=== PATIENT | female | born 1960 | race Caucasian/White ===

== ENCOUNTER 2017-11-10 14:30 | Outpatient (RCR) | payer MEDICAID, SELFPAY ==
--- NOTE | 2017-10-21 15:30 | HP.PTEVAL ---
Patient's Visit Information PREETI HERNÁNDEZ is a 57 year old F referred to Physical Therapy by June Mackenzie MD DR.[email or web address] with a diagnosis of NECK PAIN AND LOW BACK PAIN. Date of Evaluation: 10/21/17 Physical Therapist: Ric Bettencourt PT, - Visit Plan Frequency: 2x /Week Duration: 4 Weeks Plan: Aquatic PT lumbar/cervical ROM ,strengthening UE/LE,DLS,postural ex's - Subjective Subjective: This 57 y/o female presents neck pain and low back pain. Patient reports pain worse in cervical pain than lumbar. 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 Patient had steriod injections in cervical spine next morning pain and swelling and went to ER on 10/17/17. Then shot of tramadol and valium . D/C to home. Symptoms worse in cervical turning,lifting,bending sleeping . Symptoms better with heat. Denies parathesia/tingling. C/O JONES denies tinnutus/nausea. Location pain is worse on right with ocassional radicular symptoms.Symptoms worse with walking ,standing,lifting,bending. Symtoms better with heat. Patient had prior PT in water .Plan for epidural injectons. VOCATION: unemployed. SOCIAL: - Pain Bilateral Neck Pain Intensity (Out of 10): 5 Pain Intensity Range: 10 Bilateral Back Pain Intensity (Out of 10): 2 Pain Intensity Range: 10 - Objective POSTURE: mild foward ,head foward,decrease lordosis flat. NEURO: denies parathesia/tingling ,reflexes C5-6-7 2/3,L3-4,L4-L5,L5-S1. GAIT: normal neri ,reciprocal pattern. PALAPTION: tender throughout UT,posterior muscles ,throught lumbar eretor /paraspinals. CERVICAL: min flexion,extension mod loss,lateral flexion /rotation min/mod loss. LUMBAR ROM: flexion mod loss,extension mod /severe loss,side glides mod loss. MMT: Grossly 4-/5 ,shoulder 3+/5. quads/hams 4-/5,hip flexion 3+/5,ankle 4-/5. FLEXABLITY: hams mos loss,extension severe - Special Tests C/S Radiculapathy - Left Upper limb tension test: Negative C/S Radiculapathy - Right Upper limb tension test: Negative C/S Radiculapathy - Left Spurlings: Positive C/S Radiculapathy - Right Spurlings: Positive C/S Radiculapathy - Left Cervical distraction: Positive C/S Radiculapathy - Right Cervical distraction: Positive Cervical Sitting: Protrusion - Mechanical Response: No effect Cervical Sitting: Protrusion - Symptoms During Testing: Increases Cervical Sitting: Protrusion - Symptoms After Testing: Worse Cervical Sitting: Retraction - Mechanical Response: No effect Cervical Sitting: Retraction - Symptoms During Testing: Increases Cervical Sitting: Retraction - Symptoms After Testing: Worse L/S Slump test left side: Negative L/S Slump test right side: Negative L/S Left Straight Leg Raise: Negative L/S Right Straight Leg Raise: Negative Lumbar Standing: Flexion - Mechanical Response: No effect Lumbar Standing: Flexion - Symptoms During Testing: Increases Lumbar Standing: Flexion - Symptoms After Testing: Worse Lumbar Standing: Extension - Mechanical Response: No effect Lumbar Standing: Extension - Symptoms During Testing: Increases Lumbar Standing: Extension - Symptoms After Testing: Worse - Goals Goal 1:: Independant with Aquatic PT Goal Time Frame: 4-6 Weeks Goal 2:: Independant with posture for ADL'S Goal Time Frame: 4-6 Weeks Goal 3:: Decrease cerviacl and lumbar pain by 40% or greater to improve function with ADL'S Goal Time Frame: 4-6 Weeks Goal 4:: Patient increase strength BLE and BUE by 1/2 grade to improve function with ADL'S Goal Time Frame: 4-6 Weeks Goal 5:: Patient be able to stand walk with less pain in back cervical spine with min/mod limiations for ADL'S Goal Time Frame: 4-6 Weeks - Rehabilitation Potential Physical Therapy Diagnosis: This 57 y/o female has cervical and lumbar pain with MRI showing multple level protruding disc ,stenosis,foraminal stenosis in lumbar with pain ,poor ROM in lumbar /cervical affects. walking ,standing and ADL'S Rehabilitation Potential: Good - Anticipated Interventions Patient/Client Instruction: Educate patient on: Condition, Plan of Care For the Purpose of:: To decrease pain, To increase ROM, To improve muscle performance and motor function, To improve ability to perform ADL's, To increase tolerance to activity/condition/position, To improve performance and independence with ADL's, To improve ability of physical actions for home/community/work/leisure, To improve health of tissue, To decrease soft tissue restriction, To increase flexibility/ROM, To improve endurance, To improve ability to perform tasks related to life management Therapeutic Exercise to Include: Strength training, Body mechanics, Postural training, Flexibilty training, In an aquatic setting, Dynamic Lumbar Stabilization Comment: UE/LE For the Purpose of:: To decrease pain, To increase ROM, To improve muscle performance and motor function, To improve ability to perform ADL's, To increase tolerance to activity/condition/position, To improve performance and independence with ADL's, To improve ability of physical actions for home/community/work/leisure, To improve gait and locomotor functions, To improve health of tissue, To decrease soft tissue restriction, To increase flexibility/ROM, To improve endurance, To assume or resume ADL's, To improve ability to perform tasks related to life management Thank you for the opportunity to evaluate your patient. For Medicare and Medicare HMO plans, please review the plan of care and approve it. It will need to be FAXED BACK to us at [phone] for Medicare purposes. Please let me know if there are questions or concerns regarding this plan of care. Physician Signature: Date:
--- NOTE | 2017-12-28 10:41 | HP.PTDCSUM ---
HP - PT D/C Summary It has been my pleasure to treat PREETI HERNÁNDEZ under orders from June Mackenzie MD, TKWOK for the diagnosis of NECK PAIN AND LOW BACK PAIN for a total of 7 visit(s). Discharge Date: Please see the following information for a summary of their discharge status. - Subjective Subjective: States yesterday's pain was, Off the chart. Spasming. - Pain Bilateral Neck Pain Intensity (Out of 10): 1 Bilateral Back Pain Intensity (Out of 10): 0 - Overall Improvement % Improvement: 60 - Objective Objective/Function: Added lumbar/trunk AAROM with assist from buoyancy and water current for stretching - continued cues needed to decrease muscle recruitment d/t occasional c/o's pain. Completed UE core exc multiplaner - with difficulty maintaining trunk stabilization - cues throughout. Pt reported a decrease in pain on land at end of Rx through cerv. spine from 1/10 to 0/10, however an increase in LBP from 0/10 to 2/10. - Goals Goal 1:: Independant with Aquatic PT Goal 2:: Independant with posture for ADL'S Goal Progress: Progressing Goal 3:: Decrease cerviacl and lumbar pain by 40% or greater to improve function with ADL'S Goal 4:: Patient increase strength BLE and BUE by 1/2 grade to improve function with ADL'S Goal 5:: Patient be able to stand walk with less pain in back cervical spine with min/mod limiations for ADL'S - Plan Plan: f/u with cerv. AROM tasks given on paper as HEP prn. - D/C Information If there are questions or concerns regarding this patient's physical therapy, please feel free to call me at [phone]. Thank you for the referral of this patient. Sincerely, Ric Bettencourt, PT,
--- NOTE | 2017-12-28 10:42 | HP.PTDCNRP_ITS ---
HP - Discharge Summary (1) - Patient Information PREETI HERNÁNDEZ was seen in my office for initial evaluation on 10/21/17. The following Plan of Care was established for this patient: Initial Frequency: 2x /Week Initial Duration: 4 Weeks - Anticipated Interventions Patient/Client Instruction: Educate patient on: Condition, Plan of Care For the Purpose of:: To decrease pain, To increase ROM, To improve muscle performance and motor function, To improve ability to perform ADL's, To increase tolerance to activity/condition/position, To improve performance and independence with ADL's, To improve ability of physical actions for home/ community/work/leisure, To improve health of tissue, To decrease soft tissue restriction, To increase flexibility/ROM, To improve endurance, To improve ability to perform tasks related to life management Therapeutic Exercise to Include: Strength training, Body mechanics, Postural training, Flexibilty training, In an aquatic setting, Dynamic Lumbar Stabilization For the Purpose of:: To decrease pain, To increase ROM, To improve muscle performance and motor function, To improve ability to perform ADL's, To increase tolerance to activity/condition/position, To improve performance and independence with ADL's, To improve ability of physical actions for home/ community/work/leisure, To improve gait and locomotor functions, To improve health of tissue, To decrease soft tissue restriction, To increase flexibility/ ROM, To improve endurance, To assume or resume ADL's, To improve ability to perform tasks related to life management This patient was last seen in our office 11/10/17. Pertinent comments regarding their Physical therapy will appear below: Patient was seen for PT for neck and back pain for Aquatic PT for ROM cervical / lumbar ,postural ex's,DLS ,UE/LE strengthening.Patient progressing with decreasing pain to improve function ,but completed 7 visits ,thus is d/c. At this point I will be discontinuing this patient from physical therapy. I would be happy to see this patient again in the future if found appropriate by the physician. Thank you! Ric Bettencourt, PT,
== END 2017-11-10 19:00 | disposition home or self-care (01) ==
LOC: PT 14:30
PROVIDERS: Family Provider Family Medicine Geriatric Medicine; PCP Family Medicine Geriatric Medicine; Visit Provider Anesthesiology
DX: M54.2 Cervicalgia (principal); M54.5 Low back pain
CPT/HCPCS: 97113; 97162

== ENCOUNTER → 2017-11-30 14:20 | Outpatient (CLI) | payer MEDICAID, SELFPAY ==
--- NOTE | 2017-11-30 14:25 | HPBI_ITS ---
MAMMOGRAPHY - BILATERAL DIAGNOSTIC REASON FOR EXAM: Female, 57 years old. Six-month follow-up for right excisional breast biopsy. Left lateral breast tenderness. PERTINENT HISTORY: Non-contributory. TECHNIQUE: Digital bilateral breast andrey (3D mammographic acquisition) in the CC and MLO projections. 2-D mediolateral oblique (MLO) and craniocaudad (CC) views of both breasts were obtained. CAD: Full Field Digital Mammography with Computer Added Detection was performed. COMPARISON: Comparison is made with prior outside examination dated January 06, 2017 and October 16, 2016. FINDINGS: Breast Composition: The breasts are heterogeneously dense, which may obscure small masses. There are no dominant masses or suspicious calcifications. Stable focal area of architectural distortion in the upper lateral portion of the right breast. This corresponds to the biopsy site. Correlation with ultrasound is recommended. No other significant abnormalities are identified. There has been no significant change since the prior study. HPBI/DIAG MAMM W/CAD, BILAT IMPRESSION: Stable bilateral diagnostic mammogram. One year follow-up recommended. (A) ASSESSMENT CATEGORY: BIRADS Category 2: Benign. A letter regarding these results will be sent to the patient by the facility within 30 days. Approximately 10% of breast cancers are not detected by mammography. A normal mammogram should not delay biopsy of a clinically suspicious abnormality. Electronically Signed: Terrence Chun MD at 8:01 EST Tel [phone], Service support ,
--- NOTE | 2017-11-30 14:25 | US_ITS ---
STUDY: ULTRASOUND BREAST - RIGHT REASON FOR EXAM: Female, 57 years old. Six-month follow-up following right lumpectomy. TECHNIQUE: Axial and longitudinal images of the RIGHT breast were performed with a high resolution ultrasound transducer. COMPARISON: Comparison is made with prior mammogram done earlier in the day and prior sonogram dated May 28, 2017. FINDINGS: RIGHT Breast: At the surgical site, there is evidence of a 1.5 cm x 1.7 cm x 2.2 cm area of irregular shadowing most likely representing the site of the lumpectomy. US/Breast Limited Unilateral IMPRESSION: Postoperative changes seen at the lumpectomy site. ASSESSMENT CATEGORY: BIRADS Category 2: Benign. A letter regarding these results will be sent to the patient by the facility within 30 days. Electronically Signed: Terrence Chun MD at 8:15 EST Tel [phone], Service support ,
== END ==
PROVIDERS: Family Provider Family Medicine Geriatric Medicine; PCP Family Medicine Geriatric Medicine; Visit Provider Surgery
DX: R92.8 Other abnormal and inconclusive findings on diagnostic imaging of breast (principal)
CPT/HCPCS: 76642; 77062; 77066; G0279

== ENCOUNTER → 2017-12-09 17:00 | Outpatient (CLI) | payer MEDICAID, SELFPAY ==
[2017-12-09 17:53] LABS: Absolute Lymphocyte Count 2.89 X10^3/ul (0.83-4.51); Absolute Neutrophil Count 4.4 X10^3/uL (2.0-7.7); Basophil# 0.02 X10^3/uL; Basophil% 0.3 % (0-1); Eosinophils% 1.3 % (0-5); Hematocrit 42.5 % (37-47); Hemoglobin 13.9 g/dl (12.0-15.0); Lymphocyte # 2.89 X10^3/ul (4.0); Lymphocyte % 36.3 % (19-41); Mean Corp Hgb Conc 32.7 g/gl (32-36); Mean Corpuscular Hgb 30.6 pg (27.0-32.0); Mean Corpuscular Volume 93.6 fL (81-99); Mean Platelet Vol. 9.7 fl (6.2-12.0); Monocyte# 0.52 X10^3/uL; Monocyte% 6.5 % (0-10); Neutrophil # 4.43 X10^3/uL (2.7-7.7); Neutrophil % 55.5 % (47-70); Platelet Count 375 K/mm3 (150-450); RBC Distribution Width CV 14.2 % (11.6-14.6); RBC Distribution Width SD 48.5 fl (35.1-43.9); Red Blood Count 4.54 M/mm3 (4.2-5.4)
[2017-12-09 17:57] LABS: POSITIVE COUNT NO; POSITIVE DIFFERENTIAL NO; POSITIVE MORPHOLOGY NO
[2017-12-09 18:13] LABS: Vitamin D,25 Hydroxy 25.8 ng/mL (29.95-100.01)
[2017-12-09 19:05] LABS: ALB/GLOB Ratio 0.9 RATIO (0.9-2.4); AST(SGOT) 43 U/L (15-37); Alanine Aminotransfer ALT/SGPT 44 U/L (13-56); Albumin, Serum 3.6 g/dL (3.2-5.0); Alkaline Phosphatase 67 U/L (45-117); Anion Gap 10 (5-15); BUN 18 mg/dL (7-18); Chloride 104 mmol/L (98-107); EST Glomerular Filtration Rate 68 mL/min (>60); Est Glom Filt Rate - Afr Amer 83 mL/min (>60); Glucose 88 mg/dL (74-106); Potassium 3.9 mmol/L (3.5-5.1); Protein, Total 7.6 g/dL (6.4-8.2); Sodium Level 140 mmol/L (136-145); Thyroid Stim Hormone (TSH) 1.23 uIU/mL (0.358-3.74)
== END ==
PROVIDERS: Family Provider Family Medicine Geriatric Medicine; PCP Family Medicine Geriatric Medicine; Visit Provider Family Medicine Geriatric Medicine
DX: R53.83 Other fatigue (principal); E55.9 Vitamin D deficiency, unspecified
CPT/HCPCS: 36415; 80053; 82306; 84443; 85025

== ENCOUNTER → 2017-12-25 09:41 | Outpatient (CLI) | payer MEDICAID, SELFPAY ==
--- NOTE | 2017-12-25 09:43 | NM_ITS ---
CLINICAL: Female, 57 years old. Bilateral shoulder pain. Diffuse spine pain. WHOLE BODY NUCLEAR BONE SCAN TECHNIQUE: Following the IV administration of 25.3 mCi of Tc MDP, whole body bone imaging was performed with a gamma camera following a three hour delay. COMPARISON STUDIES : NM - None. CR - lumbar spine, September 19, 2016. CT - Not available for review at this time. MR - MRI of the lumbar spine, October 15, 2017. US - Not available for review at this time. FINDINGS: There are focal areas of increased activity at both acromioclavicular joints, right greater than left thought to be due to degenerative. There is scoliosis of the lumbar spine without focal areas of increased activity is minimally increased activity at the right costovertebral junction of T10. There is mildly increased activity in both sacroiliac joints. There is an otherwise normal concentration of radiopharmaceutical throughout the axial and appendicular skeletal system without either a focal decrease or increase in uptake. There is a focal area of increased activity to the right of the bladder. Question bladder diverticulum versus dilated distal right ureter. Minimal activity is also seen in the renal razia suggesting the possibility of hydronephrosis. NM/Bone Scan Whole Body IMPRESSION: 1. Focal areas of mildly increased activity consistent with degenerative change. 2. Prominent renal pelvis with focus of increased activity in the right of the bladder. Question mild ureteral dilatation versus bladder diverticulum. Electronically Signed: Layton Badillo DO at 12:39 EDT Tel [phone], Service support ,
== END ==
PROVIDERS: Family Provider Family Medicine Geriatric Medicine; PCP Family Medicine Geriatric Medicine; Visit Provider Anesthesiology
DX: M25.50 Pain in unspecified joint (principal)
CPT/HCPCS: 78306

== ENCOUNTER → 2018-01-19 13:04 | Outpatient (CLI) | payer MEDICAID, SELFPAY | PROVIDERS: Family Provider Family Medicine Geriatric Medicine; PCP Family Medicine Geriatric Medicine; Visit Provider Internal Medicine Critical Care Medicine | DX: G47.33 Obstructive sleep apnea (adult) (pediatric) (principal) | CPT/HCPCS: 98960; G0463 ==

== ENCOUNTER → 2018-01-20 16:25 | Outpatient (CLI) | payer MEDICAID, SELFPAY | PROVIDERS: Family Provider Family Medicine Geriatric Medicine; PCP Family Medicine Geriatric Medicine; Visit Provider Family Medicine Geriatric Medicine | DX: N39.0 Urinary tract infection, site not specified (principal) | CPT/HCPCS: 87086 ==

== ENCOUNTER → 2018-01-25 09:56 | Outpatient (CLI) | payer MEDICAID, SELFPAY ==
--- NOTE | 2018-01-25 10:25 | RAD_ITS ---
STUDY: IVP REASON FOR EXAM: Female, 57 years old. Hematuria RADIATION DOSAGE (If Supplied By Facility): CTDIvol = ( ) mGy, DLP = ( ) mGycm. Individualized dose optimization techniques were used for this CT.? 10 overhead images obtained TECHNIQUE: 60 mL Isovue 300 contrast administered COMPARISON: None. FINDINGS: Jewel Sorter film demonstrates retained stool in the colon. No free air identified. There are calcifications within the pelvis which are lucent centered and likely phleboliths. No demonstrated calcifications along the expected course of either ureter or over either renal shadow. After contrast ministration, there are prompt symmetric nephrograms with prompt excretion of contrast into the collecting systems. Both ureters are of normal course and caliber without evidence of obstruction. The bladder distends normally without evidence of filling defect, and no significant post void residual is noted. RAD/Pyelogram No Ceferino IMPRESSION: Unremarkable IVP no evidence of obstructive uropathy Electronically Signed: Lc Yee MD at 11:24 EDT , Service support ,
== END ==
PROVIDERS: Family Provider Family Medicine Geriatric Medicine; PCP Family Medicine Geriatric Medicine; Visit Provider Family Medicine Geriatric Medicine
DX: N32.3 Diverticulum of bladder (principal)
CPT/HCPCS: 74410; Q9967

== ENCOUNTER 2018-02-08 15:59 | Emergency (ER) | payer MEDICAID, SELFPAY ==
[2018-02-08 16:00] VITALS: BP 159/95; PULSE 94; RESP 16; TEMP 36.1; O2SAT 99; BMI 32.5
--- NOTE | 2018-02-08 16:44 | RAD_ITS ---
STUDY: X-RAY - RIGHT FOOT CLINICAL: Female, 57 years old. Foreign body second digit TECHNIQUE: 3 view(s) of the foot. COMPARISON: None. FINDINGS: Normal talus, calcaneus, and tarsal bones. Normal visualized subtalar, talonavicular, calcaneocuboid, tarsal and tarsometatarsal articulations. Normal metatarsi. There is now degenerative arthrosis of the metatarsophalangeal joint of the hallux . Normal tibial and fibular sesamoid bones. Normal interphalangeal joint of the great toe. Normal phalanges of the great toe. Normal second through fifth metatarsophalangeal joints. Normal interphalangeal joints and phalanges of the lesser toes. The soft tissue structures are unremarkable. RAD/Foot min 3 Views IMPRESSION: No visualized radiopaque foreign body. Electronically Signed: Lindsey Ge MD at 17:00 EDT Tel , Service support ,
--- NOTE | 2018-02-08 16:45 | ED.DCSUM_ITS ---
- ER Visit Summary Date of Service: 02/08/18 Chief Complaint: Foreign body sensation right second toe History of Present Illness: The patient is a 57 F who is otherwise healthy presents with foreign body sensation in her right second toe. Patient states that she was just folding clothes last night. She noticed a sharp pain on the inside of her right second toe. Since then, the pain is worsened throughout the day. She denies any puncture. She does not think she stepped on anything. Her tetanus is up-to-date. The area has not gotten red. There has been no drainage. She states that she has never really had symptoms like this before. She has no history of immunosuppression. Physical Examination: Exam is relatively unremarkable. There was no erythema of the toe. There is no skin breakdown. There is no visible puncture wound. There is no palpable defect. Cap refill is normal. Sensation is preserved. No pain with smaller range of motion. Test Results: [] Emergency Department Course and Treatment: There is no visible evidence of puncture. There is no evidence of paronychia, ingrown toenail, or infection of the pad of the toe. There is no streaking. The cap refill is normal. I did obtain plain films. I do not see any evidence of soft tissue swelling or retained foreign body. At this time, I am very hesitant to even attempt an incision and drainage at the point of maximal tenderness because I do not see evidence of puncture. The patient was placed in a postoperative shoe and started on anti-inflammatories. She will be given outpatient podiatry follow- up to be seen within the next 48 hours return to the emergency department. She is comfortable with this plan of care. Treatment Plan: [] Disposition: Discharge Impression: 1. Foreign body sensation right second toe This note was generated with [employer] dictation software. It may contain incorrect words, spelling, and punctuation that were not noted in review of the chart prior to signing ED Disposition - Plan for ED Patient: Chief Complaint: Foreign Body Instructions: ED Foreign Body Soft Tissue Prescriptions: Naproxen [Naprosyn] 500 mg PO BID PRN #20 tab Referrals: Vick De Los Santos DPM [STAFF PHYSICIAN] -
[2018-02-08 17:29] VITALS: RESP 16
--- NOTE | 2018-02-08 17:29 | ED.RN ---
REVIEWED D/C INSTRUCTIONS, FOLLOW UP CARE, PRESCRIPTION, AND S/S THAT WOULD WARRANT A RETURN TO THE ED WITH PT. PT VERBALIZED AN UNDERSTANDING AND DENIES FURTHER QUESTIONS FOR THIS RN. PT SKIN P/W/D, RESP EVEN AND UNLABORED, PT A&O X 3, NO DISTRESS NOTED. PT AMBULATED OUT OF ED, GAIT STEADY.
== END 2018-02-08 17:31 | disposition home or self-care (01) ==
PROVIDERS: Emergency Provider Emergency Medicine; Family Provider Family Medicine Geriatric Medicine; PCP Family Medicine Geriatric Medicine
DX: R20.2 Paresthesia of skin (principal); Z79.899 Other long term (current) drug therapy
CPT/HCPCS: 73630; 99283

== ENCOUNTER 2018-02-17 15:37 | Emergency (ER) | payer MEDICAID, SELFPAY ==
[2018-02-17 15:38] VITALS: BP 136/99; PULSE 89; RESP 14; TEMP 36.2; O2SAT 97; BMI 32.7
--- NOTE | 2018-02-17 15:50 | CT_ITS ---
STUDY: CT ABDOMEN AND PELVIS WITH CONTRAST REASON FOR EXAM: Female, 57 years old. Right sided abdominal pain for 2 days. Nausea. RADIATION DOSAGE (If Supplied By Facility): CTDIvol = ( 16.5 ) mGy, DLP = ( 1149.72 ) mGycm TECHNIQUE: Transaxial images were obtained from the dome of the diaphragm to the symphysis pubis with oral contrast. 100CC ml of Isovue 300 contrast was administered. Sagittal and coronal images were reconstructed. Individualized dose optimization techniques were used for this CT. COMPARISON: CT of the abdomen and pelvis, June 16, 2017. FINDINGS: The visualized lung bases are unremarkable. The visualized portions of the heart are within normal limits. There is geographic fatty infiltration of liver with sparing in the posterior right lobe and in the bladder fossa. Again seen is the hemangioma in segment 6 of the liver as noted on the prior study. There is non-visualization of the gallbladder, which may be secondary to either contraction or a prior cholecystectomy. There is mild dilatation of the bile ducts suggesting postcholecystectomy state. Normal spleen. Normal pancreas. Normal bilateral adrenal glands. Normal right kidney. Normal left kidney. Normal visualized stomach. Normal small intestine. Normal colon. There is non-visualization of the appendix. There are minimal atherosclerotic changes of the thoracic aorta without aneurysm. Normal inferior vena cava. Normal retroperitoneum. Normal urinary bladder. Normal uterus and adnexa. There are multiple phleboliths in the pelvis without lymphadenopathy. No free air or free fluid is seen in the peritoneal cavity. Normal abdominal wall. Normal osseous structures. CT/Abdomen/Pelvis WITH Contrast IMPRESSION: 1. Geographic fatty infiltration of the liver. Decrease in fatty infiltration when compared to prior study. 2. Stable hemangioma in the right liver. 3. No evidence of acute intra-abdominal or pelvic abnormality. Electronically Signed: Layton Badillo DO at 17:45 EDT Tel [phone], Service support ,
[2018-02-17] MEDS: Morphine 4 MG/ML Syringe IV (16:08)
[2018-02-17] MEDS: 0.9% Normal Saline 1,000 ML 1000 ML IV (16:08)
[2018-02-17] MEDS: Ondansetron 4 MG/2 ML Vial IV (16:08)
[2018-02-17 16:24] LABS: Red Blood Cells-Urine 0 SEEN /hpf (0-5)
[2018-02-17 16:29] LABS: Absolute Lymphocyte Count 2.17 X10^3/ul (0.83-4.51); Absolute Neutrophil Count 6.1 X10^3/uL (2.0-7.7); Basophil# 0.01 X10^3/uL; Basophil% 0.1 % (0-1); Eosinophil# 0.04 X10^3/uL; Eosinophils% 0.5 % (0-5); Hematocrit 44.4 % (37-47); Lymphocyte # 2.17 X10^3/ul (4.0); Lymphocyte % 24.7 % (19-41); Mean Corp Hgb Conc 33.8 g/gl (32-36); Mean Corpuscular Hgb 31.1 pg (27.0-32.0); Mean Corpuscular Volume 92.1 fL (81-99); Mean Platelet Vol. 9.1 fl (6.2-12.0); Monocyte# 0.44 X10^3/uL; Neutrophil % 69.6 % (47-70); POSITIVE COUNT NO; POSITIVE DIFFERENTIAL NO; POSITIVE MORPHOLOGY NO; Platelet Count 306 K/mm3 (150-450); RBC Distribution Width CV 13.2 % (11.6-14.6); RBC Distribution Width SD 44.1 fl (35.1-43.9); Red Blood Count 4.82 M/mm3 (4.2-5.4); White Blood Count 8.8 K/mm3 (4.4-11.0)
[2018-02-17 16:37] LABS: Color, Urine Yellow (Yellow); Glucose, Dipstick Normal (Normal); Ketone-Dipstick 15 mg/dl (Negative); Leukocyte Esterase-Dipstick 25 /ul (Negative); Nitrite-Dipstick Negative (Negative); Occult Blood-Urine 25 /ul (Negative); Protein-Dipstick Negative (Negative); Specific Gravity, Urine 1.025 (1.002-1.030); Urine Bilirubin Dipstick Negative (Negative); Urine Clarity Sl. Cloudy (Clear); Urine Urobilinogen Normal (Normal)
[2018-02-17 16:44] LABS: White Blood Cells 0-5 SEEN /hpf (0-5)
[2018-02-17 16:45] LABS: Bacteria 1+ /hpf (None Seen); Mucous, Urine 2+ /hpf (<or=2+); Squamous Epithelial Cells - UA 10-25 SEEN /hpf (5-10)
[2018-02-17 16:55] LABS: AST(SGOT) 21 U/L (15-37); Alanine Aminotransfer ALT/SGPT 25 U/L (13-56); Albumin, Serum 3.9 g/dL (3.2-5.0); Alkaline Phosphatase 78 U/L (45-117); Anion Gap 8 (5-15); BUN 20 mg/dL (7-18); BUN/Creat Ratio 21.4 RATIO (10-20); Bilirubin, Direct 0.16 mg/dL (0.00-0.30); Calcium,Total 9.3 mg/dL (8.5-10.1); Chloride 104 mmol/L (98-107); Creatinine, Serum 0.94 mg/dL (0.55-1.02); EST Glomerular Filtration Rate 65 mL/min (>60); Est Glom Filt Rate - Afr Amer 79 mL/min (>60); Globulin 4.2 g/dL (2.2-4.2); Glucose 97 mg/dL (74-106); Lipase 127 U/L (73-393); Potassium 3.2 mmol/L (3.5-5.1); Protein, Total 8.1 g/dL (6.4-8.2); Sodium Level 140 mmol/L (136-145)
--- NOTE | 2018-02-17 18:04 | ED.VISSUMM ---
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 She reports that she has had right-sided abdominal pain on and off for the past 2 years. It worsened 2 days ago. Sick continuous aching pain. Is 10 out of 10 with movement 6 out of 10 on rest. It is not worsened by food. She has had nausea without vomiting. Her last bowel was today. She has had no diarrhea, melena, or hematochezia. She denies any dysuria. Physical Examination: Vitals: Stable. Afebrile. General: Well-nourished and well-developed. Head: Normocephalic atraumatic. Neck: Supple, no lymphadenopathy. No JVD. Nontender. Cardiovascular: Regular rate and rhythm. No murmurs. Respiratory: No respiratory distress. Clear to auscultation bilaterally. Abdominal: Soft, mild right upper quadrant and right lower quadrant tenderness to palpation, the majority of her pain is over the very lateral portion of her abdomen on the right, nondistended, normal bowel sounds. No guarding, rebound, or peritoneal signs. Back: Nontender. Extremities: Nontender, no edema. Skin: Normal color, no rash. Neurologic: Alert and oriented ?3. Cranial nerves II through XII are intact. Normal strength and sensation. Psych: Normal affect. Test Results: CBC is normal. Chem-7 is remarkable for a potassium 3.2 and BUN of 20. LFTs are normal. Lipase is normal. UA is negative. CT of the abdomen pelvis. IV contrast shows no acute disease. Emergency Department Course and Treatment: Patient was treated the dose of morphine and Zofran IV. She is resting comfortably. Treatment Plan: Discussed the patient at this time I do not have an explanation for her pain. She will be discharged instructions to follow-up her primary care physician in 3-5 days not improving. Return to the emergency department for any worsening symptoms. Disposition: To home in improved and stable condition. Impression: 1. Abdominal pain, uncertain cause. This note was generated with [email or web address] dictation software. It may contain incorrect words, spelling, and punctuation that were not noted in review of the chart prior to signing ED Disposition - Plan for ED Patient: Disposition: Home or Assisted Living Chief Complaint: Abd Pain Instructions: ED Abdominal Pain Unkn Cause Referrals: Rey Palmer Chi, MD [Primary Care Provider] - 1-2 Days if not improving
== END 2018-02-17 18:34 | disposition home or self-care (01) ==
PROVIDERS: Emergency Provider Emergency Medicine; Family Provider Family Medicine Geriatric Medicine; PCP Family Medicine Geriatric Medicine
DX: R10.9 Unspecified abdominal pain (principal); R11.0 Nausea; R31.9 Hematuria, unspecified; M19.90 Unspecified osteoarthritis, unspecified site; Z79.899 Other long term (current) drug therapy
CPT/HCPCS: 74177; 80048; 80076; 81001; 83690; 85025; 96361; 96374; 96375; 99283; J7030; Q9967

== ENCOUNTER 2018-03-30 22:27 | Observation (INO) | payer MEDICAID, SELFPAY ==
[2018-03-30 22:27] VITALS: BP 116/67; PULSE 120; RESP 22; TEMP 36.7; O2SAT 98; BMI 29.7
[2018-03-30 22:45] VITALS: BP 135/74; PULSE 100; RESP 20; O2SAT 96
--- NOTE | 2018-03-30 22:57 | EKG12_ITS ---
Test Reason : DIZZY Blood Pressure : / mmHG Vent. Rate : 101 BPM Atrial Rate : 101 BPM P-R Int : 168 ms QRS Dur : 082 ms QT Int : 370 ms P-R-T Axes : 046 -02 037 degrees QTc Int : 479 ms Sinus tachycardia Otherwise normal ECG Confirmed by YASMIN FELDMAN, RICARDO ([id number]), senior editor RAOUL RITTER ([id number]) on 04/01/2018 2:34:00 PM Referred By: JOSUE Confirmed By:RICARDO HOFFMAN MD
--- NOTE | 2018-03-30 23:02 | ED.DCSUM_ITS ---
- ER Visit Summary Date of Service: 03/30/18 Chief Complaint: Dizzy, nausea, vomiting History of Present Illness: The patient is a 58 F reports nausea, vomiting, and diarrhea since this afternoon. She denies fever but does complain of some mild chills. She is complaining some upper abdominal pain. She states she has not eaten anything since yesterday. She has not been around any ill contacts that she knows of. Past abdominal surgical history includes cholecystectomy. Physical Examination: Vital signs significant for heart rate of 120 in triage. Heart rate is 100 at the time of my examination. Patient's lying in bed in no acute distress. Head and neck examination unremarkable. Heart is tachycardic and regular. Lung sounds are grossly clear. Abdomen is soft with tenderness in epigastric region. No guarding or rebound. Hypoactive bowel sounds are noted. Test Results: CBC reveals hemoglobin concentrated at 15.4. Chemistry studies are significant for potassium of 3.4 and a glucose of 120. LFTs and lipase are normal. EKG is sinus at 101 with no sign of acute ischemia. Emergency Department Course and Treatment: Patient given IV fluids and Zofran. She declined anything for pain. Repeat evaluation she started vomiting. She is given a small dose of IV Phenergan. Half hour later she states her nausea is improving but not to the point where she is able to tolerate anything by mouth. At this point I will speak with the hospitalist for observation overnight with continued IV hydration and medication. Treatment Plan: [] Disposition: Admit Impression: Gastroenteritis This note was generated with [employer] dictation software. It may contain incorrect words, spelling, and punctuation that were not noted in review of the chart prior to signing ED Disposition - Plan for ED Patient: Chief Complaint: Dizziness Referrals: Rey Palmer Chi, MD [Primary Care Provider] -
[2018-03-30] MEDS: 0.9% Normal Saline 1,000 ML 150 ML IV (23:20)
[2018-03-30] MEDS: Ondansetron 4 MG/2 ML Vial IV (23:20)
[2018-03-30 23:29] LABS: Absolute Lymphocyte Count 1.27 X10^3/ul (0.83-4.51); Basophil# 0.01 X10^3/uL; Basophil% 0.1 % (0-1); Eosinophil# 0.12 X10^3/uL; Eosinophils% 1.3 % (0-5); Hematocrit 43.9 % (37-47); Hemoglobin 15.4 g/dl (12.0-15.0); Lymphocyte # 1.27 X10^3/ul (4.0); Lymphocyte % 14.3 % (19-41); Mean Corp Hgb Conc 35.1 g/gl (32-36); Mean Corpuscular Hgb 31.4 pg (27.0-32.0); Mean Corpuscular Volume 89.6 fL (81-99); Mean Platelet Vol. 9.4 fl (6.2-12.0); Monocyte# 0.45 X10^3/uL; Monocyte% 5.1 % (0-10); Neutrophil # 7.03 X10^3/uL (2.7-7.7); Neutrophil % 79.1 % (47-70); Platelet Count 337 K/mm3 (150-450); RBC Distribution Width CV 13.1 % (11.6-14.6); RBC Distribution Width SD 42.6 fl (35.1-43.9); White Blood Count 8.9 K/mm3 (4.4-11.0)
[2018-03-30 23:31] LABS: POSITIVE COUNT NO; POSITIVE DIFFERENTIAL NO; POSITIVE MORPHOLOGY NO
[2018-03-30 23:48] LABS: AST(SGOT) 29 U/L (15-37); Alanine Aminotransfer ALT/SGPT 29 U/L (13-56); Albumin, Serum 3.8 g/dL (3.2-5.0); Alkaline Phosphatase 93 U/L (45-117); Anion Gap 12 (5-15); BUN 13 mg/dL (7-18); BUN/Creat Ratio 14.7 RATIO (10-20); Bilirubin, Direct 0.19 mg/dL (0.00-0.30); Calcium,Total 9.4 mg/dL (8.5-10.1); Chloride 103 mmol/L (98-107); Creatinine, Serum 0.89 mg/dL (0.55-1.02); EST Glomerular Filtration Rate 69 mL/min (>60); Est Glom Filt Rate - Afr Amer 84 mL/min (>60); Estimated Creatinine Clearance 61.24 ml/min; Glucose 120 mg/dL (74-106); Lipase 109 U/L (73-393); Potassium 3.4 mmol/L (3.5-5.1); Protein, Total 7.8 g/dL (6.4-8.2); Sodium Level 140 mmol/L (136-145)
[2018-03-31] VITALS (7 sets, daily range): BP systolic 97–160; BP diastolic 60–87; PULSE 71–110; RESP 14–18; TEMP 36.7–37.6; O2SAT 94–100; BMI 31.6
--- NOTE | 2018-03-31 00:59 | PCM.HP.STD ---
Problem List (1) Gastroenteritis Status: Acute (2) ARIELA (obstructive sleep apnea) Status: Chronic Comment: 10/6 cm of water (3) History of colectomy Status: Resolved (4) S/P lumpectomy of breast Status: Resolved (5) [place] teeth extracted Status: Resolved (6) Allergic rhinitis Status: Chronic (7) Depression Status: Chronic (8) Anxiety Status: Chronic (9) Acute urticaria Status: Resolved (10) Scoliosis Status: Chronic (11) Neck pain Status: Chronic (12) Thoracic back pain Status: Chronic (13) Chronic lower back pain Status: Chronic (14) BPPV (benign paroxysmal positional vertigo) Status: Chronic (15) Warts Status: Chronic (16) Muscle spasm Status: Chronic (17) Lumbar disc lesion Status: Chronic (18) Dehydration Status: Acute (19) Hematuria Status: Resolved (20) Right flank pain Status: Resolved (21) Streptococcus agalactiae infection Status: Resolved (22) Abnormal mammogram of right breast Status: Chronic (23) Obesity Status: Chronic Qualifiers: (24) Fatty liver Status: Chronic (25) GERD (gastroesophageal reflux disease) Status: Chronic (26) HLD (hyperlipidemia) Status: Chronic History of Present Illness Date of Admission: 03/31/18 Chief Complaint: N/V/D The patient is a 58 year old F with PMH of chronic pain S., Steatosis, GERD, hyperlipidemia, obesity, chronic narcotic dependence, anxiety/depression and allergic rhinitis who presented to the ED at [facility] on 03/30/2018 c/o N/V/D that started earlier in the day. She denied sick contacts. No fevers or shaking chills but, admits to feeling hot and then cold. She denies hematemesis or melena. Vital signs at presentation to the emergency room were temperature 98.1, pulse rate 120, blood pressure 116/67, respiratory rate 22 and she was 98% saturated on room air. Significant lab included an elevated hemoglobin at 15.4 and a low potassium at 3.4. She was initially given Zofran in the emergency room but this was not effective. This was followed by 6.25 mg of Phenergan IV and the nausea improved but the patient did not feel well enough to go home. She is being admitted to the hospital for observation, hydration and anti-emetics. Past Medical History Past Medical History (Chronic Problems): Chronic Problems (Last Reviewed 03/22/18 @ 11:08 by ISABEL Padgett) ARIELA (obstructive sleep apnea) (Chronic) 10/6 cm of water Allergic rhinitis (Chronic) Depression (Chronic) Anxiety (Chronic) Scoliosis (Chronic) Neck pain (Chronic) Thoracic back pain (Chronic) Chronic lower back pain (Chronic) BPPV (benign paroxysmal positional vertigo) (Chronic) Warts (Chronic) Muscle spasm (Chronic) Lumbar disc lesion (Chronic) Abnormal mammogram of right breast (Chronic) Obesity (Chronic) Fatty liver (Chronic) GERD (gastroesophageal reflux disease) (Chronic) HLD (hyperlipidemia) (Chronic) Medical History: Medical History (Last Reviewed 03/22/18 @ 11:08 by ISABEL Padgett) ARIELA (obstructive sleep apnea) (Chronic) G47.33 10/6 cm of water Allergic rhinitis (Chronic) J30.9 Depression (Chronic) F32.9 Anxiety (Chronic) F41.9 Acute urticaria (Acute) L50.8 Scoliosis (Chronic) M41.9 Neck pain (Chronic) M54.2 Thoracic back pain (Chronic) M54.6 Chronic lower back pain (Chronic) M54.5, G89.29 BPPV (benign paroxysmal positional vertigo) (Chronic) H81.10 Warts (Chronic) B07.9 Muscle spasm (Chronic) M62.838 Lumbar disc lesion (Chronic) M51.9 Dehydration (Chronic) E86.0 Nausea (Acute) R11.0 Hematuria (Acute) R31.9 Right flank pain (Acute) R10.9 Streptococcus agalactiae infection (Acute) A49.1 Abnormal mammogram of right breast (Chronic) R92.8 Sleep disorder breathing (Chronic) G47.30 Obesity (Chronic) E66.9 Fatty liver (Acute) K76.0 GERD (gastroesophageal reflux disease) (Acute) K21.9 HLD (hyperlipidemia) (Acute) E78.5 Allergies codeine Allergy (Verified 03/30/18 22:30) Itching ATB Allergy (Uncoded 03/30/18 22:30) Unknown Home Medications: Ambulatory Orders Medication Instructions Recorded Omeprazole [Prilosec] 40 mg PO QHS 12/19/15 Ranitidine [Zantac] 300 mg PO QHS 03/23/16 Sertraline HCl [Zoloft] 50 mg PO QHS 12/19/15 [place]-3 Fatty Acids [Fish Oil] 1,000 mg PO BID 09/19/16 Pravastatin Sodium [Pravachol] 40 mg PO QHS 06/23/17 busPIRone [Buspar] 15 mg PO BID 06/23/17 Baclofen [Lioresal] 10 mg PO TID 06/24/17 Fluticasone 0.05% [Flonase Nasal 1 spray NASAL QHS 06/24/17 [place]] phentermine 15 mg capsule 15 mg PO QDAY 12/31/17 Buprenorphine [Buprenorphine] 1 patch TP QWEEK 02/08/18 Meloxicam 7.5 mg PO BID 03/30/18 Surgical History: Surgical History (Last Reviewed 03/31/18 @ 01:05 by Reba Schwab DO) History of colectomy (Resolved) Z98.890, Z90.49 S/P lumpectomy of breast (Resolved) Z98.890 [place] teeth extracted (Resolved) K08.499 Surgical History: cholecystectomy Psychiatric History: Anxiety, Depression 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 Denies: Chills, Fever Eyes: Denies: Vision Change HEENT: Denies: Head Aches, Sinus Congestion, Sinus Drainage Cardiovascular: Denies: Chest Pain, Palpitations Respiratory: Denies: Cough, Shortness of breath at rest, Sputum production Gastrointestinal: Reports: Abdominal Pain - prior to vomiting and the vomiting relieves it, Diarrhea, Nausea, Vomiting. Denies: Dyspepsia, Hematemesis, Hematochezia, Melena Genitourinary: Denies: Dysuria Gynecological: Denies: Vaginal discharge Musculoskeletal: Reports: Back Pain - chronic Skin: Denies: Rash, Wounds Neurological: Denies: Numbness, Tingling, Focal weakness Psychiatric: Reports: Anxiety, Depression Endocrine: Denies: Change in Body Habitus Hematologic/ Lymphatic: Denies: Hx of blood clot VTE Information - Inpt Only VTE Present on Admission: No VTE Mechan Device Prophylaxis: None VTE Pharm Prophylaxis ordered?: No Reason prophylaxis not ordered:: Treatment Not Indicated - low risk and she is ambulatory. short admission is expected Patient Problems: Active and Suspected Problems (Last Reviewed 03/22/18 @ 11:08 by ISABEL Padgett) Gastroenteritis (Acute) - Physical Exam General: Alert, Oriented x3, Cooperative, - - looks ill HEENT: Atraumatic, PERRLA, EOMI, Normocephalic Oral: Dry Mucosa Neck: Supple, No Nodes, Trachea Midline Lungs: Clear to auscultation Cardiovascular: Regular Rhythm, Normal S1, Normal S2, No murmurs, No rub noted, No Gallop, Tachycardic Abdomen: Soft, Non Tender, Non-Distended, No Hepato-splenomegaly, Hypoactive Bowel Sounds Extremities: No clubbing, No cyanosis, No edema Skin: No rashes, No breakdown Musculoskeletal: No Muscle Wasting Neurological: Cranial nerves II-XII grossly intact, Neuro grossly intact Psych/Mental Status: Appropriate Vital Signs Temp Pulse Resp BP Pulse Ox 99.6 F H 110 H 14 116/74 94 03/31/18 00:54 03/31/18 00:54 03/31/18 00:54 03/31/18 00:54 03/31/18 00:54 Oxygen Delivery Method Room Air Weight: 179 lb Body Mass Index (BMI) 29.7 Laboratory Tests Past 24 Hrs 03/30/18 03/30/18 23:15 23:15 WBC 8.9 RBC 4.90 Hgb 15.4 H Hct 43.9 MCV 89.6 MCH 31.4 MCHC 35.1 RDW 13.1 RDW Differential 42.6 Plt Count 337 MPV 9.4 Immature Gran % (Auto) 0.100 Neut % (Auto) 79.1 H Lymph % (Auto) 14.3 L [place] % (Auto) 5.1 Eos % (Auto) 1.3 Baso % (Auto) 0.1 Absolute Neuts (auto) 7.0 Absolute Lymphs (auto) 1.27 Total Counted Not Reportable Sodium 140 Potassium 3.4 L Chloride 103 Carbon Dioxide 25.0 Anion Gap 12 BUN 13 Creatinine 0.89 Estim Creat Clear Calc 61.24 Est GFR (MDRD) Af Amer 84 Est GFR (MDRD) Non-Af 69 BUN/Creatinine Ratio 14.7 Glucose 120 H Calcium 9.4 Total Bilirubin 0.80 Direct Bilirubin 0.19 AST 29 ALT 29 Alkaline Phosphatase 93 Total Protein 7.8 Albumin 3.8 Globulin 4.0 Lipase 109 Assessment/Plan All Active Problems (Last Reviewed 03/22/18 @ 11:08 by Tami Loza, MOSAIC TILE MAKER-C) Gastroenteritis (Acute) History of colectomy (Resolved) S/P lumpectomy of breast (Resolved) [place] teeth extracted (Resolved) Dehydration (Acute) Acute urticaria (Resolved) Hematuria (Resolved) Right flank pain (Resolved) Streptococcus agalactiae infection (Resolved) Impressions 1. gastroenteritis 2. dehydration 3. narcotic dependence 4. chronic pain S. 5. GERD 6. HTN/HLD/steatosis/allergic rhinitis/anxiety/depression IV fluids antiemetics sips and chips enteric pathogen panel Pepcid 20 mg IV q 12 H recheck the lab in the AM Advance diet as tolerated Code Visit OBSV E&M: [id number] Initial observation care L3
--- NOTE | 2018-03-31 01:11 | HP.PCM_ITS ---
Problem List (1) Gastroenteritis Status: Acute (2) ARIELA (obstructive sleep apnea) Status: Chronic Comment: 10/6 cm of water (3) History of colectomy Status: Resolved (4) S/P lumpectomy of breast Status: Resolved (5) [place] teeth extracted Status: Resolved (6) Allergic rhinitis Status: Chronic (7) Depression Status: Chronic (8) Anxiety Status: Chronic (9) Acute urticaria Status: Resolved (10) Scoliosis Status: Chronic (11) Neck pain Status: Chronic (12) Thoracic back pain Status: Chronic (13) Chronic lower back pain Status: Chronic (14) BPPV (benign paroxysmal positional vertigo) Status: Chronic (15) Warts Status: Chronic (16) Muscle spasm Status: Chronic (17) Lumbar disc lesion Status: Chronic (18) Dehydration Status: Acute (19) Hematuria Status: Resolved (20) Right flank pain Status: Resolved (21) Streptococcus agalactiae infection Status: Resolved (22) Abnormal mammogram of right breast Status: Chronic (23) Obesity Status: Chronic Qualifiers: (24) Fatty liver Status: Chronic (25) GERD (gastroesophageal reflux disease) Status: Chronic (26) HLD (hyperlipidemia) Status: Chronic History of Present Illness Date of Admission: 03/31/18 Chief Complaint: N/V/D The patient is a 58 year old F with PMH of chronic pain S., Steatosis, GERD, hyperlipidemia, obesity, chronic narcotic dependence, anxiety/depression and allergic rhinitis who presented to the ED at [facility] on 03/30/2018 c/o N/V/D that started earlier in the day. She denied sick contacts. No fevers or shaking chills but, admits to feeling hot and then cold. She denies hematemesis or melena. Vital signs at presentation to the emergency room were temperature 98.1 , pulse rate 120, blood pressure 116/67, respiratory rate 22 and she was 98% saturated on room air. Significant lab included an elevated hemoglobin at 15.4 and a low potassium at 3.4. She was initially given Zofran in the emergency room but this was not effective. This was followed by 6.25 mg of Phenergan IV and the nausea improved but the patient did not feel well enough to go home. She is being admitted to the hospital for observation, hydration and anti- emetics. Past Medical History Past Medical History (Chronic Problems): Chronic Problems (Last Reviewed 03/22/18 @ 11:08 by ISABEL Padgett) ARIELA (obstructive sleep apnea) (Chronic) 10/6 cm of water Allergic rhinitis (Chronic) Depression (Chronic) Anxiety (Chronic) Scoliosis (Chronic) Neck pain (Chronic) Thoracic back pain (Chronic) Chronic lower back pain (Chronic) BPPV (benign paroxysmal positional vertigo) (Chronic) Warts (Chronic) Muscle spasm (Chronic) Lumbar disc lesion (Chronic) Abnormal mammogram of right breast (Chronic) Obesity (Chronic) Fatty liver (Chronic) GERD (gastroesophageal reflux disease) (Chronic) HLD (hyperlipidemia) (Chronic) Medical History: Medical History (Last Reviewed 03/22/18 @ 11:08 by ISABEL Padgett) ARIELA (obstructive sleep apnea) (Chronic) G47.33 10/6 cm of water Allergic rhinitis (Chronic) J30.9 Depression (Chronic) F32.9 Anxiety (Chronic) F41.9 Acute urticaria (Acute) L50.8 Scoliosis (Chronic) M41.9 Neck pain (Chronic) M54.2 Thoracic back pain (Chronic) M54.6 Chronic lower back pain (Chronic) M54.5, G89.29 BPPV (benign paroxysmal positional vertigo) (Chronic) H81.10 Warts (Chronic) B07.9 Muscle spasm (Chronic) M62.838 Lumbar disc lesion (Chronic) M51.9 Dehydration (Chronic) E86.0 Nausea (Acute) R11.0 Hematuria (Acute) R31.9 Right flank pain (Acute) R10.9 Streptococcus agalactiae infection (Acute) A49.1 Abnormal mammogram of right breast (Chronic) R92.8 Sleep disorder breathing (Chronic) G47.30 Obesity (Chronic) E66.9 Fatty liver (Acute) K76.0 GERD (gastroesophageal reflux disease) (Acute) K21.9 HLD (hyperlipidemia) (Acute) E78.5 Allergies codeine Allergy (Verified 03/30/18 22:30) Itching ATB Allergy (Uncoded 03/30/18 22:30) Unknown Home Medications: Ambulatory Orders Medication Instructions Recorded Omeprazole [Prilosec] 40 mg PO QHS 12/19/15 Ranitidine [Zantac] 300 mg PO QHS 03/23/16 Sertraline HCl [Zoloft] 50 mg PO QHS 12/19/15 [place]-3 Fatty Acids [Fish Oil] 1,000 mg PO BID 09/19/16 Pravastatin Sodium [Pravachol] 40 mg PO QHS 06/23/17 busPIRone [Buspar] 15 mg PO BID 06/23/17 Baclofen [Lioresal] 10 mg PO TID 06/24/17 Fluticasone 0.05% [Flonase Nasal 1 spray NASAL QHS 06/24/17 [place]] phentermine 15 mg capsule 15 mg PO QDAY 12/31/17 Buprenorphine [Buprenorphine] 1 patch TP QWEEK 02/08/18 Meloxicam 7.5 mg PO BID 03/30/18 Surgical History: Surgical History (Last Reviewed 03/31/18 @ 01:05 by Reba Schwab DO) History of colectomy (Resolved) Z98.890, Z90.49 S/P lumpectomy of breast (Resolved) Z98.890 [place] teeth extracted (Resolved) K08.499 Surgical History: cholecystectomy Psychiatric History: Anxiety, Depression 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 Denies: Chills, Fever Eyes: Denies: Vision Change HEENT: Denies: Head Aches, Sinus Congestion, Sinus Drainage Cardiovascular: Denies: Chest Pain, Palpitations Respiratory: Denies: Cough, Shortness of breath at rest, Sputum production Gastrointestinal: Reports: Abdominal Pain - prior to vomiting and the vomiting relieves it, Diarrhea, Nausea, Vomiting. Denies: Dyspepsia, Hematemesis, Hematochezia, Melena Genitourinary: Denies: Dysuria Gynecological: Denies: Vaginal discharge Musculoskeletal: Reports: Back Pain - chronic Skin: Denies: Rash, Wounds Neurological: Denies: Numbness, Tingling, Focal weakness Psychiatric: Reports: Anxiety, Depression Endocrine: Denies: Change in Body Habitus Hematologic/ Lymphatic: Denies: Hx of blood clot VTE Information - Inpt Only VTE Present on Admission: No VTE Mechan Device Prophylaxis: None VTE Pharm Prophylaxis ordered?: No Reason prophylaxis not ordered:: Treatment Not Indicated - low risk and she is ambulatory. short admission is expected Patient Problems: Active and Suspected Problems (Last Reviewed 03/22/18 @ 11:08 by ISABEL Padgett) Gastroenteritis (Acute) - Physical Exam General: Alert, Oriented x3, Cooperative, - - looks ill HEENT: Atraumatic, PERRLA, EOMI, Normocephalic Oral: Dry Mucosa Neck: Supple, No Nodes, Trachea Midline Lungs: Clear to auscultation Cardiovascular: Regular Rhythm, Normal S1, Normal S2, No murmurs, No rub noted, No Gallop, Tachycardic Abdomen: Soft, Non Tender, Non-Distended, No Hepato-splenomegaly, Hypoactive Bowel Sounds Extremities: No clubbing, No cyanosis, No edema Skin: No rashes, No breakdown Musculoskeletal: No Muscle Wasting Neurological: Cranial nerves II-XII grossly intact, Neuro grossly intact Psych/Mental Status: Appropriate Vital Signs Temp Pulse Resp BP Pulse Ox 99.6 F H 110 H 14 116/74 94 03/31/18 00:54 03/31/18 00:54 03/31/18 00:54 03/31/18 00:54 03/31/18 00:54 Oxygen Delivery Method Room Air Weight: 179 lb Body Mass Index (BMI) 29.7 Laboratory Tests Past 24 Hrs 03/30/18 03/30/18 23:15 23:15 WBC 8.9 RBC 4.90 Hgb 15.4 H Hct 43.9 MCV 89.6 MCH 31.4 MCHC 35.1 RDW 13.1 RDW Differential 42.6 Plt Count 337 MPV 9.4 Immature Gran % (Auto) 0.100 Neut % (Auto) 79.1 H Lymph % (Auto) 14.3 L [place] % (Auto) 5.1 Eos % (Auto) 1.3 Baso % (Auto) 0.1 Absolute Neuts (auto) 7.0 Absolute Lymphs (auto) 1.27 Total Counted Not Reportable Sodium 140 Potassium 3.4 L Chloride 103 Carbon Dioxide 25.0 Anion Gap 12 BUN 13 Creatinine 0.89 Estim Creat Clear Calc 61.24 Est GFR (MDRD) Af Amer 84 Est GFR (MDRD) Non-Af 69 BUN/Creatinine Ratio 14.7 Glucose 120 H Calcium 9.4 Total Bilirubin 0.80 Direct Bilirubin 0.19 AST 29 ALT 29 Alkaline Phosphatase 93 Total Protein 7.8 Albumin 3.8 Globulin 4.0 Lipase 109 Assessment/Plan All Active Problems (Last Reviewed 03/22/18 @ 11:08 by Tami Loza, COMMUNICATIONS TOWER CLIMBER-C) Gastroenteritis (Acute) History of colectomy (Resolved) S/P lumpectomy of breast (Resolved) [place] teeth extracted (Resolved) Dehydration (Acute) Acute urticaria (Resolved) Hematuria (Resolved) Right flank pain (Resolved) Streptococcus agalactiae infection (Resolved) Impressions 1. gastroenteritis 2. dehydration 3. narcotic dependence 4. chronic pain S. 5. GERD 6. HTN/HLD/steatosis/allergic rhinitis/anxiety/depression IV fluids antiemetics sips and chips enteric pathogen panel Pepcid 20 mg IV q 12 H recheck the lab in the AM Advance diet as tolerated Code Visit OBSV E&M: [id number] Initial observation care L3
[2018-03-31] MEDS: proMETHazine 25 MG/ML Syringe 6.25 MG IV ×2 (01:29)
[2018-03-31] MEDS: Famotidine 20mg IV Push Syringe Q12 300 MG IVP ×3 (03:04→21:46)
[2018-03-31] MEDS: Mag Hydrox/Al Hydrox/Simeth 30 ML UDC 15 ML PO (06:41)
[2018-03-31 06:56] LABS: Absolute Lymphocyte Count 0.79 X10^3/ul (0.83-4.51); Absolute Neutrophil Count 4.8 X10^3/uL (2.0-7.7); Eosinophil# 0.06 X10^3/uL; Hematocrit 39.9 % (37-47); Hemoglobin 13.3 g/dl (12.0-15.0); Lymphocyte # 0.79 X10^3/ul (4.0); Lymphocyte % 13.4 % (19-41); Mean Corp Hgb Conc 33.3 g/gl (32-36); Mean Corpuscular Hgb 30.9 pg (27.0-32.0); Mean Corpuscular Volume 92.6 fL (81-99); Mean Platelet Vol. 9.3 fl (6.2-12.0); Monocyte# 0.28 X10^3/uL; Monocyte% 4.7 % (0-10); Neutrophil # 4.76 X10^3/uL (2.7-7.7); Neutrophil % 80.7 % (47-70); Platelet Count 270 K/mm3 (150-450); RBC Distribution Width CV 13.6 % (11.6-14.6); RBC Distribution Width SD 45.8 fl (35.1-43.9); Red Blood Count 4.31 M/mm3 (4.2-5.4); White Blood Count 5.9 K/mm3 (4.4-11.0)
[2018-03-31 07:03] LABS: POSITIVE COUNT NO; POSITIVE DIFFERENTIAL NO; POSITIVE MORPHOLOGY NO
[2018-03-31 07:15] LABS: Anion Gap 7 (5-15); BUN 11 mg/dL (7-18); BUN/Creat Ratio 14.3 RATIO (10-20); Calcium,Total 7.9 mg/dL (8.5-10.1); Chloride 106 mmol/L (98-107); Creatinine, Serum 0.77 mg/dL (0.55-1.02); EST Glomerular Filtration Rate 82 mL/min (>60); Est Glom Filt Rate - Afr Amer 99 mL/min (>60); Estimated Creatinine Clearance 62.22 ml/min; Glucose 107 mg/dL (74-106); Potassium 3.6 mmol/L (3.5-5.1); Sodium Level 138 mmol/L (136-145)
[2018-03-31] MEDS: Acetaminophen 325 MG Tablet 650 MG PO ×3 (07:50→21:57)
[2018-03-31] MEDS: Baclofen 10 MG Tablet PO ×3 (09:58→16:25)
--- NOTE | 2018-03-31 14:47 | PCM.HOSP.N ---
Hospitalist Note The patient was seen and examined in the morning. 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 H&P, vitals, labs and plan of management reviewed. In summary, this is a 58-year-old female with history of chronic pain syndrome, dyslipidemia, GERD and obesity was admitted for nausea vomiting and diarrhea that is started a day before yesterday. She said from tomorrow morning until admission C had about 10 times, loose watery diarrhea without mucus or blood. She felt that she might have gotten sick from the toddler. She has infrequently mild abdominal discomfort/cramps secondary to vomiting and diarrhea. On exam: Abdomen: Soft, nontender nondistended bowel sounds present. Bowel sounds hyperactive. Lungs: Air entry bilaterally equal. No crepitation/rhonchi. Heart: S1-S2 regular no murmur gallop rub Neuro: No focal neurological deficit. 1. Most probably acute viral gastroenteritis: She is being admitted on regular floor. She said she was on antibiotic for UTI about 6 months ago. She has not taken laxative for last 4 days. Currently on supportive management with IV fluid, antiemetics. Started on clear liquid diet 2. Mild hypokalemia with dehydration: Continue IV fluid normal saline with KCl. 3. Other comorbidities Include GERD, chronic pain syndrome with nicotine dependence, hypertension, dyslipidemia, steatosis, anxiety and depression and allergic rhinitis: Home medication reconciliation done.
--- NOTE | 2018-03-31 14:52 | CCHN_ITS ---
Hospitalist Note The patient was seen and examined in the morning. 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 H&P, vitals, labs and plan of management reviewed. In summary, this is a 58-year-old female with history of chronic pain syndrome, dyslipidemia, GERD and obesity was admitted for nausea vomiting and diarrhea that is started a day before yesterday. She said from tomorrow morning until admission C had about 10 times, loose watery diarrhea without mucus or blood. She felt that she might have gotten sick from the toddler. She has infrequently mild abdominal discomfort/cramps secondary to vomiting and diarrhea. On exam: Abdomen: Soft, nontender nondistended bowel sounds present. Bowel sounds hyperactive. Lungs: Air entry bilaterally equal. No crepitation/rhonchi. Heart: S1-S2 regular no murmur gallop rub Neuro: No focal neurological deficit. 1. Most probably acute viral gastroenteritis: She is being admitted on regular floor. She said she was on antibiotic for UTI about 6 months ago. She has not taken laxative for last 4 days. Currently on supportive management with IV fluid, antiemetics. Started on clear liquid diet 2. Mild hypokalemia with dehydration: Continue IV fluid normal saline with KCl. 3. Other comorbidities Include GERD, chronic pain syndrome with nicotine dependence, hypertension, dyslipidemia, steatosis, anxiety and depression and allergic rhinitis: Home medication reconciliation done.
[2018-03-31] MEDS: Fluticasone 0.05% 1 SPRAY NASAL.SRY NASAL (21:45)
[2018-04-01 03:50] VITALS: BP 143/72; PULSE 80; RESP 18; TEMP 37; O2SAT 95
[2018-04-01] MEDS: Acetaminophen 325 MG Tablet 650 MG PO (04:22)
[2018-04-01 08:25] VITALS: BP 131/81; PULSE 77; RESP 18; TEMP 36.9; O2SAT 96
[2018-04-01] MEDS: Famotidine 20mg IV Push Syringe Q12 300 MG IVP (08:43)
[2018-04-01] MEDS: Baclofen 10 MG Tablet PO ×2 (09:25→11:30)
[2018-04-01] MEDS: Ketorolac 15 MG/ML Vial IV (10:19)
--- NOTE | 2018-04-01 11:08 | PCM.DC ---
- Discharge Diagnoses Current Active Problems: Current Active and Chronic Problems (Last Reviewed 03/22/18 @ 11:08 by ISABEL Padgett) Gastroenteritis (Acute) You will use the following diet at home:: Regular Discharge Activity: May Not Drive, May not drive while taking narcotic pain medications. Call your doctor if you observe: Fever of 101 or Higher, Shortness of breath Allergies/Adverse Reactions: Allergies codeine Allergy (Verified 03/30/18 22:30) Itching ATB Allergy (Uncoded 03/30/18 22:30) Unknown Medications to take at Discharge Ranitidine [Zantac] 300 mg PO QHS 12/19/15 Sertraline HCl [Zoloft] 50 mg PO QHS 12/19/15 [place]-3 Fatty Acids [Fish Oil] 1,000 mg PO BID 09/19/16 Pravastatin Sodium [Pravachol] 40 mg PO QHS 06/23/17 busPIRone [Buspar] 15 mg PO BID 06/23/17 Baclofen [Lioresal] 10 mg PO TID 06/24/17 Fluticasone 0.05% [Flonase Nasal [place]] 1 spray NASAL QHS 06/24/17 phentermine 15 mg capsule 15 mg PO QDAY 12/31/17 Buprenorphine 1 patch TP QWEEK 02/08/18 Meloxicam 7.5 mg PO BID 03/30/18 Primary Care Physician: Rey Palmer Chi, MD [Primary Care Provider] - Please follow up with your Primary Care Physician in: in 2 weeks Test Results: Please Follow Up With: Michael Acosta MD When: for chronic back pain
--- NOTE | 2018-04-01 11:10 | PCM.DC.SUM ---
Discharge Date and Diagnosis - Problem List Patient Problems: Active and Suspected Problems (Last Reviewed 03/22/18 @ 11:08 by ISABEL Padgett) Gastroenteritis (Acute) Date of Admission: 03/31/18 Date of Discharge: 04/01/18 - Primary Discharge Diagnosis Active and Suspected Problems (Last Reviewed 03/22/18 @ 11:08 by ISABEL Padgett) Gastroenteritis (Acute) 1 Most probably acute viral gastroenteritis: 2. Mild hypokalemia with dehydration: - Secondary Discharge Diagnosis Chronic Problems (Last Reviewed 03/22/18 @ 11:08 by ISABEL Padgett) ARIELA (obstructive sleep apnea) (Chronic) 10/6 cm of water Allergic rhinitis (Chronic) Depression (Chronic) Anxiety (Chronic) Scoliosis (Chronic) Neck pain (Chronic) Thoracic back pain (Chronic) Chronic lower back pain (Chronic) BPPV (benign paroxysmal positional vertigo) (Chronic) Warts (Chronic) Muscle spasm (Chronic) Lumbar disc lesion (Chronic) Abnormal mammogram of right breast (Chronic) Obesity (Chronic) Fatty liver (Chronic) GERD (gastroesophageal reflux disease) (Chronic) HLD (hyperlipidemia) (Chronic) Hospital Course and Treatment Summary of Care Provided: The patient is a 58 year old female with history of chronic pain syndrome, dyslipidemia, GERD and obesity was admitted for nausea vomiting and diarrhea that is started a day before yesterday. She said from tomorrow morning until admission C had about 10 times, loose watery diarrhea without mucus or blood. She felt that she might have gotten sick from the toddler. She had infrequently mild abdominal discomfort/cramps secondary to vomiting and diarrhea. She was further admitted on regular [facility] floor. On exam: Abdomen: Soft, nontender nondistended bowel sounds present. Bowel sounds hyperactive. Lungs: Air entry bilaterally equal. No crepitation/rhonchi. Heart: S1-S2 regular no murmur gallop rub Neuro: No focal neurological deficit. Extremities: No pedal edema 1. Most probably acute viral gastroenteritis: She is being admitted on regular floor. She said she was on antibiotic for UTI about 6 months ago. She has not taken laxative for last 4 days. Currently on supportive management with IV fluid, antiemetics. Started on clear liquid diet which was progressed to solid diet. Patient had colonoscopy about 2 years ago and hemorrhoid was found. She has intermittent rectal bleeding because of hemorrhoids in the past. Stool for occult blood positive but no obvious hematochezia or GI bleed. H&H is stable. Initial hemoglobin 15.4 may be from hemoconcentration as patient was dry. Stool for leukocytes is negative. Stool for C. difficile was canceled because she had solid stool. 2. Mild hypokalemia with dehydration: Continue IV fluid normal saline with KCl. Repeat K3.6. Potassium replaced 3. Other comorbidities include GERD, chronic pain syndrome with nicotine dependence, hypertension, dyslipidemia, steatosis, anxiety and depression and allergic rhinitis: Discharge medication reconciliation done. Follow-up instructions given. Follow pain management Dr. Acosta with chronic back pain Follow with PCP in 1-2 weeks. Discharge Activity: May Not Drive, May not drive while taking narcotic pain medications. Call your doctor if you observe: Fever of 101 or Higher, Shortness of breath Home Medications: Medications to take at Discharge Ranitidine [Zantac] 300 mg PO QHS 12/19/15 Sertraline HCl [Zoloft] 50 mg PO QHS 12/19/15 [place]-3 Fatty Acids [Fish Oil] 1,000 mg PO BID 09/19/16 Pravastatin Sodium [Pravachol] 40 mg PO QHS 06/23/17 busPIRone [Buspar] 15 mg PO BID 06/23/17 Baclofen [Lioresal] 10 mg PO TID 06/24/17 Fluticasone 0.05% [Flonase Nasal [place]] 1 spray NASAL QHS 06/24/17 phentermine 15 mg capsule 15 mg PO QDAY 12/31/17 Buprenorphine 1 patch TP QWEEK 02/08/18 Meloxicam 7.5 mg PO BID 03/30/18 Primary Care Physician: Rey Palmer Chi, MD [Primary Care Provider] - Please follow up with your Primary Care Physician in: in 2 weeks Please Follow Up With: Michael Acosta MD When: for chronic back pain Medical Necessity - Tobacco Use Smoking Status: Never smoker Tobacco Use: Non-smoker Meaningful Use Info Meaningful Use Diagnoses (Choose all that apply): None applicable Code Visit OBSV E&M: 30204 Observation care discharge
[2018-04-01 14:25] VITALS: BP 132/80; PULSE 79; RESP 18; TEMP 37.1; O2SAT 96
== END 2018-04-01 15:24 | disposition home or self-care (01) ==
LOC: ED 23:04 → PCU 03-31 01:01
PROVIDERS: Admitting Provider Internal Medicine; Emergency Provider Emergency Medicine; Family Provider Family Medicine Geriatric Medicine; PCP Family Medicine Geriatric Medicine; Visit Provider Internal Medicine
DX: K52.9 Noninfective gastroenteritis and colitis, unspecified (principal); E87.6 Hypokalemia; E86.0 Dehydration; G47.33 Obstructive sleep apnea (adult) (pediatric); F41.9 Anxiety disorder, unspecified; F32.9 Major depressive disorder, single episode, unspecified; M41.9 Scoliosis, unspecified; Z79.899 Other long term (current) drug therapy; K21.9 Gastro-esophageal reflux disease without esophagitis; E78.5 Hyperlipidemia, unspecified; E66.9 Obesity, unspecified; Z68.31 Body mass index [BMI] 31.0-31.9, adult; Z71.3 Dietary counseling and surveillance; H81.10 Benign paroxysmal vertigo, unspecified ear; G89.4 Chronic pain syndrome; I10 Essential (primary) hypertension; F11.20 Opioid dependence, uncomplicated; Z87.891 Personal history of nicotine dependence
CPT/HCPCS: 36415; 80048; 80076; 82274; 83630; 83690; 85025; 87493; 87506; 93005; 96361; 96365; 96366; 96375; 96376; 97802; 99218; 99283; J7030; G0378; J2405; J3490

== ENCOUNTER → 2018-04-05 15:44 | Outpatient (CLI) | payer MEDICAID, SELFPAY ==
[2018-04-05 17:54] LABS: Anion Gap 11 (5-15); BUN 17 mg/dL (7-18); Calcium,Total 9.7 mg/dL (8.5-10.1); Chloride 100 mmol/L (98-107); Creatinine, Serum 0.81 mg/dL (0.55-1.02); EST Glomerular Filtration Rate 77 mL/min (>60); Est Glom Filt Rate - Afr Amer 93 mL/min (>60); Glucose 88 mg/dL (74-106); Potassium 3.8 mmol/L (3.5-5.1); Sodium Level 139 mmol/L (136-145)
== END ==
PROVIDERS: Family Provider Family Medicine Geriatric Medicine; PCP Family Medicine Geriatric Medicine; Visit Provider Family Medicine Geriatric Medicine
DX: E87.6 Hypokalemia (principal)
CPT/HCPCS: 36415; 80048

== ENCOUNTER 2018-04-09 12:42 | Day surgery (SDC) | payer MEDICAID, SELFPAY ==
[2018-04-09] VITALS (7 sets, daily range): BP systolic 133–157; BP diastolic 69–84; PULSE 60–70; RESP 16; TEMP 36.2–36.7; O2SAT 95–97; BMI 31.1
--- NOTE | 2018-04-09 14:01 | PCM.DC ---
- Discharge Diagnoses Current Active Problems: Right sacroiliitis and right gluteal pain Reason(s) for Visit for Discharge Instructions: Right sacroiliac joint injection and right pyriformis muscle injection under fluoroscopy guidance Discharge Activity: Return to Normal Activity Return to work on:: 03/30/18 May shower in (days): 1 January resume sexual activity in: No Restrictions Weight Bearing Status: Weight bearing as tolerated Call your doctor if your incision/area has: Continuous Slow Oozing, Increased Pain/ Swelling, Foul Smelling Discharge Call your doctor if you observe: Fever of 101 or Higher, Coldness, Increased Pain, Numbness or Tingling, Calf discomfort, Uncontrolled pain Suture Line Care: Avoid Pulling/Pushing, Avoid Pinching/Bending Change Dressing in (Days):: 1 Remove Dressing in (days):: 1 Cleanse incision/area with: Soap & Water Allergies/Adverse Reactions: Allergies codeine Allergy (Verified 03/30/18 22:30) Itching UNK ANTIBIOTIC Allergy (Uncoded 04/08/18 10:34) Other DOESN'T REMEMBER REACTION MIGHT HAVE GOTTEN HIVES Medications to take at Discharge Ranitidine [Zantac] 300 mg PO QHS 12/19/15 Sertraline HCl [Zoloft] 50 mg PO QHS 12/19/15 [place]-3 Fatty Acids [Fish Oil] 1,000 mg PO BID 09/19/16 Pravastatin Sodium [Pravachol] 40 mg PO QHS 06/23/17 busPIRone [Buspar] 15 mg PO BID 06/23/17 Baclofen [Lioresal] 10 mg PO TID 06/24/17 Fluticasone 0.05% [Flonase Nasal [place]] 1 spray NASAL QHS 06/24/17 Buprenorphine 1 patch TP QWEEK 02/08/18 Meloxicam 7.5 mg PO BID 03/30/18 Primary Care Physician: Rey Palmer Chi, MD [Primary Care Provider] - Test Results: Test results from this visit will be discussed in further detail at your follow-up appointment, if applicable. Please Follow Up With: June Mackenzie MD
--- NOTE | 2018-04-09 14:04 | DCINST_ITS ---
- Discharge Diagnoses Current Active Problems: Right sacroiliitis and right gluteal pain Reason(s) for Visit for Discharge Instructions: Right sacroiliac joint injection and right pyriformis muscle injection under fluoroscopy guidance Discharge Activity: Return to Normal Activity Return to work on:: 03/30/18 May shower in (days): 1 January resume sexual activity in: No Restrictions Weight Bearing Status: Weight bearing as tolerated Call your doctor if your incision/area has: Continuous Slow Oozing, Increased Pain/ Swelling, Foul Smelling Discharge Call your doctor if you observe: Fever of 101 or Higher, Coldness, Increased Pain, Numbness or Tingling, Calf discomfort, Uncontrolled pain Suture Line Care: Avoid Pulling/Pushing, Avoid Pinching/Bending Change Dressing in (Days):: 1 Remove Dressing in (days):: 1 Cleanse incision/area with: Soap & Water Allergies/Adverse Reactions: Allergies codeine Allergy (Verified 03/30/18 22:30) Itching UNK ANTIBIOTIC Allergy (Uncoded 04/08/18 10:34) Other DOESN'T REMEMBER REACTION MIGHT HAVE GOTTEN HIVES Medications to take at Discharge Ranitidine [Zantac] 300 mg PO QHS 12/19/15 Sertraline HCl [Zoloft] 50 mg PO QHS 12/19/15 [place]-3 Fatty Acids [Fish Oil] 1,000 mg PO BID 09/19/16 Pravastatin Sodium [Pravachol] 40 mg PO QHS 06/23/17 busPIRone [Buspar] 15 mg PO BID 06/23/17 Baclofen [Lioresal] 10 mg PO TID 06/24/17 Fluticasone 0.05% [Flonase Nasal [place]] 1 spray NASAL QHS 06/24/17 Buprenorphine 1 patch TP QWEEK 02/08/18 Meloxicam 7.5 mg PO BID 03/30/18 Primary Care Physician: Rey Palmer Chi, MD [Primary Care Provider] - Test Results: Test results from this visit will be discussed in further detail at your follow- up appointment, if applicable. Please Follow Up With: June Mackenzie MD
--- NOTE | 2018-04-09 14:04 | PCM.OPRPT ---
Problem List (1) Muscle spasm Status: Chronic (2) Amplified musculoskeletal pain, localized Status: Acute (3) Bilateral buttock pain Status: Acute (4) Sacroiliitis, not elsewhere classified Status: Acute Report of Operation Date of Procedure: 04/09/18 Pre-Operative Diagnosis: Sacroiliitis and piriformis muscle syndrome Post-Operative Diagnosis: Same Surgery/Procedure Performed:: Right sacroiliac joint injection and right pyriformis muscle injection under fluoroscopy guidance Description of Surgical Findings:: Under sterile conditions. Patient placed in the prone position, pressure points were padded, patient was ready from the nursing and the anesthesia team. After identification of the side and the target area for the block under guided fluoroscopy, the entry site was marked with marking pen. I used Betadine for sterilization of the skin, sterile draping were applied. Using 25-gauge needle to infiltrate the skin with local anesthesia using preservative-free lidocaine 0.5% injected 5 mL at each site of entry critic joint was oblique guidance fluoroscopy as well as 5 mL infiltration at the target of the piriformis muscle mid level between insertion and origin. Using oblique fluoroscopy, accessed the right sacroiliac joint and right pyriformis muscle using 22-gauge spinal needle. After confirmation of appropriate needle placement to the targeted area with AP and lateral fluoroscopy, injected 8 mL mL mixture of preservative-free Marcaine 0.5% and Kenalog [60] mg at right sacroiliac joint site, injected 20 mg Kenalog with Marcaine 0.5% 5 mL at the piriformis muscle confirmed with fluoroscopy showing appropriate muscle spread at the target region. [place] was removed, pressure dressing were applied. Patient tolerated the procedure well and was taken to the recovery. Type of Anesthesia:: MAC - Complications None
--- NOTE | 2018-04-09 14:10 | RAD_ITS ---
STUDY: FLUOROSCOPIC IMAGING PROVIDED FOR LEFT SI JOINT AND LEFT PIRIFORMIS INJECTION. REASON FOR EXAM: Female, 58 years old. Right-sided pain. FLUOROSCOPY TIME (if supplied): (14.4 seconds) minutes/seconds TECHNIQUE: Imaging provided for right sacroiliac joint and right piriformis injection. COMPARISON: None. FINDINGS: The spinal needle is seen overlying the right sacroiliac joint and right piriformis muscle. RAD/Fluoro Guided Needle Placement IMPRESSION: Imaging provided for right SI joint injection and right piriformis injection. Electronically Signed: Terrence Chun MD at 15:05 EDT Tel [phone], Service support ,
[2018-04-09] MEDS: Bupivacaine 0.25% 30 ML Vial (14:19)
[2018-04-09] MEDS: Triamcinolone Acetonide 40 MG/ML Vial (14:19)
== END 2018-04-09 15:23 | disposition home or self-care (01) ==
LOC: SDC 12:43 → AC 12:44
PROVIDERS: Family Provider Family Medicine Geriatric Medicine; PCP Family Medicine Geriatric Medicine; Visit Provider Anesthesiology
PROC: 3E0U3GC Introduction of Other Therapeutic Substance into Joints, Percutaneous Approach (ICD-10-PCS; CPT 27096; principal; 2018-04-09 13:55)
DX: M46.1 Sacroiliitis, not elsewhere classified (principal); G57.00 Lesion of sciatic nerve, unspecified lower limb; M54.5 Low back pain; M62.838 Other muscle spasm; E78.00 Pure hypercholesterolemia, unspecified; K58.9 Irritable bowel syndrome, unspecified; G25.81 Restless legs syndrome; K21.9 Gastro-esophageal reflux disease without esophagitis; F32.9 Major depressive disorder, single episode, unspecified; F41.9 Anxiety disorder, unspecified; E66.9 Obesity, unspecified; Z68.31 Body mass index [BMI] 31.0-31.9, adult; Z79.899 Other long term (current) drug therapy; Z78.0 Asymptomatic menopausal state; Z98.51 Tubal ligation status
CPT/HCPCS: 01992; 27096; 76000; 77002; J7120

== ENCOUNTER → 2018-05-07 22:49 | Outpatient (CLI) | payer MEDICAID, SELFPAY | PROVIDERS: Family Provider Family Medicine Geriatric Medicine; PCP Family Medicine Geriatric Medicine; Visit Provider Nurse Practitioner Acute Care | DX: G47.33 Obstructive sleep apnea (adult) (pediatric) (principal) | CPT/HCPCS: 95811 ==

== ENCOUNTER 2018-06-25 11:42 | Day surgery (SDC) | payer MEDICAID, SELFPAY ==
[2018-06-25] VITALS (8 sets, daily range): BP systolic 128–161; BP diastolic 78–110; PULSE 52–56; RESP 14–16; TEMP 36.2–36.8; O2SAT 96–100; BMI 33.1
--- NOTE | 2018-06-25 13:30 | RAD_ITS ---
Fluoroscopic guidance for epidural by referring clinical service INDICATION: L4-L5 epidural TECHNIQUE: 5 fluoroscopic images. 19 seconds of fluoroscopy time FINDINGS: Multiple fluoroscopic images demonstrate placement of a needle at L4-L5 with injection of epidural contrast. RAD/Spine 1 View Any Level IMPRESSION: Fluoroscopic guidance for L4-L5 procedure. Please see procedural report. Electronically Signed: Elan Arevalo MD at 14:47 EDT , Service support ,
[2018-06-25] MEDS: Triamcinolone Acetonide 40 MG/ML Vial (13:43)
--- NOTE | 2018-06-25 13:59 | PCM.DC ---
- Discharge Diagnoses Current Active Problems: Lower back pain due to lumbar degenerative disc disease and lumbar radiculopathy You will use the following diet at home:: No restrictions Your food should be the consistency of: Regular Your liquids should be the consistency of: Regular/Thin Discharge Activity: Return to Normal Activity Return to work on:: 06/28/18January shower in (days): 1 May resume sexual activity in: No Restrictions Weight Bearing Status: Weight bearing as tolerated Call your doctor if your incision/area has: Continuous Slow Oozing, Sudden Increased Bleeding, Increased Pain/ Swelling, Increased Redness, Swelling at the incision site Call your doctor if you observe: Numbness or Tingling, Inability to urinate, Inability to have a bowel movement, Using more than one pad per hour, Shortness of breath, Dizziness, Fainting spells, Swelling in the ankles, Chest pain, Prolonged hiccoughing, Increased palpitations (irregular heartbeat), Calf discomfort, Uncontrolled pain Suture Line Care: Avoid Pulling/Pushing, Avoid Pinching/Bending Cleanse incision/area with: Soap & Water Allergies/Adverse Reactions: Allergies codeine Allergy (Verified 06/25/18 12:01) Itching UNK ANTIBIOTIC Allergy (Uncoded 06/25/18 12:01) Other DOESN'T REMEMBER REACTION MIGHT HAVE GOTTEN HIVES Medications to take at Discharge Ranitidine [Zantac] 300 mg PO QHS 12/19/15 Sertraline HCl [Zoloft] 50 mg PO QHS 12/19/15 [place]-3 Fatty Acids [Fish Oil] 1,000 mg PO BID 09/19/16 Pravastatin Sodium [Pravachol] 40 mg PO QHS 06/23/17 busPIRone [Buspar] 15 mg PO BID 06/23/17 Baclofen [Lioresal] 10 mg PO TID 06/24/17 Fluticasone 0.05% [Flonase Nasal [place]] 1 spray NASAL QHS 06/24/17 Buprenorphine 1 patch TP QWEEK 02/08/18 Meloxicam 7.5 mg PO BID 03/30/18 Primary Care Physician: Rey Palmer Chi, MD [Primary Care Provider] - Test Results: Test results from this visit will be discussed in further detail at your follow-up appointment, if applicable. Please Follow Up With: June Mackenzie MD
--- NOTE | 2018-06-25 14:03 | OP.PCM_ITS ---
Problem List (1) Intervertebral disc disorder with radiculopathy of lumbar region Status: Acute (2) Other intervertebral disc degeneration, lumbar region Status: Acute Report of Operation Date of Procedure: 06/25/18 Pre-Operative Diagnosis: Lumbar degenerative disease and lumbar disc degeneration with lumbar radiculopathy Post-Operative Diagnosis: Same Surgery/Procedure Performed:: Lumbar epidural steroid injection at the level of the L4-5 under fluoroscopy and conscious sedation Description of Surgical Findings:: Under sterile conditions. Patient placed in the prone position, pressure points were padded, patient was ready from the nursing and the anesthesia team. After identification of the side and the target area for the block under guided fluoroscopy, the entry site was marked with marking pen. I used Betadine for sterilization of the skin, sterile draping were applied. Using 25-gauge needle to infiltrate the skin with local anesthesia using preservative-free lidocaine 0.5% injected 2.5 mL at site of entry. Using guided fluoroscopy, accessed the the posterior epidural space using 18- gauge Touhy needles under midline approach, accessed the site was assisted with lateral fluoroscopy, followed by using [id number] technique using preservative-free normal saline, negative aspiration of CSF and blood. Injected contrast solution [2.5] mL under live fluoroscopy which showed good spread of the contrast to the posterior epidural space and to the targeted area of the injection at[ L4-5]. Injected [5] mL of mixture of preservative-free lidocaine and Kenalog [80] mg for the procedure which showed appropriate spread in the epidural space. [place] was removed, pressure dressing were applied. Patient tolerated the pro cedure well and was taken to the recovery. Type of Anesthesia:: Local MAC, MAC - Complications None
== END 2018-06-25 14:44 | disposition home or self-care (01) ==
LOC: SDC 11:43 → AC 11:45
PROVIDERS: Family Provider Family Medicine Geriatric Medicine; PCP Family Medicine Geriatric Medicine; Referring Provider Anesthesiology; Visit Provider Anesthesiology
PROC: 3E0S3BZ Introduction of Anesthetic Agent into Epidural Space, Percutaneous Approach (ICD-10-PCS; CPT 62322; principal; 2018-06-25 07:25)
DX: M51.16 Intervertebral disc disorders with radiculopathy, lumbar region (principal); I10 Essential (primary) hypertension; E78.00 Pure hypercholesterolemia, unspecified; G25.81 Restless legs syndrome; K58.9 Irritable bowel syndrome, unspecified; G47.30 Sleep apnea, unspecified; K21.9 Gastro-esophageal reflux disease without esophagitis; F32.9 Major depressive disorder, single episode, unspecified; F41.9 Anxiety disorder, unspecified; E66.9 Obesity, unspecified; Z68.33 Body mass index [BMI] 33.0-33.9, adult; Z79.899 Other long term (current) drug therapy; Z78.0 Asymptomatic menopausal state
CPT/HCPCS: 62323; 64483; 72020; J7120; J3490

== ENCOUNTER → 2018-07-26 15:12 | Outpatient (CLI) | payer MEDICAID, SELFPAY ==
--- NOTE | 2018-07-26 15:24 | RAD_ITS ---
STUDY: X-RAY - PELVIS AND BILATERAL HIPS REASON FOR EXAM: Female, 58 years old. Bilateral hip pain, no injury TECHNIQUE: Radiological exam, hip, bilateral, with pelvis when performed; minimum of 5 views COMPARISON: None. FINDINGS: There is a non-specific bowel gas pattern. Normal visualized soft tissue structures. Normal bilateral iliac wings, sacroiliac joints and visualized sacrum. Normal bilateral superior and inferior pubic rami. Normal pubic symphysis. Normal bilateral ischial tuberosities. Normal visualized right femoral head. Normal right acetabulum. Normal right hip joint. Normal visualized left femoral head. Normal left acetabulum. Normal left hip joint. RAD/Hips B/L min 2 views w/ Pelvis IMPRESSION: Normal x-ray examination of the pelvis and bilateral hips. Electronically Signed: Tello Dowd DO at 14:10 EDT Tel , Service support ,
== END ==
PROVIDERS: Family Provider Family Medicine Geriatric Medicine; PCP Family Medicine Geriatric Medicine; Referring Provider Anesthesiology; Visit Provider Anesthesiology
DX: M25.552 Pain in left hip (principal); M25.551 Pain in right hip
CPT/HCPCS: 73521

== ENCOUNTER → 2018-08-18 13:51 | Outpatient (CLI) | payer MEDICAID, SELFPAY ==
[2018-08-18 16:09] LABS: Absolute Lymphocyte Count 2.86 X10^3/ul (0.83-4.51); Absolute Neutrophil Count 4.1 X10^3/uL (2.0-7.7); Basophil# 0.02 X10^3/uL; Basophil% 0.3 % (0-1); Eosinophil# 0.09 X10^3/uL; Eosinophils% 1.2 % (0-5); Hematocrit 41.7 % (37-47); Hemoglobin 13.4 g/dl (12.0-15.0); Lymphocyte # 2.86 X10^3/ul (4.0); Lymphocyte % 36.9 % (19-41); Mean Corp Hgb Conc 32.1 g/gl (32-36); Mean Corpuscular Hgb 30.4 pg (27.0-32.0); Mean Corpuscular Volume 94.6 fL (81-99); Mean Platelet Vol. 9.7 fl (6.2-12.0); Monocyte# 0.66 X10^3/uL; Monocyte% 8.5 % (0-10); Neutrophil % 52.7 % (47-70); Platelet Count 331 K/mm3 (150-450); RBC Distribution Width CV 13.4 % (11.6-14.6); RBC Distribution Width SD 46.2 fl (35.1-43.9); Red Blood Count 4.41 M/mm3 (4.2-5.4); White Blood Count 7.8 K/mm3 (4.4-11.0)
[2018-08-18 16:20] LABS: POSITIVE COUNT NO; POSITIVE DIFFERENTIAL NO; POSITIVE MORPHOLOGY NO
[2018-08-18 16:37] LABS: ALB/GLOB Ratio 0.8 RATIO (0.9-2.4); AST(SGOT) 24 U/L (15-37); Alanine Aminotransfer ALT/SGPT 29 U/L (13-56); Albumin, Serum 3.2 g/dL (3.2-5.0); Alkaline Phosphatase 87 U/L (45-117); Anion Gap 10 (5-15); BUN 17 mg/dL (7-18); Calcium,Total 9.2 mg/dL (8.5-10.1); Chloride 102 mmol/L (98-107); EST Glomerular Filtration Rate 68 mL/min (>60); Est Glom Filt Rate - Afr Amer 83 mL/min (>60); Glucose 80 mg/dL (74-106); Potassium 3.8 mmol/L (3.5-5.1); Protein, Total 7.2 g/dL (6.4-8.2); Sodium Level 140 mmol/L (136-145); Thyroid Stim Hormone (TSH) 1.27 uIU/mL (0.358-3.74)
[2018-08-23 16:13] LABS: Hep C Antibodies <0.1 s/co ratio (0.0-0.9)
== END ==
PROVIDERS: Family Provider Family Medicine Geriatric Medicine; PCP Family Medicine Geriatric Medicine; Visit Provider Family Medicine Geriatric Medicine
DX: R53.83 Other fatigue (principal); Z13.89 Encounter for screening for other disorder
CPT/HCPCS: 36415; 80053; 84443; 85025; 86803

== ENCOUNTER 2018-09-29 12:31 | Emergency (ER) | payer MEDICAID, SELFPAY ==
[2018-09-29 12:32] VITALS: BP 139/100; PULSE 91; RESP 16; TEMP 36.7; O2SAT 97; BMI 34.4
[2018-09-29] MEDS: HYDROcodone Bitartrate/Apap 5/325 Tablet PO (13:21)
--- NOTE | 2018-09-29 13:25 | RAD_ITS ---
STUDY: X-RAY - LEFT SHOULDER REASON FOR EXAM: Female, 58 years old. Left arm pain. No known injury. TECHNIQUE: 2 view(s) of the shoulder. COMPARISON: None. FINDINGS: Normal glenohumeral articulation. Normal acromioclavicular joint. Normal acromion. Normal humeral head and visualized proximal humerus. There is periarticular soft tissue calcification consistent with a calcific tendinitis. Normal visualized pulmonary apex. RAD/Shoulder min 2 Views IMPRESSION: Calcific tendinitis. Electronically Signed: Terrence Chun MD at 13:43 EST Tel [phone], Service support ,
--- NOTE | 2018-09-29 14:17 | ED.VISSUMM ---
- ER Visit Summary Date of Service: 09/29/18 Chief Complaint: Left arm pain History of Present Illness: The patient is a 58 F with pain that starts in her left shoulder and radiates down her left arm. The pain is severe. Nothing seemed to bring on or make it worse. She has trouble moving her arm. No chest pain or shortness of breath. No history of this in the past. Physical Examination: Afebrile and vital signs unremarkable. Left shoulder diffusely tender to palpation. Pain with range of motion. No warmth or redness. Neurovascular intact distally. Elbow, forearm, wrist, hand unremarkable. Heart regular rate and rhythm. Lungs clear. Test Results: X-rays show calcific tendinitis. Emergency Department Course and Treatment: Patient's x-rays, his symptoms, and exam are consistent with calcific tendinitis. Patient will be treated with pain medicine. Range of motion exercises. Follow-up with orthopedics. Treatment Plan: as above Disposition: Discharged Impression: 1. Left shoulder calcific tendinitis This note was generated with [employer] dictation software. It may contain incorrect words, spelling, and punctuation that were not noted in review of the chart prior to signing ED Disposition - Plan for ED Patient: Chief Complaint: Upper Extremity Injury Referrals: Rey Palmer Chi, MD [Primary Care Provider] -
--- NOTE | 2018-09-29 14:19 | ED.DEP ---
ED Disposition - Plan for ED Patient: Chief Complaint: Upper Extremity Injury Instructions: ED Tendinitis Calcific Prescriptions: Oxycodone HCl/Acetaminophen [Percocet 5/325] 1 tab PO Q6H PRN PRN 3 Days #12 tab PRN Reason: Pain Referrals: Brad Roberts DO [STAFF PHYSICIAN] -
[2018-09-29 15:03] VITALS: BP 152/88
== END 2018-09-29 15:09 | disposition home or self-care (01) ==
LOC: ED 13:39
PROVIDERS: Emergency Provider Emergency Medicine; Family Provider Family Medicine Geriatric Medicine; PCP Family Medicine Geriatric Medicine
DX: M75.32 Calcific tendinitis of left shoulder (principal); M19.90 Unspecified osteoarthritis, unspecified site; K21.9 Gastro-esophageal reflux disease without esophagitis; F32.9 Major depressive disorder, single episode, unspecified
CPT/HCPCS: 73030; 99283

== ENCOUNTER 2018-10-08 12:06 | Day surgery (SDC) | payer MEDICAID, SELFPAY ==
[2018-10-08 12:39] VITALS: BP 144/80; PULSE 69; RESP 16; TEMP 36.7; O2SAT 96; BMI 34.5
--- NOTE | 2018-10-08 13:30 | RAD_ITS ---
PROCEDURE: L3-L4 epidural block. DATE OF EXAMINATION: October 08, 2018. INDICATION: Female, 58 years old. Low back pain. FLUOROSCOPY TIME (if supplied): (0:14) minutes/seconds. 3 cone down views were obtained. Intraoperative imaging provided for L3-L4 epidural block. The spinal needle is seen at that site. RAD/Spine 1 View Any Level IMPRESSION: Intraoperative imaging provided for L3-L4 epidural block. Electronically Signed: Terrence Chun MD at 13:26 EST Tel [phone], Service support ,
[2018-10-08] MEDS: Triamcinolone Acetonide 40 MG/ML Vial (13:36)
[2018-10-08 14:13] VITALS: BP 134/70; BP 144/80; PULSE 61; RESP 18; TEMP 36.3; O2SAT 100
--- NOTE | 2018-10-08 14:13 | DCINST_ITS ---
You will use the following diet at home:: No restrictions Allergies/Adverse Reactions: Allergies codeine Allergy (Verified 09/29/18 12:34) Itching oxycodone Adverse Reaction (Verified 10/08/18 12:28) Itching UNK ANTIBIOTIC Allergy (Uncoded 09/29/18 12:34) Other DOESN'T REMEMBER REACTION MIGHT HAVE GOTTEN HIVES Medications to take at Discharge Ranitidine [Zantac] 300 mg PO QHS 12/19/15 Sertraline HCl [Zoloft] 50 mg PO DAILY 12/19/15 [place]-3 Fatty Acids [Fish Oil] 1,000 mg PO DAILY 09/19/16 Pravastatin Sodium [Pravachol] 40 mg PO QHS 06/23/17 busPIRone [Buspar] 15 mg PO BID 06/23/17 Baclofen [Lioresal] 10 mg PO DAILY 06/24/17 Fluticasone 0.05% [Flonase Nasal [place]] 1 spray NASAL QHS 06/24/17 Buprenorphine 1 patch TP QWEEK 02/08/18 Meloxicam 7.5 mg PO BID 03/30/18 Diclofenac [Voltaren] 50 mg PO BIDCM 10/08/18 Hydroxyzine HCl 25 mg PO DAILY 10/08/18 Primary Care Physician: Rey Palmer Chi, MD [Primary Care Provider] - Test Results: Test results from this visit will be discussed in further detail at your follow- up appointment, if applicable. Please Follow Up With: June Mackenzie MD
[2018-10-08 14:15] VITALS: BP 137/82; BP 144/80; PULSE 65; RESP 18; O2SAT 100
[2018-10-08 14:20] VITALS: BP 144/80; BP 147/80; PULSE 62; RESP 16; O2SAT 97
[2018-10-08 14:30] VITALS: BP 144/80; BP 147/83; PULSE 65; RESP 16; TEMP 36.1; O2SAT 98
--- NOTE | 2018-10-08 14:36 | OP.PCM_ITS ---
Problem List (1) Intervertebral disc disorder with radiculopathy of lumbar region Status: Acute (2) Other intervertebral disc degeneration, lumbar region Status: Acute (3) Bilateral buttock pain Status: Acute (4) Bilateral buttock pain Status: Acute Report of Operation Date of Procedure: 10/08/18 Pre-Operative Diagnosis: Lumbar degenerative disc disease Post-Operative Diagnosis: Lumbar radiculopathy Surgery/Procedure Performed:: Lumbar epidural steroid injection at the level of the L3-4 under fluoroscopy Description of Surgical Findings:: Under sterile conditions. Patient placed in the prone position, pressure points were padded, patient was ready from the nursing and the anesthesia team. After identification of the side and the target area for the block under guided fluoroscopy, the entry site was marked with marking pen. I used Betadine for sterilization of the skin, sterile draping were applied. Using 25-gauge needle to infiltrate the skin with local anesthesia using preservative-free lidocaine 0.5% injected 2.5 mL at site of entry. Using guided fluoroscopy, accessed the the posterior epidural space using 18- gauge Touhy needles under midline approach, accessed the site was assisted with lateral fluoroscopy, followed by using [id number] technique using preservative-free normal saline, negative aspiration of CSF and blood. Injected contrast solution [2.5] mL under live fluoroscopy which showed good spread of the contrast to the posterior epidural space and to the targeted area of the injection at[ L 3 4]. Injected [5] mL of mixture of preservative-free lidocaine and Kenalog [80] mg for the procedure which showed appropriate spread in the epidural space. [place] was removed, pressure dressing were applied. Patient tolerated the procedure well and was taken to the recovery. -- Type of Anesthesia:: Local MAC
[2018-10-08 14:48] VITALS: BP 144/80
== END 2018-10-08 14:49 | disposition home or self-care (01) ==
LOC: SDC 12:07 → AC 12:08
PROVIDERS: Anesthesiology Pain Medicine; Family Provider Family Medicine Geriatric Medicine; PCP Family Medicine Geriatric Medicine; Referring Provider Anesthesiology; Visit Provider Anesthesiology
PROC: 3E0S3BZ Introduction of Anesthetic Agent into Epidural Space, Percutaneous Approach (ICD-10-PCS; CPT 62322; principal; 2018-10-08 13:25)
DX: M51.16 Intervertebral disc disorders with radiculopathy, lumbar region (principal); M51.17 Intervertebral disc disorders with radiculopathy, lumbosacral region; M51.36 Other intervertebral disc degeneration, lumbar region; M51.26 Other intervertebral disc displacement, lumbar region; M51.15 Intervertebral disc disorders with radiculopathy, thoracolumbar region; M51.34 Other intervertebral disc degeneration, thoracic region; M47.22 Other spondylosis with radiculopathy, cervical region; M50.122 Cervical disc disorder at C5-C6 level with radiculopathy; M46.1 Sacroiliitis, not elsewhere classified; M25.551 Pain in right hip; M25.552 Pain in left hip; I10 Essential (primary) hypertension; E78.00 Pure hypercholesterolemia, unspecified; G43.909 Migraine, unspecified, not intractable, without status migrainosus; K58.9 Irritable bowel syndrome, unspecified; K21.9 Gastro-esophageal reflux disease without esophagitis; F32.9 Major depressive disorder, single episode, unspecified; F41.9 Anxiety disorder, unspecified; E66.9 Obesity, unspecified; Z68.34 Body mass index [BMI] 34.0-34.9, adult; Z78.0 Asymptomatic menopausal state; Z79.899 Other long term (current) drug therapy
CPT/HCPCS: 62323; 64483; 72020; J7120

== ENCOUNTER → 2018-11-11 15:11 | Outpatient (CLI) | payer MEDICAID, SELFPAY ==
--- NOTE | 2018-11-11 15:20 | RAD_ITS ---
STUDY: X-RAY - RIGHT SHOULDER REASON FOR EXAM: Female, 58 years old. Right shoulder pain TECHNIQUE: 4 view(s) of the shoulder. COMPARISON: None. FINDINGS: Normal glenohumeral articulation. There is degenerative arthrosis of the acromioclavicular joint without inferior osseous spur formation. Normal acromion. Normal humeral head and visualized proximal humerus. There are several tiny soft tissue calcifications in the region of the bicipital groove. Normal visualized pulmonary apex. RAD/Shoulder min 2 Views IMPRESSION: Several tiny calcifications seen in the region of the bicipital groove consistent with calcific tendinitis/bursitis. Degenerative changes of the right AC joint. Electronically Signed: Da Velázquez MD at 16:10 EST , Service support ,
== END ==
PROVIDERS: Family Provider Family Medicine Geriatric Medicine; PCP Family Medicine Geriatric Medicine; Referring Provider Anesthesiology; Visit Provider Anesthesiology
DX: M25.511 Pain in right shoulder (principal)
CPT/HCPCS: 73030

== ENCOUNTER 2018-12-31 12:07 | Day surgery (SDC) | payer MEDICAID, SELFPAY ==
[2018-12-31 12:35] VITALS: BP 131/72; PULSE 73; RESP 16; TEMP 36.4; O2SAT 97; BMI 35.0
--- NOTE | 2018-12-31 13:30 | RAD_ITS ---
STUDY: X-RAY - LUMBAR SPINE REASON FOR EXAM: Female, 58 years old. Lumbar facet epidural, L4-5. TECHNIQUE: For intraoperative view(s) of the lumbar spine were obtained. COMPARISON: MRI of the lumbar spine, October 15, 2017. FINDINGS: Images demonstrate placement of a needle to the left of the spinous process at L4. Subsequent images demonstrate the needle extending upward into the space between the L3 and L4 spinous processes. Please refer to the operative report for further details. RAD/Lumbar Spine 2 or 3 Views IMPRESSION: Lumbar facet epidural injection at L3-4 in the OR. Electronically Signed: Layton Badillo DO at 17:13 EDT Tel [phone], Service support ,
[2018-12-31] MEDS: Triamcinolone Acetonide 40 MG/ML Vial ×2 (13:54→13:55)
--- NOTE | 2018-12-31 14:01 | PCM.DC ---
- Discharge Diagnoses Current Active Problems: Lumbar spine pain with lumbar radiculopathy is lumbar degenerative disc disease and lumbar disc displacement Reason(s) for Visit for Discharge Instructions: Receiving lumbar epidural steroid injection at the level of the L3-4 under fluoroscopy guidance You will use the following diet at home:: No restrictions Your food should be the consistency of: Regular Discharge Activity: Return to Normal Activity Return to work on:: 01/03/19 May shower in (days): 1 May resume sexual activity in: No Restrictions Weight Bearing Status: Weight bearing as tolerated Call your doctor if your incision/area has: Continuous Slow Oozing, Sudden Increased Bleeding, Increased Pain/ Swelling, Foul Smelling Discharge, Swelling at the incision site Call your doctor if you observe: Coldness, Increased Pain, Uncontrolled pain Suture Line Care: Avoid Pulling/Pushing, Avoid Pinching/Bending Remove Dressing in (days):: 1 Cleanse incision/area with: Soap & Water Instructions: What Is Osteoarthritis?, Living with Osteoarthritis, Understanding Osteoarthritis, Osteoarthritis: Coping with Pain, Osteoarthritis Medication, Osteoarthritis: Injections or Surgery, Osteoarthritis: Protecting Your Joints, Osteoarthritis: Exercise, Osteoarthritis: Common Sites Allergies/Adverse Reactions: Allergies codeine Allergy (Verified 09/29/18 12:34) Itching oxycodone Adverse Reaction (Verified 10/08/18 12:28) Itching UNK ANTIBIOTIC Allergy (Uncoded 09/29/18 12:34) Other DOESN'T REMEMBER REACTION MIGHT HAVE GOTTEN HIVES Medications to take at Discharge Ranitidine [Zantac] 300 mg PO QHS 12/19/15 Sertraline HCl [Zoloft] 50 mg PO DAILY 12/19/15 [place]-3 Fatty Acids [Fish Oil] 1,000 mg PO DAILY 09/19/16 Pravastatin Sodium [Pravachol] 40 mg PO QHS 06/23/17 busPIRone [Buspar] 15 mg PO BID 06/23/17 Baclofen [Lioresal] 10 mg PO DAILY 06/24/17 Fluticasone 0.05% [Flonase Nasal [place]] 1 spray NASAL QHS 06/24/17 Buprenorphine 1 patch TP QWEEK 02/08/18 Meloxicam 7.5 mg PO BID 03/30/18 Diclofenac [Voltaren] 50 mg PO BIDCM 10/08/18 Hydroxyzine HCl 25 mg PO DAILY 10/08/18 Primary Care Physician: Rey Palmer Chi, MD [Primary Care Provider] - Test Results: Test results from this visit will be discussed in further detail at your follow-up appointment, if applicable. Please Follow Up With: June Mackenzie MD
[2018-12-31 14:05] VITALS: BP 123/71; BP 131/72; PULSE 71; RESP 16; TEMP 36.3; O2SAT 97
--- NOTE | 2018-12-31 14:05 | OP.PCM_ITS ---
Problem List (1) Intervertebral disc disorder with radiculopathy of lumbar region Status: Acute (2) Other intervertebral disc degeneration, lumbar region Status: Acute (3) Bilateral buttock pain Status: Acute (4) Bilateral buttock pain Status: Acute Report of Operation Date of Procedure: 12/31/18 Pre-Operative Diagnosis: Lumbar degenerative disc disease, lumbar disc displacement with lumbar radiculopathy Post-Operative Diagnosis: Same Surgery/Procedure Performed:: Lumbar epidural steroid injection at the level of the L3-4 under fluoroscopy guidance Description of Surgical Findings:: Under sterile conditions. Patient placed in the prone position, pressure points were padded, patient was ready from the nursing and the anesthesia team. After identification of the side and the target area for the block under guided fluoroscopy, the entry site was marked with marking pen. I used Betadine for sterilization of the skin, sterile draping were applied. Using 25-gauge needle to infiltrate the skin with local anesthesia using preservative-free lidocaine 0.5% injected 2.5 mL at site of entry. Using guided fluoroscopy, accessed the the posterior epidural space using 18- gauge Touhy needles under midline approach, accessed the site was assisted with lateral fluoroscopy, followed by using [id number] technique using preservative-free normal saline, negative aspiration of CSF and blood. Injected contrast solution [2.5] mL under live fluoroscopy which showed good spread of the contrast to the posterior epidural space and to the targeted area of the injection at[ L3-4]. Injected [5] mL of mixture of preservative-free lidocaine and Kenalog [80] mg for the procedure which showed appropriate spread in the epidural space. [place] was removed, pressure dressing were applied. Patient tolerated the procedure well and was taken to the recovery. Type of Anesthesia:: Local MAC, MAC Estimated Blood Loss (mL): None Description of Procedure: See above - Admit VTE Documentation VTE Pharm Prophylaxis ordered?: No
[2018-12-31 14:10] VITALS: BP 124/74; BP 131/72; BP 139/85; PULSE 72; PULSE 76; RESP 16; O2SAT 98; O2SAT 99
[2018-12-31 14:17] VITALS: BP 131/72; BP 139/81; PULSE 75; RESP 16; TEMP 36.3; O2SAT 99
[2018-12-31 14:38] VITALS: BP 131/72
== END 2018-12-31 14:43 | disposition home or self-care (01) ==
LOC: SDC 12:08 → AC 12:08
PROVIDERS: Family Provider Family Medicine Geriatric Medicine; PCP Family Medicine Geriatric Medicine; Referring Provider Anesthesiology; Visit Provider Anesthesiology
PROC: 3E0S3BZ Introduction of Anesthetic Agent into Epidural Space, Percutaneous Approach (ICD-10-PCS; CPT 62322; principal; 2018-12-31 13:25)
DX: M51.16 Intervertebral disc disorders with radiculopathy, lumbar region (principal); M51.36 Other intervertebral disc degeneration, lumbar region; M51.26 Other intervertebral disc displacement, lumbar region; M51.17 Intervertebral disc disorders with radiculopathy, lumbosacral region; M54.42 Lumbago with sciatica, left side; M51.15 Intervertebral disc disorders with radiculopathy, thoracolumbar region; M51.34 Other intervertebral disc degeneration, thoracic region; M50.122 Cervical disc disorder at C5-C6 level with radiculopathy; M50.322 Other cervical disc degeneration at C5-C6 level; M50.320 Other cervical disc degeneration, mid-cervical region, unspecified level; M47.22 Other spondylosis with radiculopathy, cervical region; M50.120 Mid-cervical disc disorder, unspecified level; M46.1 Sacroiliitis, not elsewhere classified; M25.551 Pain in right hip; M79.10 Myalgia, unspecified site; M25.552 Pain in left hip; G89.29 Other chronic pain; I10 Essential (primary) hypertension; E78.00 Pure hypercholesterolemia, unspecified; K58.9 Irritable bowel syndrome, unspecified; F32.9 Major depressive disorder, single episode, unspecified; F41.9 Anxiety disorder, unspecified; K21.9 Gastro-esophageal reflux disease without esophagitis; Z78.0 Asymptomatic menopausal state; Z79.899 Other long term (current) drug therapy
CPT/HCPCS: 62323; 64483; 72100; J7120

== ENCOUNTER 2019-01-14 10:50 | Day surgery (SDC) | payer MEDICAID, SELFPAY ==
[2019-01-14 11:22] VITALS: BP 141/83; PULSE 72; RESP 18; TEMP 36.6; O2SAT 98; BMI 35.2
--- NOTE | 2019-01-14 12:15 | RAD_ITS ---
PROCEDURE: Cervical epidural block C5-C6. DATE OF EXAMINATION: January 14, 2019. INDICATION: Female, 58 years old. Pain. PHYSICIAN: Avril FLUOROSCOPY TIME (if supplied): (0:29) minutes/seconds PROCEDURE/TECHNIQUE: 3, intraprocedural, fluoroscopic spot images of the cervical spine. Needle placement appears appropriate. No significant incidental finding. RAD/Spine 1 View Any Level IMPRESSION: 3, intraprocedural, fluoroscopic spot images of the cervical spine. Needle placement appears appropriate. No significant incidental finding. Comment: Fluoroscopy services provided for clinical procedure. Please refer to operating physician's procedure note for additional detail. Electronically Signed: Demetrio Meier MD at 9:23 EDT , Service support ,
[2019-01-14] MEDS: Triamcinolone Acetonide 40 MG/ML Vial (13:43)
[2019-01-14 13:49] VITALS: BP 141/83; BP 160/97; PULSE 65; RESP 16; TEMP 36.5; O2SAT 100
--- NOTE | 2019-01-14 13:50 | DCINST_ITS ---
- Discharge Diagnoses Current Active Problems: Neck pain and cervical radiculopathy Reason(s) for Visit for Discharge Instructions: Cervical epidural steroid injection at C5-6 under fluoroscopy guidance You will use the following diet at home:: No restrictions, Regular Your food should be the consistency of: Regular Your liquids should be the consistency of: Regular/Thin Discharge Activity: Return to Normal Activity, No Restrictions, May Not Drive, May Shower Return to work on:: 01/17/19 May shower in (days): 1 May resume sexual activity in: No Restrictions Weight Bearing Status: Weight bearing as tolerated Call your doctor if your incision/area has: Continuous Slow Oozing, Sudden Increased Bleeding, Increased Pain/ Swelling, Increased Redness, Foul Smelling Discharge, Swelling at the incision site Call your doctor if you observe: Fever of 101 or Higher, Coldness, Increased Pain, Numbness or Tingling, Chest pain, Uncontrolled pain Suture Line Care: Avoid Pulling/Pushing, Avoid Pinching/Bending Remove Dressing in (days):: 1 Cleanse incision/area with: Soap & Water Allergies/Adverse Reactions: Allergies codeine Allergy (Verified 09/29/18 12:34) Itching doxycycline Allergy (Verified 01/14/19 11:29) Itching oxycodone Adverse Reaction (Verified 10/08/18 12:28) Itching Medications to take at Discharge Ranitidine [Zantac] 300 mg PO QHS 12/19/15 Sertraline HCl [Zoloft] 50 mg PO DAILY 12/19/15 [place]-3 Fatty Acids [Fish Oil] 1,000 mg PO DAILY 09/19/16 Pravastatin Sodium [Pravachol] 40 mg PO QHS 06/23/17 busPIRone [Buspar] 15 mg PO BID 06/23/17 Baclofen [Lioresal] 10 mg PO DAILY 06/24/17 Fluticasone 0.05% [Flonase Nasal [place]] 1 spray NASAL QHS 06/24/17 Buprenorphine 1 patch TP QWEEK 02/08/18 Meloxicam 7.5 mg PO BID 03/30/18 Diclofenac [Voltaren] 50 mg PO BIDCM 10/08/18 Hydroxyzine HCl 25 mg PO DAILY 10/08/18 Primary Care Physician: Rey Palmer Chi, MD [Primary Care Provider] - Test Results: Test results from this visit will be discussed in further detail at your follow- up appointment, if applicable. Please Follow Up With: June Mackenzie MD
--- NOTE | 2019-01-14 13:50 | PCM.OPRPT ---
Problem List (1) Neck pain Status: Chronic (2) Cervical disc disorder at C5-C6 level with radiculopathy Status: Acute (3) Cervical disc disorder with radiculopathy of mid-cervical region Status: Acute (4) Disorder of intervertebral disc at C5-C6 level with radiculopathy Status: Acute (5) Disorder of intervertebral disc at C5-C6 level with radiculopathy Status: Acute Report of Operation Date of Procedure: 01/14/19 Pre-Operative Diagnosis: Cervical degenerative disc disease with cervical radiculopathy Post-Operative Diagnosis: Cervical disc disorders with cervical radiculopathy Surgery/Procedure Performed:: Cervical epidural steroid injection at the level of the C5-6 on the fluoroscopy Description of Surgical Findings:: I Under sterile conditions. Patient placed in the prone position, pressure points were padded, patient was ready from the nursing and the anesthesia team. After identification of the side and the target area for the block at the posterior cervical region under guided fluoroscopy, the entry site was marked with marking pen. I used Betadine for sterilization of the skin, sterile draping were applied. Using 25-gauge needle to infiltrate the skin with local anesthesia using preservative-free lidocaine 0.5% injected 2.5 mL at site of entry. Using guided fluoroscopy, accessed the the cervical posterior epidural space using 20-gauge Touhy needles under midline approach at the level of the C5-6, accessed the site was assisted with lateral fluoroscopy, followed by using [id number] technique using preservative-free normal saline, negative aspiration of CSF and blood. Injected contrast solution [2] mL under live fluoroscopy which showed good spread of the contrast to the posterior epidural space and to the targeted area of the injection at[cervical C5-6]. Injected [3] mL of mixture of preservative-free lidocaine and Kenalog [80] mg for the procedure which showed appropriate spread in the posterior cervical epidural space. [place] was removed, pressure dressing were applied. Patient tolerated the procedure well and was taken to the recovery. Type of Anesthesia:: Local MAC Description of Procedure: See above - Complications none
--- NOTE | 2019-01-14 13:53 | OP.PCM_ITS ---
Problem List (1) Neck pain Status: Chronic (2) Cervical disc disorder at C5-C6 level with radiculopathy Status: Acute (3) Cervical disc disorder with radiculopathy of mid-cervical region Status: Acute (4) Disorder of intervertebral disc at C5-C6 level with radiculopathy Status: Acute (5) Disorder of intervertebral disc at C5-C6 level with radiculopathy Status: Acute Report of Operation Date of Procedure: 01/14/19 Pre-Operative Diagnosis: Cervical degenerative disc disease with cervical radiculopathy Post-Operative Diagnosis: Cervical disc disorders with cervical radiculopathy Surgery/Procedure Performed:: Cervical epidural steroid injection at the level of the C5-6 on the fluoroscopy Description of Surgical Findings:: I Under sterile conditions. Patient placed in the prone position, pressure points were padded, patient was ready from the nursing and the anesthesia team. After identification of the side and the target area for the block at the posterior cervical region under guided fluoroscopy, the entry site was marked with marking pen. I used Betadine for sterilization of the skin, sterile draping were applied. Using 25-gauge needle to infiltrate the skin with local anesthesia using preservative-free lidocaine 0.5% injected 2.5 mL at site of entry. Using guided fluoroscopy, accessed the the cervical posterior epidural space using 20-gauge Touhy needles under midline approach at the level of the C5-6, accessed the site was assisted with lateral fluoroscopy, followed by using [id number]-ld-xlbzwaoxps technique using preservative-free normal saline, negative aspiration of CSF and blood. Injected contrast solution [2] mL under live fluoroscopy which showed good spread of the contrast to the posterior epidural space and to the targeted area of the injection at[cervical C5-6]. Injected [3] mL of mixture of preservative- free lidocaine and Kenalog [80] mg for the procedure which showed appropriate spread in the posterior cervical epidural space. [place] was removed, pressure dressing were applied. Patient tolerated the procedure well and was taken to the recovery. Type of Anesthesia:: Local MAC Description of Procedure: See above - Complications none
[2019-01-14 13:55] VITALS: BP 141/83; BP 149/98; PULSE 65; RESP 16; O2SAT 100
[2019-01-14 14:00] VITALS: BP 141/83; BP 165/91; PULSE 62; RESP 16; O2SAT 100
[2019-01-14 14:04] VITALS: BP 141/83; BP 155/91; PULSE 67; RESP 16; TEMP 36.9; O2SAT 100
[2019-01-14 14:31] VITALS: BP 141/83
== END 2019-01-14 14:36 | disposition home or self-care (01) ==
LOC: SDC 10:51 → AC 10:53
PROVIDERS: Family Provider Family Medicine Geriatric Medicine; PCP Family Medicine Geriatric Medicine; Referring Provider Anesthesiology; Visit Provider Anesthesiology
PROC: 3E0S3BZ Introduction of Anesthetic Agent into Epidural Space, Percutaneous Approach (ICD-10-PCS; CPT 62320; principal; 2019-01-14 12:10)
DX: M50.122 Cervical disc disorder at C5-C6 level with radiculopathy (principal); K58.9 Irritable bowel syndrome, unspecified; K21.9 Gastro-esophageal reflux disease without esophagitis; E78.00 Pure hypercholesterolemia, unspecified; Z79.899 Other long term (current) drug therapy; G47.30 Sleep apnea, unspecified; K44.9 Diaphragmatic hernia without obstruction or gangrene
CPT/HCPCS: 62321; 64490; 72020; J7120; J3490

== ENCOUNTER → 2019-02-16 14:23 | Outpatient (CLI) | payer MEDICAID, SELFPAY ==
[2019-02-16 15:54] LABS: Absolute Lymphocyte Count 2.37 X10^3/ul (0.83-4.51); Absolute Neutrophil Count 4.4 X10^3/uL (2.0-7.7); Basophil# 0.02 X10^3/uL; Basophil% 0.3 % (0-1); Eosinophil# 0.07 X10^3/uL; Eosinophils% 0.9 % (0-5); Hematocrit 42.3 % (37-47); Hemoglobin 14.2 g/dl (12.0-15.0); Lymphocyte # 2.37 X10^3/ul (4.0); Lymphocyte % 31.3 % (19-41); Mean Corp Hgb Conc 33.6 g/gl (32-36); Mean Corpuscular Hgb 30.5 pg (27.0-32.0); Mean Corpuscular Volume 90.8 fL (81-99); Mean Platelet Vol. 9.8 fl (6.2-12.0); Monocyte# 0.73 X10^3/uL; Monocyte% 9.7 % (0-10); Neutrophil # 4.35 X10^3/uL (2.7-7.7); Neutrophil % 57.5 % (47-70); Platelet Count 355 K/mm3 (150-450); RBC Distribution Width CV 13.9 % (11.6-14.6); RBC Distribution Width SD 45.4 fl (35.1-43.9); Red Blood Count 4.66 M/mm3 (4.2-5.4); White Blood Count 7.6 K/mm3 (4.4-11.0)
[2019-02-16 16:04] LABS: POSITIVE COUNT NO; POSITIVE DIFFERENTIAL NO; POSITIVE MORPHOLOGY NO
[2019-02-16 16:19] LABS: ALB/GLOB Ratio 0.8 RATIO (0.9-2.4); AST(SGOT) 53 U/L (15-37); Alanine Aminotransfer ALT/SGPT 52 U/L (13-56); Albumin, Serum 3.3 g/dL (3.2-5.0); Alkaline Phosphatase 90 U/L (45-117); Anion Gap 7 (5-15); BUN 18 mg/dL (7-18); BUN/Creat Ratio 20.7 RATIO (10-20); Calcium,Total 9.5 mg/dL (8.5-10.1); Chloride 107 mmol/L (98-107); Creatinine, Serum 0.87 mg/dL (0.55-1.02); EST Glomerular Filtration Rate 71 mL/min (>60); Est Glom Filt Rate - Afr Amer 85 mL/min (>60); Globulin 4.3 g/dL (2.2-4.2); Glucose 84 mg/dL (74-106); Potassium 3.8 mmol/L (3.5-5.1); Protein, Total 7.6 g/dL (6.4-8.2); Sodium Level 141 mmol/L (136-145); Thyroid Stim Hormone (TSH) 2.16 uIU/mL (0.358-3.74)
== END ==
PROVIDERS: Family Provider Family Medicine Geriatric Medicine; PCP Family Medicine Geriatric Medicine; Visit Provider Family Medicine Geriatric Medicine
DX: E55.9 Vitamin D deficiency, unspecified (principal); R53.83 Other fatigue
CPT/HCPCS: 36415; 80053; 82306; 84443; 85025

== ENCOUNTER → 2019-03-01 09:42 | Outpatient (CLI) | payer MEDICAID, SELFPAY ==
[2019-02-25 13:27] VITALS: BMI 37.8
--- NOTE | 2019-03-01 09:44 | RAD_ITS ---
STUDY: X-RAY - ESOPHAGUS (BARIUM SWALLOW) WITH FLUOROSCOPY REASON FOR EXAM: Female, 59 years old. Epigastric pain. TECHNIQUE: 22 view(s) of the esophagus were obtained following swallowing of barium. FLUOROSCOPY TIME (if supplied): (1:01) minutes/seconds COMPARISON: None. FINDINGS: There is no demonstrated esophageal foreign body. There is no demonstrated stricture or mucosal abnormality. Normal gastroesophageal junction, without a demonstrated hiatal hernia. The patient ingested a 12 mm tablet of barium without any difficulty. There is atherosclerotic tortuosity of the aortic arch and descending thoracic aorta. Normal visualized pulmonary parenchyma. Normal visualized osseous structures of the thorax. RAD/Upper GI w/BA Swallow IMPRESSION: Normal plain film x-ray examination (barium swallow) of the esophagus. Electronically Signed: Terrence Chun, at 13:59 EDT , Service support ,
== END ==
PROVIDERS: Family Provider Family Medicine Geriatric Medicine; PCP Family Medicine Geriatric Medicine; Referring Provider Surgery; Visit Provider Surgery
DX: R10.13 Epigastric pain (principal)
CPT/HCPCS: 74246

== ENCOUNTER 2019-03-04 05:27 | Day surgery (SDC) | payer MEDICAID, SELFPAY ==
[2019-02-25 13:27] VITALS: BMI 37.8
[2019-03-04] VITALS (9 sets, daily range): BP systolic 123–175; BP diastolic 72–114; PULSE 77–87; RESP 16; TEMP 36.3–36.9; O2SAT 92–98; BMI 37.8
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
--- NOTE | 2019-03-04 06:30 | IMM_PTH ---
PATIENT: PREETI HERNÁNDEZ LOC: EN U#:[id number] AGE/SX: 59/F ROOM: RE03/04/[address]: Dr. Grzegorz Cummings MD : 1960 BED: DIS: 03/04/2019 SPEC #: [id number] RECD: 03/04/19 12:37 STATUS: WILDER REDewey #: [id number] NELLIE: 03/04/19 06:[address]: Grzegorz Cummings DEPT: IMMUNOHISTOCHEMISTRY RECD BY: Lashonda Larose ENTERED: 03/04/19 12:37 SP TYPE: IMMUNO OTHR DR: Dr. Rey Palmer MD Tissues: A - Stomach, NOS B - Esophagus, NOS Procedures: H Pylori (initial) P53 (initial) PHYSICIAN & INSTITUTION [place] [id number] SPECIMEN INFORMATION: Tissue Source: A - Antral biopsy, B - Distal esophageal biopsy Clinical Info: Hiatal hernia, GERD Specimen Number: [id number] A & B CPT code: 13991 x2 METHODOLOGY: Deparaffinized sections of prefer/formalin-fixed tissue or PAP/DQ stained slides are incubated with monoclonal/polyclonal antibodies/oligonucleotide probes. Localization is made via biotin free immunoperoxidase method. Appropriate controls are performed and reacted as expected. Results on target cell population are indicated in the following table: RESULTS: ANTIBODY / CLONE RESULT Block A H Pylori (polyclonal) negative Block B P53 (DO-7) negative These tests were developed and their performance characteristics determined by [facility]. They may not have been cleared or approved by the U.S. Food and Drug Administration. The FDA has determined that such clearance or approval is not necessary. INTERPRETATION: A. Antral biopsy: Negative for Helicobacter pylori organisms. B. Distal esophageal biopsy: No evidence of dysplasia. AM:samuel 03/07/19
--- NOTE | 2019-03-04 06:30 | EGD_PTH ---
PATIENT: PREETI HERNÁNDEZ LOC: EN U#:[id number] AGE/SX: 59/F ROOM: RE03/04/[address]: Dr. Grzegorz Cummings MD : 1960 BED: DIS: 03/04/2019 SPEC #: [id number] RECD: 03/04/19 07:48 STATUS: WILDER [place] #: [id number] NELLIE: 03/04/19 06:[address]: Grzegorz Cummings DEPT: SURGICAL PATHOLOGY RECD BY: Brant Barrientos ENTERED: 03/04/19 08:48 SP TYPE: EGD BIOPSY OT DR: Dr. Rey Palmer MD Tissues: A - Gastric mucous membrane B - Esophageal mucous membrane C - Esophageal mucous membrane Procedures: Special Stain Group II Surgery Specimen Level IV Alcian Blue/PAS (control) HEADER OPERATION: EGD MOD PRE-OP DIAGNOSIS: Hiatal hernia, and GERD TISSUE SUBMITTED: A. Antral biopsy and H. Pylori, B. Distal esophageal biopsy, C. Mid esophageal biopsy MICROSCOPIC DIAGNOSIS A. Gastric antrum, biopsy: Mild chronic gastritis. See comment. B. Distal esophagus, biopsy: Consistent with changes of reflux. Gastroesophageal junction with mild chronic inflammation. No evidence of intestinal metaplasia. No evidence of dysplasia. See comment. C. Mid esophagus, biopsy: Fragments of benign superficial squamous mucosa. No evidence of inflammation. AM:samuel 03/07/19 COMMENT A. The results of immunohistochemistry for Helicobacter pylori will be reported separately ([id number]). B. Alcian blue/PAS stain with matched control supports the above diagnosis. Immunohistochemistry ([id number]) supports the above diagnosis. MICROSCOPIC DESCRIPTION Slides are reviewed. GROSS DESCRIPTION A. Received in fixative is one container labeled with the patient's name and designated antral biopsy. The specimen consists of one irregular fragment of light christine soft tissue that measures 0.4 x 0.3 x 0.1 cm. The specimen is totally submitted in one cassette. B. Received in fixative is one container labeled with the patient's name and designated distal esophageal biopsy. The specimen consists of two irregular fragments of light christine soft tissue that in aggregate measure 0.6 x 0.3 x 0.1 cm. The specimen is totally submitted in one cassette. C. Received in fixative is one container labeled with the patient's name and designated mid esophageal biopsy. The specimen consists of one irregular fragment of light christine soft tissue that measures 0.5 x 0.3 x 0.1 cm. The specimen is totally submitted in one cassette. / SJ:rg 03/04/19 TC:3 CPT: 16908 x3, [id number]
--- NOTE | 2019-03-04 06:48 | OP.ENDO_ITS ---
03/04/2019 Rey Palmer MD [address] [place] [address] Re : Upper GI endoscopy procedure for Melissa Valenzuela Dear Dr. Palmer This procedure was performed on Monday, March 04, 2019. My impressions and recommendations are as follows: Impressions : - LA Grade A reflux esophagitis. Biopsied. Mid esophageal biopsies obtained - Chronic gastritis. Biopsied. - Normal examined duodenum. Recommendations : - Discharge patient to home. - Resume previous diet. - Continue present medications. - Use sucralfate tablets 1 gram PO QID. - Telephone my office for pathology results in 1 week. My findings are described in the full procedure note, which is enclosed. If I can be of further assistance, please feel free to contact me at Doctor phone number(s): Work: . Sincerely, Grzegorz Cummings MD 03/04/2019 6:48:33 AM This report has been signed electronically.
== END 2019-03-04 07:50 | disposition home or self-care (01) ==
LOC: EN 05:27 → AC 05:38
PROVIDERS: Family Provider Family Medicine Geriatric Medicine; PCP Family Medicine Geriatric Medicine; Referring Provider Family Medicine Geriatric Medicine; Visit Provider Surgery
PROC: (CPT 43239; principal; 2019-03-04 06:25)
DX: K21.0 Gastro-esophageal reflux disease with esophagitis (principal); K44.9 Diaphragmatic hernia without obstruction or gangrene; K29.80 Duodenitis without bleeding; K29.50 Unspecified chronic gastritis without bleeding; E78.5 Hyperlipidemia, unspecified; G47.33 Obstructive sleep apnea (adult) (pediatric); F32.9 Major depressive disorder, single episode, unspecified; F41.9 Anxiety disorder, unspecified; E66.9 Obesity, unspecified; Z88.5 Allergy status to narcotic agent; Z79.899 Other long term (current) drug therapy; Z90.49 Acquired absence of other specified parts of digestive tract
CPT/HCPCS: 43239; 88305; 88313; 88342; 99152; J7120

== ENCOUNTER 2019-03-10 09:50 | Day surgery (SDC) | payer MEDICAID, SELFPAY ==
[2019-02-25 13:27] VITALS: BMI 37.8
[2019-03-04 05:51] VITALS: BMI 37.8
[2019-03-10 10:01] VITALS: BP 140/80; PULSE 102; RESP 16; TEMP 35.6; O2SAT 98
== END 2019-03-10 10:28 | disposition home or self-care (01) ==
LOC: EN 09:51
PROVIDERS: Family Provider Family Medicine Geriatric Medicine; PCP Family Medicine Geriatric Medicine; Referring Provider Family Medicine Geriatric Medicine; Visit Provider Surgery
PROC: F00ZJWZ Instrumental Swallowing and Oral Function Assessment using Swallowing Equipment (ICD-10-PCS; CPT 43235; principal; 2019-03-10 09:55)
DX: K21.9 Gastro-esophageal reflux disease without esophagitis (principal)
CPT/HCPCS: 91010; 91013

== ENCOUNTER 2019-03-25 13:34 | Day surgery (SDC) | payer MEDICAID, SELFPAY ==
[2019-03-04 05:51] VITALS: BMI 37.8
[2019-03-25 14:03] VITALS: BP 125/83; PULSE 75; RESP 18; TEMP 37.1; O2SAT 95; BMI 35.2
--- NOTE | 2019-03-25 15:00 | RAD_ITS ---
STUDY: X-RAY - SACROILIAC JOINTS REASON FOR EXAM: Female, 59 years old. Fluoroscopic guided right sacroiliac joint injection TECHNIQUE: 2 fluoroscopic view(s) of the sacroiliac joints were obtained. COMPARISON: None. FINDINGS: Fluoroscopic guided views of were obtained during right sacroiliac joint injection as per clinical history. For more complete information recommend correlation with surgical notes RAD/Fluoro Guided Needle Placement IMPRESSION: Fluoroscopic guided right sacroiliac joint injection. Electronically Signed: Vick Porter MD at 20:10 EDT , Service support ,
--- NOTE | 2019-03-25 16:35 | DCINST_ITS ---
- Discharge Diagnoses Current Active Problems: Lower back pain and lower sacroiliac joint pain Reason(s) for Visit for Discharge Instructions: Right sacral leg joint injection under fluoroscopy guidance You will use the following diet at home:: No restrictions Discharge Activity: Return to Normal Activity May shower in (days): 1 May resume sexual activity in: No Restrictions Weight Bearing Status: Weight bearing as tolerated Call your doctor if your incision/area has: Continuous Slow Oozing, Sudden Increased Bleeding, Increased Pain/ Swelling, Increased Redness, Foul Smelling Discharge, Swelling at the incision site Call your doctor if you observe: Fever of 101 or Higher, Coldness, Increased Pain, Numbness or Tingling Cleanse incision/area with: Soap & Water Allergies/Adverse Reactions: Allergies codeine Allergy (Verified 02/25/19 13:27) Itching doxycycline Allergy (Verified 02/25/19 13:27) Itching oxycodone Adverse Reaction (Verified 02/25/19 13:27) Itching silicone Adverse Reaction (Verified 03/04/19 06:24) Rash Medications to take at Discharge Ranitidine [Zantac] 300 mg PO DAILY 12/19/15 Sertraline HCl [Zoloft] 50 mg PO DAILY 12/19/15 [place]-3 Fatty Acids [Fish Oil] 1,000 mg PO DAILY 09/19/16 Pravastatin Sodium [Pravachol] 40 mg PO DAILY 06/23/17 busPIRone [Buspar] 15 mg PO BID 06/23/17 Fluticasone 0.05% [Flonase Nasal [place]] 1 spray NASAL DAILY 06/24/17 Buprenorphine 1 patch TP QWEEK 02/08/18 Meloxicam 7.5 mg PO BID 03/30/18 Sucralfate [Carafate] 1 gm PO 4X/DAY #120 udc 03/04/19 Omeprazole 20 mg PO DAILY 03/25/19 Primary Care Physician: Rey Palmer Chi, MD [Primary Care Provider] - Test Results: Test results from this visit will be discussed in further detail at your follow- up appointment, if applicable. Please Follow Up With: June Mackenzie MD
--- NOTE | 2019-03-25 16:36 | OP.PCM_ITS ---
Problem List (1) Bilateral buttock pain Status: Acute (2) Myalgia Status: Acute (3) Sacroiliitis, not elsewhere classified Status: Acute (4) Scoliosis Status: Chronic (5) Chronic lower back pain Status: Chronic (6) Muscle spasm Status: Chronic Report of Operation Date of Procedure: 03/25/19 Post-Operative Diagnosis: Sacroiliac joint dysfunction, sacroiliitis Surgery/Procedure Performed:: Same Description of Surgical Findings:: Right sacroiliac joint injection under fluoroscopy guidance Type of Anesthesia:: Local MAC Description of Procedure: Under sterile conditions. Patient placed in the prone position, pressure points were padded, patient was ready from the nursing and the anesthesia team. After identification of the side and the target area for the block under guided fluoroscopy, identified the right sacroiliac joint under oblique fluoroscopy, started with AP image, outline the right sacroiliac joint borders, the entry site was marked with marking pen. I used Betadine for sterilization of the skin, sterile draping were applied. Using 25-gauge needle to infiltrate the skin with local anesthesia using preservative-free lidocaine 0.5% injected 5 mL at each site of entry at the posterior right sacroiliac joint landmark area Using oblique fluoroscopy, accessed the right sacroiliac joint using 22-gauge spinal needle. After confirmation of appropriate needle placement to the targeted area with AP and lateral fluoroscopy, injected 10 mL mixture of preservative-free Marcaine 0.5% and Kenalog [80] mg at each site. [place] was removed, pressure dressing were applied. Patient tolerated the procedure well and was taken to the recovery. - Complications None
[2019-03-25] MEDS: Bupivacaine 0.25% 30 ML Vial (16:41)
[2019-03-25] MEDS: Triamcinolone Acetonide 40 MG/ML Vial (16:41)
[2019-03-25 16:55] VITALS: BP 125/83; BP 135/71; PULSE 79; RESP 16; TEMP 36.6; O2SAT 96
[2019-03-25 17:00] VITALS: BP 125/83; BP 145/73; PULSE 77; RESP 16; O2SAT 98
[2019-03-25 17:05] VITALS: BP 125/83; BP 153/80; PULSE 78; RESP 16; O2SAT 98
[2019-03-25 17:10] VITALS: BP 125/83; BP 146/84; PULSE 74; RESP 16; TEMP 36.5; O2SAT 100
[2019-03-25 17:29] VITALS: BP 125/83
== END 2019-03-25 17:30 | disposition home or self-care (01) ==
LOC: SDC 13:35 → AC 13:35
PROVIDERS: Family Provider Family Medicine Geriatric Medicine; PCP Family Medicine Geriatric Medicine; Referring Provider Anesthesiology; Visit Provider Anesthesiology
PROC: 3E0U3GC Introduction of Other Therapeutic Substance into Joints, Percutaneous Approach (ICD-10-PCS; CPT 27096; principal; 2019-03-25 14:55)
DX: M46.1 Sacroiliitis, not elsewhere classified (principal); G89.29 Other chronic pain; M47.22 Other spondylosis with radiculopathy, cervical region; M47.23 Other spondylosis with radiculopathy, cervicothoracic region; M50.122 Cervical disc disorder at C5-C6 level with radiculopathy; M51.16 Intervertebral disc disorders with radiculopathy, lumbar region; M51.17 Intervertebral disc disorders with radiculopathy, lumbosacral region; M51.15 Intervertebral disc disorders with radiculopathy, thoracolumbar region; M79.10 Myalgia, unspecified site; I10 Essential (primary) hypertension; E78.00 Pure hypercholesterolemia, unspecified; G47.30 Sleep apnea, unspecified; K21.9 Gastro-esophageal reflux disease without esophagitis; F32.9 Major depressive disorder, single episode, unspecified; F41.9 Anxiety disorder, unspecified; Z78.0 Asymptomatic menopausal state; Z79.899 Other long term (current) drug therapy
CPT/HCPCS: 01992; 27096; 76000; 77002; J7120

== ENCOUNTER 2019-04-08 14:18 | Day surgery (SDC) | payer MEDICAID, SELFPAY ==
[2019-03-30 06:52] VITALS: BMI 35.2
[2019-04-08 14:38] VITALS: BP 144/85; PULSE 61; RESP 18; TEMP 36.6; O2SAT 94; BMI 35.0
--- NOTE | 2019-04-08 16:05 | RAD_ITS ---
PROCEDURE: Left SI joint injection. DATE OF EXAMINATION: April 08, 2019. INDICATION: Female, 59 years old. Pain. FLUOROSCOPY TIME (if supplied): (0:12) minutes/seconds RADIATION DOSAGE (If Supplied By Facility): CTDIvol = (5.15) mGy, DLP = ( ) mGycm PROCEDURE/TECHNIQUE: 3 procedural images were presented for interpretation. FINDINGS: Image 1 demonstrates the SI joint. Image 2 demonstrates contrast about the lower aspect of the SI joint. Image 3 demonstrates needle within the SI joint with surrounding contrast. Please refer to the procedural report for further details. RAD/Fluoro Guided Needle Placement IMPRESSION: Left SI joint injection in the OR. Electronically Signed: Layton Badillo DO at 21:33 EDT Tel [phone], Service support ,
--- NOTE | 2019-04-08 16:45 | PCM.DC ---
- Discharge Diagnoses Current Active Problems: Lower back pain due to sacroiliac joint inflammation Reason(s) for Visit for Discharge Instructions: Left-sided sacroiliac joint injection under fluoroscopy guidance You will use the following diet at home:: No restrictions Discharge Activity: Return to Normal Activity May shower in (days): 1 May resume sexual activity in: No Restrictions Weight Bearing Status: Weight bearing as tolerated Call your doctor if your incision/area has: Continuous Slow Oozing, Sudden Increased Bleeding, Increased Pain/ Swelling, Increased Redness, Foul Smelling Discharge, Swelling at the incision site Call your doctor if you observe: Fever of 101 or Higher, Coldness, Increased Pain, Numbness or Tingling Suture Line Care: Avoid Pulling/Pushing, Avoid Pinching/Bending Remove Dressing in (days):: 1 Cleanse incision/area with: Soap & Water Allergies/Adverse Reactions: Allergies codeine Allergy (Verified 04/07/19 16:26) Itching doxycycline Allergy (Verified 04/07/19 16:26) Itching oxycodone Adverse Reaction (Verified 04/07/19 16:26) Itching silicone Adverse Reaction (Verified 04/07/19 16:26) Rash Medications to take at Discharge Ranitidine [Zantac] 300 mg PO DAILY 12/19/15 Sertraline HCl [Zoloft] 50 mg PO DAILY 12/19/15 [place]-3 Fatty Acids [Fish Oil] 1,000 mg PO DAILY 09/19/16 Pravastatin Sodium [Pravachol] 40 mg PO DAILY 06/23/17 busPIRone [Buspar] 15 mg PO BID 06/23/17 Fluticasone 0.05% [Flonase Nasal [place]] 1 spray NASAL DAILY 06/24/17 Buprenorphine 1 patch TP QWEEK 02/08/18 Meloxicam 7.5 mg PO BID 03/30/18 Sucralfate [Carafate] 1 gm PO 4X/DAY #120 udc 03/04/19 Omeprazole 20 mg PO DAILY 03/25/19 Primary Care Physician: Rey Palmer Chi, MD [Primary Care Provider] - Test Results: Test results from this visit will be discussed in further detail at your follow-up appointment, if applicable. Please Follow Up With: June Mackenzie MD
--- NOTE | 2019-04-08 16:46 | OP.PCM_ITS ---
Problem List (1) Sacroiliitis, not elsewhere classified Status: Acute Report of Operation Date of Procedure: 04/08/19 Pre-Operative Diagnosis: Sacroiliitis Post-Operative Diagnosis: Same Surgery/Procedure Performed:: Left-sided sacroiliac joint injection under fluoroscopy guidance Description of Surgical Findings:: Under sterile conditions. Patient placed in the prone position, pressure points were padded, patient was ready from the nursing and the anesthesia team. After identification of the side and the target area for the block under guided fluoroscopy, was oblique tilted fluoroscopy axis if you for left sacroiliac joint, aligned the anterior and posterior border of the joint under fluoroscopy, the entry site was marked with marking pen. I used Betadine for sterilization of the skin, sterile draping were applied. Using 25-gauge needle to infiltrate the skin with local anesthesia using preservative-free lidocaine 0.5% injected 2.5 mL at each site of entry. Using oblique fluoroscopy, accessed the left sacroiliac joint posteriorly using 22-gauge spinal needle. After confirmation of appropriate needle placement to the targeted area with AP and lateral fluoroscopy, injected 10 mL mixture of preservative-free Marcaine 0.5% and Kenalog [80] mg at each site. [place] was removed, pressure dressing were applied. Patient tolerated the procedure well and was taken to the recovery. Type of Anesthesia:: Local MAC - Complications None
[2019-04-08] MEDS: Bupivacaine 0.25% 30 ML Vial (16:57)
[2019-04-08] MEDS: Triamcinolone Acetonide 40 MG/ML Vial (16:57)
[2019-04-08 17:04] VITALS: BP 125/84; BP 144/85; PULSE 58; RESP 16; TEMP 36.9; O2SAT 95
[2019-04-08 17:10] VITALS: BP 131/78; BP 144/85; PULSE 58; RESP 16; O2SAT 94
[2019-04-08 17:15] VITALS: BP 137/77; BP 144/85; PULSE 58; RESP 16; O2SAT 97
[2019-04-08 17:19] VITALS: BP 144/85; BP 146/78; PULSE 59; RESP 16; TEMP 36.6; O2SAT 97
[2019-04-08 17:29] VITALS: BP 144/85
== END 2019-04-08 17:29 | disposition home or self-care (01) ==
LOC: SDC 14:18 → AC 14:19
PROVIDERS: Family Provider Family Medicine Geriatric Medicine; PCP Family Medicine Geriatric Medicine; Referring Provider Anesthesiology; Visit Provider Anesthesiology
PROC: 3E0U3GC Introduction of Other Therapeutic Substance into Joints, Percutaneous Approach (ICD-10-PCS; CPT 27096; principal; 2019-04-08 16:00)
DX: M46.1 Sacroiliitis, not elsewhere classified (principal); M47.812 Spondylosis without myelopathy or radiculopathy, cervical region; M47.813 Spondylosis without myelopathy or radiculopathy, cervicothoracic region; M51.16 Intervertebral disc disorders with radiculopathy, lumbar region; M51.26 Other intervertebral disc displacement, lumbar region; M51.36 Other intervertebral disc degeneration, lumbar region; M51.34 Other intervertebral disc degeneration, thoracic region; M47.892 Other spondylosis, cervical region; G89.29 Other chronic pain; I10 Essential (primary) hypertension; G43.909 Migraine, unspecified, not intractable, without status migrainosus; F32.9 Major depressive disorder, single episode, unspecified; F41.9 Anxiety disorder, unspecified; E66.9 Obesity, unspecified; Z79.899 Other long term (current) drug therapy
CPT/HCPCS: 27096; 76000; 77002; J7120

== ENCOUNTER 2019-06-13 10:46 | Observation (INO) | payer MEDICAID, SELFPAY ==
[2019-04-18 14:21] VITALS: BMI 35.5
--- NOTE | 2019-05-15 03:23 | HP_ITS ---
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 Shipments Required: No Is patient in pain?: No Allergies codeine Allergy (Verified 04/18/19 14:22) Itching doxycycline Allergy (Verified 04/18/19 14:22) Itching oxycodone Adverse Reaction (Verified 04/18/19 14:22) Itching silicone Adverse Reaction (Verified 04/18/19 14:22) Rash Medications Ranitidine [Zantac] 300 mg PO DAILY 12/19/15 [History Confirmed 04/18/19] Sertraline HCl [Zoloft] 50 mg PO DAILY 12/19/15 [History Confirmed 04/18/19] [place]-3 Fatty Acids [Fish Oil] 1,000 mg PO DAILY 09/19/16 [History Confirmed 04/18/19] Pravastatin Sodium [Pravachol] 40 mg PO DAILY 06/23/17 [History Confirmed 04/18/19] busPIRone [Buspar] 15 mg PO BID 06/23/17 [History Confirmed 04/18/19] Fluticasone 0.05% [Flonase Nasal [place]] 1 spray NASAL DAILY 06/24/17 [History Confirmed 04/18/19] Buprenorphine 1 patch TP QWEEK 02/08/18 [History Confirmed 04/18/19] Meloxicam 7.5 mg PO BID 03/30/18 [History Confirmed 04/18/19] Sucralfate [Carafate] 1 gm PO 4X/DAY #120 udc 03/04/19 [Rx Confirmed 04/18/19] Omeprazole 20 mg PO DAILY 03/25/19 [History Confirmed 04/18/19] PFSH Medical History Hiatal hernia (Acute) ARIELA (obstructive sleep apnea) (Chronic) Allergic rhinitis (Chronic) Depression (Chronic) Anxiety (Chronic) Scoliosis (Chronic) Neck pain (Chronic) Thoracic back pain (Chronic) Chronic lower back pain (Chronic) BPPV (benign paroxysmal positional vertigo) (Chronic) Warts (Chronic) Muscle spasm (Chronic) Lumbar disc lesion (Chronic) Dehydration (Acute) Abnormal mammogram of right breast (Chronic) Obesity (Chronic) Fatty liver (Chronic) GERD (gastroesophageal reflux disease) (Chronic) HLD (hyperlipidemia) (Chronic) Acute urticaria (Resolved) Hematuria (Resolved) Right flank pain (Resolved) Streptococcus agalactiae infection (Resolved) Surgical History History of colectomy (Resolved) S/P lumpectomy of breast (Resolved) [place] teeth extracted (Resolved) S/P cholecystectomy (Acute) Family History Mother Arthritis Hypercholesterolemia Hypertension Cancer Lung Father Cancer Lung Cirrhosis Emphysema lung Social History (Updated 04/18/19 @ 15:23 by Grzegorz Cummings MD) Smoking Status: Never smoker second hand exposure: No alcohol intake: never substance use type: does not use HPI HPI HPI: MELISSA HERNÁNDEZ, is a 59 F who presents to the office today for HPI HPI Surgical H&P: Yes HPI: MELISSA HERNÁNDEZ, is a 59 F who presents to the office today for ongoing surgical consultation regarding intractable gastroesophageal reflux disease. My previous notes reflect the following. In the interim on March 10, 2019 she had esophageal manometry performed. 10 swallows were analyzed with good bolus clearance. Normal LES relaxation. Normal manometry study. The patient states that she does not typically have trouble swallowing foods. Occasionally liquids will go into her hypopharynx but she does not have retrosternal dysphasia Intake Visit Reasons: discuss lap angel/ manometry Intake Visit Reasons: Hiatal Hernia Chief Complaint: daytime somnolence Marker Shipments Required: No Is patient in pain?: No Allergies codeine Allergy (Verified 02/25/19 13:27) Itching doxycycline Allergy (Verified 02/25/19 13:27) Itching oxycodone Adverse Reaction (Verified 02/25/19 13:27) Itching Medications Ranitidine [Zantac] 300 mg PO QHS 12/19/15 [History Confirmed 02/25/19] Sertraline HCl [Zoloft] 50 mg PO DAILY 12/19/15 [History Confirmed 02/25/19] [place]-3 Fatty Acids [Fish Oil] 1,000 mg PO DAILY 09/19/16 [History Confirmed 02/25/19] Pravastatin Sodium [Pravachol] 40 mg PO QHS 06/23/17 [History Confirmed 02/25/19] busPIRone [Buspar] 15 mg PO BID 06/23/17 [History Confirmed 02/25/19] Baclofen [Lioresal] 10 mg PO DAILY 06/24/17 [History Confirmed 02/25/19] Fluticasone 0.05% [Flonase Nasal [place]] 1 spray NASAL QHS 06/24/17 [History Confirmed 02/25/19] Buprenorphine 1 patch TP QWEEK 02/08/18 [History Confirmed 02/25/19] Meloxicam 7.5 mg PO BID 03/30/18 [History Confirmed 02/25/19] Diclofenac [Voltaren] 50 mg PO BIDCM 10/08/18 [History Confirmed 02/25/19] Hydroxyzine HCl 25 mg PO DAILY 10/08/18 [History Confirmed 02/25/19] PFSH Medical History Hiatal hernia (Acute) ARIELA (obstructive sleep apnea) (Chronic) Allergic rhinitis (Chronic) Depression (Chronic) Anxiety (Chronic) Scoliosis (Chronic) Neck pain (Chronic) Thoracic back pain (Chronic) Chronic lower back pain (Chronic) BPPV (benign paroxysmal positional vertigo) (Chronic) Warts (Chronic) Muscle spasm (Chronic) Lumbar disc lesion (Chronic) Dehydration (Acute) Abnormal mammogram of right breast (Chronic) Obesity (Chronic) Fatty liver (Chronic) GERD (gastroesophageal reflux disease) (Chronic) HLD (hyperlipidemia) (Chronic) Acute urticaria (Resolved) Hematuria (Resolved) Right flank pain (Resolved) Streptococcus agalactiae infection (Resolved) Surgical History History of colectomy (Resolved) S/P lumpectomy of breast (Resolved) [place] teeth extracted (Resolved) S/P cholecystectomy (Acute) Family History Mother Arthritis Hypercholesterolemia Hypertension Cancer Lung Father Cancer Lung Cirrhosis Emphysema lung Social History Smoking Status: Never smoker second hand exposure: No alcohol intake: never substance use type: does not use HPI: MELISSA HERNÁNDEZ, is a 59 F who presents to the office today for surgical discussion regarding intractable gastroesophageal reflux disease and hiatal hernia. The patient is on ranitidine but she states that this is for facial hives. She has had to return to omeprazole therapy because of her reflux symptoms. She is concerned and does not want to be on lifelong omeprazole. She states that previously 2015 she was on omeprazole therapy for at least 2 years. It is of note that on December 19, 2015 I performed an upper endoscopy for her. That demonstrated a moderately large hiatal hernia with mild distal esophagitis. Normal-appearing stomach. Findings suggesting possible bile reflux. Mild duodenitis. She also had a colonoscopy at that setting suggesting diverticulosis but otherwise normal findings. Biopsies of the duodenum were normal. Biopsies of stomach showed gastritis. Biopsies of the esophagus were not remarkable. H. pylori was negative. She states that by drinking milk this sometimes assist with her symptoms. She does not recall having had an upper GI contrast study for extended period of time. She has never had esophageal manometry. I have assisted her in the past with a laparoscopic cholecystectomy. She performed well with that. She is also had a remote tubal ligation laparoscopically. She denies bright red blood per rectum or melena. Her symptoms are not ameliorated by taking the omeprazole. Otherwise she complains of heartburn reflux. She states is actually mostly worse during the day. ROS General General: Yes weight change and fatigue; no appetite, colon cancer, breast cancer or weakness HEENT HEENT: No difficulty swallowing, eye injury, eye surgery, swollen glands or hoarseness Endo Endocrine: No thyroid disease, diabetes mellitus, thyroid cancer, Hair loss, heat intolerance or cold intolerance Skin Skin: Yes rash; no changing moles Breast Breast: No left breast lump, right breast lump, nipple discharge, breast pain, abnormal mammogram, abnormal US or breast enlargement Musc Musculoskeletal: Yes back problems and arthritis; no rheumatoid arthritis, gout or joint pain Cardio Cardiovascular: No murmur, pacemaker, heart disease, atrial fibrillation, high blood pressure, heart attack, heart stent, palpitations, shortness of breat with exertion or chest pain Psych Psychiatric: Yes depression and anxiety; no hearing voices Resp Respiratory: No shortness of breath, Yes sleep apnea, No cough, No COPD, No asthma, No emphysema, No wheezing Gastro Gastrointestinal: Yes abdominal pain, Yes nausea or vomiting, No diarrhea, Yes constipation, No blood in stool, Yes acid reflux, Yes hemorrhoids, No ulcers, No gallbladder problem, No black,tarry stools Horacio Hematologic: No blood thinners, No blood disorders, No bleeding, No anemia, No blood clots Neuro Neurologic: No system reviewed and no additional complaints, except as docu, No as per HPI, No abnormal walking, No abnormal hearing, No abnormal movements, No abnormal speech, No behavioral changes, No burning sensations, No confusion, No seizure-like activity, No unsteadiness, No dizziness, No localized weakness, No frequent falls, No headache(s), No lack of coordination, No loss of vision, No memory loss, Yes numbness, No other visual disturbances, No radiating pain, No restless legs, No sensory deficit, No fainting, Yes tingling, No tremor(s), No weakness, No other Exam Const General: cooperative, no acute distress Nutritional Appearance: obese Other: Pain patch noted left upper arm HENMT Head: normal to inspection Chest Chest palpation & inspection: normal inspection of the chest Breast Palpation: No nipple discharge Resp Effort & Inspection: normal respiratory effort Auscultation: clear to auscultation bilaterally Cardio Rate: regular rate Rhythm: regular rhythm Heart Sounds: no murmurs GI Palpation: soft, no hepatosplenomegaly Auscultation: normal bowel sounds Skin Other: Small intact abrasion right lower extremity pretibial skin from blunt trauma Neuro Cognition: normal cognition Extrem General: no calf tenderness bilaterally Psych Affect: normal affect Assessment & Plan Problems 1. Gastroesophageal reflux disease, esophagitis presence not specified K21.9 2. Hiatal hernia K44.9 [facility] [address] [place] [address] Upper GI w/BA Swallow MR#: [id number] Name: MELISSA HERNÁNDEZ [facility] #:[id number] : 1960F 59 From: Terrence Chun MD PCP:Rey Palmer MD, Chi Status:REG CLI Study:Upper GI w/BA Swallow Date of Exam:03/01/19 Exam#[id number] Ordering Dr: Grzegorz Cummings MD STUDY: X-RAY - ESOPHAGUS (BARIUM SWALLOW) WITH FLUOROSCOPY REASON FOR EXAM: Female, 59 years old. Epigastric pain. TECHNIQUE: 22 view(s) of the esophagus were obtained following swallowing of barium. FLUOROSCOPY TIME (if supplied): (1:01) minutes/seconds COMPARISON: None. FINDINGS: There is no demonstrated esophageal foreign body. There is no demonstrated stricture or mucosal abnormality. Normal gastroesophageal junction, without a demonstrated hiatal hernia. The patient ingested a 12 mm tablet of barium without any difficulty. There is atherosclerotic tortuosity of the aortic arch and descending thoracic aorta. Normal visualized pulmonary parenchyma. Normal visualized osseous structures of the thorax. RAD/Upper GI w/BA Swallow IMPRESSION: Normal plain film x-ray examination (barium swallow) of the esophagus. Electronically Signed: Terrence Chun, at 13:59 EDT , Service support , [facility] Medical Records Department [address] [place], [place] [id number] Operative Report - Endoscopy MR#: [id number] Name: MELISSA HERNÁNDEZ [facility] #:[id number] : [id number]: Grzegorz Cummings MD PCP:Rey Palmer MD, Chi Status:REG [facility] 03/04/2019 Rey Palmer MD [address] [place] [address] Re : Upper GI endoscopy procedure for Melissa Hernández Dear Dr. Palmer This procedure was performed on Monday, March 04, 2019. My impressions and recommendations are as follows: Impressions : - LA Grade A reflux esophagitis. Biopsied. Mid esophageal biopsies obtained - Chronic gastritis. Biopsied. - Normal examined duodenum. Recommendations : - Discharge patient to home. - Resume previous diet. - Continue present medications. - Use sucralfate tablets 1 gram PO QID. - Telephone my office for pathology results in 1 week. My findings are described in the full procedure note, which is enclosed. If I can be of further assistance, please feel free to contact me at Doctor phone number(s): Work: . Sincerely, Grzegorz Cummings MD 03/04/2019 6:48:33 AM This report has been signed electronically. 03/04/1949 Date Grzegorz Cummings MD Cosigner Signature:Date (if indicated) MICROSCOPIC DIAGNOSIS A. Gastric antrum, biopsy:Mild chronic gastritis.See comment. B. Distal esophagus, biopsy:Consistent with changes of reflux.Gastroesophageal junction with mild chronic inflammation.No evidence of intestinal metaplasia.No evidence of dysplasia. C. Mid esophagus, biopsy:Fragments of benign superficial squamous mucosa.No evidence of inflammation. H. pylori negative ROS General General: Yes weight change and fatigue; no appetite, colon cancer, breast cancer or weakness HEENT HEENT: No difficulty swallowing, eye injury, eye surgery, swollen glands or hoarseness Endo Endocrine: No thyroid disease, diabetes mellitus, thyroid cancer, Hair loss, heat intolerance or cold intolerance Skin Skin: Yes rash; no changing moles Breast Breast: No left breast lump, right breast lump, nipple discharge, breast pain, abnormal mammogram, abnormal US or breast enlargement Musc Musculoskeletal: Yes back problems and arthritis; no rheumatoid arthritis, gout or joint pain Cardio Cardiovascular: No murmur, pacemaker, heart disease, atrial fibrillation, high blood pressure, heart attack, heart stent, palpitations, shortness of breat with exertion or chest pain Psych Psychiatric: Yes depression and anxiety; no hearing voices Resp Respiratory: No shortness of breath, Yes sleep apnea, No cough, No COPD, No asthma, No emphysema, No wheezing Gastro Gastrointestinal: Yes abdominal pain, Yes nausea or vomiting, No diarrhea, Yes constipation, No blood in stool, Yes acid reflux, Yes hemorrhoids, No ulcers, No gallbladder problem, No black,tarry stools Horacio Hematologic: No blood thinners, No blood disorders, No bleeding, No anemia, No blood clots Neuro Neurologic: No weakness Exam Chest Breast Palpation: No nipple discharge Cardio Heart Sounds: no murmurs Assessment & Plan Problems 1. Hiatal hernia K44.9 2. Gastroesophageal reflux disease with esophagitis K21.0 Plan I have discussed with the patient treatment options. I am recommending to her a laparoscopic repair of her hiatal hernia with a reflux procedure. The patient has a normal manometry study. I believe that she would be a good candidate for laparoscopic Angel fundoplication. I have asked her to stop her omega-3 fatty acids. We have discussed the technique, benefit, risks, alternatives. Her only previous abdominal surgery was a tubal ligation and a laparoscopic cholecystectomy. She has had an opportunity to ask and have questions answered. She is aware that we may be able to get her off all acid reducing medications or at least be able to utilize a H2 iveth rather than a proton pump inhibitor. She would like to schedule and proceed as noted. Grzegorz Cummings M.D., F.A.C.S. Coding Level of Care Code Off vis,est,level 2 Diagnoses Hiatal hernia K44.9 Gastroesophageal reflux disease with esophagitis K21.0 ??Esophagitis presence: with esophagitis 04/18/19 1523 <Electronically signed by Grzegorz reyna MD> Date _ Grzegorz Cummings MD I have re-examined the patient. There are no clinical changes since date of exam.
[2019-06-06 13:11] VITALS: BMI 35.5
--- NOTE | 2019-06-06 13:32 | EKG12_ITS ---
Test Reason : PRE-OP Blood Pressure : / mmHG Vent. Rate : 053 BPM Atrial Rate : 053 BPM P-R Int : 160 ms QRS Dur : 080 ms QT Int : 434 ms P-R-T Axes : 070 016 048 degrees QTc Int : 407 ms Sinus bradycardia Otherwise normal ECG Confirmed by YASMIN FELDMAN, RICARDO ([id number]), art editor MANDO SORIANO ([id number]) on 06/07/2019 9:27:42 AM Referred By: Grzegorz Cummings Confirmed By:RICARDO HOFFMAN MD
[2019-06-06 13:40] LABS: Hematocrit 41.9 % (37-47); Hemoglobin 13.9 g/dL (12.0-15.0); Mean Corp Hgb Conc 33.2 g/dL (32-36); Mean Corpuscular Hgb 29.6 pg (27.0-32.0); Mean Corpuscular Volume 89.3 fL (81-99); Mean Platelet Vol. 9.2 fl (6.2-12.0); Platelet Count 314 K/mm3 (150-450); RBC Distribution Width CV 13.5 % (11.6-14.6); RBC Distribution Width SD 44.1 fl (35.1-43.9); Red Blood Count 4.69 M/mm3 (4.2-5.4); White Blood Count 11.6 K/mm3 (4.4-11.0)
[2019-06-06 14:03] LABS: Anion Gap 7 (5-15); BUN 19 mg/dL (7-18); BUN/Creat Ratio 20.5 RATIO (10-20); Calcium,Total 9.2 mg/dL (8.5-10.1); Chloride 108 mmol/L (98-107); Creatinine, Serum 0.92 mg/dL (0.55-1.02); EST Glomerular Filtration Rate 66 mL/min (>60); Est Glom Filt Rate - Afr Amer 80 mL/min (>60); Glucose 101 mg/dL (74-106); Potassium 3.8 mmol/L (3.5-5.1); Sodium Level 142 mmol/L (136-145)
[2019-06-13] VITALS (17 sets, daily range): BP systolic 122–197; BP diastolic 69–97; PULSE 59–82; RESP 14–18; TEMP 36–37.1; O2SAT 89–100; BMI 35.7
[2019-06-13] MEDS: Lactated Ringers 1,000 ML 15 ML IV (06:07)
--- NOTE | 2019-06-13 07:45 | HERN_PTH ---
PATIENT: PREETI HERNÁNDEZ LOC: MS3 U#:[id number] AGE/SX: 59/F ROOM: MS314 RE06/13/[address]: Dr. Grzegorz Cummings MD : 1960 BED: 1 DIS: 06/14/2019 SPEC #: [id number] RECD: 06/13/19 07:45 STATUS: WILDER REDewey #: [id number] NELLIE: 06/13/19 07:[address]: Grzegorz Cummings DEPT: SURGICAL PATHOLOGY RECD BY: Jere العراقي ENTERED: 06/13/19 12:12 SP TYPE: Hernia OTHR DR: Dr. Rey Palmer MD Tissues: HERNIA Procedures: Surgery Specimen Level III HEADER OPERATION: Laparoscopic Angel fundoplication PRE-OP DIAGNOSIS: Hiatal hernia TISSUE SUBMITTED: Hiatal hernia sac MICROSCOPIC DIAGNOSIS Hiatal hernia sac, Angel fundoplication: Pieces of mature adipose tissue, clinically hiatal hernia. A minute benign lymph node. SJ:samuel 06/14/19 MICROSCOPIC DESCRIPTION Slides are reviewed. GROSS DESCRIPTION Received in fixative is one container labeled with the patient's name and designated hiatal hernia sac. The specimen consists of two pieces of yellow adipose tissue measuring in aggregate 3 x 2 x 0.5 cm. The larger piece is bisected. The entire specimen is submitted in two cassettes. / CELESTE:samuel 06/13/19 TC:5 CPT: 89933
[2019-06-13] MEDS: Cefazolin 2 GM in 0.9% Normal Saline 100 ML IV (08:09)
--- NOTE | 2019-06-13 08:17 | PCM.DC.GS ---
Discharge Diet: - - Liquid diet. Anything which at room temperature will dissolve Discharge Activity: May Not Drive - for 3-5 days or while taking narcotic pain medicine. May shower in (days): 1 Lifting Restrictions: 10 pounds Call your doctor if your incision/area has: Continuous Slow Oozing, Sudden Increased Bleeding, Increased Pain/ Swelling, Increased Redness, Foul Smelling Discharge Call your doctor if you observe: Fever of 101 or Higher Suture Line Care: Avoid Pulling/Pushing, Avoid Pinching/Bending Additional Dressing/Incision Instructions:: Change or remove dressing in 3 days. Leave steri-strips in place for 1 week. Allergies/Adverse Reactions: Allergies codeine Allergy (Verified 06/06/19 12:55) Itching doxycycline Allergy (Verified 06/06/19 12:55) Itching oxycodone Adverse Reaction (Verified 06/06/19 12:55) Itching silicone Adverse Reaction (Verified 06/06/19 12:55) Rash Medications to take at Discharge Ranitidine [Zantac] 300 mg PO DAILY 12/19/15 Sertraline HCl [Zoloft] 50 mg PO DAILY 12/19/15 [place]-3 Fatty Acids [Fish Oil] 1,000 mg PO DAILY 09/19/16 Pravastatin Sodium [Pravachol] 40 mg PO DAILY 06/23/17 busPIRone [Buspar] 15 mg PO BID 06/23/17 Fluticasone 0.05% [Flonase Nasal [place]] 1 spray NASAL DAILY 06/24/17 Buprenorphine 1 patch TP QWEEK 02/08/18 Meloxicam 7.5 mg PO BID 03/30/18 Omeprazole 20 mg PO DAILY 03/25/19 Doxycycline 100 mg PO DAILY 06/06/19 Prednisone 06/06/19 Primary Care Physician: Rey Palmer Chi, MD [Primary Care Provider] - Test Results: Test results from this visit will be discussed in further detail at your follow-up appointment, if applicable. Please Follow Up With: Grzegorz Cummings MD - [phone] When: Call to make an appointment to be seen in about 10 days.
[2019-06-13] MEDS: Bupivacaine Mpf 0.5% 30 ML VIAL (08:38)
--- NOTE | 2019-06-13 10:39 | OP.PCM_ITS ---
Problem List (1) Hiatal hernia Status: Acute (2) GERD with esophagitis Status: Acute Report of Operation Date of Procedure: 06/13/19 Pre-Operative Diagnosis: Intractable medication dependent gastroesophageal reflux disease with hiatal hernia Post-Operative Diagnosis: Same Surgery/Procedure Performed:: Laparoscopic Angel fundoplication with esophagogastroduodenoscopy post procedure Description of Surgical Findings:: Timeout and informed consent was obtained. 59-year-old female was taken the operative placement table underwent general endotracheal intubation anesthesia. Ancef 2 g given intravenous preoperatively. The abdomen was sterilely prepped and draped. She was placed in a low lithotomy position. Buttock padding was performed. Beanbag was utilized. Careful arm protection utilized. The abdomen was sterilely prepped and draped. Ioban draping was used as well. 0.5% Marcaine was used as local anesthetic. Throughout the procedure total 30 cc was used. Skin sites were pre-anesthetized. Superior and right of the umbilicus and instilled local and then used a 5 m Visiport technology to gain access to the abdomen. The abdomen was insufflated with CO2 to pressure pressure. 10 subsequently a telemeter trocar was placed in the left epigastrium 2 more 5- minute trochars in the left subcostal area under visualization I placed an incision in the epigastric area and put a medium size Krystle retractor to help hold the left lobe of the liver and that was secured with a attachment device to the right side of the table. The abdomen was inspected there is no evidence of any superficial abnormalities. The hepatic branch of the vagus was identified and carefully preserved as dissection was forms was identified the right lyle. Dissection was then performed and over the anterior surface of the EG junction. Patient overweight. Tediously the greater curvature was of the stomach was identified the gastro colic omentum identified I then transected with harmonic scalpel short gastrics these were fairly tightly adherent to the spleen and great care needed to be taken. I did place one hemo-lock clip. Upon freeing the greater curvature I gained access to the left lyle and was able to release the stomach from that location using the harmonic scalpel. I used noncrushing forceps and bluntly dissected and was able circumferentially dissect completely around the esophagus for approximately 6 to 8 cm proximally. Posterior vagus nerves was nicely intact. I placed 1/4 inch Kaitlynn drain around the EG junction to help mobilize the EG junction better visualized. There was a posterior fat pad that I was able to incise and release. I then approximated the crura with pledgeted simple sutures of 0 Ethibond. 3 sutures were placed. That appeared to have good positioning. I then removed the hernia sac from the EG junction. Hemostasis nicely intact and retrieve those fragments of sac and submitted as a specimen. I then performed a wrap of the fundus that seem to be in good position. My apical suture of 0 Ethibond secured the left portion of the fundus the anterior wall of the esophagus the epiphrenic ligament and the wrap portion of the fundus. There is also was applied seated suture and I secured that using a fisherman's knot with additional intracorporeal knot tying JEFFREY done for the previous sutures. Good securement was achieved I placed an additional suture to perform a short floppy Angel. All positioning appear to be in good position. I insufflated the abdomen with some saline. I perfor med an upper endoscopy carefully inserted the flexible gastroscope into the esophagus the GE junction was at 40 cm it appeared to be nicely patent was able to advance the scope past the repair with these advance the scope down in the distal stomach and retroflexed it was able to visualize the EG junction that appeared unremarkable excess fluid naris aspirated free that for the procedure was completed. Excess fluid was aspirated from the abdomen. The Krystle retractor was removed. The telemeter port site was closed with a [id number] suture of 0 Vicryl and a grainy needle. The abdomen was allowed to deflate the CO2. Skin edges proximal interrupted 4 Monocryl subdermal stitches. Steri-Strips Telfa OpSite dressings applied. Sponge and instrument and needle counts reported observed to be correct. Blood loss was quite minimal. She tolerated the procedure well was taken to the recovery area in satisfactory condition without apparent complication. Specimens hernia sac. Drains none. Blood loss minimal. Grzegorz Cummings M.D., F.A.C.S. Type of Anesthesia:: General Anesthesiologist: Ravi Gallardo
[2019-06-13] MEDS: 0.9% NaCl Peripheral Flush Adult/Peds IV ×2 (14:11→22:33)
[2019-06-13] MEDS: Morphine 2 MG/ML Syringe IV ×2 (14:11→22:42)
--- NOTE | 2019-06-13 14:12 | EKG12_ITS ---
Test Reason : CP Blood Pressure : / mmHG Vent. Rate : 074 BPM Atrial Rate : 074 BPM P-R Int : 186 ms QRS Dur : 082 ms QT Int : 428 ms P-R-T Axes : 039 000 045 degrees QTc Int : 475 ms Normal sinus rhythm Normal ECG Confirmed by LEANDRA FELDMAN, JOSÉ LUIS ([id number]), social media editor TIMA DUTTA ([id number]) on 06/15/2019 2:29:38 PM Referred By: Grzegorz Cummings Confirmed By:JOSÉ LUIS MOBLEY MD
--- NOTE | 2019-06-13 15:30 | NURSING ---
Ambulated in room, sat in chair for a moment but then decided she wanted to return to bed. States she will get up later this evening.
[2019-06-13] MEDS: Acetaminophen 325 MG Tablet 650 MG PO (19:24)
--- NOTE | 2019-06-13 20:30 | NURSING ---
pt walked a full lap in the arias. tolerated well. returned to bed HOB elevated & scd's applied. encouraged IS.
[2019-06-13] MEDS: Meloxicam 7.5 MG Tablet PO (22:30)
[2019-06-13] MEDS: busPIRone 15 MG TABLET PO (22:30)
[2019-06-13] MEDS: Pravastatin 40 MG Tablet PO (22:30)
[2019-06-14 04:01] VITALS: BP 148/72; PULSE 67; RESP 18; TEMP 37.1; O2SAT 93
[2019-06-14] MEDS: Morphine 2 MG/ML Syringe IV (04:14)
[2019-06-14] MEDS: 0.9% NaCl Peripheral Flush Adult/Peds IV (04:15)
--- NOTE | 2019-06-14 05:48 | PCM.PN.SRG ---
Patient Problems: Active and Suspected Problems (Last Reviewed 06/06/19 @ 12:54 by Mary Larios) GERD with esophagitis (Acute) Subjective: Pt seen and evaluated last night as well as this a.m. Could not document last night b/o meditech connection issues Pt c/o chronic neck pain Sore abdomen but tolerable No difficulties with swallowing or reflux - Physical Exam Abdomen: Bowel Sounds Present, Soft, Non Tender - wounds clean Vital Signs Temp Pulse Resp BP Pulse Ox 98.7 F 67 18 148/72 H 93 06/14/19 04:01 06/14/19 04:01 06/14/19 04:01 06/14/19 04:01 06/14/19 04:01 Oxygen Flow Rate (L/min) 2 Oxygen Delivery Method Room Air Weight: 189 lb 2.506 oz Body Mass Index (BMI) 35.7 Intake and Output for Last 24 Hours 06/12/19 06/13/19 06/14/19 23:59 23:59 23:59 Intake Total 2230 / 2230 Output Total 3050 / 3050 Balance -820 / -820 Laboratory Tests Past 24 Hrs 06/13/19 06/13/19 06/13/19 14:30 17:35 20:25 Troponin I 0.021 0.023 0.020 Medical Necessity - Tobacco Use Smoking Status: Never smoker Tobacco Use: Non-smoker Assessment/Plan All Active Problems (Last Reviewed 06/06/19 @ 12:54 by Mary Larios) GERD with esophagitis (Acute) Sacroiliitis, not elsewhere classified (Acute) Hiatal hernia (Acute) Cervical disc disorder at C5-C6 level with radiculopathy (Acute) Disorder of intervertebral disc at C5-C6 level with radiculopathy (Acute) Disorder of intervertebral disc at C5-C6 level with radiculopathy (Acute) Cervical disc disorder with radiculopathy of mid-cervical region (Acute) Intervertebral disc disorder with radiculopathy of lumbar region (Acute) Other intervertebral disc degeneration, lumbar region (Acute) Bilateral buttock pain (Acute) Bilateral buttock pain (Acute) Amplified musculoskeletal pain, localized (Acute) Amplified musculoskeletal pain, localized (Acute) Myalgia (Acute) Myalgia (Acute) Sacroiliitis, not elsewhere classified (Acute) Gastroenteritis (Acute) History of colectomy (Resolved) S/P lumpectomy of breast (Resolved) [place] teeth extracted (Resolved) Dehydration (Acute) Acute urticaria (Resolved) Hematuria (Resolved) Right flank pain (Resolved) Streptococcus agalactiae infection (Resolved) Ready for discharge
[2019-06-14 07:44] VITALS: O2SAT 93
[2019-06-14 09:55] VITALS: BP 162/89; PULSE 66; RESP 18; TEMP 36.9; O2SAT 95
== END 2019-06-14 09:56 | disposition home or self-care (01) ==
LOC: SDC 11:35
PROVIDERS: Admitting Provider Surgery; Family Provider Family Medicine Geriatric Medicine; PCP Family Medicine Geriatric Medicine; Referring Provider Surgery; Visit Provider Surgery
PROC: (CPT 43325; principal; 2019-06-13 07:25)
DX: K44.9 Diaphragmatic hernia without obstruction or gangrene (principal); K21.0 Gastro-esophageal reflux disease with esophagitis; G47.33 Obstructive sleep apnea (adult) (pediatric); F41.9 Anxiety disorder, unspecified; F32.9 Major depressive disorder, single episode, unspecified; Z79.899 Other long term (current) drug therapy; Z79.51 Long term (current) use of inhaled steroids; E66.9 Obesity, unspecified; Z68.35 Body mass index [BMI] 35.0-35.9, adult; Z71.3 Dietary counseling and surveillance
CPT/HCPCS: 43280; 36415; 80048; 84484; 85027; 88302; 88304; 93005; 96374; 96376; 99218; J7120; A4216; G0378; G0379; J2405; J3475

== ENCOUNTER → 2019-06-27 13:28 | Outpatient (CLI) | payer MEDICAID, SELFPAY ==
[2019-06-13 05:50] VITALS: BMI 35.7
--- NOTE | 2019-06-27 13:36 | RAD_ITS ---
STUDY: X-RAY - ESOPHAGUS (BARIUM SWALLOW) WITH FLUOROSCOPY REASON FOR EXAM: Female, 59 years old. Recent hiatal hernia repair. TECHNIQUE: 15 view(s) of the esophagus were obtained following swallowing of barium. FLUOROSCOPY TIME (if supplied): (1:03) minutes/seconds COMPARISON: None. FINDINGS: There is no demonstrated esophageal foreign body. The patient is status post recent hiatal hernia repair. There is narrowing at the gastroesophageal junction most likely secondary to postsurgical tailoring. There is decreased flow of oral contrast entering the stomach from the esophagus. The patient ingested a 12 mm tablet of barium. The tablet is trapped at the gastroesophageal junction. There is atherosclerotic tortuosity of the aortic arch and descending thoracic aorta. Normal visualized pulmonary parenchyma. Normal visualized osseous structures of the thorax. RAD/Esophagus Only IMPRESSION: Status post recent hiatal hernia repair with surgical narrowing at the gastroesophageal junction with decreased flow of contrast across the junction. The ingested 12 mm tablet of barium is trapped at the gastric esophageal junction. Electronically Signed: Terrence Chun, at 15:35 EDT , Service support ,
== END ==
PROVIDERS: Family Provider Family Medicine Geriatric Medicine; PCP Family Medicine Geriatric Medicine; Referring Provider Surgery; Visit Provider Surgery
DX: R13.10 Dysphagia, unspecified (principal)
CPT/HCPCS: 74220

== ENCOUNTER 2019-06-28 09:27 | Day surgery (SDC) | payer MEDICAID, SELFPAY ==
[2019-06-13 05:50] VITALS: BMI 35.7
[2019-06-28] VITALS (9 sets, daily range): BP systolic 123–179; BP diastolic 71–100; PULSE 57–69; RESP 16; TEMP 36.1–36.4; O2SAT 96–100; BMI 33.5
--- NOTE | 2019-06-28 08:56 | PCM.HP.BLA ---
Problem List (1) Dysphagia Status: Acute (2) Foreign body Status: Acute (3) Hiatal hernia Status: Acute History and Physical Date of Admission: 06/28/19 [facility] [address] [place] [address] OFFICE VISIT Date of Service: 06/27/19 MR#:[id number] Name: PREETI HERNÁNDEZ Rep #:[id number] : 1960 Provider:Janelle Denton PA-C Age/Sex: 59/F Location: [facility] Intake Vital Signs 06/06/19 Body Mass Index (BMI) 35.5 06/06/19 Height 5 ft 06/06/19 Weight: 182 lb 6 oz 06/06/19 Body Mass Index (BMI) 35.6 06/06/19 Blood Pressure 163/91 H 06/06/19 Blood Pressure Location Rt brachial 06/06/19 Blood Pressure Position Sitting 06/06/19 Respiratory Rate 18 06/06/19 Pulse Rate 62 06/06/19 Pulse Ox 97 Chief Complaint: S/p lap angel 9-16 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 Operator Required: No Is patient in pain?: No Allergies codeine Allergy (Verified 06/06/19 12:55) Itching doxycycline Allergy (Verified 06/06/19 12:55) Itching oxycodone Adverse Reaction (Verified 06/06/19 12:55) Itching silicone Adverse Reaction (Verified 06/06/19 12:55) Rash Medications Ranitidine [Zantac] 300 mg PO DAILY 12/19/15 [History Confirmed 06/06/19] Sertraline HCl [Zoloft] 50 mg PO DAILY 12/19/15 [History Confirmed 06/06/19] [place]-3 Fatty Acids [Fish Oil] 1,000 mg PO DAILY 09/19/16 [History Confirmed 06/06/19] Pravastatin Sodium [Pravachol] 40 mg PO DAILY 06/23/17 [History Confirmed 06/06/19] busPIRone [Buspar] 15 mg PO BID 06/23/17 [History Confirmed 06/06/19] Fluticasone 0.05% [Flonase Nasal [place]] 1 spray NASAL DAILY 06/24/17 [History Confirmed 06/06/19] Buprenorphine 1 patch TP QWEEK 02/08/18 [History Confirmed 06/06/19] Meloxicam 7.5 mg PO BID 03/30/18 [History Confirmed 06/06/19] Omeprazole 20 mg PO DAILY 03/25/19 [History Confirmed 06/06/19] Doxycycline 100 mg PO DAILY 06/06/19 [History Confirmed 06/06/19] Prednisone 06/06/19 [History Confirmed 06/06/19] Is last menstrual period known: No Post menopausal: Yes Patient : No PFSH Medical History Hiatal hernia (Acute) ARIELA (obstructive sleep apnea) (Chronic) Allergic rhinitis (Chronic) Depression (Chronic) Anxiety (Chronic) Scoliosis (Chronic) Neck pain (Chronic) Thoracic back pain (Chronic) Chronic lower back pain (Chronic) BPPV (benign paroxysmal positional vertigo) (Chronic) Warts (Chronic) Muscle spasm (Chronic) Lumbar disc lesion (Chronic) Dehydration (Acute) Abnormal mammogram of right breast (Chronic) Obesity (Chronic) Fatty liver (Chronic) GERD (gastroesophageal reflux disease) (Chronic) HLD (hyperlipidemia) (Chronic) Acute urticaria (Resolved) Hematuria (Resolved) Right flank pain (Resolved) Streptococcus agalactiae infection (Resolved) Surgical History History of colectomy (Resolved) S/P lumpectomy of breast (Resolved) [place] teeth extracted (Resolved) S/P cholecystectomy (Acute) Family History Mother Arthritis Hypercholesterolemia Hypertension Cancer Lung Father Cancer Lung Cirrhosis Emphysema lung Social History (Updated 06/07/19 @ 10:02 by Janelle Denton PA-C) Smoking Status: Never smoker second hand exposure: No alcohol intake: never substance use type: does not use HPI Surgical H&P: Yes HPI: Patient is a 59 y/o F I am following for intractable GERD with hiatal hernia. Dr. Cummings performed a laparoscopic Angel fundoplication with EGD on 06/13/2019. Patient tolerated the procedure well. Patient noted she has had 1 day history of feeling as though food is getting stuck. Patient notes she has been eating soups (i.e. cream of mushroom, tomato, and cream of chicken). She noted having tomato soup yesterday with a grilled cheese sandwich. She noted eating half of the grilled cheese before noting the feeling of fullness. She noted after this episode even water felt as though it was getting stuck. She noted difficulty with belching. She denies nausea, vomiting. She noted bowel habits have returned to normal. Patient had a STAT esophagram study completed yesterday following her post-operative appointment which demonstrated surgical narrowing at the gastroesophageal junction with decreased flow of contrast across the junction. The ingested 12 mm tablet of barium is trapped at the gastric esophageal junction. Patient was contacted last night with the results by Dr. Cummings. It is recommended the patient present today for an upper scope with dilatation and possible foreign body removal. Patient's previous history per Dr. Cummings: PREETI HERNÁNDEZ, is a 59 F who presents to the office today for surgical discussion regarding intractable gastroesophageal reflux disease and hiatal hernia. The patient is on ranitidine but she states that this is for facial hives. She has had to return to omeprazole therapy because of her reflux symptoms. She is concerned and does not want to be on lifelong omeprazole. She states that previously 2015 she was on omeprazole therapy for at least 2 years. It is of note that on December 19, 2015 I performed an upper endoscopy for her. That demonstrated a moderately large hiatal hernia with mild distal esophagitis. Normal-appearing stomach. Findings suggesting possible bile reflux. Mild duodenitis. She also had a colonoscopy at that setting suggesting diverticulosis but otherwise normal findings. Biopsies of the duodenum were normal. Biopsies of stomach showed gastritis. Biopsies of the esophagus were not remarkable. H. pylori was negative. She states that by drinking milk this sometimes assist with her symptoms. She does not recall having had an upper GI contrast study for extended period of time. She has never had esophageal manometry. I have assisted her in the past with a laparoscopic cholecystectomy. She performed well with that. She is also had a remote tubal ligation laparoscopically. She denies bright red blood per rectum or melena. Her symptoms are not ameliorated by taking the omeprazole. Otherwise she complains of heartburn reflux. She states is actually mostly worse during the day. In the interim on March 10, 2019 she had esophageal manometry performed. 10 swallows were analyzed with good bolus clearance. Normal LES relaxation. Normal manometry study. The patient states that she does not typically have trouble swallowing foods. Occasionally liquids will go into her hypopharynx but she does not have retrosternal dysphasia ROS General General: Yes weight change and fatigue; no appetite, colon cancer, breast cancer or weakness HEENT HEENT: No difficulty swallowing, eye injury, eye surgery, swollen glands or hoarseness Endo Endocrine: No thyroid disease, diabetes mellitus, thyroid cancer, Hair loss, heat intolerance or cold intolerance Skin Skin: Yes rash; no changing moles Breast Breast: No left breast lump, right breast lump, nipple discharge, breast pain, abnormal mammogram, abnormal US or breast enlargement Musc Musculoskeletal: Yes back problems and arthritis; no rheumatoid arthritis, gout or joint pain Cardio Cardiovascular: No murmur, pacemaker, heart disease, atrial fibrillation, high blood pressure, heart attack, heart stent, palpitations, shortness of breat with exertion or chest pain Psych Psychiatric: Yes depression and anxiety; no hearing voices Resp Respiratory: No shortness of breath, Yes sleep apnea, No cough, No COPD, No asthma, No emphysema, No wheezing Gastro Gastrointestinal: Yes abdominal pain, Yes nausea or vomiting, No diarrhea, Yes constipation, No blood in stool, Yes acid reflux, Yes hemorrhoids, No ulcers, No gallbladder problem, No black,tarry stools Horacio Hematologic: No blood thinners, No blood disorders, No bleeding, No anemia, No blood clots Neuro Neurologic: No weakness Exam Const General: cooperative, healthy appearing, comfortable, no acute distress HENMO Head: normal to inspection Eyes General: appearance normal, both eyes and all related structures Neck Neck: normal visual inspection Neck mass: No Chest Breast Palpation: No nipple discharge Resp Effort & Inspection: normal respiratory effort Auscultation: clear to auscultation bilaterally Cardio Rate: regular rate Rhythm: regular rhythm Heart Sounds: no murmurs GI Inspection: normal to inspection, obesity Palpation: soft Auscultation: normal bowel sounds Other: Incisions c/d/i. No erythema or infection noted. Minimal amount of ecchymosis noted. Skin General: no rashes or lesions noted Neuro General: no focal motor deficits, CN's II-XI intact bilaterally Extrem General: normal to inspection Psych Appearance: grossly normal Affect: normal affect Assessment & Plan Problems 1. Hiatal hernia K44.9 2. Dysphagia 3. Foreign Body 4. S/p laparoscopic Angel Plan: Dr. Cummings will plan to perform an EGD with dilatation and possible foreign body removal. Procedure details, risks and benefits have been reviewed. Patient has had the opportunity to ask and have questions answered. Patient verbally understands and agrees with the plan. Code Visit Inpatient E&M: 29811 Subs Hosp L1 - Update H&P
[2019-06-28] MEDS: Lactated Ringers 1,000 ML 75 ML IV (09:56)
--- NOTE | 2019-06-28 10:30 | HP.PCM_ITS ---
Problem List (1) Dysphagia Status: Acute Qualifiers: Dysphagia type: esophageal phase Qualified Code(s): R13.10 - Dysphagia, unspecified History and Physical Date of Admission: 06/28/19 History and Physical 06/28/19 0856 MR#: [id number] Acct: [id number] Name: PREETI HERNÁNDEZ Rep #:[id number] : 1960 59 From: Janelle Denton PA-C PCP: Spencer FELDMAN,Rey Toro Status:PRE [facility] [place] Location: [place] Problem List (1) Dysphagia Status: Acute (2) Foreign body Status: Acute (3) Hiatal hernia Status: Acute History and Physical Date of Admission: 06/28/19 [facility] [address] [place] [address] [address] [place] [address] OFFICE VISIT Date of Service: 06/27/19 MR#:[id number] Name: PREETI HERNÁNDEZ Rep #:[id number] : 1960 Provider:Janelle Denton PA-C Age/Sex: 59/F Location: [facility] Intake Vital Signs 06/06/19 Body Mass Index (BMI) 35.5 06/06/19 Height 5 ft 06/06/19 Weight: 182 lb 6 oz 06/06/19 Body Mass Index (BMI) 35.6 06/06/19 Blood Pressure 163/91 H 06/06/19 Blood Pressure Location Rt brachial 06/06/19 Blood Pressure Position Sitting 06/06/19 Respiratory Rate 18 06/06/19 Pulse Rate 62 06/06/19 Pulse Ox 97 Chief Complaint: S/p lap angel 06-13 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 Is patient in pain?: No Allergies codeine Allergy (Verified 06/06/19 12:55) Itching doxycycline Allergy (Verified 06/06/19 12:55) Itching oxycodone Adverse Reaction (Verified 06/06/19 12:55) Itching silicone Adverse Reaction (Verified 06/06/19 12:55) Rash Medications Ranitidine [Zantac] 300 mg PO DAILY 12/19/15 [History Confirmed 06/06/19] Sertraline HCl [Zoloft] 50 mg PO DAILY 12/19/15 [History Confirmed 06/06/19] [place]-3 Fatty Acids [Fish Oil] 1,000 mg PO DAILY 09/19/16 [History Confirmed ] Pravastatin Sodium [Pravachol] 40 mg PO DAILY 06/23/17 [History Confirmed 06/06/19] busPIRone [Buspar] 15 mg PO BID 06/23/17 [History Confirmed 06/06/19] Fluticasone 0.05% [Flonase Nasal [place]] 1 spray NASAL DAILY 06/24/17 [History Confirmed 06/06/19] Buprenorphine 1 patch TP QWEEK 02/08/18 [History Confirmed 06/06/19] Meloxicam 7.5 mg PO BID 03/30/18 [History Confirmed 06/06/19] Omeprazole 20 mg PO DAILY 03/25/19 [History Confirmed 06/06/19] Doxycycline 100 mg PO DAILY 06/06/19 [History Confirmed 06/06/19] Prednisone 06/06/19 [History Confirmed 06/06/19] Is last menstrual period known: No Post menopausal: Yes Patient : No PFSH Medical History Hiatal hernia (Acute) ARIELA (obstructive sleep apnea) (Chronic) Allergic rhinitis (Chronic) Depression (Chronic) Anxiety (Chronic) Scoliosis (Chronic) Neck pain (Chronic) Thoracic back pain (Chronic) Chronic lower back pain (Chronic) BPPV (benign paroxysmal positional vertigo) (Chronic) Warts (Chronic) Muscle spasm (Chronic) Lumbar disc lesion (Chronic) Dehydration (Acute) Abnormal mammogram of right breast (Chronic) Obesity (Chronic) Fatty liver (Chronic) GERD (gastroesophageal reflux disease) (Chronic) HLD (hyperlipidemia) (Chronic) Acute urticaria (Resolved) Hematuria (Resolved) Right flank pain (Resolved) Streptococcus agalactiae infection (Resolved) Surgical History History of colectomy (Resolved) S/P lumpectomy of breast (Resolved) [place] teeth extracted (Resolved) S/P cholecystectomy (Acute) Family History Mother Arthritis Hypercholesterolemia Hypertension Cancer Lung Father Cancer Lung Cirrhosis Emphysema lung Social History (Updated 06/07/19 @ 10:02 by Janelle Denton PA-C) Smoking Status: Never smoker second hand exposure: No alcohol intake: never substance use type: does not use HPI Surgical H&P: Yes HPI: Patient is a 59 y/o F I am following for intractable GERD with hiatal hernia. Dr. Cummings performed a laparoscopic Angel fundoplication with EGD on 06/13/2019. Patient tolerated the procedure well. Patient noted she has had 1 day history of feeling as though food is getting stuck. Patient notes she has been eating soups (i.e. cream of mushroom, tomato, and cream of chicken). She noted having tomato soup yesterday with a grilled cheese sandwich. She noted eating half of the grilled cheese before noting the feeling of fullness. She noted after this episode even water felt as though it was getting stuck. She noted difficulty with belching. She denies nausea, vomiting. She noted bowel habits have returned to normal. Patient had a STAT esophagram study completed yesterday following her post- operative appointment which demonstrated surgical narrowing at the gastroesophageal junction with decreased flow of contrast across the junction. The ingested 12 mm tablet of barium is trapped at the gastric esophageal junctio n. Patient was contacted last night with the results by Dr. Cummings. It is recommended the patient present today for an upper scope with dilatation and possible foreign body removal. Patient's previous history per Dr. Cummings: PREETI HERNÁNDEZ, is a 59 F who presents to the office today for surgical discussion regarding intractable gastroesophageal reflux disease and hiatal hernia. The patient is on ranitidine but she states that this is for facial hives. She has had to return to omeprazole therapy because of her reflux symptoms. She is concerned and does not want to be on lifelong omeprazole. She states that previously 2015 she was on omeprazole therapy for at least 2 years. It is of note that on December 19, 2015 I performed an upper endoscopy for her. That demonstrated a moderately large hiatal hernia with mild distal esophagitis. Normal-appearing stomach. Findings suggesting possible bile reflux. Mild duodenitis. She also had a colonoscopy at that setting suggesting diverticulosis but otherwise normal findings. Biopsies of the duodenum were normal. Biopsies of stomach showed gastritis. Biopsies of the esophagus were not remarkable. H. pylori was negative. She states that by drinking milk this sometimes assist with her symptoms. She does not recall having had an upper GI contrast study for extended period of time. She has never had esophageal manometry. I have assisted her in the past with a laparoscopic cholecystectomy. She performed well with that. She is also had a remote tubal ligation laparoscopically. She denies bright red blood per rectum or melena. Her symptoms are not ameliorated by taking the omeprazole. Otherwise she complains of heartburn reflux. She states is actually mostly worse during the day. In the interim on March 10, 2019 she had esophageal manometry performed. 10 swallows were analyzed with good bolus clearance. Normal LES relaxation. Normal manometry study. The patient states that she does not typically have trouble swallowing foods. Occasionally liquids will go into her hypopharynx but she does not have retrosternal dysphasia ROS General General: Yes weight change and fatigue; no appetite, colon cancer, breast cancer or weakness HEENT HEENT: No difficulty swallowing, eye injury, eye surgery, swollen glands or hoarseness Endo Endocrine: No thyroid disease, diabetes mellitus, thyroid cancer, Hair loss, heat intolerance or cold intolerance Skin Skin: Yes rash; no changing moles Breast Breast: No left breast lump, right breast lump, nipple discharge, breast pain, abnormal mammogram, abnormal US or breast enlargement Musc Musculoskeletal: Yes back problems and arthritis; no rheumatoid arthritis, gout or joint pain Cardio Cardiovascular: No murmur, pacemaker, heart disease, atrial fibrillation, high blood pressure, heart attack, heart stent, palpitations, shortness of breat with exertion or chest pain Psych Psychiatric: Yes depression and anxiety; no hearing voices Resp Respiratory: No shortness of breath, Yes sleep apnea, No cough, No COPD, No asthma, No emphysema, No wheezing Gastro Gastrointestinal: Yes abdominal pain, Yes nausea or vomiting, No diarrhea, Yes constipation, No blood in stool, Yes acid reflux, Yes hemorrhoids, No ulcers, No gallbladder problem, No black,tarry stools Horacio Hematologic: No blood thinners, No blood disorders, No bleeding, No anemia, No blood clots Neuro Neurologic: No weakness Exam Const General: cooperative, healthy appearing, comfortable, no acute distress [facility] Head: normal to inspection Eyes General: appearance normal, both eyes and all related structures Neck Neck: normal visual inspection Neck mass: No Chest Breast Palpation: No nipple discharge Resp Effort & Inspection: normal respiratory effort Auscultation: clear to auscultation bilaterally Cardio Rate: regular rate Rhythm: regular rhythm Heart Sounds: no murmurs GI Inspection: normal to inspection, obesity Palpation: soft Auscultation: normal bowel sounds Other: Incisions c/d/i. No erythema or infection noted. Minimal amount of ecchymosis noted. Skin General: no rashes or lesions noted Neuro General: no focal motor deficits, CN's II-XI intact bilaterally Extrem General: normal to inspection Psych Appearance: grossly normal Affect: normal affect Assessment & Plan Problems 1. Hiatal hernia K44.9 2. Dysphagia 3. Foreign Body 4. S/p laparoscopic Angel Plan: Dr. Cummings will plan to perform an EGD with dilatation and possible foreign body removal. Procedure details, risks and benefits have been reviewed. Patient has had the opportunity to ask and have questions answered. Patient verbally understands and agrees with the plan. Code Visit Inpatient E&M: 44000 Subs Hosp L1 - Update H&P 06/28/19 0919 <Electronically signed by Janelle castillo PA-C> Date _ Janelle Denotn PA-C Cosigner Signature: Date (if applicable) CC: Janelle Denton PA-C; Rey Palmer MD ~ Signed Esophagram did not demonstrate any residual foreign body. The Angel fundoplication on esophagram appears to be slightly tight. I suspect secondary to some swelling. I proposed with the patient a esophagogastroduodenoscopy with anticipated gentle distal esophageal EG junction dilatation. She is aware of the technique, benefits, risks and alternatives. We will proceed as noted to assist with her symptoms. Grzegorz Cummings M.D., F.A.C.S.
--- NOTE | 2019-06-28 10:59 | OP.ENDO_ITS ---
06/28/2019 Rey Palmer MD [address] [place] [address] Re : Upper GI endoscopy procedure for Melissa Valenzuela Dear Dr. Palmer This procedure was performed on Friday, June 28, 2019. My impressions and recommendations are as follows: Impressions : - Reflux esophagitis. Intact Angel wrap, dialated to maximum of 20mm All findings appear very normal for immediate post operative period - Erythematous mucosa in the antrum. - No specimens collected. Recommendations : - Discharge patient to home. - Resume previous diet--liquids as tolerated. - Continue present medications. - Return to my office in 1 week. My findings are described in the full procedure note, which is enclosed. If I can be of further assistance, please feel free to contact me at Doctor phone number(s): Work: . Sincerely, Grzegorz Cummings MD 06/28/2019 10:59:03 AM This report has been signed electronically.
== END 2019-06-28 11:55 | disposition home or self-care (01) ==
LOC: EN 09:28 → AC 09:29
PROVIDERS: Family Provider Family Medicine Geriatric Medicine; PCP Family Medicine Geriatric Medicine; Referring Provider Family Medicine Geriatric Medicine; Visit Provider Surgery
PROC: (CPT 43249; principal; 2019-06-28 10:30)
DX: K21.0 Gastro-esophageal reflux disease with esophagitis (principal); K44.9 Diaphragmatic hernia without obstruction or gangrene; K31.89 Other diseases of stomach and duodenum; R93.3 Abnormal findings on diagnostic imaging of other parts of digestive tract; R13.10 Dysphagia, unspecified; E78.5 Hyperlipidemia, unspecified; F32.9 Major depressive disorder, single episode, unspecified; F41.9 Anxiety disorder, unspecified; E66.9 Obesity, unspecified; Z68.35 Body mass index [BMI] 35.0-35.9, adult; Z79.899 Other long term (current) drug therapy
CPT/HCPCS: 43249; 99152; 99153; J7120

== ENCOUNTER 2019-08-08 13:05 | Emergency (ER) | payer MEDICAID, SELFPAY ==
[2019-06-28 09:48] VITALS: BMI 33.5
[2019-08-08 13:06] VITALS: BP 160/99; PULSE 84; RESP 16; TEMP 35.6; O2SAT 98; BMI 33.6
[2019-08-08 13:12] VITALS: BP 164/73; PULSE 71; RESP 16; TEMP 36.4; O2SAT 99; BMI 34.5
[2019-08-08] MEDS: 0.9% Normal Saline 1,000 ML 1000 ML IV (13:31)
[2019-08-08 13:36] LABS: Absolute Lymphocyte Count 2.54 X10^3/uL (0.83-4.51); Absolute Neutrophil Count 3.7 X10^3/uL (2.0-7.7); Basophil# 0.04 X10^3/uL; Basophil% 0.6 % (0-1); Eosinophil# 0.17 X10^3/uL; Eosinophils% 2.4 % (0-5); Hematocrit 43.8 % (37-47); Hemoglobin 14.5 g/dL (12.0-15.0); Lymphocyte # 2.54 X10^3/ul (4.0); Lymphocyte % 36.3 % (19-41); Mean Corp Hgb Conc 33.1 g/dL (32-36); Mean Corpuscular Volume 90.7 fL (81-99); Mean Platelet Vol. 9.1 fl (6.2-12.0); Monocyte# 0.51 X10^3/uL; Monocyte% 7.3 % (0-10); NRBC Flagged by Analyzer 0 % (0-5); Neutrophil # 3.72 X10^3/uL (2.7-7.7); Neutrophil % 53.1 % (47-70); Platelet Count 303 K/mm3 (150-450); RBC Distribution Width CV 12.8 % (11.6-14.6); RBC Distribution Width SD 42.2 fl (35.1-43.9); Red Blood Count 4.83 M/mm3 (4.2-5.4)
[2019-08-08 13:48] LABS: AST(SGOT) 116 U/L (15-37); Alanine Aminotransfer ALT/SGPT 79 U/L (13-56); Albumin, Serum 3.8 g/dL (3.2-5.0); Alkaline Phosphatase 85 U/L (45-117); Anion Gap 8 (5-15); BUN 12 mg/dL (7-18); BUN/Creat Ratio 15.7 RATIO (10-20); Bilirubin, Direct 0.22 mg/dL (0.00-0.30); Calcium,Total 9.8 mg/dL (8.5-10.1); Chloride 104 mmol/L (98-107); Creatinine, Serum 0.77 mg/dL (0.55-1.02); EST Glomerular Filtration Rate 82 mL/min (>60); Est Glom Filt Rate - Afr Amer 99 mL/min (>60); Estimated Creatinine Clearance 58.63 ml/min; Globulin 3.8 g/dL (2.2-4.2); Glucose 92 mg/dL (74-106); Lipase 158 U/L (73-393); Potassium 3.3 mmol/L (3.5-5.1); Protein, Total 7.6 g/dL (6.4-8.2); Sodium Level 139 mmol/L (136-145)
--- NOTE | 2019-08-08 13:48 | ED.DCSUM_ITS ---
- ER Visit Summary Date of Service: 08/08/19 Chief Complaint: Abdominal pain History of Present Illness: The patient is a 59 F who presents emergency department with 3 days of a upper abdominal pain. She is had 2 days of diarrhea but none today. She states that today the abdominal pain got worse after she was attempting to change her grandchild's diaper and they were fighting. No vomiting. No fevers. She states she recently had a hernia repair in the past 2 months. Review of her chart she actually had a laparoscopic Angel by Dr. Cummings. This was done for GERD. He has had prior cholecystectomy as well as colectomy. She cannot tell me why a colectomy was done. Physical Examination: Afebrile vital signs are stable Gen: Well-nourished well-developed Head: Normocephalic atraumatic Eyes: Perrl EOMI ENT: TMs clear no rhinorrhea moist mucous membranes Neck: Supple no lymphadenopathy no JVD nontender CVS: Regular rate rhythm no murmurs normal S1-S2 Respiratory: No distress clear to auscultation bilaterally chest nontender Abdomen: Soft tender palpation from her umbilicus cephalad including the right upper quadrant and epigastrium. Nondistended normal bowel sounds no masses Back: Nontender Extremity: Nontender no edema Skin: Normal color no rash Neuro: alert orientated ?3 CN II-XII intact normal strength sensation reflexes gait cerebellar Psych: Normal affect normal mood Test Results: White count is normal. Potassium 3.3. Liver enzymes show an ALT of 79 and AST of 116. Lipase was normal. CT abdomen pelvis with oral and IV contrast was ordered and is pending. Emergency Department Course and Treatment: She received a dose of IV fluids. Patient be checked out to oncoming physician for check of CT and final disposition. Impression: 1. Acute abdominal pain This note was generated with [employer] dictation software. It may contain incorrect words, spelling, and punctuation that were not noted in review of the chart prior to signing <Theron Porter - Last Filed: 08/08/19 15:46> - ER Visit Summary Date of Service: 08/08/19 Chief Complaint: [] History of Present Illness: The patient is a 59 F [] Physical Examination: Repeat abdominal exam at 1626 PM patient is doing well. Abdomen is benign. She has minimal right upper quadrant tenderness. There is no distention. No signs of obstruction. Right lower quadrant unremarkable. Test Results: [] Emergency Department Course and Treatment: Patient turned over to me from Dr. Ar Porter. Here to recheck her labs are unremarkable. CT abdomen and pelvis showed no acute abnormality. On repeat exam at 1627 patient is doing well. Abdomen is benign. She and I went over all of her test. She will be discharged to follow-up with primary care physician. Treatment Plan: [] Disposition: Discharge Impression: Abdominal pain of uncertain etiology This note was generated with [employer] dictation software. It may contain incorrect words, spelling, and punctuation that were not noted in review of the chart prior to signing <Dmitriy Moreno - Last Filed: 08/08/19 16:29> ED Disposition <Theron Porter - Last Filed: 08/08/19 15:46> <Dmitriy Moreno - Last Filed: 08/08/19 16:29> - Plan for ED Patient: Disposition: Home or Assisted Living Instructions: ABDOMINAL PAIN, Unknown Cause, (Female) Referrals: Rey Palmer Chi, MD [Primary Care Provider] - 1-2 Days if not improving
--- NOTE | 2019-08-08 13:50 | CT_ITS ---
STUDY: CT ABDOMEN AND PELVIS WITH CONTRAST REASON FOR EXAM: Female, 59 years old. 2 day history of right upper quadrant pain. RADIATION DOSAGE (If Supplied By Facility): CTDIvol = ( 16.25 ) mGy, DLP = ( 1158.25 ) mGycm TECHNIQUE: Transaxial images were obtained from the dome of the diaphragm to the symphysis pubis with oral contrast. IV/Oral Isovue 300 100 was administered. Sagittal and coronal images were reconstructed. Individualized dose optimization techniques were used for this CT. COMPARISON: Comparison is made with prior study dated February 17, 2018. FINDINGS: The visualized lung bases are unremarkable. The visualized portions of the heart are within normal limits. There is decreased attenuation of the liver consistent with steatosis. Stable appearance of the 1.1 Shahab by 2 cm hemangioma in the posterior aspect of the right lobe of the liver. The patient is status post cholecystectomy. Stable minimal dilatation of the common bile duct in keeping with the postcholecystectomy state. Normal spleen. Normal pancreas. Normal bilateral adrenal glands. Normal right kidney. Normal left kidney. Normal visualized stomach. Normal small intestine. There are scattered colonic diverticula consistent with diverticulosis. There is non-visualization of the appendix. There is scattered atherosclerotic calcification of the abdominal aorta, without a demonstrated aneurysm. Normal inferior vena cava. Normal retroperitoneum. Normal urinary bladder. Normal abdominal wall. There are degenerative changes of the visualized lumbar spine. CT/Abdomen/Pelvis WITH Contrast IMPRESSION: Diffuse fatty infiltration of the liver. Stable appearance of the small hemangioma in the right lobe. The patient is status post cholecystectomy. Electronically Signed: Terrence Chun, at 16:01 EST , Service support ,
[2019-08-08 15:54] VITALS: BP 151/81; PULSE 75; RESP 14; O2SAT 96
== END 2019-08-08 16:29 | disposition home or self-care (01) ==
PROVIDERS: Emergency Provider Emergency Medicine; Family Provider Family Medicine Geriatric Medicine; PCP Family Medicine Geriatric Medicine
DX: R10.11 Right upper quadrant pain (principal); R10.13 Epigastric pain; R19.7 Diarrhea, unspecified; K21.9 Gastro-esophageal reflux disease without esophagitis; Z79.899 Other long term (current) drug therapy; Z87.891 Personal history of nicotine dependence; Z90.49 Acquired absence of other specified parts of digestive tract
CPT/HCPCS: 74177; 80048; 80076; 83690; 85025; 96360; 99283; J7030; Q9967

== ENCOUNTER → 2019-08-19 11:15 | Outpatient (CLI) | payer MEDICAID, SELFPAY ==
[2019-08-08 13:12] VITALS: BMI 34.5
[2019-08-19 12:27] LABS: Absolute Lymphocyte Count 2.09 X10^3/uL (0.83-4.51); Absolute Neutrophil Count 2.4 X10^3/uL (2.0-7.7); Basophil# 0.03 X10^3/uL; Basophil% 0.6 % (0-1); Eosinophil# 0.19 X10^3/uL; Eosinophils% 3.8 % (0-5); Hematocrit 43.6 % (37-47); Hemoglobin 14.3 g/dL (12.0-15.0); Lymphocyte # 2.09 X10^3/ul (4.0); Lymphocyte % 41.8 % (19-41); Mean Corp Hgb Conc 32.8 g/dL (32-36); Mean Corpuscular Hgb 30.2 pg (27.0-32.0); Mean Corpuscular Volume 92.2 fL (81-99); Mean Platelet Vol. 9.8 fl (6.2-12.0); Monocyte# 0.32 X10^3/uL; Monocyte% 6.4 % (0-10); NRBC Flagged by Analyzer 0 % (0-5); Neutrophil # 2.37 X10^3/uL (2.7-7.7); Neutrophil % 47.4 % (47-70); Platelet Count 314 K/mm3 (150-450); RBC Distribution Width CV 13.2 % (11.6-14.6); RBC Distribution Width SD 45.2 fl (35.1-43.9); Red Blood Count 4.73 M/mm3 (4.2-5.4)
[2019-08-19 12:56] LABS: AST(SGOT) 125 U/L (15-37); Alanine Aminotransfer ALT/SGPT 80 U/L (13-56); Albumin, Serum 3.9 g/dL (3.2-5.0); Alkaline Phosphatase 88 U/L (45-117); Anion Gap 4 (5-15); BUN 10 mg/dL (7-18); Calcium,Total 9.6 mg/dL (8.5-10.1); Chloride 103 mmol/L (98-107); Creatinine, Serum 0.77 mg/dL (0.55-1.02); EST Glomerular Filtration Rate 81 mL/min (>60); Est Glom Filt Rate - Afr Amer 98 mL/min (>60); Globulin 3.8 g/dL (2.2-4.2); Glucose 93 mg/dL (74-106); Potassium 3.4 mmol/L (3.5-5.1); Protein, Total 7.7 g/dL (6.4-8.2); Sodium Level 139 mmol/L (136-145); Thyroid Stim Hormone (TSH) 2.03 uIU/mL (0.358-3.74)
== END ==
PROVIDERS: Family Provider Family Medicine Geriatric Medicine; PCP Family Medicine Geriatric Medicine; Visit Provider Family Medicine Geriatric Medicine
DX: R53.83 Other fatigue (principal)
CPT/HCPCS: 36415; 80053; 84443; 85025

== ENCOUNTER → 2019-08-30 13:17 | Outpatient (CLI) | payer MEDICAID, SELFPAY ==
[2019-08-08 13:12] VITALS: BMI 34.5
[2019-08-30 17:31] LABS: Anion Gap 8 (5-15); BUN 18 mg/dL (7-18); BUN/Creat Ratio 22.9 RATIO (10-20); Calcium,Total 9.5 mg/dL (8.5-10.1); Chloride 103 mmol/L (98-107); Creatinine, Serum 0.79 mg/dL (0.55-1.02); EST Glomerular Filtration Rate 79 mL/min (>60); Est Glom Filt Rate - Afr Amer 96 mL/min (>60); Glucose 84 mg/dL (74-106); Potassium 3.6 mmol/L (3.5-5.1); Sodium Level 139 mmol/L (136-145)
== END ==
PROVIDERS: Family Provider Family Medicine Geriatric Medicine; PCP Family Medicine Geriatric Medicine; Visit Provider Family Medicine Geriatric Medicine
DX: E87.6 Hypokalemia (principal)
CPT/HCPCS: 36415; 80048

== ENCOUNTER 2019-10-07 11:51 | Day surgery (SDC) | payer MEDICAID, SELFPAY ==
[2019-10-07 12:19] VITALS: BP 149/77; PULSE 60; RESP 15; TEMP 36.4; O2SAT 100; BMI 32.2
[2019-10-07] MEDS: Lactated Ringers 1,000 ML 100 ML IV (12:29)
[2019-10-07] MEDS: Triamcinolone Acetonide 40 MG/ML Vial (14:00)
--- NOTE | 2019-10-07 14:00 | RAD_ITS ---
PROCEDURE: Right sacroiliac joint injection. DATE OF EXAMINATION: October 07, 2019. INDICATION: Female, 59 years old. Pain. FLUOROSCOPY TIME (if supplied): (10.4 seconds) minutes/seconds Intraoperative fluoroscopic services provided for right sacroiliac joint injection. RAD/Fluoro Guided Needle Placement IMPRESSION: Intraoperative fluoroscopic services provided for right sacroiliac joint injection. Electronically Signed: Terrence Chun, at 15:04 EST , Service support ,
--- NOTE | 2019-10-07 14:02 | DCINST_ITS ---
- Discharge Diagnoses Current Active Problems: Lower back pain due to sacroiliac joint pain Reason(s) for Visit for Discharge Instructions: Receiving sacroiliac joint injection to the right side and right pyriformis muscle injection under fluoroscopy guidance You will use the following diet at home:: No restrictions Your food should be the consistency of: Regular Discharge Activity: Return to Normal Activity, No Restrictions May shower in (days): 1 May resume sexual activity in: No Restrictions Weight Bearing Status: Weight bearing as tolerated, Full weight bearing, Partial weight bearing, Toe touch weight bearing, No weight bearing Call your doctor if your incision/area has: Continuous Slow Oozing, Sudden Increased Bleeding, Increased Pain/ Swelling, Increased Redness, Foul Smelling Discharge, Swelling at the incision site Call your doctor if you observe: Numbness or Tingling, Uncontrolled pain Suture Line Care: Avoid Pulling/Pushing, Avoid Pinching/Bending Remove Dressing in (days):: 1 Cleanse incision/area with: Soap & Water Allergies/Adverse Reactions: Allergies codeine Allergy (Verified 10/07/19 12:18) Itching doxycycline Allergy (Verified 10/07/19 12:18) Itching oxycodone Adverse Reaction (Verified 10/07/19 12:18) Itching silicone Adverse Reaction (Verified 10/07/19 12:18) Rash Medications to take at Discharge Sertraline HCl [Zoloft] 50 mg PO DAILY 12/19/15 [place]-3 Fatty Acids [Fish Oil] 1,000 mg PO DAILY 09/19/16 Pravastatin Sodium [Pravachol] 40 mg PO DAILY 06/23/17 busPIRone [Buspar] 15 mg PO BID 06/23/17 Fluticasone 0.05% [Flonase Nasal Fields] 1 spray NASAL DAILY 06/24/17 Buprenorphine 1 patch TP QWEEK 02/08/18 Meloxicam 7.5 mg PO BID 03/30/18 Primary Care Physician: Rey Palmer Chi, MD [Primary Care Provider] - Test Results: Test results from this visit will be discussed in further detail at your follow- up appointment, if applicable. Please Follow Up With: June Mackenzie MD
[2019-10-07] MEDS: Bupivacaine 0.25% 30 ML Vial (14:10)
--- NOTE | 2019-10-07 14:13 | PCM.OPRPT ---
Report of Operation Date of Procedure: 10/07/19 Pre-Operative Diagnosis: Sacroiliitis and piriformis muscle syndrome Post-Operative Diagnosis: Sacroiliitis and pyriformis muscle syndrome Surgery/Procedure Performed:: Right sacroiliac joint injection and right pyriformis muscle injection under fluoroscopy guidance Description of Surgical Findings:: Under sterile conditions. Patient placed in the prone position, pressure points were padded, patient was ready from the nursing and the anesthesia team. After identification of the side and the target area for the block under guided fluoroscopy, the entry site at the right sacroiliac joint and right pyriformis was marked with marking pen. Adjusted fluoroscopy in 20 degree angled toward the patient lower extremity and 15 degree angled toward the left to identify parallel view of the anterior and posterior border margin of the sacroiliac joint. Followed by confirmation of AP fluoroscopy to the piriformis muscle. I used Betadine for sterilization of the skin, sterile draping were applied. Using 25-gauge needle to infiltrate the skin with local anesthesia using preservative-free lidocaine 0.5% injected 2.5 mL at each site of entry. Using oblique fluoroscopy, accessed the right sacroiliac joint and right pyriformis muscle using 22-gauge spinal needle. After confirmation of appropriate needle placement to the targeted area with AP and lateral fluoroscopy, injected 8 mL mixture of preservative-free Marcaine 0.5% and Kenalog 60] mg at right sacroiliac joint and 20 mg Kenalog and 5 cc of Marcaine quarter percent to the right pyriformis muscle. [place] was removed, pressure dressing were applied. Patient tolerated the procedure well and was taken to the recovery. Type of Anesthesia:: Local MAC Estimated Blood Loss (mL): None - Complications None
[2019-10-07 14:23] VITALS: BP 149/77; BP 153/78; PULSE 62; RESP 16; TEMP 36.3; O2SAT 98
[2019-10-07 14:25] VITALS: BP 149/77; BP 166/77; PULSE 60; RESP 16; O2SAT 99
[2019-10-07 14:30] VITALS: BP 149/77; BP 176/84; PULSE 58; RESP 16; O2SAT 97
[2019-10-07 14:35] VITALS: BP 149/77; BP 157/90; PULSE 57; RESP 16; TEMP 36.1; O2SAT 99
[2019-10-07 14:53] VITALS: BP 149/77
== END 2019-10-07 14:54 | disposition home or self-care (01) ==
LOC: SDC 11:52 → AC 11:57
PROVIDERS: Family Provider Family Medicine Geriatric Medicine; PCP Family Medicine Geriatric Medicine; Referring Provider Anesthesiology; Visit Provider Anesthesiology
PROC: 3E0U3GC Introduction of Other Therapeutic Substance into Joints, Percutaneous Approach (ICD-10-PCS; CPT 27096; principal; 2019-10-07 13:10)
DX: M46.1 Sacroiliitis, not elsewhere classified (principal); G57.01 Lesion of sciatic nerve, right lower limb; M51.17 Intervertebral disc disorders with radiculopathy, lumbosacral region; M47.22 Other spondylosis with radiculopathy, cervical region; M50.122 Cervical disc disorder at C5-C6 level with radiculopathy; M51.16 Intervertebral disc disorders with radiculopathy, lumbar region; I10 Essential (primary) hypertension; E78.00 Pure hypercholesterolemia, unspecified; K21.9 Gastro-esophageal reflux disease without esophagitis; G47.30 Sleep apnea, unspecified; F32.9 Major depressive disorder, single episode, unspecified; F41.9 Anxiety disorder, unspecified; Z78.0 Asymptomatic menopausal state; E66.9 Obesity, unspecified; Z68.32 Body mass index [BMI] 32.0-32.9, adult; Z79.899 Other long term (current) drug therapy; Z87.891 Personal history of nicotine dependence
CPT/HCPCS: 01992; 20552; 27096; 76000; 77002; J7120

== ENCOUNTER 2019-10-14 13:26 | Emergency (ER) | payer MEDICAID, SELFPAY ==
[2019-10-14 13:27] VITALS: BP 158/85; PULSE 61; RESP 16; TEMP 36.3; O2SAT 99; BMI 32.5
--- NOTE | 2019-10-14 14:21 | RAD_ITS ---
STUDY: X-RAY - LEFT SHOULDER REASON FOR EXAM: Female, 59 years old. LEFT SHOULDER PAIN S/P FALL TECHNIQUE: 4 view(s) of the shoulder. COMPARISON: None. FINDINGS: Normal glenohumeral articulation. There is degenerative arthrosis of the acromioclavicular joint without inferior osseous spur formation. Normal acromion. Normal humeral head and visualized proximal humerus. The soft tissue structures are unremarkable. Normal visualized pulmonary apex. RAD/Shoulder min 2 Views IMPRESSION: Degenerative changes of the acromioclavicular joint. Electronically Signed: Terrence Chun, at 15:17 EST , Service support ,
--- NOTE | 2019-10-14 14:21 | RAD_ITS ---
STUDY: X-RAY - LEFT ELBOW REASON FOR EXAM: Female, 59 years old. LEFT ELBOW PAIN S/P FALL TECHNIQUE: 3 view(s) of the elbow. COMPARISON: None. FINDINGS: Normal visualized humerus, radius and ulna. Normal radiocapitellar and ulnotrochlear articulations. The soft tissue structures are unremarkable. RAD/Elbow min 3 Views IMPRESSION: Normal x-ray examination of the elbow. Electronically Signed: Terrence Chun, at 15:16 EST , Service support ,
--- NOTE | 2019-10-14 15:44 | ED.VISSUMM ---
- ER Visit Summary Date of Service: 10/14/19 Chief Complaint: Fall History of Present Illness: The patient is a 59 F who presents with left arm and shoulder pain that began after a fall yesterday. Patient states she tripped and fell. Patient states she landed on her left side. Patient states her pain is sharp and is worse with movement. Patient states the pain is over the left shoulder and left elbow. Patient does admit to some tingling down into her fingers but denies any weakness. Physical Examination: Vital signs are stable. Patient is afebrile. Patient is in no acute distress. Musculoskeletal exam reveals tenderness over the left shoulder and left elbow. There is no edema or ecchymosis. There is no deformity noted. Range of motion was limited in all motions of the left shoulder and left elbow secondary to pain. Radial pulses are equal bilaterally. Sensation was intact to light touch in the radial, median, and ulnar areas. Strength is 5/5 in the radial, median, and ulnar areas. Test Results: X-rays of the left shoulder and left elbow were obtained. There is no acute fracture. These were interpreted by the radiologist and myself. Emergency Department Course and Treatment: Patient was given an ice pack. Patient was instructed to ice and elevate the left shoulder and left elbow. Patient was instructed to take [id number] ibuprofen or Tylenol as needed for pain. Patient was instructed to follow-up with her primary care physician in 5 to 7 days for further evaluation. Patient understood and was agreeable with the plan. All questions were answered. Disposition: Discharge home Impression: 1. Contusion left shoulder 2. Contusion left elbow This note was generated with [email or web address] dictation software. It may contain incorrect words, spelling, and punctuation that were not noted in review of the chart prior to signing ED Disposition - Plan for ED Patient: Disposition: Home or Assisted Living Diagnosis: Contusion of left shoulder, initial encounter, Contusion of left elbow, initial encounter Instructions: CONTUSION, Upper Extremity Referrals: Rey Palmer Chi, MD [Primary Care Provider] - Additional Instructions: Use ice to the area to help with pain and swelling. Take Tylenol or ibuprofen as needed for pain.
[2019-10-14 15:58] VITALS: BP 150/9; RESP 18
== END 2019-10-14 15:59 | disposition home or self-care (01) ==
PROVIDERS: Emergency Provider Emergency Medicine; PCP Family Medicine Geriatric Medicine
DX: S40.012A Contusion of left shoulder, initial encounter (principal); S50.02XA Contusion of left elbow, initial encounter; R20.2 Paresthesia of skin; W01.0XXA Fall on same level from slipping, tripping and stumbling without subsequent striking against object, initial encounter; Y93.9 Activity, unspecified; Y92.9 Unspecified place or not applicable; Y99.9 Unspecified external cause status; K21.9 Gastro-esophageal reflux disease without esophagitis; E66.9 Obesity, unspecified; Z79.899 Other long term (current) drug therapy
CPT/HCPCS: 73030; 73080; 99282

== ENCOUNTER 2019-10-28 16:45 | Emergency (ER) | payer MEDICAID, SELFPAY ==
[2019-10-28 16:46] VITALS: BP 169/94; PULSE 90; RESP 18; TEMP 36.7; O2SAT 99; BMI 31.2
--- NOTE | 2019-10-28 16:57 | ED.VIS.GEN ---
History of Present Illness Chief Complaint: Hypertension Informant: Patient Onset: Days - Blood pressure for the past 3 days Context: Sudden Onset Timing: Continuous Quality: 179/107 with head throbbing Location: Not applicable Current Severity: Moderate Maximum Severity: Moderate Worsened by: Nothing Relieved by: Nothing Associated Symptoms: No neuro, respiratory, cardiac or GI symptoms Narrative: Patient is a 59-year-old woman who has not seen her primary care physician for 3 to 4 months. She states her blood pressure at that time was normal. She does not have history of hypertension. States for the past 3 days her blood pressure has been elevated. She has felt her heart pounding in her head. Denies headache. She denies double vision, blurred vision loss of vision. No trouble speech or swallowing. She denies paresthesia, anesthesia motors. She denies problems with gait or balance. Chest pain, back pain. She denies orthopnea, PND or pedal edema. Prior similar symptoms: No Recent Illness/Hospitalization: No - Past Medical History (1) Cervical disc disorder at C5-C6 level with radiculopathy Status: Acute (2) GERD with esophagitis Status: Acute (3) Hiatal hernia Status: Acute (4) Anxiety Status: Chronic (5) BPPV (benign paroxysmal positional vertigo) Status: Chronic (6) Depression Status: Chronic (7) Fatty liver Status: Chronic (8) HLD (hyperlipidemia) Status: Chronic (9) History of colectomy Status: Resolved (10) S/P lumpectomy of breast Status: Resolved Past Medical History - Allergies and Home Meds Allergies/Adverse Reactions: Allergies codeine Allergy (Verified 10/14/19 14:05) Itching doxycycline Allergy (Verified 10/14/19 14:05) Itching oxycodone Adverse Reaction (Verified 10/14/19 14:05) Itching silicone Adverse Reaction (Verified 10/14/19 14:05) Rash Primary Care Physician: Rey Palmer Chi, MD [Primary Care Provider] - Prior records reviewed: Yes Surgical History: cholecystectomy Lives: Alone Smoking Status: Never smoker Alcohol: None Drugs: None - Family History Sibling Family History: Family History (Last Reviewed 07/11/19 @ 13:04 by Avelina Tinajero) Mother Arthritis Hypercholesterolemia Hypertension Cancer Father Cancer Cirrhosis Emphysema lung Family History: Reports: - Review of Systems General: Denies: Chills, Fever, Sweats Eyes: Denies: Visual changes - bilaterally, Blurred Vision - bilaterally, Diplopia ENT: Reports: - - Decreased hearing or ringing in her ears.. Denies: Bilateral ear pain, Rhinorrhea, Sore throat Cardiovascular: Denies: Chest pain, Palpitations Respiratory: Denies: Dyspnea, Cough, Dyspnea on exertion Gastrointestinal: Denies: Abdominal pain, Nausea, Vomiting, Diarrhea, Melena, Hematochezia Genitourinary: Denies: Dysuria, Hematuria, Frequency Musculoskeletal: Denies: Myalgias, Arthralgias, Neck pain, Back pain, Swelling, Extremity Pain Skin: Denies: Rash, Wounds Neurological: Denies: Headache, Weakness, Numbness Psych: Reports: Anxiety Endocrine: Denies: Polyuria, Polydipsia Hematologic: Denies: Easy bruising, Easy bleeding Physical Exam Vital Signs/Narrative: Vital Signs Temp Pulse Resp BP Pulse Ox 10/28/19 16:46 98.1 F 90 18 169/94 H 99 Inital Vital Signs reviewed: Yes General: Well nourished, Well developed, Obese, No Acute Distress Head: Normocephalic, Atraumatic Eyes: Perrl, EOMI, - - Focal to see fundi. There is no obvious papilledema.. Negative for: Pale conjunctiva, Scleral icterus ENT: Moist mucous membranes, No rhinorrhea, TM's clear Neck: Supple, Nontender Cardiovascular: Regular rate, Regular rhythm, No murmurs Respiratory: No distress, CTA bilaterally, Chest nontender Abdomen: Soft, Nontender, Nondistended, Normal bowel sounds, No masses Back: Nontender, Normal Inspection. Negative for: CVA tenderness Extremities: Nontender, No edema. Negative for: Tenderness, Edema Skin: Normal color, No rash, No Trauma. Negative for: Cyanosis, Diaphoresis, Jaundice Neurological: Alert, Oriented x3, Cranial nerves II-XII grossly intact, Normal Strength, Normal Sensation, Normal DTR, Normal Gait, - - Cerebellar testing is normal. Psychological: Normal affect, Normal Mood Diagnostic/Tx/Re-eval Laboratory Results 10/28/19 10/28/19 17:09 17:31 Sodium 139 Potassium 2.9 L Chloride 108 H Carbon Dioxide 25.0 Anion Gap 6 BUN 14 Creatinine 0.92 Estim Creat Clear Calc 51.43 Est GFR (MDRD) Af Amer 80 Est GFR (MDRD) Non-Af 66 BUN/Creatinine Ratio 15.3 Glucose 84 Calcium 9.9 Urine Color Yellow Urine Clarity Sl. Cloudy Urine pH 6.5 Ur Specific [place] 1.010 Urine Protein Negative Urine Glucose (UA) Normal Urine Ketones Negative Urine Occult Blood Negative Urine Nitrite Negative Urine Bilirubin Negative Urine Urobilinogen Normal Ur Leukocyte Esterase Negative Urine RBC 0 SEEN Urine WBC 0 SEEN Ur Squamous Epith Cells 0 SEEN Urine Bacteria RARE Urine Mucus 0 SEEN Lab results are unremarkable and there is no evidence of endorgan injury. Most recent blood pressure is 145/87. Since patient does not have history of hypertension we will have her follow-up with her primary care physician to have blood pressure rechecked prior to initiation of antihypertensive meds. - Medical Decision Making Placed on monitor. Will have blood pressures rechecked. Will obtain basic metabolic panel and UA to assess for endorgan injury. ED Disposition - Plan for ED Patient: Disposition: Home or Assisted Living Diagnosis: Elevated blood pressure reading Instructions: HYPERTENSION, To Be Confirmed Referrals: Rey Palmer Chi, MD [Primary Care Provider] - 5-7 Days
[2019-10-28 17:37] LABS: Red Blood Cells-Urine 0 SEEN /hpf (0-5); Squamous Epithelial Cells - UA 0 SEEN /hpf (5-10); White Blood Cells 0 SEEN /hpf (0-5)
[2019-10-28 17:52] LABS: Anion Gap 6 (5-15); BUN 14 mg/dL (7-18); BUN/Creat Ratio 15.3 RATIO (10-20); Calcium,Total 9.9 mg/dL (8.5-10.1); Chloride 108 mmol/L (98-107); Creatinine, Serum 0.92 mg/dL (0.55-1.02); EST Glomerular Filtration Rate 66 mL/min (>60); Est Glom Filt Rate - Afr Amer 80 mL/min (>60); Estimated Creatinine Clearance 51.43 ml/min; Glucose 84 mg/dL (74-106); Potassium 2.9 mmol/L (3.5-5.1); Sodium Level 139 mmol/L (136-145)
[2019-10-28 18:22] LABS: Color, Urine Yellow (Yellow); Glucose, Dipstick Normal (Normal); Ketone-Dipstick Negative (Negative); Leukocyte Esterase-Dipstick Negative /ul (Negative); Nitrite-Dipstick Negative (Negative); Occult Blood-Urine Negative /ul (Negative); Protein-Dipstick Negative (Negative); Urine Bilirubin Dipstick Negative (Negative); Urine Clarity Sl. Cloudy (Clear); Urine Urobilinogen Normal (Normal); Urine pH 6.5 (5.0 - 8.0)
[2019-10-28 19:01] LABS: Bacteria RARE /hpf (None Seen); Mucous, Urine 0 SEEN /hpf (<or=2+)
[2019-10-28 19:22] VITALS: BP 145/87; PULSE 79; RESP 16; O2SAT 94
== END 2019-10-28 19:31 | disposition home or self-care (01) ==
PROVIDERS: Emergency Provider Emergency Medicine; PCP Family Medicine Geriatric Medicine
DX: R03.0 Elevated blood-pressure reading, without diagnosis of hypertension (principal); E78.5 Hyperlipidemia, unspecified; K44.9 Diaphragmatic hernia without obstruction or gangrene; K21.0 Gastro-esophageal reflux disease with esophagitis; F32.9 Major depressive disorder, single episode, unspecified; F41.9 Anxiety disorder, unspecified; Z88.5 Allergy status to narcotic agent; Z90.49 Acquired absence of other specified parts of digestive tract
CPT/HCPCS: 80048; 81001; 99285; A4216

== ENCOUNTER 2019-10-29 22:23 | Emergency (ER) | payer MEDICAID, SELFPAY ==
[2019-10-28 16:46] VITALS: BMI 31.2
[2019-10-29 22:24] VITALS: BP 161/84; PULSE 99; RESP 18; TEMP 36.1; O2SAT 100; BMI 31.4
--- NOTE | 2019-10-29 22:56 | CT_ITS ---
STUDY: CT BRAIN WITHOUT CONTRAST REASON FOR EXAM: Female, 59 years old. JONES WITH INCREASED BP X 4 DAYS RADIATION DOSAGE (If Supplied By Facility): CTDIvol = ( 44.99 ) mGy, DLP = ( 745.49 ) mGycm TECHNIQUE: Transaxial CT imaging of the brain was performed without administration of intravenous contrast material. Individualized dose optimization techniques were used for this CT. COMPARISON: No relevant priors. FINDINGS: Normal soft tissue structures. Normal calvarium. Normal size ventricles and extra-axial spaces for the patient''s age. Normal white matter tracts of the cerebral hemispheres. Normal basal ganglia and thalami. Normal brainstem. Normal cerebellum. There is no intracranial hemorrhage. There are no findings of an acute ischemic infarction. Normal visualized paranasal sinuses. CT/Brain/Head without Contrast IMPRESSION: Normal unenhanced CT scan of the brain. Electronically Signed: Mariann Perez MD at 0:13 EST , Service support ,
[2019-10-29] MEDS: 0.9% Normal Saline 1,000 ML 999 ML IV (23:12)
[2019-10-29] MEDS: DiphenhydrAMINE 50 MG/ML Syringe IV (23:48)
[2019-10-29] MEDS: proCHLORPERazine 10 MG/2 ML Vial IV (23:50)
[2019-10-29] MEDS: Ketorolac 30 MG/ML Syringe IV (23:51)
--- NOTE | 2019-10-30 00:06 | ED.VIS.GEN ---
History of Present Illness Chief Complaint: Headache Narrative: Patient presents the emergency department with a headache. She tells me that for the past several days her blood pressures been elevated. She reports home readings of 170 over 90s. She denies headache prior to today however she was seen in emergency yesterday and was documented that she had a throbbing headache. States that she developed a generalized sharp headache all over her head several hours prior to arrival. She ports 3 episodes of emesis in the preceding hour before arriving the ED. She notes light sensitivity. She denies any fevers or rashes. No recent infections. She has a follow-up appointment on Thursday for recheck of her blood pressure. She reports feeling dizzy when she walks. She was eating today having had a taco salad for lunch and half a sandwich and around 8:00 tonight. She reports being treated for hypercholesterolemia but not for hypertension. She denies any significant history of headaches. She denies any neurologic deficits such as arm or leg weakness or paresthesias or difficulty speaking or swallowing. No visual changes. Past Medical History - Allergies and Home Meds Allergies/Adverse Reactions: Allergies codeine Allergy (Verified 10/14/19 14:05) Itching doxycycline Allergy (Verified 10/14/19 14:05) Itching oxycodone Adverse Reaction (Verified 10/14/19 14:05) Itching silicone Adverse Reaction (Verified 10/14/19 14:05) Rash Primary Care Physician: Rey Palmer Chi, MD [Primary Care Provider] - Surgical History: cholecystectomy Smoking Status: Never smoker - Family History Sibling Family History: Family History (Last Reviewed 07/11/19 @ 13:04 by Avelina Tinajero) Mother Arthritis Hypercholesterolemia Hypertension Cancer Father Cancer Cirrhosis Emphysema lung Family History: Reports: - Review of Systems General: Denies: Chills, Fever, Sweats Eyes: Reports: - - Photophobia. Denies: Visual changes - bilaterally, Diplopia ENT: Denies: Rhinorrhea, Sore throat Cardiovascular: Denies: Chest pain, Palpitations Respiratory: Denies: Dyspnea, Cough, Dyspnea on exertion Gastrointestinal: Reports: Nausea, Vomiting. Denies: Abdominal pain, Diarrhea, Melena, Hematochezia Genitourinary: Denies: Dysuria, Hematuria, Frequency Musculoskeletal: Denies: Back pain, Extremity Pain Skin: Denies: Rash, Wounds Neurological: Reports: Headache. Denies: Weakness, Parasthesia, Numbness Physical Exam Vital Signs/Narrative: Vital Signs Temp Pulse Resp BP Pulse Ox 10/29/19 22:24 97.0 F L 99 18 161/84 H 100 Inital Vital Signs reviewed: Yes General: Well nourished, Well developed, No Acute Distress, - - Patient is lying on her left side in a darkened room Head: Normocephalic, Atraumatic Eyes: Perrl - Light sensitivity, EOMI, - - ight sensitivity ENT: Moist mucous membranes, No rhinorrhea Neck: Supple, Nontender Cardiovascular: Regular rate, Regular rhythm, No murmurs Respiratory: No distress, CTA bilaterally, Chest nontender Abdomen: Soft, Nontender, Nondistended, Normal bowel sounds Back: Nontender, Normal Inspection Extremities: Nontender, No edema Skin: Normal color, No rash Neurological: Alert, Oriented x3, Cranial nerves II-XII grossly intact, Normal Strength, Normal Sensation Psychological: Normal affect, Normal Mood Diagnostic/Tx/Re-eval - Medical Decision Making CT the brain was normal. Patient received IV fluids Toradol Compazine and Benadryl. She was able to sleep now that she is awake her headache is improved. Her blood pressures also improved. At one point while she was sleeping she was 103/70. While awake and talking to me she is about 120/77. This point patient be discharged home. She should follow-up with her doctor scheduled on Thursday ED Disposition - Plan for ED Patient: Disposition: Home or Assisted Living Diagnosis: Headache, Hypertension Instructions: HEADACHE, Unspecified Referrals: Rey Palmer Chi, MD [Primary Care Provider] - Keep Gagan appointment
[2019-10-30 00:45] VITALS: BP 112/58; PULSE 83; RESP 16
[2019-10-30 02:23] VITALS: BP 132/77; PULSE 93; RESP 20
== END 2019-10-30 02:24 | disposition home or self-care (01) ==
PROVIDERS: Emergency Provider Emergency Medicine; PCP Family Medicine Geriatric Medicine
DX: R51 Headache (principal); I10 Essential (primary) hypertension; E78.00 Pure hypercholesterolemia, unspecified; Z79.899 Other long term (current) drug therapy; Z88.5 Allergy status to narcotic agent; Z90.49 Acquired absence of other specified parts of digestive tract
CPT/HCPCS: 70450; 96361; 96374; 96375; 99284; J7030; A4216

== ENCOUNTER 2019-11-02 22:22 | Emergency (ER) | payer MEDICAID, SELFPAY ==
[2019-11-02 22:24] VITALS: BP 121/81; PULSE 92; RESP 20; TEMP 36.8; O2SAT 100; BMI 32.9
--- NOTE | 2019-11-02 22:35 | EKG12_ITS ---
Test Reason : WEAKNESS Blood Pressure : / mmHG Vent. Rate : 079 BPM Atrial Rate : 079 BPM P-R Int : 162 ms QRS Dur : 080 ms QT Int : 386 ms P-R-T Axes : 041 -08 038 degrees QTc Int : 442 ms Normal sinus rhythm Inferior infarct , age undetermined Abnormal ECG Confirmed by MIGUEL ANGEL FELDMAN, ZANE ([id number]), medical editor RAOUL RITTER ([id number]) on 11/07/2019 10:35:24 AM Referred By: YAN Confirmed By:FRED MICHELLE MD
--- NOTE | 2019-11-02 22:36 | CT_ITS ---
STUDY: CTA HEAD AND NECK WITH CONTRAST REASON FOR EXAM: Female, 59 years old. WEAKNESS WITH HTN, EMESIS X SEVERAL DAYS RADIATION DOSAGE (If Supplied By Facility): CTDIvol = ( 34.46 ) mGy, DLP = ( 1424.22 ) mGycm TECHNIQUE: CT angiography was performed with a multi-detector CT scanner. Data acquisition was obtained from the skull base through the vertex following intravenous administration of 100ML ISOVUE 370. MIP images were reconstructed from the axial data set. Post-processing of the angiographic images was performed, with multiplanar reformation and 3D reconstruction. Individualized dose optimization techniques were used for this CT. COMPARISON: Head CT dated November 02, 2014 FINDINGS: Normal bilateral petrous carotid arteries. Normal right cavernous carotid artery with a normal supraclinoid bifurcation. Normal left cavernous carotid artery with a normal supraclinoid bifurcation. Normal right A1 segments of the anterior cerebral artery. Normal left A1 segments of the anterior cerebral artery. Normal intact anterior communicating artery (ACOM). Normal bilateral A2 segments of the anterior cerebral arteries. Normal right M1 and M2 segments of the middle cerebral arteries, with a normal M1 bifurcation. Normal left M1 and M2 segments of the middle cerebral arteries, with a normal M1 bifurcation. Normal right posterior communicating artery (PCOM). There is non-visualization of the left posterior communicating artery (PCOM). Normal bilateral vertebral arteries. Normal basilar artery with a normal basilar bifurcation. The visualized bilateral superior cerebellar (SCA) arteries are normal. Normal bilateral P1, P2 and visualized P3 segments of the posterior cerebral arteries. There is no demonstrated aneurysm of the [place]. There is no demonstrated abnormality of the visualized brain. AORTIC ARCH: Normal visualized aortic arch. Normal origins of the brachiocephalic, left common carotid, and left subclavian arteries. RIGHT CAROTID ARTERIES: Normal right common carotid artery (CCA). There is mild atherosclerotic plaque formation with minimal narrowing of the right carotid bulb. There is mild atherosclerotic plaque formation of the origin of the right internal carotid artery with less than 25% cross sectional diameter stenosis. Normal visualized cervical portion of the right internal carotid artery. Normal origin of the right external carotid artery (ECA). LEFT CAROTID ARTERIES: Normal left common carotid artery (CCA). Normal left common carotid bulb. Normal origin of the left internal carotid (ICA) artery without a hemodynamically significant stenosis. Normal visualized cervical portion of the left internal carotid artery. Normal origin of the left external carotid artery (ECA). VERTEBRAL ARTERIES: Normal bilateral vertebral arteries. CT/CTA Head AND Neck W/ Contrast IMPRESSION: Unremarkable CTA Head and neck with contrast. Electronically Signed: Joselito Eaton MD at 23:48 EST , Service support ,
--- NOTE | 2019-11-02 22:37 | ED.DCSUM_ITS ---
History of Present Illness Chief Complaint: Weakness Detail of Chief Complaint: Vertigo with visual change Informant: Patient, Significant Other Onset: Today Context: Sudden Onset Timing: Intermittent Quality and Location: Difficulty with Ambulation Onset: Approximately 2200 Current Severity: Gone Maximum Severity: Severe Worsened by: Nothing Relieved by: Nothing Associated Symptoms: Nausea, Vomiting. Negative for: Headache, Chest Pain Narrative: Patient is a 59-year-old woman with history of depression, hypercholesterolemia who was seen on October 29 for headache and elevated blood pressure. She was started on lisinopril 20 and hydrochlorothiazide 12.5 mg daily. She states she had abrupt onset of spinning with nausea vomiting and inability to stand with change in vision bilaterally. She has slight headache. She feels nauseous presently. The vertigo resolved. The vertigo lasted 10 to 15 minutes. The vertigo was not positional. There is history of atherosclerotic disease at early age, brother 36 years old. Patient denies double vision. She denied loss of vision. She denied trouble with speech or swallowing. She states she has tingling her entire body. She denies chest discomfort. She did report shortness of breath. She has no other symptoms. She is on numerous psychotropic meds and muscle relaxant. She is also on medication for elevated cholesterol. She was recently started on blood pressure that was previously mentioned. Prior similar symptoms: No Recent Illness/Hospitalization: Yes - Past Medical History (1) Cervical disc disorder at C5-C6 level with radiculopathy Status: Acute (2) GERD with esophagitis Status: Acute (3) Hiatal hernia Status: Acute (4) Intervertebral disc disorder with radiculopathy of lumbar region Status: Acute (5) Sacroiliitis, not elsewhere classified Status: Acute (6) Anxiety Status: Chronic (7) BPPV (benign paroxysmal positional vertigo) Status: Chronic (8) Depression Status: Chronic (9) HLD (hyperlipidemia) Status: Chronic (10) ARIELA (obstructive sleep apnea) Status: Chronic Comment: 10/6 cmH2O (11) Obesity Status: Chronic (12) History of colectomy Status: Resolved (13) S/P lumpectomy of breast Status: Resolved (14) [place] teeth extracted Status: Resolved Past Medical History - Allergies and Home Meds Allergies/Adverse Reactions: Allergies codeine Allergy (Verified 11/02/19 22:23) Itching doxycycline Allergy (Verified 11/02/19 22:23) Itching oxycodone Adverse Reaction (Verified 11/02/19 22:23) Itching silicone Adverse Reaction (Verified 11/02/19 22:23) Rash Primary Care Physician: Rey Palmer Chi, MD [Primary Care Provider] - Prior records reviewed: Yes Surgical History: cholecystectomy Lives: Spouse/ Significant Other Smoking Status: Never smoker Alcohol: Sober - For 20 years Drugs: None - Family History Sibling Family History: Family History (Last Reviewed 07/11/19 @ 13:04 by Avelina Tinajero) Mother Arthritis Hypercholesterolemia Hypertension Cancer Father Cancer Cirrhosis Emphysema lung Family History: Reports: - Review of Systems General: Denies: Chills, Fever, Malaise, Subjective, Sweats Eyes: Reports: Blurred Vision - bilaterally. Denies: Visual changes - bilaterally, Diplopia ENT: Denies: Bilateral ear pain, Rhinorrhea, Sore throat Cardiovascular: Denies: Chest pain, Palpitations Respiratory: Reports: Dyspnea. Denies: Cough, Sputum, Dyspnea on exertion, Orthopnea Gastrointestinal: Reports: Nausea, Vomiting Genitourinary: Denies: Dysuria, Hematuria, Frequency Musculoskeletal: Denies: Myalgias, Arthralgias, Neck pain, Back pain, Swelling, Extremity Pain Skin: Denies: Rash, Wounds Neurological: Reports: Numbness. Denies: Headache, Weakness, Parasthesia Psych: Reports: Depression, Anxiety Hematologic: Denies: Easy bruising, Easy bleeding Allergy: Denies: Uticaria, Swelling of the mouth STROKE Vital Signs/Narrative: Vital Signs Temp Pulse Resp BP Pulse Ox 11/02/19 22:24 98.2 F 92 20 H 121/81 H 100 Inital Vital Signs reviewed: Yes - NIHSS Initial 1a Level of Consciousness: 0 1b LOC Questions (Score 2 if aphasic/stupor): 0 1c LOC Commands (Only score 1st attempt): 0 2 Best Gaze (If aphasic, use reflexive mvmts.): 0 3 Visual: 0 4 Facial Palsy: 0 5 Motor Arm Right (UN = amputation/fusion): 0 5 Motor Arm Left: 0 6 Motor Leg Right: 0 6 Motor Leg Left: 0 7 Limb ataxia (Only + if out of proportion): 0 8 Sensory (Aphasia/stupor=0 or 1, coma=2): 0 9 Best Language: 0 10 Dysarthria (mute, coma=2, intubated=UN): 0 11 Extinction and Inattention (only scored if +): 0 Total Score: 0 General: Well nourished, Well developed, Obese Head: Normocephalic, Atraumatic. Negative for: Trauma, Tenderness Eyes: Perrl, EOMI, - - There is no papilledema. No exit or hemorrhage noted. There is no AV nicking noted.. Negative for: Pale conjunctiva, Scleral icterus ENT: Moist mucous membranes, No rhinorrhea, TM's clear Neck: Supple, Nontender, No lymphadenopathy, No JVD Cardiovascular: Regular rate, Regular rhythm, No murmurs, Normal S1, Normal S2 Respiratory: No distress, CTA bilaterally, Chest nontender Abdomen: Soft, Nontender, Nondistended, Normal bowel sounds Back: Nontender, Normal Inspection. Negative for: CVA tenderness Extremities: Nontender, No edema Skin: Normal color, No rash. Negative for: Cyanosis, Diaphoresis, Jaundice, No Trauma Neurological: Alert, Oriented x3, Cranial nerves II-XII grossly intact, Normal Strength, Normal Sensation, Normal DTR Psychological: Depressed Diagnostic/Tx/Re-eval Impressions Head/Neck CTA 11/02/19 22:36 IMPRESSION: Unremarkable CTA Head and neck with contrast. Electronically Signed: Joselito Eaton MD at 23:48 EST , Service support , 11/02/19 22:36 CTA Head AND Neck W/ Contrast [CT] Stat Laboratory Results 11/02/19 11/02/19 11/02/19 22:45 22:45 22:45 WBC 7.6 RBC 4.55 Hgb 14.5 Hct 41.9 MCV 92.1 MCH 31.9 MCHC 34.6 RDW Std Deviation 45.6 H RDW Coeff of Andry 13.4 Plt Count 271 MPV 9.1 Immature Gran % (Auto) 0.300 Neut % (Auto) 48.8 Lymph % (Auto) 41.2 H [place] % (Auto) 8.1 Eos % (Auto) 1.3 Baso % (Auto) 0.3 Absolute Neuts (auto) 3.7 Absolute Lymphs (auto) 3.11 Nucleated RBC % 0 PT 12.7 INR 1.0 APTT 26.7 Sodium 139 Potassium 3.5 Chloride 106 Carbon Dioxide 28.0 Anion Gap 5 BUN 18 Creatinine 1.05 H Estim Creat Clear Calc 42.99 Est GFR (MDRD) Af Amer 69 Est GFR (MDRD) Non-Af 57 L BUN/Creatinine Ratio 17.1 Glucose 107 H Calcium 10.1 Troponin I < 0.015 - Rhythm Strip Rhythm Strip: Sinus Rhythm Rate: 82 Ectopy: None - EKG Initial EKG Interpretation: Sinus Rhythm - This rhythm with a ventricular rate of 79. AL interval is under 62 ms. QRS durations 80 ms. QT duration is 386 ms. The axis is normal. Computer is reading inferior infarct of undetermined age. There is no Q wave in lead III. The QRS is a normal variant. The EKG is normal. - Medical Decision Making Stroke Team Activated: No Reviewed Inclusion/Exclusion criteria: No No contraindications for IV Alteplase (t-PA) administration.: No - There is no contraindication for TPA Patient presents with acute vertigo describes a spinning sensation with nausea and vomiting change in vision. This occurred at approximately 2200. Patient was unable to stand. She also complains of numbness. Patient's medications were reviewed. There is possibility of drug interaction. This may be secondary to blood pressure medicine that she was recently started on and need to evaluate electrolytes. This may also represent posterior circulatory event. CT of the head was obtained as well as CTA of the head neck to assess vessels. Patient does not appear well. Symptoms were not reproduced with [place]-Hallpike maneuver. The eye askew test and the hint test were both negative. He was informed of her test results and CAT scan results. She states she has history of orthostatic hypotension. Orthostatic vital signs were ordered and are negative. She also has history of benign paroxysmal positional vertigo. She states this was different. This reminded her more of when she had orthostatic hypotension. Since her neuro exam is negative and her CT of the head and CTA of the head and neck are normal with complaint of generalized numbness suspect this is not a neurologic event. This may be an interaction with her medications. Will decrease dose of lisinopril from 20 to 10mg. ED Disposition - Plan for ED Patient: Disposition: Home or Assisted Living Diagnosis: Vertigo Instructions: VERTIGO, Unspecified Prescriptions: Lisinopril [Zestril] 10 mg PO DAILY #30 tab Transmission Status: Pending to [id number] Referrals: Rey Palmer Chi, MD [Primary Care Provider] - 3-5 Days
[2019-11-02 22:52] VITALS: BP 120/76; PULSE 81; RESP 18; TEMP 36.9; O2SAT 96
[2019-11-02 22:54] LABS: Absolute Lymphocyte Count 3.11 X10^3/uL (0.83-4.51); Absolute Neutrophil Count 3.7 X10^3/uL (2.0-7.7); Basophil# 0.02 X10^3/uL; Basophil% 0.3 % (0-1); Eosinophils% 1.3 % (0-5); Hematocrit 41.9 % (37-47); Hemoglobin 14.5 g/dL (12.0-15.0); Lymphocyte # 3.11 X10^3/ul (4.0); Lymphocyte % 41.2 % (19-41); Mean Corp Hgb Conc 34.6 g/dL (32-36); Mean Corpuscular Hgb 31.9 pg (27.0-32.0); Mean Corpuscular Volume 92.1 fL (81-99); Mean Platelet Vol. 9.1 fl (6.2-12.0); Monocyte# 0.61 X10^3/uL; Monocyte% 8.1 % (0-10); NRBC Flagged by Analyzer 0 % (0-5); Neutrophil # 3.69 X10^3/uL (2.7-7.7); Neutrophil % 48.8 % (47-70); Platelet Count 271 K/mm3 (150-450); RBC Distribution Width CV 13.4 % (11.6-14.6); RBC Distribution Width SD 45.6 fl (35.1-43.9); Red Blood Count 4.55 M/mm3 (4.2-5.4); White Blood Count 7.6 K/mm3 (4.4-11.0)
[2019-11-02 23:05] VITALS: BP 124/77; PULSE 77; RESP 18; TEMP 37; O2SAT 99
[2019-11-02 23:08] LABS: Partial Thromboplast Time 26.7 Seconds (24.1-36.2); Prothrombin Time (Protime)PT. 12.7 SECONDS (11.7-14.9)
[2019-11-02 23:12] LABS: Anion Gap 5 (5-15); BUN 18 mg/dL (7-18); BUN/Creat Ratio 17.1 RATIO (10-20); Calcium,Total 10.1 mg/dL (8.5-10.1); Chloride 106 mmol/L (98-107); Creatinine, Serum 1.05 mg/dL (0.55-1.02); EST Glomerular Filtration Rate 57 mL/min (>60); Est Glom Filt Rate - Afr Amer 69 mL/min (>60); Estimated Creatinine Clearance 42.99 ml/min; Glucose 107 mg/dL (74-106); Potassium 3.5 mmol/L (3.5-5.1); Sodium Level 139 mmol/L (136-145)
[2019-11-02 23:39] VITALS: BP 139/81; PULSE 77; RESP 18; TEMP 37; O2SAT 98
[2019-11-03 00:02] VITALS: BP 101/80; BP 116/71; BP 125/85; PULSE 80; PULSE 83; PULSE 96
--- NOTE | 2019-11-03 00:08 | ED.RN ---
I COMPLETED THE STROKE VITAL SIGNS BECAUSE DR. AQUINO IS GOING TO SEND HER HOME.
[2019-11-03 00:18] VITALS: BP 125/85; PULSE 75; RESP 16; O2SAT 95
[2019-11-03 07:11] LABS: Bedside Glucose 113 mg/dL (70-110)
== END 2019-11-03 00:22 | disposition home or self-care (01) ==
PROVIDERS: Emergency Provider Emergency Medicine; PCP Family Medicine Geriatric Medicine
DX: R42 Dizziness and giddiness (principal); R11.2 Nausea with vomiting, unspecified; R51 Headache; R20.2 Paresthesia of skin; R06.02 Shortness of breath; K44.9 Diaphragmatic hernia without obstruction or gangrene; E78.5 Hyperlipidemia, unspecified; G47.33 Obstructive sleep apnea (adult) (pediatric); E66.9 Obesity, unspecified; F32.9 Major depressive disorder, single episode, unspecified; F41.9 Anxiety disorder, unspecified; Z79.899 Other long term (current) drug therapy; Z88.5 Allergy status to narcotic agent; Z90.49 Acquired absence of other specified parts of digestive tract
CPT/HCPCS: 70496; 70498; 80048; 82962; 84484; 85025; 85610; 85730; 93005; 99285; Q9967; A4216

== ENCOUNTER → 2019-11-04 16:34 | Outpatient (CLI) | payer MEDICAID, SELFPAY ==
[2019-11-02 22:24] VITALS: BMI 32.9
--- NOTE | 2019-11-04 17:10 | RAD_ITS ---
STUDY: X-RAY - CERVICAL SPINE REASON FOR EXAM: Female, 59 years old. NECK PAIN TECHNIQUE: 5 view(s) of the cervical spine were obtained. COMPARISON: 05/01/2017 FINDINGS: Normal anterior atlantoaxial articulation. Normal odontoid process. There is straightening of the normal cervical lordosis. There is multi-level endplate spondylosis. There is multi-level degenerative disc disease with multilevel disc space narrowing. Foraminal narrowing bilateral C4-C5 and C5-C6. The soft tissue structures are unremarkable. RAD/Cerv Spine 4 or 5 Views IMPRESSION: Multilevel degenerative changes of the cervical spine with foraminal narrowing, as above. Mildly worse since prior study. Electronically Signed: Elan Arevalo MD ([place]) at 13:59 EST , Service support ,
== END ==
PROVIDERS: PCP Family Medicine Geriatric Medicine; Referring Provider Anesthesiology; Visit Provider Anesthesiology
DX: M54.2 Cervicalgia (principal)
CPT/HCPCS: 72050

== ENCOUNTER → 2019-11-07 15:58 | Outpatient (CLI) | payer MEDICAID, SELFPAY ==
[2019-11-02 22:24] VITALS: BMI 32.9
== END ==
PROVIDERS: PCP Family Medicine Geriatric Medicine; Referring Provider Family Medicine Geriatric Medicine; Visit Provider Family Medicine Geriatric Medicine
DX: R68.83 Chills (without fever) (principal)
CPT/HCPCS: 87633

== ENCOUNTER 2019-11-22 10:12 | Observation (INO) | payer MEDICAID, SELFPAY ==
[2019-11-22] VITALS (8 sets, daily range): BP systolic 131–140; BP diastolic 74–90; PULSE 71–94; RESP 10–18; TEMP 36.8–37.1; O2SAT 95–100; BMI 29.4
--- NOTE | 2019-11-22 10:37 | CT_ITS ---
STUDY: CT ABDOMEN AND PELVIS WITH CONTRAST REASON FOR EXAM: Female, 59 years old. Abdominal pain, and quot;burning and quot; in stomach. Hx hypertension, cholecystectomy, tubal ligation, Angel surgery. RADIATION DOSAGE (If Supplied By Facility): CTDIvol = ( 23.91 ) mGy, DLP = ( 1140.33 ) mGycm COMPARISON: Previous CT scan of the abdomen and pelvis obtained on 08/08/2019 TECHNIQUE: A CT scan of the abdomen and pelvis was performed with IV contrast contrast administration. Oral contrast was also administered. Coronal and sagittal reconstruction images were reviewed. This exam was performed according to our departmental dose-optimization program, which includes automated exposure control, adjustment of the mA and/or kV according to patient size and/or use of iterative reconstruction technique. FINDINGS: The lung bases and the base of the heart are normal. A liver hemangioma is noted in the posterior aspect of hepatic segment 5 which was seen previously and is unchanged. The remainder of the hepatic parenchyma is normal.The spleen is normal.The adrenal glands are normal.The head, body, and tail of the pancreas are normal. The right and left kidneys were examined and appear to be normal. Both ureters appear to be normal, and no obstructive uropathy is identified. The abdominal aortal is normal along its course and distribution. No paraortic lymphadenopathy is seen. The patient has had a Angel fundoplication.. The CT scan of the pelvis was then reviewed. The common iliac vessels, external iliac vessels, and common femoral vessels are normal along their course and distribution No pelvis masses or lesions are seen. The appendix is not seen No pericecal inflammatory reaction is seen. Bone scanning windows of the lumbar spine and pelvis were reviewed in the coronal and sagittal planes and appear to be normal. CT/Abdomen/Pelvis WITH Contrast IMPRESSION: Normal CT scan of the abdomen and pelvis. Electronically Signed: Gal Culp, at 14:13 EST Tel , Service support ,
[2019-11-22] MEDS: Ondansetron 4 MG/2 ML Vial IV (11:09)
[2019-11-22] MEDS: HYDROmorphone 1 MG/ML Syringe IV (11:09)
[2019-11-22] MEDS: 0.9% Normal Saline 1,000 ML 125 ML IV ×2 (11:09→17:15)
[2019-11-22 11:41] LABS: Absolute Lymphocyte Count 2.11 X10^3/uL (0.83-4.51); Absolute Neutrophil Count 4.1 X10^3/uL (2.0-7.7); Basophil# 0.03 X10^3/uL; Basophil% 0.4 % (0-1); Eosinophil# 0.04 X10^3/uL; Eosinophils% 0.6 % (0-5); Hematocrit 43.8 % (37-47); Hemoglobin 15.3 g/dL (12.0-15.0); Lymphocyte # 2.11 X10^3/ul (4.0); Lymphocyte % 30.5 % (19-41); Mean Corp Hgb Conc 34.9 g/dL (32-36); Mean Corpuscular Hgb 31.7 pg (27.0-32.0); Mean Corpuscular Volume 90.7 fL (81-99); Mean Platelet Vol. 10.3 fl (6.2-12.0); Monocyte# 0.63 X10^3/uL; Monocyte% 9.1 % (0-10); NRBC Flagged by Analyzer 0 % (0-5); Neutrophil # 4.09 X10^3/uL (2.7-7.7); Neutrophil % 59.3 % (47-70); Platelet Count 245 K/mm3 (150-450); RBC Distribution Width CV 13.1 % (11.6-14.6); RBC Distribution Width SD 43.4 fl (35.1-43.9); Red Blood Count 4.83 M/mm3 (4.2-5.4); White Blood Count 6.9 K/mm3 (4.4-11.0)
[2019-11-22 11:59] LABS: ALB/GLOB Ratio 0.8 RATIO (0.9-2.4); AST(SGOT) 72 U/L (15-37); Alanine Aminotransfer ALT/SGPT 55 U/L (13-56); Albumin, Serum 3.2 g/dL (3.2-5.0); Alkaline Phosphatase 77 U/L (45-117); Anion Gap 8 (5-15); BUN 22 mg/dL (7-18); BUN/Creat Ratio 14.4 RATIO (10-20); Chloride 106 mmol/L (98-107); Creatinine, Serum 1.53 mg/dL (0.55-1.02); EST Glomerular Filtration Rate 37 mL/min (>60); Est Glom Filt Rate - Afr Amer 44 mL/min (>60); Estimated Creatinine Clearance 30.93 ml/min; Globulin 3.9 g/dL (2.2-4.2); Glucose 104 mg/dL (74-106); Lipase 76 U/L (73-393); Potassium 3.8 mmol/L (3.5-5.1); Protein, Total 7.1 g/dL (6.4-8.2); Sodium Level 137 mmol/L (136-145)
[2019-11-22 12:06] LABS: Lactic Acid 1.6 mmol/L (0.4-1.9)
[2019-11-22 12:10] LABS: Bacteria 0 SEEN /hpf (None Seen); Mucous, Urine 0 SEEN /hpf (<or=2+); Red Blood Cells-Urine 0 SEEN /hpf (0-5); Squamous Epithelial Cells - UA 0 SEEN /hpf (5-10); White Blood Cells 0 SEEN /hpf (0-5)
[2019-11-22 12:12] LABS: Color, Urine Yellow (Yellow); Glucose, Dipstick Normal (Normal); Ketone-Dipstick Negative (Negative); Leukocyte Esterase-Dipstick Negative /ul (Negative); Nitrite-Dipstick Negative (Negative); Occult Blood-Urine Negative /ul (Negative); Protein-Dipstick Negative (Negative); Specific Gravity, Urine 1.005 (1.002-1.030); Urine Bilirubin Dipstick Negative (Negative); Urine Clarity Clear (Clear); Urine Urobilinogen Normal (Normal); Urine pH 6.5 (5.0 - 8.0)
--- NOTE | 2019-11-22 14:44 | ED.RN ---
PT'S RESPIRATORY RATE DROPS TO 6-8, SPO2 DROPS TO 80-85% ON 2L NC WHILE SLEEPING. PT AWAKES TO VOICES, VITALS RETURN TO NORMAL LIMITS WHEN AWAKE. 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
--- NOTE | 2019-11-22 14:51 | PCM.HP.STD ---
Problem List (1) Intractable low back pain Status: Acute (2) Exertional dyspnea Status: Acute (3) MAIN (acute kidney injury) Status: Acute (4) ARIELA (obstructive sleep apnea) Status: Chronic Comment: 10/6 cmH2O (5) Allergic rhinitis Status: Chronic Qualifiers: Allergic rhinitis trigger: unspecified Allergic rhinitis seasonality: unspecified Qualified Code(s): J30.9 - Allergic rhinitis, unspecified (6) Depression Status: Chronic Qualifiers: Depression Type: unspecified Qualified Code(s): F32.9 - Major depressive disorder, single episode, unspecified (7) Anxiety Status: Chronic (8) BPPV (benign paroxysmal positional vertigo) Status: Chronic Qualifiers: Laterality: unspecified laterality Qualified Code(s): H81.10 - Benign paroxysmal vertigo, unspecified ear (9) GERD (gastroesophageal reflux disease) Status: Chronic Qualifiers: Esophagitis presence: with esophagitis Qualified Code(s): K21.0 - Gastro-esophageal reflux disease with esophagitis (10) HLD (hyperlipidemia) Status: Chronic Qualifiers: Hyperlipidemia type: unspecified Qualified Code(s): E78.5 - Hyperlipidemia, unspecified History of Present Illness Date of Admission: 11/22/19 Chief Complaint: Generalized weakness, dyspnea, intractable back pain, malaise, poor oral intake, abdominal discomfort. The patient is a 59 y/o F w/ PMHx: ARIELA, Chronic back pain following w/ pain management noting recent alterations to her pain regimen, off pain patch x 48 hours as being transitioned to lower dose as noted nausea with new trial, previously on oral narcotic therapies, Hx BPPV, HTN, HLD, Anxiety and Depression who presents to the [facility] ED on 11/22/19 with history of ongoing fatigue, malaise, generalized abdominal discomfort more severe on day of ED presentation, waking her at 4 AM, use with no recent bowel movement with concern the patient with no fevers or chills with improvement of her abdominal pain following ED presentation however then onset of intractable acute on chronic right paraspinous lumbar region pain with difficulty with daily activities secondary to her ongoing issues. Patient notes that she has been keeping appropriately hydrated but difficulty tolerating food intake. Patient also states over the last several weeks to 1.5 months she has had dyspnea, worse with exertion and just general decline. She denies any significant chest discomfort or chest pressure associated no recent cough, congestion or upper respiratory type symptoms. Given the included T 98.3, heart 77, BP 133/77, respiratory rate 16, 100% on 2 L nasal cannula, unremarkable CBC, CMP with BUN/creatinine 22/1.53, lactic acid 1.6, total bilirubin 1.10, AST/ALT 72/55, lipase 76, urinalysis with no evidence of UTI or dehydration, CT abdomen and pelvis unremarkable. In the ED patient administered Dilaudid, Zofran as well as normal saline. Past Medical History Past Medical History (Chronic Problems): Chronic Problems (Last Reviewed 07/11/19 @ 13:04 by Avelina Tinajero) ARIELA (obstructive sleep apnea) (Chronic) 10/6 cmH2O Allergic rhinitis (Chronic) Depression (Chronic) Anxiety (Chronic) Scoliosis (Chronic) Neck pain (Chronic) Thoracic back pain (Chronic) Chronic lower back pain (Chronic) BPPV (benign paroxysmal positional vertigo) (Chronic) Warts (Chronic) Muscle spasm (Chronic) Lumbar disc lesion (Chronic) Abnormal mammogram of right breast (Chronic) Obesity (Chronic) Fatty liver (Chronic) GERD (gastroesophageal reflux disease) (Chronic) HLD (hyperlipidemia) (Chronic) Medical History: Medical History (Last Reviewed 07/11/19 @ 13:04 by Avelina Tinajero) Hiatal hernia (Acute) K44.9 ARIELA (obstructive sleep apnea) (Chronic) G47.33 10/6 cmH2O Allergic rhinitis (Chronic) J30.9 Depression (Chronic) F32.9 Anxiety (Chronic) F41.9 Scoliosis (Chronic) M41.9 Neck pain (Chronic) M54.2 Thoracic back pain (Chronic) M54.6 Chronic lower back pain (Chronic) M54.5, G89.29 BPPV (benign paroxysmal positional vertigo) (Chronic) H81.10 Warts (Chronic) B07.9 Muscle spasm (Chronic) M62.838 Lumbar disc lesion (Chronic) M51.9 Dehydration (Acute) E86.0 Abnormal mammogram of right breast (Chronic) R92.8 Obesity (Chronic) E66.9 Fatty liver (Chronic) K76.0 GERD (gastroesophageal reflux disease) (Chronic) K21.9 HLD (hyperlipidemia) (Chronic) E78.5 Acute urticaria (Resolved) L50.8 Hematuria (Resolved) R31.9 Right flank pain (Resolved) R10.9 Streptococcus agalactiae infection (Resolved) A49.1 Allergies codeine Allergy (Verified 11/22/19 10:14) Itching doxycycline Allergy (Verified 11/22/19 10:14) Itching oxycodone Adverse Reaction (Verified 11/22/19 10:14) Itching silicone Adverse Reaction (Verified 11/22/19 10:14) Rash Home Medications: Ambulatory Orders Medication Instructions Recorded Buprenorphine 1 patch TP WE 02/08/18 Baclofen [Lioresal] 10 - 20 mg PO QHS 11/22/19 Buspirone HCl 15 mg PO BID 11/22/19 Losartan Potassium 100 mg PO DAILY 11/22/19 Pravastatin Sodium 40 mg PO QHS 11/22/19 Surgical History: Surgical History (Last Reviewed 07/11/19 @ 13:04 by Avelina Tinajero) History of colectomy (Resolved) Z98.890, Z90.49 S/P lumpectomy of breast (Resolved) Z98.890 [place] teeth extracted (Resolved) K08.499 S/P cholecystectomy Z90.49 Surgical History: - - Right breast lumpectomy, benign, cholecystectomy, wisdom teeth extraction, lap Angel. 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 Paternal Family History: Family History (Last Reviewed 07/11/19 @ 13:04 by Avelina Tinajero) Mother Arthritis Hypercholesterolemia Hypertension Cancer Father Cancer Cirrhosis Emphysema lung History Items: - - Patient with paternal family history of cancer, cirrhosis, COPD. Sibling Family History: Family History (Last Reviewed 07/11/19 @ 13:04 by Avelina Tinajero) Mother Arthritis Hypercholesterolemia Hypertension Cancer Father Cancer Cirrhosis Emphysema lung History Items: - Review of Systems Constitutional: Reports: Anorexia, Malaise, Weakness, Fatigue. Denies: Chills, Fever, Weight Change HEENT: Denies: Head Aches, Sinus Congestion, Sinus Drainage Cardiovascular: Reports: Light Headedness. Denies: Chest Pain, Chest Pressure, Chest Tightness, Orthopnea, Palpitations, Syncope Respiratory: Reports: Shortness of Breath, Shortness of breath upon exertion. Denies: Cough, Shortness of breath at rest, Sputum production, Wheezing Gastrointestinal: Reports: Abdominal Pain, Constipation, Nausea. Denies: Vomiting Genitourinary: Denies: Dysuria Musculoskeletal: Reports: Back Pain, Joint Pain. Denies: Joint Tenderness Skin: Denies: Rash, Wounds Neurological: Denies: Numbness, Tingling, Focal weakness Psychiatric: Reports: Anxiety, Depression. Denies: Homicidal Ideations, Suicidal Ideations Hematologic/ Lymphatic: Denies: Easy Bruising, Easy Bleeding VTE Information - Inpt Only VTE Present on Admission: No VTE Mechan Device Prophylaxis: SCD's VTE Pharm Prophylaxis ordered?: Yes Patient Problems: Active and Suspected Problems (Last Reviewed 07/11/19 @ 13:04 by Avelina Tinajero) Intractable low back pain (Acute) Exertional dyspnea (Acute) MAIN (acute kidney injury) (Acute) Subjective: Laying in the ED bed, fatigued appearance, flat affect, no obvious distress. Objective: Physical Examination: General: awake, alert, oriented x 3 and cooperative, seated upright in the ED bed, fatigued appearance, no obvious distress. Skin: normal color, turgor, no icterus, cyanosis. HEENT: AT/NC, EOMI, PERRLA, moderately dry MM, no carotid bruits or JVD noted. Lungs: CTA bilaterally, moderate effort, moderate decrease BL bases, no rales, ronchi or wheezing. Heart: Regular rate and rhythm; no gallop, rub audible. Abdomen: soft, overweight, NTTP, ND, mildly hypoactive BS, no HSM. Extremities: no cyanosis, clubbing, or edema, right paraspinous tenderness to palpation, severe with palpation, suspect musculoskeletal etiology, not directly on the spine. Neurological: patient awake, alert, oriented x 3; cognitive function intact; pupils equally reactive to light and accomodation; cranial nerves II-XII grossly normal, moving all 4 extremities but debilitated given acute complaints, no specific focal deficit, strength severely global decreased. Psychiatric: affect appears flat, suspect depressive component, no obvious anxiety. - Physical Exam Vitals/I&O's: Vital Signs Temp Pulse Resp BP Pulse Ox 98.7 F 71 10 L 138/81 H 95 11/22/19 10:14 11/22/19 14:00 11/22/19 14:00 11/22/19 14:00 11/22/19 14:00 Oxygen Flow Rate (L/min) 2 Oxygen Delivery Method Nasal Cannula Weight: 161 lb Body Mass Index (BMI) 29.4 Finger Stick Blood Glucose 113 Laboratory Results 11/22/19 11:23: WBC 6.9, RBC 4.83, Hgb 15.3 H, Hct 43.8, MCV 90.7, MCH 31.7, MCHC 34.9, RDW Std Deviation 43.4, RDW Coeff of Andry 13.1, Plt Count 245, MPV 10.3, Immature Gran % (Auto) 0.100, Neut % (Auto) 59.3, Lymph % (Auto) 30.5, Thayer % (Auto) 9.1, Eos % (Auto) 0.6, Baso % (Auto) 0.4, Absolute Neuts (auto) 4.1, Absolute Lymphs (auto) 2.11, Nucleated RBC % 0 11/22/19 11:23: Sodium 137, Potassium 3.8, Chloride 106, Carbon Dioxide 23.0, Anion Gap 8, BUN 22 H, Creatinine 1.53 H, Estim Creat Clear Calc 30.93, Est GFR (MDRD) Af Amer 44 L, Est GFR (MDRD) Non-Af 37 L, BUN/Creatinine Ratio 14.4, Glucose 104, Calcium 10.0, Total Bilirubin 1.10 H, AST 72 H, ALT 55, Alkaline Phosphatase 77, Total Protein 7.1, Albumin 3.2, Globulin 3.9, Albumin/Globulin Ratio 0.8 L, Lipase 76 11/22/19 11:23: Lactic Acid 1.6 11/22/19 12:00: Urine Color Yellow, Urine Clarity Clear, Urine pH 6.5, Ur Specific [place] 1.005, Urine Protein Negative, Urine Glucose (UA) Normal, Urine Ketones Negative, Urine Occult Blood Negative, Urine Nitrite Negative, Urine Bilirubin Negative, Urine Urobilinogen Normal, Ur Leukocyte Esterase Negative, Urine RBC 0 SEEN, Urine WBC 0 SEEN, Ur Squamous Epith Cells 0 SEEN, Urine Bacteria 0 SEEN, Urine Mucus 0 SEEN Current Medications Sodium Chloride () 1,000 mls @ 125 mls/hr IV .Q8H [facility] Last Admin: 11/22/19 11:09 Dose: 125 mls/hr Documented by: Assessment/Plan All Active Problems (Last Reviewed 07/11/19 @ 13:04 by Avelina Tinajero) GERD with esophagitis (Acute) Dysphagia (Acute) Foreign body (Acute) Intractable low back pain (Acute) Exertional dyspnea (Acute) MAIN (acute kidney injury) (Acute) Sacroiliitis, not elsewhere classified (Acute) Hiatal hernia (Acute) Cervical disc disorder at C5-C6 level with radiculopathy (Acute) Disorder of intervertebral disc at C5-C6 level with radiculopathy (Acute) Disorder of intervertebral disc at C5-C6 level with radiculopathy (Acute) Cervical disc disorder with radiculopathy of mid-cervical region (Acute) Intervertebral disc disorder with radiculopathy of lumbar region (Acute) Other intervertebral disc degeneration, lumbar region (Acute) Bilateral buttock pain (Acute) Bilateral buttock pain (Acute) Amplified musculoskeletal pain, localized (Acute) Amplified musculoskeletal pain, localized (Acute) Myalgia (Acute) Myalgia (Acute) Sacroiliitis, not elsewhere classified (Acute) Gastroenteritis (Acute) History of colectomy (Resolved) S/P lumpectomy of breast (Resolved) [place] teeth extracted (Resolved) Dehydration (Acute) Acute urticaria (Resolved) Hematuria (Resolved) Right flank pain (Resolved) Streptococcus agalactiae infection (Resolved) The patient is a 59 y/o F w/ PMHx: ARIELA, Chronic back pain following w/ pain management noting recent alterations to her pain regimen, off pain patch x 48 hours as being transitioned to lower dose as noted nausea with new trial, previously on oral narcotic therapies, Hx BPPV, HTN, HLD, Anxiety and Depression who presents to the [facility] ED on 11/22/19 with history of ongoing fatigue, malaise, generalized abdominal discomfort more severe on day of ED presentation, waking her at 4 AM, use with no recent bowel movement with concern the patient with no fevers or chills with improvement of her abdominal pain following ED presentation however then onset of intractable acute on chronic right paraspinous lumbar region pain with difficulty with daily activities secondary to her ongoing issues. 1. Acute on Chronic Intractable Right Paraspinous Lumbar Back Pain: CT abdomen pelvis obtained upon presentation as initially abdominal complaints but resolved prior to evaluation and noted ongoing intractable right. Will admit to , 10 on telemetry given other myriad of complaints, maintain on fall precautions, frequent positioning, po/IV pain regimen, low dose zanaflex, scheduled gabapentin, defer toradol given MAIN, medrol dose pack, anti-emetics, bowel regimen. Will consult PT and OT for evaluation. 2. Acute kidney injury: Secondary to difficulty with oral intake likely low states she has been appropriately hydrating and specific gravity is not elevated. Admission BUN/Cr 22/1.53, prior baseline creatinine noted to be 0.7-0.9, most recently 11/02 1.0. Will hydrate, hold nephrotoxic medications and repeat chemistry in AM. If no improvement would plan FeNa assessment. 3. Exertional dyspnea, LH, Dizziness, unclear specific etiology: Will place on a monitored bed to assure no acute myocardial infarction with serial cardiac enzymes and EKGs. Will obtain ECHO, orthostatic VS upon presentation, continue hydration, maintain on fall precautions, difficulty discerning exact causes as patient with a myriad of complaints upon presentation. 4. Initial intractable generalized abdominal pain, clear specific etiology, initially concern for constipation: Unremarkable CT abdomen and pelvis with no incredible stool burden but recent poor oral intake, resolved prior to evaluation, do suspect component of opiate withdrawal as etiology as no pain regimen x48 hours and following with chronic pain management on chronic narcotic therapy, reinitiate patient baseline regimen with acute treatment as noted concurrently #1, suspect this will improve situation, maintain on aggressive bowel regimen. 5. Chronic pain syndrome on chronic narcotic therapy, suspect mild withdrawal: Patient recently discontinued her pain patch x48 hours secondary to need for transition to a lower dose as the higher dose had made her feel poorly, does note that she previously had been on an oral regimen which worked well for her but this was discontinued secondary to prior hospitalization with suspected accidental overdose, reinitiating regimen. 6. Hypertension: Holding patient losartan given mild MAIN as noted, resume once appropriate, PRN IV hydralazine in interim. 7. Hyperlipidemia: We will continue patient home statin therapy. 8. Anxiety and depression: Not on regimen, suspect component of depression, may need to initiate SSRI versus SNRI, may consider Cymbalta especially given chronic pain, TSH requested. 9. ARIELA: Will initiate CPAP, notes not using at home secondary to silicone allergy, will see if able to use here. 10. DVT prophylaxis: SCDs, renally dosed Lovenox. Code Visit OBSV E&M: [id number] Initial observation care L3
--- NOTE | 2019-11-22 14:54 | NURSING ---
DR ÁLVAREZ FOR DR LOPEZ
--- NOTE | 2019-11-22 15:06 | ED.VISSUMM ---
- ER Visit Summary Date of Service: 11/22/19 Chief Complaint: [Abdominal pain] History of Present Illness: The patient is a 59 F [presents to the emergency department with abdominal discomfort that started around 4 AM. Patient states that it was initially described as generalized and more mild however over time its moved to the right side of the abdomen. Patient complains of some intermittent vomiting for several days. Patient states that the pain does radiate into her back. Patient states that over the last month to month and a half she has been more bedbound and only getting up to use the restroom and go to doctor's appointments. Only feels weak. She denies urinary symptoms. Patient has history of GERD and high cholesterol as well as esophagitis. She has had prior cholecystectomy. Patient denies fever.] Physical Examination: [HEENT-PERRLA, EOMI. Cranial nerves II through XII grossly intact. TMs clear. Mucous membranes moist. No adenopathy. Cardiovascular-regular rate and rhythm without murmur or ectopy Lungs-clear to auscultation, chest wall stable without crepitus or subcu emphysema Abdomen-normoactive bowel sounds, soft. Patient has tenderness palpation over right lower quadrant with some guarding. Patient has tenderness over right upper quadrant with guarding. She had CVA tenderness on the right. She has tenderness to the right lumbar paraspinal musculature. Extremities-intact ?4, normal range of motion, normal pulses, atraumatic] Test Results: [CBC with differential obtained showed a white of 6.9, hemoglobin 15, hematocrit 44, placed 245. Chemistries unremarkable. BUN was 22 and creatinine 1.53. Liver enzymes were normal. Lipase was normal at 76. Urinalysis was normal. CT scan of the abdomen pelvis essentially showed nothing acute however the appendix was not visualized. There were no inflammatory changes. No evidence of kidney stone.] Emergency Department Course and Treatment: [Given 1 mg of Dilaudid and 4 mg of Zofran. Patient continued complaint of severe pain in her back. Patient does not feel comfortable going home given her current state of pain and weakness.] Treatment Plan: [Admit] Disposition: [Admit] Impression: [Tractable back pain Abdominal pain-etiology uncertain Generalized weakness] This note was generated with Via6 dictation software. It may contain incorrect words, spelling, and punctuation that were not noted in review of the chart prior to signing ED Disposition - Plan for ED Patient: Referrals: Rey Palmer Chi, MD [Primary Care Provider] -
--- NOTE | 2019-11-22 15:09 | ED.RN ---
PT RANG OUT, STATES I HAVE TO PEE, GET A CATHETER. PT EDUCATED ON RISKS OF USING CATHETER WHEN NOT INDICATED. ASSISTED PT TO BEDSIDE COMMODE WITHOUT DIFFICULTY PROVIDING ONLY STAND BY ASSIST. PT BECAME TEARFUL WHEN BACK IN BED, STATING I'M JUST SO WEAK, I CAN'T DO ANYTHING ANYMORE.
--- NOTE | 2019-11-22 16:19 | ECHOD_ITS ---
Reason For Study: DYSPNEA/SOB Procedure This was a 2D Doppler, Color Flow transthoracic echocardiogram. Exam performed portable in patient room. Left Ventricle Normal size and thickness. The estimated ejection fraction is 75 %. Stage 1 diastolic dysfunction. No regional wall motion abnormalities noted. Right Ventricle Normal size and thickness. Normal systolic function. Atria Normal left atrium. Normal right atrium. Normal atrial septum. Mitral Valve The mitral valve is structurally normal. No prolapse or stenosis seen. Trivial mitral valve insufficiency. Tricuspid Valve Normal tricuspid valve. Trivial tricuspid valve insufficiency. Right ventricular systolic pressure estimated to be 32 mmHg. Aortic Valve Normal aortic valve. Trisinus/trileaflet aortic valve. Pulmonic Valve Normal pulmonic valve. Great Vessels Normal aortic root. Normal arch. Normal inferior vena cava. Inferior vena cava collapse with sniff. Pericardium/Pleural No pericardial effusion. MMode/2D Measurements & Calculations LVIDd: 4.6 cm IVSd: 0.92 cm Ao root diam: 2.7 cm LVIDs: 2.8 cm LVPWd: 0.94 cm RVDd: 2.8 cm FS: 38.3 % LAV(MOD-bp): 32.6 ml LVAd ap4: 26.5 cm2 SV(MOD-sp4): 52.3 ml LAV(MOD-bp) Indexed: 18.7 ml/m2 EDV(MOD-sp4): 74.5 ml LAV(MOD-sp2): 29.9 ml EDV(sp4-el): 78.6 ml LAV(MOD-sp4): 31.0 ml LVAs ap4: 12.9 cm2 ESV(MOD-sp4): 22.2 ml ESV(sp4-el): 22.5 ml EF(MOD-sp4): 70.3 % EF(sp4-el): 71.3 % SV(sp4-el): 56.1 ml LA A4 area: 13.4 cm2 LA dimension(2D): 3.3 cm RA A4 area: 10.1 cm2 Time Measurements MV dec time: 0.23 sec Doppler Measurements & Calculations MV E max darwin: 99.4 cm/sec Lat Peak E' Darwin: 12.6 cm/sec Med Peak E' Darwin: 9.5 cm/sec MV A max darwin: 108.9 cm/sec E/E' lat: 7.9 E/E' med: 10.5 MV E/A: 0.91 Ao V2 max: 170.5 cm/sec LV V1 max: 130.8 cm/sec PA V2 max: 106.1 cm/sec Ao max P.6 mmHg LV V1 max P.8 mmHg TR max darwin: 261.9 cm/sec TR max P.4 mmHg Interpretation Summary The estimated ejection fraction is 75 %. Stage 1 diastolic dysfunction. Trivial mitral valve insufficiency. Trivial tricuspid valve insufficiency. Right ventricular systolic pressure estimated to be 32 mmHg. There is no comparison study available. Ordering Physician: Tracy Mo Referring Physician: CHANTAL TODD Performed By: Ysabel Samayoa RDCS
[2019-11-22] MEDS: CLARIFY ORDER NOTE (17:14)
[2019-11-22] MEDS: 0.9% Saline Lock 10 ML Syringe IV (17:15)
[2019-11-22] MEDS: Baclofen 10 MG Tablet PO (17:38)
[2019-11-22] MEDS: Gabapentin 100 MG Capsule 200 MG PO (17:38)
[2019-11-22] MEDS: MethylPREDNISolone DosePak 4 MG BOX PO ×2 (17:38→21:51)
[2019-11-22 17:40] LABS: Magnesium 2.3 mg/dL (1.6-2.6)
[2019-11-22] MEDS: Pravastatin 40 MG Tablet PO (21:49)
[2019-11-22] MEDS: busPIRone 15 MG TABLET PO (21:49)
[2019-11-22] MEDS: Magnesium Hydroxide 30 ML UDC PO (21:51)
[2019-11-22] MEDS: tiZANidine HCl 2 MG Tablet PO (21:51)
--- NOTE | 2019-11-22 22:47 | CPS ---
Pts. home Bipap setup at bedside. Water chamber was filled and mask was placed on with comfort. Call light within reach if patient has any problems with machine tonight. SKEIN STRAIGHTENER will monitor. RN aware.
[2019-11-23] VITALS (11 sets, daily range): BP systolic 101–133; BP diastolic 57–76; PULSE 60–88; RESP 16–20; TEMP 36.4–36.9; O2SAT 88–100
[2019-11-23] MEDS: 0.9% Normal Saline 1,000 ML 125 ML IV ×3 (01:24→17:24)
[2019-11-23 01:51] LABS: Absolute Lymphocyte Count 0.64 X10^3/uL (0.83-4.51); Basophil# 0.01 X10^3/uL; Basophil% 0.2 % (0-1); Hematocrit 37.9 % (37-47); Hemoglobin 12.9 g/dL (12.0-15.0); Lymphocyte # 0.64 X10^3/ul (4.0); Lymphocyte % 11.2 % (19-41); Mean Corpuscular Hgb 31.3 pg (27.0-32.0); Mean Platelet Vol. 9.7 fl (6.2-12.0); Monocyte# 0.08 X10^3/uL; Monocyte% 1.4 % (0-10); NRBC Flagged by Analyzer 0 % (0-5); Neutrophil # 4.95 X10^3/uL (2.7-7.7); Neutrophil % 86.8 % (47-70); Platelet Count 242 K/mm3 (150-450); RBC Distribution Width SD 43.9 fl (35.1-43.9); Red Blood Count 4.12 M/mm3 (4.2-5.4); White Blood Count 5.7 K/mm3 (4.4-11.0)
[2019-11-23 02:49] LABS: Anion Gap 6 (5-15); BUN 17 mg/dL (7-18); BUN/Creat Ratio 13.2 RATIO (10-20); Calcium,Total 8.9 mg/dL (8.5-10.1); Chloride 110 mmol/L (98-107); Creatinine, Serum 1.29 mg/dL (0.55-1.02); EST Glomerular Filtration Rate 45 mL/min (>60); Est Glom Filt Rate - Afr Amer 54 mL/min (>60); Estimated Creatinine Clearance 36.68 ml/min; Glucose 172 mg/dL (74-106); Sodium Level 141 mmol/L (136-145)
--- NOTE | 2019-11-23 05:55 | EKG12_ITS ---
Test Reason : CP Blood Pressure : / mmHG Vent. Rate : 075 BPM Atrial Rate : 075 BPM P-R Int : 176 ms QRS Dur : 082 ms QT Int : 416 ms P-R-T Axes : 053 004 022 degrees QTc Int : 464 ms Normal sinus rhythm Normal ECG When compared with ECG of 23-NOV-2019 04:33, MANUAL COMPARISON REQUIRED, DATA IS UNCONFIRMED Confirmed by MIGUEL ANGEL FELDMAN, ZANE ([id number]), news editor MANDO SORIANO ([id number]) on 11/28/2019 8:54:53 AM Referred By: ROSA Confirmed By:FRED MICHELLE MD
[2019-11-23] MEDS: Senna/Docusate Sodium 1 Tablet 2 TABLET PO ×3 (06:13→21:29)
[2019-11-23] MEDS: tiZANidine HCl 2 MG Tablet PO ×2 (06:13→14:14)
[2019-11-23] MEDS: Gabapentin 100 MG Capsule 200 MG PO ×3 (07:42→17:17)
[2019-11-23] MEDS: MethylPREDNISolone DosePak 4 MG BOX PO ×4 (07:43→21:29)
--- NOTE | 2019-11-23 07:51 | PN_ITS ---
Patient Problems: Active and Suspected Problems (Last Reviewed 07/11/19 @ 13:04 by Avelina Tinajero) Intractable low back pain (Acute) Exertional dyspnea (Acute) MAIN (acute kidney injury) (Acute) Vitals/I&O's: Vital Signs Temp Pulse Resp BP Pulse Ox 98.0 F 60 16 101/58 L 99 11/23/19 07:30 11/23/19 07:30 11/23/19 07:30 11/23/19 07:30 11/23/19 07:30 Oxygen Flow Rate (L/min) 2 Oxygen Delivery Method Room Air Weight: 160 lb 11.2 oz Body Mass Index (BMI) 29.4 Finger Stick Blood Glucose 113 Intake and Output for Last 24 Hours 11/21/19 11/22/19 11/23/19 23:59 23:59 23:59 Intake Total 1000 / 1750 2550 / 2550 Balance 1000 / 1750 2550 / 2550 Laboratory Results 11/22/19 11:23: WBC 6.9, RBC 4.83, Hgb 15.3 H, Hct 43.8, MCV 90.7, MCH 31.7, MCHC 34.9, RDW Std Deviation 43.4, RDW Coeff of Andry 13.1, Plt Count 245, MPV 10.3, Immature Gran % (Auto) 0.100, Neut % (Auto) 59.3, Lymph % (Auto) 30.5, [place] % (Auto) 9.1, Eos % (Auto) 0.6, Baso % (Auto) 0.4, Absolute Neuts (auto) 4.1, Absolute Lymphs (auto) 2.11, Nucleated RBC % 0 11/22/19 11:23: Sodium 137, Potassium 3.8, Chloride 106, Carbon Dioxide 23.0, Anion Gap 8, BUN 22 H, Creatinine 1.53 H, Estim Creat Clear Calc 30.93, Est GFR (MDRD) Af Amer 44 L, Est GFR (MDRD) Non-Af 37 L, BUN/Creatinine Ratio 14.4, Glucose 104, Calcium 10.0, Total Bilirubin 1.10 H, AST 72 H, ALT 55, Alkaline Phosphatase 77, Total Protein 7.1, Albumin 3.2, Globulin 3.9, Albumin/Globulin Ratio 0.8 L, Lipase 76 11/22/19 11:23: Lactic Acid 1.6 11/22/19 11:23: Magnesium 2.3, TSH 0.70 11/22/19 12:00: Urine Color Yellow, Urine Clarity Clear, Urine pH 6.5, Ur Specific Alpha 1.005, Urine Protein Negative, Urine Glucose (UA) Normal, Urine Ketones Negative, Urine Occult Blood Negative, Urine Nitrite Negative, Urine Bilirubin Negative, Urine Urobilinogen Normal, Ur Leukocyte Esterase Negative, Urine RBC 0 SEEN, Urine WBC 0 SEEN, Ur Squamous Epith Cells 0 SEEN, Urine Bacteria 0 SEEN, Urine Mucus 0 SEEN 11/22/19 19:46: Troponin I < 0.015 11/22/19 22:05: Troponin I < 0.015 11/23/19 01:42: Sodium 141, Potassium 4.0, Chloride 110 H, Carbon Dioxide 25.0, Anion Gap 6, BUN 17, Creatinine 1.29 H, Estim Creat Clear Calc 36.68, Est GFR (MDRD) Af Amer 54 L, Est GFR (MDRD) Non-Af 45 L, BUN/Creatinine Ratio 13.2, Glucose 172 H, Calcium 8.9 11/23/19 01:42: WBC 5.7, RBC 4.12 L, Hgb 12.9, Hct 37.9, MCV 92.0, MCH 31.3, MCHC 34.0, RDW Std Deviation 43.9, RDW Coeff of Andry 13.0, Plt Count 242, MPV 9.7, Immature Gran % (Auto) 0.400, Neut % (Auto) 86.8 H, Lymph % (Auto) 11.2 L, [place] % (Auto) 1.4, Eos % (Auto) 0.0, Baso % (Auto) 0.2, Absolute Neuts (auto) 5.0, Absolute Lymphs (auto) 0.64 L, Nucleated RBC % 0 11/23/19 01:42: Troponin I < 0.015 Current Medications Acetaminophen (Tylenol) 650 mg PO Q6H PRN PRN PRN Reason: Pain Score 1-10/Temp > 100.7 F Albuterol Sulfate (Ventolin Aerosols) 2.5 mg INHALATION Q2H PRN PRN PRN Reason: Shortness of Breath/Wheezing Baclofen (Lioresal) 10 mg PO QHS [facility] Last Admin: 11/22/19 21:50 Dose: Not Given Documented by: Buspirone HCl (Buspar) 15 mg PO BID [facility] Last Admin: 11/22/19 21:49 Dose: 15 mg Documented by: Diphenhydramine HCl (Benadryl) 25 mg IV Q8H PRN PRN PRN Reason: PRURITIS Enoxaparin Sodium (Lovenox) 30 mg SC DAILY [facility] Gabapentin (Neurontin) 200 mg PO TIDCM [facility] Last Admin: 11/23/19 07:42 Dose: 200 mg Documented by: Glucagon () 1 mg IM .X1 PRN PRN Reason: Hypoglycemia Guaifenesin (Robitussin) 20 ml PO Q4H PRN PRN PRN Reason: COUGH Hydralazine HCl (Apresoline Iv) 10 mg IV Q4H PRN PRN PRN Reason: SBP > 160 Hydromorphone HCl (Dilaudid Inj) 0.5 mg IV Q4H PRN PRN PRN Reason: Pain Score 6-10/10 Sodium Chloride () 1,000 mls @ 125 mls/hr IV .Q8H [facility] Last Admin: 11/23/19 01:24 Dose: 125 mls/hr Documented by: Sodium Chloride () 250 mls @ 15 mls/hr IV .[id number] PRN PRN Reason: Saline Flush Sodium Chloride () 250 mls @ 15 mls/hr IV .[id number] PRN PRN Reason: Additional IVPB Infusion Dextrose (Dextrose 10%-Water) 250 mls @ 999 mls/hr IV .Q16M PRN; Protocol PRN Reason: HYPOGLYCEMIA Magnesium Hydroxide (Milk Of Magnesia) 30 ml PO DAILY PRN PRN PRN Reason: Constipation Last Admin: 11/22/19 21:51 Dose: 30 ml Documented by: Melatonin (Melatonin) 3 mg PO QHS PRN PRN PRN Reason: INSOMNIA Methylprednisolone (Medrol Dosepak) 8 mg PO 2200 [facility]; Taper Stop: 11/27/19 08:59 Last Admin: 11/23/19 07:43 Dose: 4 mg Documented by: Nutritional Formula (Lactose Free) (Ensure Enlive) 120 ml PO 4X/DAY [facility] Last Admin: 11/22/19 21:51 Dose: 120 ml Documented by: Ondansetron HCl (Zofran) 4 mg IV Q8H PRN PRN PRN Reason: NAUSEA/VOMITING Oxycodone HCl (Oxyir) 5 mg PO Q4H PRN PRN PRN Reason: Pain Score 4-5/10 Pravastatin Sodium (Pravachol) 40 mg PO QHS [facility] Last Admin: 11/22/19 21:49 Dose: 40 mg Documented by: Prochlorperazine Edisylate (Compazine Iv) 5 mg IV Q4H PRN PRN PRN Reason: Breakthrough nausea/vomiting Psyllium Hydrophilic Mucilloid (Metamucil) 1 packet PO DAILY PRN PRN PRN Reason: Constipation Senna/Docusate Sodium (Senokot-S, Bhavana-Colace) 2 tablet PO BID PRN PRN PRN Reason: Constipation Last Admin: 11/23/19 06:13 Dose: 2 tablet Documented by: Sodium Chloride () 10 - 40 ml IV UD PRN PRN Reason: SALINE FLUSH Last Admin: 11/22/19 17:15 Dose: 10 ml Documented by: Throat Lozenges (Cepacol Sore Throat Lozenge) 1 lozenge MUCOUS MEM Q2H PRN PRN PRN Reason: SORE THROAT Tizanidine HCl (Zanaflex) 2 mg PO Q8 [facility] Last Admin: 11/23/19 06:13 Dose: 2 mg Documented by: STROKE Vital Signs/Narrative: Vital Signs Temp Pulse Resp BP Pulse Ox 11/23/19 07:30 98.0 F 60 16 101/58 L 99 11/23/19 04:08 97.7 F L 67 16 101/57 L 100 11/23/19 03:59 68 Medical Necessity - Tobacco Use Smoking Status: Never smoker Tobacco Use: Non-smoker Assessment/Plan All Active Problems (Last Reviewed 07/11/19 @ 13:04 by Avelina Tinajero) GERD with esophagitis (Acute) Dysphagia (Acute) Foreign body (Acute) Intractable low back pain (Acute) Exertional dyspnea (Acute) MAIN (acute kidney injury) (Acute) Sacroiliitis, not elsewhere classified (Acute) Hiatal hernia (Acute) Cervical disc disorder at C5-C6 level with radiculopathy (Acute) Disorder of intervertebral disc at C5-C6 level with radiculopathy (Acute) Disorder of intervertebral disc at C5-C6 level with radiculopathy (Acute) Cervical disc disorder with radiculopathy of mid-cervical region (Acute) Intervertebral disc disorder with radiculopathy of lumbar region (Acute) Other intervertebral disc degeneration, lumbar region (Acute) Bilateral buttock pain (Acute) Bilateral buttock pain (Acute) Amplified musculoskeletal pain, localized (Acute) Amplified musculoskeletal pain, localized (Acute) Myalgia (Acute) Myalgia (Acute) Sacroiliitis, not elsewhere classified (Acute) Gastroenteritis (Acute) History of colectomy (Resolved) S/P lumpectomy of breast (Resolved) Sylva teeth extracted (Resolved) Dehydration (Acute) Acute urticaria (Resolved) Hematuria (Resolved) Right flank pain (Resolved) Streptococcus agalactiae infection (Resolved) The patient is a 59 y/o F with H/o ARIELA, Chronic back pain following w/ pain management noting recent alterations to her pain regimen, off pain patch x 48 hours admitted with generalized abdominal discomfort more severe on day of ED presentation, waking her at 4 AM, use with no recent bowel movement with concern the patient with no fevers or chills with improvement of her abdominal pain following ED presentation however then onset of intractable acute on chronic right paraspinous lumbar region pain with difficulty with daily activities secondary to her ongoing issues. 1. Acute on Chronic Intractable Right Paraspinous Lumbar Back Pain: CT abdomen pelvis obtained upon presentation as initially abdominal complaints but resolved prior to evaluation and noted ongoing intractable right. Will admit to [facility], 10 on telemetry given other myriad of complaints, maintain on fall precautions, frequent positioning, po/IV pain regimen, low dose zanaflex, scheduled gabapentin, defer toradol given MAIN, medrol dose pack, anti-emetics, bowel regimen. Will consult PT and OT for evaluation. 2. Acute kidney injury: Secondary to difficulty with oral intake likely low states she has been appropriately hydrating and specific gravity is not elevated. Admission BUN/Cr 22/1.53, prior baseline creatinine noted to be 0.7- 0.9, most recently 11/02 1.0. Will hydrate, hold nephrotoxic medications and repeat chemistry in AM. If no improvement would plan FeNa assessment. 3. Exertional dyspnea, LH, Dizziness, unclear specific etiology: Will place on a monitored bed to assure no acute myocardial infarction with serial cardiac enzymes and EKGs. Will obtain ECHO, orthostatic VS upon presentation, continue hydration, maintain on fall precautions, difficulty discerning exact causes as patient with a myriad of complaints upon presentation. 4. Initial intractable generalized abdominal pain, clear specific etiology, initially concern for constipation: Unremarkable CT abdomen and pelvis with no incredible stool burden but recent poor oral intake, resolved prior to evaluation, do suspect component of opiate withdrawal as etiology as no pain regimen x48 hours and following with chronic pain management on chronic narcotic therapy, reinitiate patient baseline regimen with acute treatment as noted concurrently #1, suspect this will improve situation, maintain on aggressive bowel regimen. 5. Chronic pain syndrome on chronic narcotic therapy, suspect mild withdrawal: Patient recently discontinued her pain patch x48 hours secondary to need for transition to a lower dose as the higher dose had made her feel poorly, does note that she previously had been on an oral regimen which worked well for her but this was discontinued secondary to prior hospitalization with suspected accidental overdose, reinitiating regimen. 6. Hypertension: Holding patient losartan given mild MAIN as noted, resume once appropriate, PRN IV hydralazine in interim. 7. Hyperlipidemia: We will continue patient home statin therapy. 8. Anxiety and depression: Not on regimen, suspect component of depression, may need to initiate SSRI versus SNRI, may consider Cymbalta especially given chronic pain, TSH requested. 9. ARIELA: Will initiate CPAP, notes not using at home secondary to silicone allergy, will see if able to use here. 10. DVT prophylaxis: SCDs, renally dosed Lovenox.
[2019-11-23] MEDS: busPIRone 15 MG TABLET PO ×2 (09:31→21:29)
[2019-11-23] MEDS: Enoxaparin 30 MG/0.3 ML Syringe SC (09:32)
[2019-11-23] MEDS: Polyethylene Glycol 3350 17 GM PACKET PO (11:42)
--- NOTE | 2019-11-23 14:58 | PN_ITS ---
<Edward Patel - Last Filed: 11/23/19 14:58> Patient Problems: Active and Suspected Problems (Last Reviewed 07/11/19 @ 13:04 by Avelina Tinajero) Intractable low back pain (Acute) Exertional dyspnea (Acute) MAIN (acute kidney injury) (Acute) Reason for Visit: intractable back pain Subjective: Ongoing severe right lumbar pain. Patient has been so severe that is difficult to ambulate, she requires assistance in order to stand and walk. She also has been constipated with only small hard stools for several weeks. She is receiving a enema today to attempt to void more. No nausea or vomiting. Good p.o. intake. No urinary complaints. No numbness or tingling in the extremities. No fevers or chills. Vitals/I&O's: Vital Signs Temp Pulse Resp BP Pulse Ox 98.3 F 86 16 116/65 97 11/23/19 14:09 11/23/19 14:09 11/23/19 14:09 11/23/19 14:09 11/23/19 14:09 Oxygen Flow Rate (L/min) 2 Oxygen Delivery Method Room Air Weight: 160 lb 11.189 oz Body Mass Index (BMI) 29.4 Finger Stick Blood Glucose 113 Intake and Output for Last 24 Hours 11/21/19 11/22/19 11/23/19 23:59 23:59 23:59 Intake Total 1000 / 1750 3550 / 3550 Balance 1000 / 1750 3550 / 3550 General: Alert, Oriented x3, Cooperative HEENT: Atraumatic, PERRLA, EOMI, Normocephalic Neck: Supple, No JVD, Negative Carotid Bruits Lungs: Clear to auscultation, Normal air movement Cardiovascular: Regular rate, No murmurs Abdomen: Bowel Sounds Present, Soft, Non Tender Extremities: No edema, Capillary Refill Less than 3 Seconds Skin: No rashes, No breakdown Musculoskeletal: No Tenderness to Palpation of Joints or Extremities, - - Muscle spasms to light palpation of paraspinous muscles Neurological: Cranial nerves II-XII grossly intact Psych/Mental Status: Normal Affect, Appropriate, Alert and oriented to time, place, person, mood and affect Laboratory Results 11/22/19 11:23: Magnesium 2.3, TSH 0.70 11/22/19 19:46: Troponin I < 0.015 02/25/20 22:05: Troponin I < 0.015 11/23/19 01:42: Sodium 141, Potassium 4.0, Chloride 110 H, Carbon Dioxide 25.0, Anion Gap 6, BUN 17, Creatinine 1.29 H, Estim Creat Clear Calc 36.68, Est GFR (MDRD) Af Amer 54 L, Est GFR (MDRD) Non-Af 45 L, BUN/Creatinine Ratio 13.2, Glucose 172 H, Calcium 8.9 11/23/19 01:42: WBC 5.7, RBC 4.12 L, Hgb 12.9, Hct 37.9, MCV 92.0, MCH 31.3, MCHC 34.0, RDW Std Deviation 43.9, RDW Coeff of Andry 13.0, Plt Count 242, MPV 9.7, Immature Gran % (Auto) 0.400, Neut % (Auto) 86.8 H, Lymph % (Auto) 11.2 L, Woods % (Auto) 1.4, Eos % (Auto) 0.0, Baso % (Auto) 0.2, Absolute Neuts (auto) 5.0, Absolute Lymphs (auto) 0.64 L, Nucleated RBC % 0 11/23/19 01:42: Troponin I < 0.015 Current Medications Acetaminophen (Tylenol) 650 mg PO Q6H PRN PRN PRN Reason: Pain Score 1-10/Temp > 100.7 F Albuterol Sulfate (Ventolin Aerosols) 2.5 mg INHALATION Q2H PRN PRN PRN Reason: Shortness of Breath/Wheezing Baclofen (Lioresal) 10 mg PO QHS [facility] Last Admin: 11/22/19 21:50 Dose: Not Given Documented by: Bisacodyl (Dulcolax) 10 mg RECTAL DAILY [facility] Buspirone HCl (Buspar) 15 mg PO BID [facility] Last Admin: 11/23/19 09:31 Dose: 15 mg Documented by: Diphenhydramine HCl (Benadryl) 25 mg IV Q8H PRN PRN PRN Reason: PRURITIS Enoxaparin Sodium (Lovenox) 30 mg SC DAILY [facility] Last Admin: 11/23/19 09:32 Dose: 30 mg Documented by: Gabapentin (Neurontin) 200 mg PO TIDCM [facility] Last Admin: 11/23/19 11:44 Dose: 200 mg Documented by: Glucagon () 1 mg IM .X1 PRN PRN Reason: Hypoglycemia Guaifenesin (Robitussin) 20 ml PO Q4H PRN PRN PRN Reason: COUGH Hydralazine HCl (Apresoline Iv) 10 mg IV Q4H PRN PRN PRN Reason: SBP > 160 Hydromorphone HCl (Dilaudid Inj) 0.5 mg IV Q4H PRN PRN PRN Reason: Pain Score 6-10/10 Sodium Chloride () 1,000 mls @ 125 mls/hr IV .Q8H [facility] Last Admin: 11/23/19 09:37 Dose: 125 mls/hr Documented by: Sodium Chloride () 250 mls @ 15 mls/hr IV .[id number] PRN PRN Reason: Saline Flush Sodium Chloride () 250 mls @ 15 mls/hr IV .[id number] PRN PRN Reason: Additional IVPB Infusion Dextrose (Dextrose 10%-Water) 250 mls @ 999 mls/hr IV .Q16M PRN; Protocol PRN Reason: HYPOGLYCEMIA Melatonin (Melatonin) 3 mg PO QHS PRN PRN PRN Reason: INSOMNIA Methylprednisolone (Medrol Dosepak) 4 mg PO 0800,1200,1700 [facility]; Taper Stop: 11/27/19 08:59 Last Admin: 11/23/19 11:43 Dose: 4 mg Documented by: Nutritional Formula (Lactose Free) (Ensure Enlive) 120 ml PO 4X/DAY [facility] Last Admin: 11/23/19 14:14 Dose: 120 ml Documented by: Ondansetron HCl (Zofran) 4 mg IV Q8H PRN PRN PRN Reason: NAUSEA/VOMITING Oxycodone HCl (Oxyir) 5 mg PO Q4H PRN PRN PRN Reason: Pain Score 4-5/10 Polyethylene Glycol (Miralax) 17 gm PO DAILY [facility] Last Admin: 11/23/19 11:42 Dose: 17 gm Documented by: Pravastatin Sodium (Pravachol) 40 mg PO QHS [facility] Last Admin: 11/22/19 21:49 Dose: 40 mg Documented by: Prochlorperazine Edisylate (Compazine Iv) 5 mg IV Q4H PRN PRN PRN Reason: Breakthrough nausea/vomiting Psyllium Hydrophilic Mucilloid (Metamucil) 1 packet PO DAILY PRN PRN PRN Reason: Constipation Senna/Docusate Sodium (Senokot-S, Bhavana-Colace) 2 tablet PO BID [facility] Last Admin: 11/23/19 11:43 Dose: 2 tablet Documented by: Sodium Chloride () 10 - 40 ml IV UD PRN PRN Reason: SALINE FLUSH Last Admin: 11/22/19 17:15 Dose: 10 ml Documented by: Throat Lozenges (Cepacol Sore Throat Lozenge) 1 lozenge MUCOUS MEM Q2H PRN PRN PRN Reason: SORE THROAT Tizanidine HCl (Zanaflex) 2 mg PO Q8 [facility] Last Admin: 11/23/19 14:14 Dose: 2 mg Documented by: STROKE Vital Signs/Narrative: Vital Signs Temp Pulse Resp BP Pulse Ox 11/23/19 14:09 98.3 F 86 16 116/65 97 Medical Necessity - Tobacco Use Smoking Status: Never smoker Tobacco Use: Non-smoker Assessment/Plan All Active Problems (Last Reviewed 07/11/19 @ 13:04 by Avelina Tinajero) GERD with esophagitis (Acute) Dysphagia (Acute) Foreign body (Acute) Intractable low back pain (Acute) Exertional dyspnea (Acute) MAIN (acute kidney injury) (Acute) Sacroiliitis, not elsewhere classified (Acute) Hiatal hernia (Acute) Cervical disc disorder at C5-C6 level with radiculopathy (Acute) Disorder of intervertebral disc at C5-C6 level with radiculopathy (Acute) Disorder of intervertebral disc at C5-C6 level with radiculopathy (Acute) Cervical disc disorder with radiculopathy of mid-cervical region (Acute) Intervertebral disc disorder with radiculopathy of lumbar region (Acute) Other intervertebral disc degeneration, lumbar region (Acute) Bilateral buttock pain (Acute) Bilateral buttock pain (Acute) Amplified musculoskeletal pain, localized (Acute) Amplified musculoskeletal pain, localized (Acute) Myalgia (Acute) Myalgia (Acute) Sacroiliitis, not elsewhere classified (Acute) Gastroenteritis (Acute) History of colectomy (Resolved) S/P lumpectomy of breast (Resolved) [place] teeth extracted (Resolved) Dehydration (Acute) Acute urticaria (Resolved) Hematuria (Resolved) Right flank pain (Resolved) Streptococcus agalactiae infection (Resolved) 1. Intractable back pain-difficulty ambulating -chronic back pain, recently off pain patch due to accidental overdose. Continue Medrol dose pack, gabapentin, baclofen, Dilaudid, oxycodone, Zanaflex. Troponin negative. 2. MAIN -secondary to decreased p.o. intake. IV fluids. Improved. 3. Exertional dyspnea-troponin negative, echo unremarkable. Likely secondary to deconditioning and severe pain. TSH negative. 4. Constipation-aggressive bowel regimen. No nausea or vomiting. CT abdomen negative. 5. Hypertension-losartan held for MAIN 6. Hyperlipidemia-statin 8. Obstructive sleep apnea-CPAP nightly DVT prophylaxis: Lovenox DC planning: PT OT, may need SNF, currently cannot ambulate without assistance. This patient was seen by Edward Patel PA-C under the supervision of Doctor Kenji. <Tunde Phillip - Last Filed: 11/23/19 16:25> Reason for Visit: Patient is still has ongoing back pain and abdominal pain. She feels her abdominal pain mainly over left upper quadrant although its generalized. Mild nausea but denies vomiting, change in bowel movement, GI bleed. Vitals/I&O's: Vital Signs Temp Pulse Resp BP Pulse Ox 98.3 F 86 16 116/65 97 11/23/19 14:09 11/23/19 14:09 11/23/19 14:09 11/23/19 14:09 11/23/19 14:09 Oxygen Flow Rate (L/min) 2 Oxygen Delivery Method Room Air Weight: 160 lb 11.189 oz Body Mass Index (BMI) 29.4 Finger Stick Blood Glucose 113 Intake and Output for Last 24 Hours 11/21/19 11/22/19 11/23/19 23:59 23:59 23:59 Intake Total 1000 / 1750 3550 / 3550 Balance 1000 / 1750 3550 / 3550 General: Alert, Oriented x3, Cooperative HEENT: Atraumatic, PERRLA, EOMI, Normocephalic Neck: Supple, No JVD, Negative Carotid Bruits Lungs: Clear to auscultation, Normal air movement, No rhonchi, No wheeze, No rales Cardiovascular: Regular rate, Regular Rhythm, Normal S1, Normal S2, No murmurs Abdomen: Bowel Sounds Present, Soft, Non Tender, Non-Distended Extremities: No edema, Capillary Refill Less than 3 Seconds Skin: No rashes, No breakdown Musculoskeletal: Arthritic Changes, Tenderness - Tenderness over paraspinal muscles were lower thoracic spine lumbar region, - Neurological: Cranial nerves II-XII grossly intact Psych/Mental Status: Normal Affect, Appropriate Laboratory Results 11/22/19 11:23: Magnesium 2.3, TSH 0.70 11/22/19 19:46: Troponin I < 0.015 11/22/19 22:05: Troponin I < 0.015 11/23/19 01:42: Sodium 141, Potassium 4.0, Chloride 110 H, Carbon Dioxide 25.0, Anion Gap 6, BUN 17, Creatinine 1.29 H, Estim Creat Clear Calc 36.68, Est GFR (MDRD) Af Amer 54 L, Est GFR (MDRD) Non-Af 45 L, BUN/Creatinine Ratio 13.2, Glucose 172 H, Calcium 8.9 11/23/19 01:42: WBC 5.7, RBC 4.12 L, Hgb 12.9, Hct 37.9, MCV 92.0, MCH 31.3, MCHC 34.0, RDW Std Deviation 43.9, RDW Coeff of Andry 13.0, Plt Count 242, MPV 9.7, Immature Gran % (Auto) 0.400, Neut % (Auto) 86.8 H, Lymph % (Auto) 11.2 L, Woods % (Auto) 1.4, Eos % (Auto) 0.0, Baso % (Auto) 0.2, Absolute Neuts (auto) 5.0, Absolute Lymphs (auto) 0.64 L, Nucleated RBC % 0 11/23/19 01:42: Troponin I < 0.015 Current Medications Acetaminophen (Tylenol) 650 mg PO Q6H PRN PRN PRN Reason: Pain Score 1-10/Temp > 100.7 F Albuterol Sulfate (Ventolin Aerosols) 2.5 mg INHALATION Q2H PRN PRN PRN Reason: Shortness of Breath/Wheezing Baclofen (Lioresal) 10 mg PO QHS [facility] Last Admin: 11/22/19 21:50 Dose: Not Given Documented by: Bisacodyl (Dulcolax) 10 mg RECTAL DAILY [facility] Buspirone HCl (Buspar) 15 mg PO BID [facility] Last Admin: 11/23/19 09:31 Dose: 15 mg Documented by: Diphenhydramine HCl (Benadryl) 25 mg IV Q8H PRN PRN PRN Reason: PRURITIS Enoxaparin Sodium (Lovenox) 30 mg SC DAILY [facility] Last Admin: 11/23/19 09:32 Dose: 30 mg Documented by: Gabapentin (Neurontin) 200 mg PO TIDCM [facility] Last Admin: 11/23/19 11:44 Dose: 200 mg Documented by: Glucagon () 1 mg IM .X1 PRN PRN Reason: Hypoglycemia Guaifenesin (Robitussin) 20 ml PO Q4H PRN PRN PRN Reason: COUGH Hydralazine HCl (Apresoline Iv) 10 mg IV Q4H PRN PRN PRN Reason: SBP > 160 Hydromorphone HCl (Dilaudid Inj) 0.5 mg IV Q4H PRN PRN PRN Reason: Pain Score 6-10/10 Sodium Chloride () 1,000 mls @ 100 mls/hr IV .Q10H [facility] Last Admin: 11/23/19 09:37 Dose: 125 mls/hr Documented by: Sodium Chloride () 250 mls @ 15 mls/hr IV .[id number] PRN PRN Reason: Saline Flush Sodium Chloride () 250 mls @ 15 mls/hr IV .[id number] PRN PRN Reason: Additional IVPB Infusion Dextrose (Dextrose 10%-Water) 250 mls @ 999 mls/hr IV .Q16M PRN; Protocol PRN Reason: HYPOGLYCEMIA Melatonin (Melatonin) 3 mg PO QHS PRN PRN PRN Reason: INSOMNIA Methylprednisolone (Medrol Dosepak) 4 mg PO 0800,1200,1700 [facility]; Taper Stop: 11/27/19 08:59 Last Admin: 11/23/19 11:43 Dose: 4 mg Documented by: Nutritional Formula (Lactose Free) (Ensure Enlive) 120 ml PO 4X/DAY [facility] Last Admin: 11/23/19 14:14 Dose: 120 ml Documented by: Ondansetron HCl (Zofran) 4 mg IV Q8H PRN PRN PRN Reason: NAUSEA/VOMITING Oxycodone HCl (Oxyir) 5 mg PO Q4H PRN PRN PRN Reason: Pain Score 4-5/10 Polyethylene Glycol (Miralax) 17 gm PO DAILY [facility] Last Admin: 11/23/19 11:42 Dose: 17 gm Documented by: Pravastatin Sodium (Pravachol) 40 mg PO QHS [facility] Last Admin: 11/22/19 21:49 Dose: 40 mg Documented by: Prochlorperazine Edisylate (Compazine Iv) 5 mg IV Q4H PRN PRN PRN Reason: Breakthrough nausea/vomiting Psyllium Hydrophilic Mucilloid (Metamucil) 1 packet PO DAILY PRN PRN PRN Reason: Constipation Senna/Docusate Sodium (Senokot-S, Bhavana-Colace) 2 tablet PO BID [facility] Last Admin: 11/23/19 11:43 Dose: 2 tablet Documented by: Sodium Chloride () 10 - 40 ml IV UD PRN PRN Reason: SALINE FLUSH Last Admin: 11/22/19 17:15 Dose: 10 ml Documented by: Throat Lozenges (Cepacol Sore Throat Lozenge) 1 lozenge MUCOUS MEM Q2H PRN PRN PRN Reason: SORE THROAT Tizanidine HCl (Zanaflex) 2 mg PO Q8 [facility] Last Admin: 11/23/19 14:14 Dose: 2 mg Documented by: STROKE Vital Signs/Narrative: Vital Signs Temp Pulse Resp BP Pulse Ox 11/23/19 14:09 98.3 F 86 16 116/65 97 Assessment/Plan This patient was seen in conjunction with Edward TREJO. I have independently interviewed and examined the patient and reviewed pertinent history, examination findings, laboratory and plan of management. I have reviewed the note and agree with the documented findings with the few additional points. In brief, patient is admitted for intractable back pain, difficulty ambulating. Patient is on Medrol Dosepak, gabapentin, Dilaudid, baclofen and oxycodone. Zanaflex is changed to Flexeril. Patient also has acute kidney injury. Admitting BUN/creatinine 22/1.53, improved to 70/1.29. Hyperglycemia secondary to Solu-Medrol. Glucose 173 in BMP Other comorbidities as mentioned above including hypertension, dyslipidemia, obstructive sleep apnea on CPAP. Patient has constipation. Did not move bowels for 2 to 3 days. Enema and Dulcolax suppository along with senna S. MiraLAX ordered. I have discussed my assessment with Edward TREJO and orders have been reviewed. Code Visit Inpatient E&M: 38020 Subs Hosp L2
[2019-11-23] MEDS: Bisacodyl 10 MG Suppository RECTAL (17:17)
[2019-11-23] MEDS: cycloBENZAPRine HCl 10 MG Tablet PO (21:29)
[2019-11-23] MEDS: Baclofen 10 MG Tablet 5 MG PO (21:29)
[2019-11-23] MEDS: Pravastatin 40 MG Tablet PO (21:29)
--- NOTE | 2019-11-23 22:10 | EKG12_ITS ---
Test Reason : AM EKG Blood Pressure : / mmHG Vent. Rate : 068 BPM Atrial Rate : 068 BPM P-R Int : 184 ms QRS Dur : 084 ms QT Int : 462 ms P-R-T Axes : 055 004 020 degrees QTc Int : 491 ms Normal sinus rhythm Prolonged QT Abnormal ECG When compared with ECG of 02-NOV-2019 22:45, No significant change was found Confirmed by MIGUEL ANGEL FELDMAN, ZANE ([id number]), editor book MANDO SORIANO ([id number]) on 11/28/2019 8:56:12 AM Referred By: PREETI Confirmed By:FRED MICHELLE MD
[2019-11-23] MEDS: HYDROmorphone 0.5 MG/0.5 ML SYRINGE IV (22:37)
[2019-11-24] VITALS: PULSE 73
[2019-11-24] MEDS: 0.9% Normal Saline 1,000 ML 125 ML IV (01:32)
[2019-11-24 01:33] VITALS: BP 130/59; PULSE 71; RESP 16; TEMP 36.8; O2SAT 96
[2019-11-24 03:59] VITALS: PULSE 68
[2019-11-24 04:43] LABS: Anion Gap 5 (5-15); BUN 15 mg/dL (7-18); Calcium,Total 8.7 mg/dL (8.5-10.1); Chloride 111 mmol/L (98-107); Creatinine, Serum 0.83 mg/dL (0.55-1.02); EST Glomerular Filtration Rate 74 mL/min (>60); Est Glom Filt Rate - Afr Amer 90 mL/min (>60); Estimated Creatinine Clearance 57.01 ml/min; Glucose 144 mg/dL (74-106); Potassium 4.3 mmol/L (3.5-5.1); Sodium Level 143 mmol/L (136-145)
[2019-11-24 05:49] VITALS: BP 135/70; PULSE 66; RESP 14; TEMP 36.8; O2SAT 95
[2019-11-24] MEDS: cycloBENZAPRine HCl 10 MG Tablet PO (05:52)
[2019-11-24 07:26] VITALS: O2SAT 97
[2019-11-24 09:10] VITALS: BP 159/88; PULSE 72; RESP 16; TEMP 36.6; O2SAT 100
[2019-11-24] MEDS: Gabapentin 100 MG Capsule 200 MG PO (09:17)
[2019-11-24] MEDS: MethylPREDNISolone DosePak 4 MG BOX PO (09:17)
[2019-11-24] MEDS: 0.9% Normal Saline 1,000 ML 100 ML IV (09:33)
--- NOTE | 2019-11-24 10:20 | DS.PCM_ITS ---
Discharge Date and Diagnosis Date of Admission: 11/22/19 Date of Discharge: 11/24/19 - Primary Discharge Diagnosis Active and Suspected Problems (Last Reviewed 07/11/19 @ 13:04 by Avelina Tinajero) Intractable low back pain (Acute) Exertional dyspnea (Acute) MAIN (acute kidney injury) (Acute) - Secondary Discharge Diagnosis Chronic Problems (Last Reviewed 07/11/19 @ 13:04 by Avelina Tinajero) ARIELA (obstructive sleep apnea) (Chronic) 10/6 cmH2O Allergic rhinitis (Chronic) Depression (Chronic) Anxiety (Chronic) Scoliosis (Chronic) Neck pain (Chronic) Thoracic back pain (Chronic) Chronic lower back pain (Chronic) BPPV (benign paroxysmal positional vertigo) (Chronic) Warts (Chronic) Muscle spasm (Chronic) Lumbar disc lesion (Chronic) Abnormal mammogram of right breast (Chronic) Obesity (Chronic) Fatty liver (Chronic) GERD (gastroesophageal reflux disease) (Chronic) HLD (hyperlipidemia) (Chronic) Hospital Course and Treatment Summary of Care Provided: The patient is a 59 year old F admitted for intractable back pain, difficulty ambulating. Patient is on Medrol Dosepak, gabapentin, Dilaudid, baclofen and oxycodone. Zanaflex was changed to Flexeril. Patient also has acute kidney injury. Admitting BUN/creatinine 22/1.53, improved to 15/0.83. MAIN resolved. Hyperglycemia secondary to Solu-Medrol. Glucose 173 in BMP. Glucose is controlled 144. The patient has other comorbidities hypertension, dyslipidemia, obstructive sleep apnea on CPAP. Losartan was held secondary to MAIN. Patient has constipation. Did not move bowels for 2 to 3 days. Enema and Du lcolax suppository along with senna S given patient moved good bowel for last 2 days. Discharge medication reconciliation done. Discharge follow-up instructions completed. Discharge process discussed with the patient and her near the bedside and all questions were answered to patient's satisfaction. Patient was recommended psyllium, MiraLAX and senna as for constipation. Patient leann mmended to start losartan at lower dose 50 mg daily. Follow-up with BMP in 1 week with PCP. Total time spent, exact 35 minutes on discharge meds reconciliation, examination, coordination of care with nurses and ancillary staff, review of imaging and blood test and discussion with the patient on follow-up instructions Objective: General: Alert, Oriented x3, Cooperative HEENT: Atraumatic, PERRLA, EOMI, Normocephalic Neck: Supple, No JVD, Negative Carotid Bruits Lungs: Clear to auscultation, Normal air movement, No rhonchi, No wheeze, No rales Cardiovascular: Regular rate, Regular Rhythm, Normal S1, Normal S2, No murmurs Abdomen: Bowel Sounds Present, Soft, Non Tender, Non-Distended. No mass palpable Extremities: No edema, Capillary Refill Less than 3 Seconds Skin: No rashes, No breakdown Musculoskeletal: Arthritic Changes, no tenderness over lumbar spine or paraspinal muscle. Psych/Mental Status: Normal Affect, Appropriate - Physical Exam Vitals/I&O's: Vital Signs Temp Pulse Resp BP Pulse Ox 97.8 F 72 16 159/88 H 100 11/24/19 09:10 11/24/19 09:10 11/24/19 09:10 11/24/19 09:10 11/24/19 09:10 Oxygen Flow Rate (L/min) 2 Oxygen Delivery Method Room Air Weight: 160 lb 11.189 oz Body Mass Index (BMI) 29.4 Finger Stick Blood Glucose 113 Intake and Output for Last 24 Hours 11/22/19 11/23/19 11/24/19 23:59 23:59 23:59 Intake Total 1000 / 1750 4522.92 / 5322.92 3400 / 3400 Balance 1000 / 1750 4522.92 / 5322.92 3400 / 3400 Laboratory Results 11/23/19 22:40: Troponin I < 0.015 11/24/19 01:46: Troponin I < 0.015 11/24/19 03:48: Sodium 143, Potassium 4.3, Chloride 111 H, Carbon Dioxide 27.0, Anion Gap 5, BUN 15, Creatinine 0.83, Estim Creat Clear Calc 57.01, Est GFR (MDRD) Af Amer 90, Est GFR (MDRD) Non-Af 74, BUN/Creatinine Ratio 18.0, Glucose 144 H, Calcium 8.7 11/24/19 03:48: Troponin I < 0.015 Current Medications Acetaminophen (Tylenol) 650 mg PO Q6H PRN PRN PRN Reason: Pain Score 1-10/Temp > 100.7 F Albuterol Sulfate (Ventolin Aerosols) 2.5 mg INHALATION Q2H PRN PRN PRN Reason: Shortness of Breath/Wheezing Baclofen (Lioresal) 5 mg PO QHS [facility] Last Admin: 11/23/19 21:29 Dose: 5 mg Documented by: Bisacodyl (Dulcolax) 10 mg RECTAL DAILY [facility] Last Admin: 11/23/19 17:17 Dose: 10 mg Documented by: Buspirone HCl (Buspar) 15 mg PO BID [facility] Last Admin: 11/23/19 21:29 Dose: 15 mg Documented by: Cyclobenzaprine HCl (Flexeril) 10 mg PO TID [facility] Last Admin: 11/24/19 05:52 Dose: 10 mg Documented by: Diphenhydramine HCl (Benadryl) 25 mg IV Q8H PRN PRN PRN Reason: PRURITIS Enoxaparin Sodium (Lovenox) 30 mg SC DAILY [facility] Last Admin: 11/23/19 09:32 Dose: 30 mg Documented by: Gabapentin (Neurontin) 200 mg PO TIDCM [facility] Last Admin: 11/24/19 09:17 Dose: 200 mg Documented by: Glucagon () 1 mg IM .X1 PRN PRN Reason: Hypoglycemia Guaifenesin (Robitussin) 20 ml PO Q4H PRN PRN PRN Reason: COUGH Hydralazine HCl (Apresoline Iv) 10 mg IV Q4H PRN PRN PRN Reason: SBP > 160 Hydromorphone HCl (Dilaudid Inj) 0.5 mg IV Q4H PRN PRN PRN Reason: Pain Score 6-10/10 Last Admin: 11/23/19 22:37 Dose: 0.5 mg Documented by: Sodium Chloride () 1,000 mls @ 100 mls/hr IV .Q10H [facility] Last Admin: 11/24/19 09:33 Dose: 100 mls/hr Documented by: Sodium Chloride () 250 mls @ 15 mls/hr IV .[id number] PRN PRN Reason: Saline Flush Sodium Chloride () 250 mls @ 15 mls/hr IV .[id number] PRN PRN Reason: Additional IVPB Infusion Dextrose (Dextrose 10%-Water) 250 mls @ 999 mls/hr IV .Q16M PRN; Protocol PRN Reason: HYPOGLYCEMIA Melatonin (Melatonin) 3 mg PO QHS PRN PRN PRN Reason: INSOMNIA Methylprednisolone (Medrol Dosepak) 4 mg PO 0800,1200,1700,2200 [facility]; Taper Stop: 11/27/19 08:59 Last Admin: 11/24/19 09:17 Dose: 4 mg Documented by: Nutritional Formula (Lactose Free) (Ensure Enlive) 120 ml PO 4X/DAY [facility] Last Admin: 11/23/19 21:29 Dose: 120 ml Documented by: Ondansetron HCl (Zofran) 4 mg IV Q8H PRN PRN PRN Reason: NAUSEA/VOMITING Oxycodone HCl (Oxyir) 5 mg PO Q4H PRN PRN PRN Reason: Pain Score 4-5/10 Polyethylene Glycol (Miralax) 17 gm PO DAILY [facility] Last Admin: 11/23/19 11:42 Dose: 17 gm Documented by: Pravastatin Sodium (Pravachol) 40 mg PO QHS [facility] Last Admin: 11/23/19 21:29 Dose: 40 mg Documented by: Prochlorperazine Edisylate (Compazine Iv) 5 mg IV Q4H PRN PRN PRN Reason: Breakthrough nausea/vomiting Psyllium Hydrophilic Mucilloid (Metamucil) 1 packet PO DAILY PRN PRN PRN Reason: Constipation Senna/Docusate Sodium (Senokot-S, Bhavana-Colace) 2 tablet PO BID [facility] Last Admin: 11/23/19 21:29 Dose: 2 tablet Documented by: Sodium Chloride () 10 - 40 ml IV UD PRN PRN Reason: SALINE FLUSH Last Admin: 11/22/19 17:15 Dose: 10 ml Documented by: Throat Lozenges (Cepacol Sore Throat Lozenge) 1 lozenge MUCOUS MEM Q2H PRN PRN PRN Reason: SORE THROAT Home Medications: Medications to take at Discharge Buprenorphine 1 patch TP WE 02/08/18 Buspirone HCl 15 mg PO BID 11/22/19 Losartan Potassium 100 mg PO DAILY 11/22/19 Pravastatin Sodium 40 mg PO QHS 11/22/19 Baclofen [Lioresal] 10 mg PO QHS #0 11/24/19 MethylPREDNISolone DosePak [Medrol DosePak] 4 mg PO UD #1 box 11/24/19 Pantoprazole Sodium [Protonix] 40 mg PO DAILY #30 tab 11/24/19 Polyethylene Glycol 3350 [Miralax] 17 gm PO DAILY packet 11/24/19 Psyllium [Metamucil] 1 packet PO DAILY PRN PRN packet 11/24/19 Senna/Docusate Sodium [Senokot-S] 2 tab PO BID PRN PRN #30 tab 11/24/19 cycloBENZAPRine HCl [Flexeril] 10 mg PO TID PRN PRN #20 tab 11/24/19 Bad tablePrimary Care Physician: Rey Palmer Chi, MD [Primary Care Provider] - Medical Necessity - Tobacco Use Smoking Status: Never smoker Tobacco Use: Non-smoker Meaningful Use Info Meaningful Use Diagnoses (Choose all that apply): None applicable Code Visit Inpatient E&M: 51220 [facility] Hosp
--- NOTE | 2019-11-24 10:20 | PCM.DC ---
- Discharge Diagnoses Current Active Problems: Current Active and Chronic Problems (Last Reviewed 07/11/19 @ 13:04 by Avelina Tinajero) Intractable low back pain (Acute) Exertional dyspnea (Acute) MAIN (acute kidney injury) (Acute) You will use the following diet at home:: Cardiac Your food should be the consistency of: Regular Discharge Activity: May Not Drive - UNTIL she sees PCP Weight Bearing Status: Weight bearing as tolerated Call your doctor if you observe: Fever of 101 or Higher, Coldness, Increased Pain, Inability to urinate, Inability to have a bowel movement, Using more than one pad per hour, Shortness of breath, Fainting spells, Chest pain, Prolonged hiccoughing, Increased palpitations (irregular heartbeat) Allergies/Adverse Reactions: Allergies silicone Allergy (Verified 11/22/19 16:32) Rash codeine Adverse Reaction (Verified 11/22/19 16:32) Itching doxycycline Adverse Reaction (Verified 11/22/19 16:32) Itching oxycodone Adverse Reaction (Verified 11/22/19 10:14) Itching Medications to take at Discharge Buprenorphine 1 patch TP WE 02/08/18 Buspirone HCl 15 mg PO BID 11/22/19 Losartan Potassium 100 mg PO DAILY 11/22/19 Pravastatin Sodium 40 mg PO QHS 11/22/19 Baclofen [Lioresal] 10 mg PO QHS #0 11/24/19 MethylPREDNISolone DosePak [Medrol DosePak] 4 mg PO UD #1 box 11/24/19 cycloBENZAPRine HCl [Flexeril] 10 mg PO TID PRN PRN #20 tab 11/24/19 The following prescriptions were given: cycloBENZAPRine HCl [Flexeril] 10 mg PO TID PRN PRN #20 tab PRN Reason: muscle spasm Transmission Status: Pending to [facility] - [place] MethylPREDNISolone DosePak [Medrol DosePak] 4 mg PO UD #1 box Transmission Status: Pending to [facility] [place] Primary Care Physician: Rey Palmer Chi, MD [Primary Care Provider] - Please follow up with your Primary Care Physician in: [place] 1-2 weeks Test Results: Test results from this visit will be discussed in further detail at your follow-up appointment, if applicable.
== END 2019-11-24 11:46 | disposition home or self-care (01) ==
LOC: ED 10:58 → MS3 11-23 07:09
PROVIDERS: Physician Assistant; Student in an Organized Health Care Education/Training Program; Admitting Provider Family Medicine; Emergency Provider Emergency Medicine; PCP Family Medicine Geriatric Medicine; Visit Provider Internal Medicine
DX: M54.5 Low back pain (principal); R06.09 Other forms of dyspnea; N17.9 Acute kidney failure, unspecified; G47.33 Obstructive sleep apnea (adult) (pediatric); E78.5 Hyperlipidemia, unspecified; K21.9 Gastro-esophageal reflux disease without esophagitis; Z79.899 Other long term (current) drug therapy; F32.9 Major depressive disorder, single episode, unspecified; F41.9 Anxiety disorder, unspecified; G89.4 Chronic pain syndrome; I10 Essential (primary) hypertension; K59.00 Constipation, unspecified; R94.31 Abnormal electrocardiogram [ECG] [EKG]; I08.1 Rheumatic disorders of both mitral and tricuspid valves
CPT/HCPCS: 36415; 74177; 80048; 80053; 81001; 83605; 83690; 83735; 84443; 84484; 85025; 93005; 93306; 96361; 96372; 96374; 96375; 96376; 97162; 97166; 97530; 97802; 99218; 99251; 99284; J7030; Q9967; A4216; G0378; G0463; J2405

== ENCOUNTER → 2019-11-30 15:54 | Outpatient (CLI) | payer MEDICAID, SELFPAY ==
[2019-11-22 16:24] VITALS: BMI 29.4
[2019-11-30 17:34] LABS: Anion Gap 5 (5-15); BUN 10 mg/dL (7-18); Chloride 106 mmol/L (98-107); Creatinine, Serum 0.83 mg/dL (0.55-1.02); EST Glomerular Filtration Rate 74 mL/min (>60); Est Glom Filt Rate - Afr Amer 90 mL/min (>60); Glucose 90 mg/dL (74-106); Potassium 3.8 mmol/L (3.5-5.1); Sodium Level 139 mmol/L (136-145)
== END ==
PROVIDERS: PCP Family Medicine Geriatric Medicine; Visit Provider Family Medicine Geriatric Medicine
DX: N17.9 Acute kidney failure, unspecified (principal)
CPT/HCPCS: 36415; 80048

== ENCOUNTER 2019-12-16 15:00 | Outpatient (RCR) | payer MEDICAID, SELFPAY ==
[2019-11-22 16:24] VITALS: BMI 29.4
--- NOTE | 2019-12-05 15:55 | HP.PTEVAL_ITS ---
Patient's Visit Information PREETI HERNÁNDEZ is a 59 year old F referred to Physical Therapy by June Mackenzie MD with a diagnosis of NECK PAIN. Date of Evaluation: 12/05/19 Physical Therapist: Ric Bettencourt, PT, Cert MDT, OCS - Visit Plan Frequency: 2x /Week Duration: 4 Weeks Plan: PT INTERVETIONS MODALTIES ,MANUAL THERAPY STM/ MANUAL CERVICAL TRACTION,CERVICAL POSTURAL EX'S - Subjective Subjective: This 59 y/o female presents to physical therapy with neck pain.Patient has cervical pain for many years. Patient referred to DR Mackenzie recommended PT and did x-rays DDD. Patient plan to get epidural injections . Location sumttrical posture left > right, Aggravating weather,turning cerviacl spine, flexion ,[place] activities. Alleviating factors heat. Denies dizziness but has h/o BPPV . Denies JONES/nausa/tinnitis. Patient has had h/o epidral injections. Patient uses pain patch. Patient symptoms affects housework tasks and ADL's . Patient symptoms affects QOL. VOCATION: unemployed. SOCAIL: - Objective POSTURE: rounded shoulders head foward. NEURO: denies parathesia/tingling ,reflexes C5-6-7 /. PALAPTION: tender UT /levator. AROM: shoulder flexion/abduction pain UT. CERVICAL AROM: flexion min ,extension mod loss,lateral flexion/rotation mod loss. MMT: BUE grossly 4-/5. 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 - Special Tests C/S Radiculapathy - Left Upper limb tension test: Negative C/S Radiculapathy - Right Upper limb tension test: Negative C/S Radiculapathy - Left Spurlings: Positive C/S Radiculapathy - Right Spurlings: Positive C/S Radiculapathy - Left Cervical distraction: Negative C/S Radiculapathy - Right Cervical distraction: Negative C/S Radiculapathy - Left Relief test: Negative C/S Radiculapathy - Right Relief test: Negative Sharp Alcides: Negative Vertebral Artery Test: Negative Alar Ligament Test: Negative - Goals Goal 1:: Independant with HEP. Goal Time Frame: 4-6 Weeks Goal 2:: Improev posture for ADL'S Goal Time Frame: 4-6 Weeks Goal 3:: Decrease cervical pain by 50% or > to improve function. Goal Time Frame: 4-6 Weeks Goal 4:: Patient to improve cervical ROM for function of recovery Goal Time Frame: 4-6 Weeks Goal 5:: Patient to improve neck owestry score by 5 points or > to improve QOL. Goal Time Frame: 4-6 Weeks - Rehabilitation Potential Physical Therapy Diagnosis: Patient has chronic cervical pain years with decrease ROM,strength UE and decrease function of recovery impairs ADLS and housework tasks thus benifit from skilled PT. Rehabilitation Potential: Good - Anticipated Interventions Patient/Client Instruction: Educate patient on: Condition, Plan of Care For the Purpose of:: To decrease pain, To increase ROM, To improve muscle performance and motor function, To increase tolerance to activity/condition/position, To improve performance and independence with ADL's, To improve ability of physical actions for home/community/work/leisure, To improve health of tissue, To decrease soft tissue restriction, To increase flexibility/ROM, To improve ability to perform tasks related to life management Therapeutic Exercise to Include: Strength training, Postural training, Flexibilty training, Active ROM For the Purpose of:: To decrease pain, To increase ROM, To improve muscle performance and motor function, To improve ability to perform ADL's, To improve performance and independence with ADL's, To improve ability of physical actions for home/community/work/leisure, To improve health of tissue, To decrease soft tissue restriction, To increase flexibility/ROM, To improve ability to perform tasks related to life management Manual Therapy Techniques to Include: Mobilization, Soft tissue mobilization Comment: CERVICAL TRACTION For the Purpose of:: To decrease pain, To increase ROM, To improve health of tissue, To decrease soft tissue restriction TENS: Yes IF ES: Yes Cryotherapy (ice pack, ice massage): Yes Thermo therapy (hot pack): Yes Ultrasound (thermal/non thermal): Yes For the Purpose of:: To decrease pain, To increase ROM, To improve nutrient delivery to tissue, To improve muscle performance and motor function, To improve health of tissue, To decrease soft tissue restriction, To increase flexibility/ROM Thank you for the opportunity to evaluate your patient. For Medicare and Medicare HMO plans, please review the plan of care and approve it. It will need to be FAXED BACK to us at [phone] for Medicare purposes. For Medicare only, by signing this I certify the plan of care. Please let me know if there are questions or concerns regarding this plan of care. Physician Signature: Date:
--- NOTE | 2020-06-21 15:18 | HP.PT.NRP ---
PREETI HERNÁNEDZ was seen in my office for initial evaluation on 12/05/19. The following Plan of Care was established for this patient: Initial Frequency: 2x /Week Initial Duration: 4 Weeks Patient/Client Instruction: Educate patient on: Condition, Plan of Care For the Purpose of:: To decrease pain, To increase ROM, To improve muscle performance and motor function, To increase tolerance to activity/condition/position, To improve performance and independence with ADL's, To improve ability of physical actions for home/community/work/leisure, To improve health of tissue, To decrease soft tissue restriction, To increase flexibility/ROM, To improve ability to perform tasks related to life management Therapeutic Exercise to Include: Strength training, Postural training, Flexibilty training, Active ROM For the Purpose of:: To decrease pain, To increase ROM, To improve muscle performance and motor function, To improve ability to perform ADL's, To improve performance and independence with ADL's, To improve ability of physical actions for home/community/work/leisure, To improve health of tissue, To decrease soft tissue restriction, To increase flexibility/ROM, To improve ability to perform tasks related to life management Manual Therapy Techniques to Include: Mobilization, Soft tissue mobilization Comment: CERVICAL TRACTION For the Purpose of:: To decrease pain, To increase ROM, To improve health of tissue, To decrease soft tissue restriction TENS: Yes IF ES: Yes Cryotherapy (ice pack, ice massage): Yes Thermo therapy (hot pack): Yes Ultrasound (thermal/non thermal): Yes For the Purpose of:: To decrease pain, To increase ROM, To improve nutrient delivery to tissue, To improve muscle performance and motor function, To improve health of tissue, To decrease soft tissue restriction, To increase flexibility/ROM This patient was last seen in our office . Pertinent comments regarding their Physical therapy will appear below: This patient has not returned to Physical Therapy and is appropriate to return to MD for further follow-up as needed. At this point I will be discontinuing this patient from physical therapy. I would be happy to see this patient again in the future if found appropriate by the physician. Thank you! Flaquita Maria, PT, Cert MDT
== END 2019-12-16 19:00 | disposition home or self-care (01) ==
LOC: PT 15:00
PROVIDERS: PCP Family Medicine Geriatric Medicine; Referring Provider Anesthesiology; Visit Provider Anesthesiology
DX: M50.320 Other cervical disc degeneration, mid-cervical region, unspecified level (principal)
CPT/HCPCS: 97035; 97110; 97140; 97162

== ENCOUNTER → 2020-02-22 14:13 | Outpatient (CLI) | payer MEDICAID, SELFPAY ==
[2019-11-22 16:24] VITALS: BMI 29.4
[2020-02-22 15:54] LABS: Absolute Lymphocyte Count 3.05 X10^3/uL (0.83-4.51); Absolute Neutrophil Count 3.8 X10^3/uL (2.0-7.7); Basophil# 0.02 X10^3/uL; Basophil% 0.3 % (0-1); Eosinophil# 0.15 X10^3/uL; Hematocrit 39.5 % (37-47); Hemoglobin 12.9 g/dL (12.0-15.0); Lymphocyte # 3.05 X10^3/ul (4.0); Lymphocyte % 40.6 % (19-41); Mean Corp Hgb Conc 32.7 g/dL (32-36); Mean Corpuscular Hgb 30.6 pg (27.0-32.0); Mean Corpuscular Volume 93.6 fL (81-99); Mean Platelet Vol. 10.4 fl (6.2-12.0); Monocyte# 0.53 X10^3/uL; Monocyte% 7.1 % (0-10); NRBC Flagged by Analyzer 0 % (0-5); Neutrophil # 3.75 X10^3/uL (2.7-7.7); Neutrophil % 49.9 % (47-70); Platelet Count 299 K/mm3 (150-450); RBC Distribution Width CV 12.3 % (11.6-14.6); RBC Distribution Width SD 42.4 fl (35.1-43.9); Red Blood Count 4.22 M/mm3 (4.2-5.4); White Blood Count 7.5 K/mm3 (4.4-11.0)
[2020-02-22 16:14] LABS: ALB/GLOB Ratio 0.9 RATIO (0.9-2.4); AST(SGOT) 119 U/L (15-37); Alanine Aminotransfer ALT/SGPT 91 U/L (13-56); Albumin, Serum 3.7 g/dL (3.2-5.0); Alkaline Phosphatase 89 U/L (45-117); Anion Gap 4 (5-15); BUN 12 mg/dL (7-18); BUN/Creat Ratio 15.1 RATIO (10-20); Calcium,Total 9.8 mg/dL (8.5-10.1); Chloride 106 mmol/L (98-107); EST Glomerular Filtration Rate 78 mL/min (>60); Est Glom Filt Rate - Afr Amer 94 mL/min (>60); Globulin 3.9 g/dL (2.2-4.2); Glucose 93 mg/dL (74-106); Potassium 3.8 mmol/L (3.5-5.1); Protein, Total 7.6 g/dL (6.4-8.2); Sodium Level 142 mmol/L (136-145); Thyroid Stim Hormone (TSH) 0.88 uIU/mL (0.358-3.74)
== END ==
PROVIDERS: PCP Family Medicine Geriatric Medicine; Visit Provider Family Medicine Geriatric Medicine
DX: I10 Essential (primary) hypertension (principal)
CPT/HCPCS: 36415; 80053; 84443; 85025

== ENCOUNTER → 2020-03-06 08:50 | Outpatient (CLI) | payer MEDICAID, SELFPAY ==
[2019-11-22 16:24] VITALS: BMI 29.4
--- NOTE | 2020-03-06 08:54 | US_ITS ---
STUDY: ABDOMINAL ULTRASOUND - RIGHT UPPER QUADRANT REASON FOR VISIT: Female, 60 years old ABN LIVER ENZYMES TECHNIQUE: Ultrasound evaluation of the right upper quadrant was performed with real-time and static hurtado-scale imaging. TECHNICAL QUALITY: Adequate. COMPARISON: Comparison is made with prior CT scan of the abdomen dated November 22, 2019. FINDINGS: Liver: The liver measures 13.6 cm. There is increased echogenicity consistent with fatty infiltration. The bile ducts are within normal limits. There is hepatic color flow. The direction of portal flow is hepatopetal. There is a 3 cm x 1.8 cm hypodensity in the posterior aspect of the right lobe of the liver. This may represent the hemangioma visualized on the CT scan. Gallbladder: The patient is status post cholecystectomy. Common Bile Duct (C.B.D.): The common bile duct measures 10.5 mm. Pancreas: There is nonvisualization of the pancreas due to overlying bowel gas. Right Kidney: Normal size of the right kidney. The right kidney measures 10.2 cm x 4.7 cm x 4.8 cm. Normal renal cortex. The right cortex measures 1.7 cm. There is no demonstrated renal mass or cyst. There is no right hydronephrosis. US/Liver IMPRESSION: Fatty infiltration of the liver. Electronically Signed: Terrence Chun, at 12:47 EDT , Service support ,
== END ==
PROVIDERS: PCP Family Medicine Geriatric Medicine; Referring Provider Family Medicine Geriatric Medicine; Visit Provider Family Medicine Geriatric Medicine
DX: R74.8 Abnormal levels of other serum enzymes (principal)
CPT/HCPCS: 36415; 76705; 86704; 86705; 86706; 86708; 86709; 86803; 87340

== ENCOUNTER → 2020-03-06 11:03 | Outpatient (CLI) | payer MEDICAID, SELFPAY ==
[2019-11-22 16:24] VITALS: BMI 29.4
[2020-03-07 05:07] LABS: HEPATITIS B SURFACE AG Negative (Negative); Hepatitis A AB, Total Negative (Negative); Hepatitis A IgM Antibody Negative (Negative); Hepatitis B Core AB IgM Negative (Negative); Hepatitis B Core Ab Total Negative (Negative); Hepatitis C Ab <0.1 s/co ratio (0.0-0.9)
[2020-03-07 05:26] LABS: Hep B Surface Antibodies Reactive (.)
== END ==
PROVIDERS: PCP Family Medicine Geriatric Medicine; Visit Provider Family Medicine Geriatric Medicine
DX: R74.8 Abnormal levels of other serum enzymes (principal)
CPT/HCPCS: 36415; 86704; 86705; 86706; 86708; 86709; 86803; 87340

== ENCOUNTER 2020-04-13 01:17 | Emergency (ER) | payer MEDICAID, SELFPAY ==
[2019-11-22 16:24] VITALS: BMI 29.4
[2020-04-13 01:18] VITALS: BP 119/79; PULSE 103; RESP 22; TEMP 37.1; O2SAT 100; BMI 30.7
[2020-04-13 01:20] VITALS: BP 119/79; PULSE 102; RESP 22; TEMP 37.1; O2SAT 100
--- NOTE | 2020-04-13 01:54 | ED.DCSUM_ITS ---
History of Present Illness Chief Complaint: Abd Pain Informant: Patient Narrative: 60-year-old female presents with abdominal pain which she describes as left upper quadrant pain. She states that she has had this for several hours as well as nausea and vomiting. She states that she did not eat dinner or lunch today. She is not had a fever. She does state that she feels nauseous still however it is improving since her significant other gave her Zofran in route to the ED. She states she has been having bowel movements but they are smaller than usual. She does not have any dysuria or hematuria. She is concerned that she has a history of small bowel obstruction. Past Medical History - Allergies and Home Meds Allergies/Adverse Reactions: Allergies silicone Allergy (Verified 11/22/19 16:32) Rash codeine Adverse Reaction (Verified 11/22/19 16:32) Itching doxycycline Adverse Reaction (Verified 11/22/19 16:32) Itching oxycodone Adverse Reaction (Verified 11/22/19 10:14) Itching Primary Care Physician: Rey Palmer Chi, MD [Primary Care Provider] - Prior records reviewed: Yes Past Medical History: - - small bowel obstruction Surgical History: - - Right breast lumpectomy, benign, cholecystectomy, wisdom teeth extraction, lap Angel. Smoking Status: Never smoker Alcohol: None Drugs: None - Family History Sibling Family History: Family History (Last Reviewed 07/11/19 @ 13:04 by Avelina Tinajero) Mother Arthritis Hypercholesterolemia Hypertension Cancer Father Cancer Cirrhosis Emphysema lung Family History: Reports: - Maternal Family History: Family History (Last Reviewed 07/11/19 @ 13:04 by Avelina Tinajero) Mother Arthritis Hypercholesterolemia Hypertension Cancer Father Cancer Cirrhosis Emphysema lung Family History: Reports: - - Patient with maternal family history of OA, cancer, hypertension hyperlipidemia. Paternal Family History: Family History (Last Reviewed 07/11/19 @ 13:04 by Avelina Tinajero) Mother Arthritis Hypercholesterolemia Hypertension Cancer Father Cancer Cirrhosis Emphysema lung Family History: Reports: - - Patient with paternal family history of cancer, cirrhosis, COPD. Review of Systems General: Denies: Chills, Fever Eyes: Denies: Visual changes - bilaterally, Diplopia ENT: Denies: Rhinorrhea, Sore throat Cardiovascular: Denies: Chest pain, Palpitations Respiratory: Denies: Dyspnea, Cough, Dyspnea on exertion Gastrointestinal: Reports: Abdominal pain, Nausea, Vomiting, Constipation. Denies: Diarrhea Genitourinary: Denies: Dysuria Musculoskeletal: Denies: Myalgias, Arthralgias Skin: Denies: Rash Neurological: Denies: Headache, Weakness Hematologic: Denies: Easy bruising, Easy bleeding Physical Exam Vital Signs/Narrative: Vital Signs Temp Pulse Resp BP Pulse Ox 04/13/20 01:20 98.8 F 102 H 22 H 119/79 100 04/13/20 01:18 98.8 F 103 H 22 H 119/79 100 Inital Vital Signs reviewed: Yes General: Well nourished, Obese, No Acute Distress Head: Normocephalic, Atraumatic Eyes: Perrl, EOMI. Negative for: Pale conjunctiva Cardiovascular: Regular rate, Regular rhythm Respiratory: No distress, CTA bilaterally Abdomen: Soft, Tender. Negative for: Rebound tenderness Extremities: Nontender Skin: Normal color, No rash Neurological: Alert, Oriented x3 Psychological: Normal affect Diagnostic/Tx/Re-eval Laboratory Data 04/13/20 04/13/20 04/13/20 01:30 01:30 02:25 WBC 9.5 RBC 4.35 Hgb 13.6 Hct 40.8 MCV 93.8 MCH 31.3 MCHC 33.3 RDW Std Deviation 43.1 RDW Coeff of Andry 12.4 Plt Count 286 MPV 10.0 Immature Gran % (Auto) 0.200 Neut % (Auto) 81.7 H Lymph % (Auto) 12.3 L [place] % (Auto) 4.9 Eos % (Auto) 0.8 Baso % (Auto) 0.1 Absolute Neuts (auto) 7.8 H Absolute Lymphs (auto) 1.17 Nucleated RBC % 0 Sodium 139 Potassium 3.9 Chloride 108 H Carbon Dioxide 27.0 Anion Gap 4 L BUN 20 H Creatinine 0.79 Estim Creat Clear Calc 56.43 Est GFR (MDRD) Af Amer 95 Est GFR (MDRD) Non-Af 78 BUN/Creatinine Ratio 25.2 H Glucose 130 H Calcium 9.6 Total Bilirubin 0.60 AST 106 H ALT 93 H Alkaline Phosphatase 101 Total Protein 7.5 Albumin 3.7 Globulin 3.8 Albumin/Globulin Ratio 1.0 Lipase 234 Urine Color Yellow Urine Clarity Clear Urine pH 5.0 Ur Specific [place] 1.025 Urine Protein Negative Urine Glucose (UA) Normal Urine Ketones Negative Urine Occult Blood Negative Urine Nitrite Negative Urine Bilirubin Negative Urine Urobilinogen Normal Ur Leukocyte Esterase 25 H Patient presents for abdominal pain associated with nausea and vomiting. She states that she took a Zofran prior to arrival and her nausea is improving. She has not had any vomiting episodes here. She rates her 8 or 9 but she refuses pain medication. On reevaluation she states that she feels fine. I reviewed her blood work with her which is fairly normal. I again asked her if she needed anything for pain or nausea while awaiting the CT results and she declined. Her CT abdomen pelvis was negative except for hemangioma of the liver. On reevaluation she states her pain is almost gone and her nausea is resolved. She requested nausea medicine for home. She again declines any kind of pain medication. She is discharged home in stable condition ED Disposition - Plan for ED Patient: Disposition: Home or Assisted Living Diagnosis: Abdominal pain in female, Liver hemangioma Instructions: ED Abdominal Pain Unkn Cause Fem Prescriptions: Ondansetron [Ondansetron Odt] 4 mg PO Q8H PRN PRN #14 tab.rapdis PRN Reason: Nausea Prescription Printed Referrals: Rey Palmer Chi, MD [Primary Care Provider] -
--- NOTE | 2020-04-13 02:02 | CT_ITS ---
STUDY: CT ABDOMEN AND PELVIS WITH CONTRAST REASON FOR EXAM: Female, 60 years old. GENERALIZED ABD PAIN WITH EMESIS SINCE 7PM, HX TUBAL LIGATION, JOSH, OBSTRUCTION RADIATION DOSAGE (If Supplied By Facility): CTDIvol = ( 14.75 ) mGy, DLP = ( 968.50 ) mGycm TECHNIQUE: Transaxial images were obtained from the dome of the diaphragm to the symphysis pubis without oral contrast. IV 100mL Isovue-370 was administered. Sagittal and coronal images were reconstructed. Individualized dose optimization techniques were used for this CT. COMPARISON: None. FINDINGS: The visualized lung bases are unremarkable. The visualized portions of the heart are within normal limits. There is an enhancing lesion in the right lobe of the liver most likely represents a hemangioma measures 3.7 cm axial image #30. There are surgical clips in the gallbladder fossa consistent with a prior cholecystectomy. Normal spleen. Normal pancreas. Normal bilateral adrenal glands. Normal right kidney. Normal left kidney. Normal visualized stomach. Normal small intestine. Normal colon. The appendix is visualized and appears normal. There is diffuse atherosclerotic calcification of the abdominal aorta, without a demonstrated aneurysm. Normal inferior vena cava. Normal retroperitoneum. Normal urinary bladder. Normal abdominal wall. There are diffuse degenerative changes of the visualized lumbar spine. CT/Abdomen/Pelvis W IV Cont ONLY IMPRESSION: There is an enhancing lesion in the right lobe of the liver most likely represents a hemangioma measures 3.7 cm axial image #30. Electronically Signed: Alan Gamboa, at 3:12 EDT Tel , Service support ,
[2020-04-13 02:13] LABS: Absolute Lymphocyte Count 1.17 X10^3/uL (0.83-4.51); Absolute Neutrophil Count 7.8 X10^3/uL (2.0-7.7); Basophil# 0.01 X10^3/uL; Basophil% 0.1 % (0-1); Eosinophil# 0.08 X10^3/uL; Eosinophils% 0.8 % (0-5); Hematocrit 40.8 % (37-47); Hemoglobin 13.6 g/dL (12.0-15.0); Lymphocyte # 1.17 X10^3/ul (4.0); Lymphocyte % 12.3 % (19-41); Mean Corp Hgb Conc 33.3 g/dL (32-36); Mean Corpuscular Hgb 31.3 pg (27.0-32.0); Mean Corpuscular Volume 93.8 fL (81-99); Monocyte# 0.47 X10^3/uL; Monocyte% 4.9 % (0-10); NRBC Flagged by Analyzer 0 % (0-5); Neutrophil # 7.76 X10^3/uL (2.7-7.7); Neutrophil % 81.7 % (47-70); Platelet Count 286 K/mm3 (150-450); RBC Distribution Width CV 12.4 % (11.6-14.6); RBC Distribution Width SD 43.1 fl (35.1-43.9); Red Blood Count 4.35 M/mm3 (4.2-5.4); White Blood Count 9.5 K/mm3 (4.4-11.0)
[2020-04-13] MEDS: 0.9% Normal Saline 1,000 ML 1000 ML IV (02:16)
[2020-04-13 02:24] LABS: AST(SGOT) 106 U/L (15-37); Alanine Aminotransfer ALT/SGPT 93 U/L (13-56); Albumin, Serum 3.7 g/dL (3.2-5.0); Alkaline Phosphatase 101 U/L (45-117); Anion Gap 4 (5-15); BUN 20 mg/dL (7-18); BUN/Creat Ratio 25.2 RATIO (10-20); Calcium,Total 9.6 mg/dL (8.5-10.1); Chloride 108 mmol/L (98-107); Creatinine, Serum 0.79 mg/dL (0.55-1.02); EST Glomerular Filtration Rate 78 mL/min (>60); Est Glom Filt Rate - Afr Amer 95 mL/min (>60); Estimated Creatinine Clearance 56.43 ml/min; Globulin 3.8 g/dL (2.2-4.2); Glucose 130 mg/dL (74-106); Lipase 234 U/L (73-393); Potassium 3.9 mmol/L (3.5-5.1); Protein, Total 7.5 g/dL (6.4-8.2); Sodium Level 139 mmol/L (136-145)
[2020-04-13 02:33] LABS: Color, Urine Yellow (Yellow); Glucose, Dipstick Normal (Normal); Ketone-Dipstick Negative (Negative); Leukocyte Esterase-Dipstick 25 /ul (Negative); Nitrite-Dipstick Negative (Negative); Occult Blood-Urine Negative /ul (Negative); Protein-Dipstick Negative (Negative); Specific Gravity, Urine 1.025 (1.002-1.030); Urine Bilirubin Dipstick Negative (Negative); Urine Clarity Clear (Clear); Urine Urobilinogen Normal (Normal)
[2020-04-13 02:34] LABS: Bacteria 0 SEEN /hpf (None Seen); Mucous, Urine 0 SEEN /hpf (<or=2+); Red Blood Cells-Urine 0 SEEN /hpf (0-5)
[2020-04-13 02:43] LABS: Squamous Epithelial Cells - UA 5-10 SEEN /hpf (5-10); White Blood Cells 0-5 SEEN /hpf (0-5)
[2020-04-13 03:33] VITALS: BP 116/75; PULSE 78; RESP 16; O2SAT 98
== END 2020-04-13 03:33 | disposition home or self-care (01) ==
PROVIDERS: Emergency Provider Student in an Organized Health Care Education/Training Program; PCP Family Medicine Geriatric Medicine
DX: R10.12 Left upper quadrant pain (principal); R11.2 Nausea with vomiting, unspecified; K59.00 Constipation, unspecified; D18.03 Hemangioma of intra-abdominal structures; E66.9 Obesity, unspecified; Z79.899 Other long term (current) drug therapy
CPT/HCPCS: 74177; 80053; 81001; 83690; 85025; 96360; 99284; J7030; Q9967; A4216

== ENCOUNTER → 2020-08-29 14:21 | Outpatient (CLI) | payer MEDICAID, SELFPAY ==
--- NOTE | 2020-08-29 15:56 | NEURO ---
NCS and/or EMG Patient Report Ordering Doctor: June Mackenzie DATE OF SERVICE: 08/29/20 Melissa Valenzuela presents for electrodiagnostic testing of the upper limbs. She reports numbness and tingling in both hands. Electrodiagnostic findings: Median motor nerve demonstrates prolonged distal latency bilaterally with normal amplitude and conduction velocity. Normal ulnar motor responses noted bilaterally. Normal median ulnar F waves. Prolonged median sensory latency at the wrist and palm is noted bilaterally. On needle EMG, all muscles tested in the upper limb showed no evidence of denervation with normal motor unit action potentials. Electrodiagnostic assessment: This is an abnormal study in the upper limbs 1. Electrodiagnostic findings demonstrate bilateral median mononeuropathy. This is consistent with a moderate bilateral carpal tunnel syndrome. If there are any further questions, please do not hesitate to contact me
== END ==
PROVIDERS: PCP Family Medicine Geriatric Medicine; Referring Provider Anesthesiology; Visit Provider Anesthesiology
DX: M79.2 Neuralgia and neuritis, unspecified (principal)
CPT/HCPCS: 95886; 95913

== ENCOUNTER → 2020-08-30 13:10 | Outpatient (CLI) | payer MEDICAID, SELFPAY ==
[2020-08-30 17:38] LABS: Absolute Neutrophil Count 3.4 X10^3/uL (2.0-7.7); Basophil# 0.03 X10^3/uL; Basophil% 0.4 % (0-1); Eosinophil# 0.11 X10^3/uL; Eosinophils% 1.6 % (0-5); Lymphocyte % 45.5 % (19-41); Mean Corp Hgb Conc 32.5 g/dL (32-36); Mean Corpuscular Hgb 30.7 pg (27.0-32.0); Mean Corpuscular Volume 94.6 fL (81-99); Mean Platelet Vol. 10.2 fl (6.2-12.0); Monocyte% 4.3 % (0-10); NRBC Flagged by Analyzer 0 % (0-5); Neutrophil # 3.39 X10^3/uL (2.7-7.7); Neutrophil % 48.1 % (47-70); Platelet Count 286 K/mm3 (150-450); RBC Distribution Width CV 12.9 % (11.6-14.6); RBC Distribution Width SD 44.2 fl (35.1-43.9); Red Blood Count 4.23 M/mm3 (4.2-5.4)
[2020-08-30 18:06] LABS: ALB/GLOB Ratio 1.1 RATIO (0.9-2.4); AST(SGOT) 91 U/L (15-37); Alanine Aminotransfer ALT/SGPT 78 U/L (13-56); Alkaline Phosphatase 111 U/L (45-117); Anion Gap 9 (5-15); BUN 10 mg/dL (7-18); BUN/Creat Ratio 10.9 RATIO (10-20); Calcium,Total 9.6 mg/dL (8.5-10.1); Chloride 109 mmol/L (98-107); Creatinine, Serum 0.91 mg/dL (0.55-1.02); EST Glomerular Filtration Rate 66 mL/min (>60); Est Glom Filt Rate - Afr Amer 80 mL/min (>60); Globulin 3.7 g/dL (2.2-4.2); Glucose 127 mg/dL (74-106); Potassium 3.6 mmol/L (3.5-5.1); Protein, Total 7.7 g/dL (6.4-8.2); Sodium Level 143 mmol/L (136-145); Thyroid Stim Hormone (TSH) 0.47 uIU/mL (0.358-3.74)
== END ==
PROVIDERS: PCP Family Medicine Geriatric Medicine; Visit Provider Family Medicine Geriatric Medicine
DX: I10 Essential (primary) hypertension (principal)
CPT/HCPCS: 36415; 80053; 84443; 85025

== ENCOUNTER → 2020-09-08 10:51 | Outpatient (CLI) | payer MEDICAID, SELFPAY ==
--- NOTE | 2020-09-08 10:53 | BI_ITS ---
MAMMOGRAPHY - BILATERAL SCREENING REASON FOR EXAM: Female, 60 years old. Routine annual screening examination. PERTINENT HISTORY: Non-contributory. History of prior right excisional breast biopsy. TECHNIQUE: Digital bilateral breast jacqui (3D mammographic acquisition) in the CC and MLO projections. 2-D mediolateral oblique (MLO) and craniocaudad (CC) views of both breasts were obtained. CAD: Full Field Digital Mammography with Computer Added Detection was performed. COMPARISON: Comparison is made with prior study dated 11/30/2017 and 05/28/2017. FINDINGS: Breast Composition: The breasts are heterogeneously dense, which may obscure small masses. There are no dominant masses or suspicious calcifications. Stable focal area of architectural distortion in the upper lateral portion of the right breast in keeping with prior right excisional breast biopsy. No other significant abnormalities are identified. There has been no significant change since the prior study. BI/SCREEN MAMM (CAD) W/JACQUI BILAT IMPRESSION: Stable bilateral screening mammogram. Yearly follow-up mammogram recommended. (A) ASSESSMENT CATEGORY: BIRADS Category 2: Benign. A letter regarding these results will be sent to the patient by the facility within 30 days. Approximately 10% of breast cancers are not detected by mammography. A normal mammogram should not delay biopsy of a clinically suspicious abnormality. [id number] Electronically Signed: Terrence Chun, at 10:08 EST , Service support ,
== END ==
PROVIDERS: PCP Family Medicine Geriatric Medicine; Referring Provider Family Medicine Geriatric Medicine; Visit Provider Family Medicine Geriatric Medicine
DX: Z12.31 Encounter for screening mammogram for malignant neoplasm of breast (principal)
CPT/HCPCS: 77063; 77067

== ENCOUNTER 2020-09-18 10:04 | Day surgery (SDC) | payer MEDICAID, SELFPAY ==
[2020-09-18 10:44] VITALS: BP 134/97; PULSE 65; RESP 16; TEMP 36.2; O2SAT 96; BMI 27.3
[2020-09-18] MEDS: Lactated Ringers 1,000 ML 100 ML IV (10:44)
--- NOTE | 2020-09-18 11:19 | HP.PCM_ITS ---
History and Physical Date of Admission: 09/18/20 Intake Intake Visit Reasons: Bilat hands Chief Complaint: Intractable Back Pain Allergies silicone Allergy (Verified 11/22/19 16:32) Rash codeine Adverse Reaction (Verified 11/22/19 16:32) Itching doxycycline Adverse Reaction (Verified 11/22/19 16:32) Itching oxycodone Adverse Reaction (Verified 11/22/19 10:14) Itching Medications Buprenorphine 1 patch TP WE 02/08/18 [History Confirmed 09/05/20] Buspirone HCl 15 mg PO BID 11/22/19 [History Confirmed 09/05/20] Pravastatin Sodium 40 mg PO QHS 11/22/19 [History Confirmed 09/05/20] Polyethylene Glycol 3350 [Miralax] 17 gm PO DAILY packet 11/24/19 [Rx Confirmed 09/05/20] Senna/Docusate Sodium [Senokot-S] 2 tab PO BID PRN PRN #30 tab 11/24/19 [Rx Confirmed 09/05/20] cycloBENZAPRine HCl [Flexeril] 10 mg PO TID PRN PRN #20 tab 11/24/19 [Rx Confir med 09/05/20] [facility] Medical History (Updated 04/14/20 @ 00:00 by Carli Garza) Hiatal hernia (Acute) ARIELA (obstructive sleep apnea) (Chronic) Allergic rhinitis (Chronic) Depression (Chronic) Anxiety (Chronic) Scoliosis (Chronic) Neck pain (Chronic) Thoracic back pain (Chronic) Chronic lower back pain (Chronic) BPPV (benign paroxysmal positional vertigo) (Chronic) Warts (Chronic) Muscle spasm (Chronic) Lumbar disc lesion (Chronic) Dehydration (Acute) Abnormal mammogram of right breast (Chronic) Obesity (Chronic) Fatty liver (Chronic) GERD (gastroesophageal reflux disease) (Chronic) HLD (hyperlipidemia) (Chronic) Acute urticaria (Resolved) Hematuria (Resolved) Right flank pain (Resolved) Streptococcus agalactiae infection (Resolved) Surgical History History of colectomy (Resolved) S/P lumpectomy of breast (Resolved) [place] teeth extracted (Resolved) S/P cholecystectomy (Acute) Family History Mother Arthritis Hypercholesterolemia Hypertension Cancer Lung Father Cancer Lung Cirrhosis Emphysema lung Social History (Updated 09/05/20 @ 10:[address] Damien Hartman DO) Smoking Status: Never smoker HPI Bilat hands: Details: Parts of this documentation were recorded by a scribe, this documentation accurately reflects the service provided and the decisions made by me, Dr. Damien Hartman DO 09/05/20 0746. PREETI HERNÁNDEZ is a 60 year old F NEW patient here today for BL hand numbness and tingling. SHe has had numbness and tingling of her hands for many years which has worsened over the last year. She had an EMG completed 08/29/2020 at [facility]. She states that the right is worse than the left. SHe states that she has numbness and tingling into all the fingers of the right and left hand. Denies any injections for surgery of BL hands. Denies any injury. She states the numbness and tingling comes and goes. Denies any night splinting. Has tried copper fit gloves which is not helpful. ROS Const Reports weakness Musc Denies joint pain, Denies joint swelling, Reports limited joint movement, Reports numbness, Denies radiating pain into limb, Reports tingling Skin/Breast Denies redness, Denies lesions, Denies itching, Denies rash, Denies skin swelling Neuro Yes numbness, Yes tingling, Yes weakness Ortho Exam General General: Yes no acute distress Neurologic: Yes alert, Yes oriented x3 Psychologic: Yes reasonable and appropriate Right Wrist/Hand Skin/Wound: No Swelling, No Ecchymosis, Yes nail intact, Yes capillary refill normal Right Wrist: Yes ROM-Extension 0-60, ROM-Flexion 0-80, ROM-Pronation 0-80, ROM- Supination 0-90, Durken's Test, Tinel's and Phalen's WRIST: good finger ROM Left Wrist/Hand Skin/Wound: No Swelling, No Ecchymosis, Yes capillary refill normal, No erythema Left Wrist: Yes ROM-Extension 0-60, Yes ROM-Flexion 0-80, Yes ROM-Pronation 0- 80, Yes ROM-Supination 0-90, Yes Durken's Test, Yes Tinel's and Yes Phalen's WRIST: good finger ROM Supplemental Info 08/29/2020 EMG bilateral upper extremities moderate median mononeuropathy at the wrist bilateral Assessment & Plan Problems 1. Bilateral carpal tunnel syndrome G56.03 Plan Personally reviewed patients EMG on the BL upper extremities. Patient educated t hat she has BL moderate carpal tunnel syndrome. Patient educated that treatment options are do nothing or 6 weeks of night splinting with NSAID or carpal tunnel release. Patient wishes to proceed with right carpal tunnel release and left wrist night splinting. Reviewed the pre-operative plans with the patient. Risks and benefits of the procedure were fully explained, including but not limited to infection, neurovascular injury, continued pain, arthritis, stiffness, need for further surgery, re-injury, DVT, PE, general risks of anesthesia, and loss of limb or life. The patient understands all the risks and does wish to proceed with written consent. Follow up post op or sooner if pain, swelling, numbness or associated symptoms, or concerns develop. All questions answered. Patient in agreement of plan. Coding Level of Care Code Off vis,new,level 3 Diagnoses Bilateral carpal tunnel syndrome G56.03 I have re-examined the patient. There are no clinical changes since date of exam Procedure Criteria Procedure Type: Elective COVID Risk Discussion: The surgeon/proceduralist and patient have discussed in detail the risk of exposure to and/or potential harm posed by the COVID-19 virus with having a surgery/procedure at this time versus the risk of delaying the surgery/procedure. It is not possible to know either the risk of delaying the surgery or procedure or chance of getting an infection with perfect accuracy, but a joint decision was made between the patient and the surgeon/proceduralist to proceed at this time with the scheduled surgery/procedure as indicated on the consent form.
[2020-09-18] MEDS: Cefazolin 2 GM in 0.9% Normal Saline 100 ML IV (11:26)
[2020-09-18] MEDS: Bupiv/Epi 0.5% Mpf 30 ML Vial (11:40)
[2020-09-18 11:56] VITALS: BP 134/97; BP 145/73; PULSE 77; RESP 16; TEMP 36.1; O2SAT 95
--- NOTE | 2020-09-18 11:58 | PCM.DC.ORTHO ---
Discharge Diet: No Restrictions Additional Instructions: -Ice and elevate operative extremity next 72 hours. Keep dressing on clean and dry for 48 hours then may remove and allow warm soapy water to rinse over incision but do not submerge until sutures are out. Then apply bandaid over incision and change daily. encourage finger range of motion. Not lift more than 1/2 pound. Allergies/Adverse Reactions: Allergies silicone Allergy (Verified 09/11/20 09:10) Rash latex Adverse Reaction (Intermediate, Verified 09/11/20 09:10) rash codeine Adverse Reaction (Verified 09/11/20 09:10) Itching doxycycline Adverse Reaction (Verified 09/11/20 09:10) Itching oxycodone Adverse Reaction (Verified 09/11/20 09:10) Itching Medications to take at Discharge RX: Buprenorphine 1 patch TP FR 02/08/18 RX: Buspirone HCl 15 mg PO BID 11/22/19 RX: Pravastatin Sodium 40 mg PO QHS 11/22/19 RX: Polyethylene Glycol 3350 [Miralax] 17 gm PO DAILY packet 11/24/19 Gabapentin [Neurontin] 100 mg PO QHS 09/11/20 Nabumetone [Relafen] 750 mg PO BID 09/11/20 RX: Senna/Docusate Sodium [Senokot-S] 2 tab PO DAILY 09/11/20 RX: cycloBENZAPRine HCl [Flexeril] 10 mg PO BID 09/11/20 Hydrocodone Bitart/Apap 5-325 [[place] 5MG-325MG] 1 - 2 tablet PO Q4H PRN PRN 5 Days #20 tablet 09/18/20 The following prescriptions were given: Hydrocodone Bitart/Apap 5-325 [[place] 5MG-325MG] 1 - 2 tablet PO Q4H PRN PRN 5 Days #20 tablet PRN Reason: Pain Transmission Status: Sent to [facility] Primary Care Physician: Rey Palmer Chi, MD [Primary Care Provider] - Test Results: Test results from this visit will be discussed in further detail at your follow-up appointment, if applicable. Please Follow Up With: Damien Hartman DO - 2 Weeks
[2020-09-18 12:00] VITALS: BP 134/97; BP 135/81; PULSE 82; RESP 16; O2SAT 96
--- NOTE | 2020-09-18 12:00 | PCM.OPRPT ---
Report of Operation Date of Procedure: 09/18/20 Description of Surgical Findings:: Preoperative diagnosis; right carpal tunnel syndrome Postoperative diagnosis; same Procedure: Right open carpal tunnel release Anesthesia: Local with MAC Tourniquet time; 10 minutes 250 mm Hg Complications: None Indication for procedure; This is a 60-year-old female with long-standing symptoms consistent with carpal tunnel syndrome the patient did have electrodiagnostic evidence of this and has failed conservative treatment. Risks benefits and alternatives were reviewed including risks of bleeding infection nerve artery tissue damage need for further surgery and continued pain and symptoms, hypersensitivity to scar and Pillar pain. Procedure; The patient was met in the preoperative holding area the operative extremity was identified by both patient and physician and was marked the patient was met by anesthesia and brought back to the operating room and transferred to the operating table in the supine position. Aanesthesia was started. A well-padded tourniquet was placed on the operative upper extremity. The patient was prepped and draped in the usual sterile fashion. A timeout was called to ensure the proper patient procedure and extremity were being contemplated. 0.5 percent Marcaine with epinephrine was injected into the incisional area. An Esmarch was used to exsanguinate the extremity. The tourniquet was inflated to 250 mmHg. A midline incision was made with a 15 blade scalpel between the thenar and hypothenar eminence. This was carried down through the skin and subcutaneous tissue. Halley retractors were then used, a deep blade scalpel was used to make a deep incision in the palmar aponeurosis. The halley retractors were then placed deep to this and the transverse carpal ligament was identified a perforation was made with a scalpel and a Littler scissors were used to complete the release of the transverse carpal ligament distally under direct visualization with the tips facing ulnarly until the perivascular fat was reached. Then turning our attention proximally using a tension slide technique the proximal extent of the transverse carpal ligament was released . There was noted to be hourglass configuration to the median nerve and hypertrophy of the transverse carpal ligament without other findings. The wound was thoroughly irrigated and was closed with 4-0 prolene vertical mattress stitches. Dressing was applied in the form of xeroform 4 x 4, web roll and an lisandra wrap. Tourniquet was let down there is no intraoperative complications patient tolerated the procedure well and was transferred to the PACU. All counts were correct.
[2020-09-18 12:05] VITALS: BP 134/97; BP 150/75; PULSE 71; RESP 16; O2SAT 95
[2020-09-18 12:11] VITALS: BP 134/97; BP 148/86; PULSE 71; RESP 16; TEMP 36.4; O2SAT 95
[2020-09-18 12:55] VITALS: BP 134/97
== END 2020-09-18 12:56 | disposition home or self-care (01) ==
LOC: SDC 10:05 → AC 10:11
PROVIDERS: PCP Family Medicine Geriatric Medicine; Referring Provider Orthopaedic Surgery; Visit Provider Orthopaedic Surgery
PROC: (CPT 64721; principal; 2020-09-18 11:25)
DX: G56.03 Carpal tunnel syndrome, bilateral upper limbs (principal); Z20.828 Contact with and (suspected) exposure to other viral communicable diseases; I10 Essential (primary) hypertension; E78.5 Hyperlipidemia, unspecified; G47.33 Obstructive sleep apnea (adult) (pediatric); K21.9 Gastro-esophageal reflux disease without esophagitis; E66.9 Obesity, unspecified; Z68.27 Body mass index [BMI] 27.0-27.9, adult; Z79.899 Other long term (current) drug therapy
CPT/HCPCS: 01810; 64721; 87426; C9803; J7120; J2405

== ENCOUNTER → 2020-09-19 08:47 | Outpatient (CLI) | payer MEDICAID, SELFPAY ==
[2020-09-18 10:44] VITALS: BMI 27.3
--- NOTE | 2020-09-19 08:49 | US_ITS ---
STUDY: ABDOMINAL ULTRASOUND - RIGHT UPPER QUADRANT REASON FOR VISIT: Female, 60 years old FATTY LIVER TECHNIQUE: Ultrasound evaluation of the right upper quadrant was performed with real-time and static hurtado-scale imaging. TECHNICAL QUALITY: Adequate. COMPARISON: Comparison is made with prior study dated 03/06/2020. FINDINGS: Liver: The liver measures 15.3 cm. There is increased echogenicity consistent with fatty infiltration. The bile ducts are within normal limits. There is hepatic color flow. The direction of portal flow is hepatopetal. The previously seen 3 cm x 1.8 cm nodule in the right lobe of the liver is not seen at this time. Gallbladder: The patient is status post cholecystectomy. Common Bile Duct (C.B.D.): The common bile duct measures 8.8 mm. Pancreas: Normal size of the head, body and tail of the pancreas. There is increased echogenicity of the pancreas. There is no demonstrated pancreatic mass or cyst. Right Kidney: Normal size of the right kidney. The right kidney measures 10.6 cm x 6.1 cm x 4.3 cm. Normal renal cortex. The right cortex measures 1.6 cm. There is no demonstrated renal mass or cyst. There is no right hydronephrosis. IMPRESSION: Fatty infiltration of the liver. Status post cholecystectomy. Electronically Signed: Terrence Chun, at 10:34 EST , Service support , STUDY: ABDOMINAL ULTRASOUND - ELASTOGRAPHY REASON FOR VISIT: Female, 60 years old. Fatty infiltration of the liver. TECHNIQUE: Liver stiffness measurements were obtained on a Itineris 85 ultrasound machine using a CA 1-7 probe following the SRU guidelines. 3 measurements were obtained using a 2-D-SWE method. The IQR/M was 22% suggesting a quality data set. TECHNICAL QUALITY: Adequate. COMPARISON: None. FINDINGS: Liver: Fatty infiltration of the liver. Median liver stiffness measured 6.3 kPa. US/Liver IMPRESSION: Liver stiffness measures 6.3 kPa compatible with F2 -- F3 Metavir score. Electronically Signed: Terrence Chun, at 10:37 EST , Service support ,
== END ==
PROVIDERS: PCP Family Medicine Geriatric Medicine; Referring Provider Family Medicine Geriatric Medicine; Visit Provider Family Medicine Geriatric Medicine
DX: K76.0 Fatty (change of) liver, not elsewhere classified (principal)
CPT/HCPCS: 76705; 76981

== ENCOUNTER 2020-11-13 05:41 | Day surgery (SDC) | payer MEDICAID, SELFPAY ==
[2020-11-13 06:03] VITALS: BP 141/77; PULSE 65; RESP 16; TEMP 36.3; O2SAT 96; BMI 26.4
[2020-11-13] MEDS: Lactated Ringers 1,000 ML 100 ML IV (06:17)
[2020-11-13] MEDS: Cefazolin 2 GM in 0.9% Normal Saline 100 ML IV (07:15)
--- NOTE | 2020-11-13 07:23 | HP.PCM_ITS ---
History and Physical Date of Admission: 11/13/20 Intake Intake Visit Reasons: RIGHT WRIST Is patient in pain?: Yes Allergies silicone Allergy (Verified 10/29/20 11:00) Rash latex Adverse Reaction (Intermediate, Verified 10/29/20 11:00) rash codeine Adverse Reaction (Verified 10/29/20 11:00) Itching doxycycline Adverse Reaction (Verified 10/29/20 11:00) Itching oxycodone Adverse Reaction (Verified 10/29/20 11:00) Itching [facility] Medical History (Updated 04/14/20 @ 00:00 by Carli Garza) Hiatal hernia (Acute) ARIELA (obstructive sleep apnea) (Chronic) Allergic rhinitis (Chronic) Depression (Chronic) Anxiety (Chronic) Scoliosis (Chronic) Neck pain (Chronic) Thoracic back pain (Chronic) Chronic lower back pain (Chronic) BPPV (benign paroxysmal positional vertigo) (Chronic) Warts (Chronic) Muscle spasm (Chronic) Lumbar disc lesion (Chronic) Dehydration (Acute) Abnormal mammogram of right breast (Chronic) Obesity (Chronic) Fatty liver (Chronic) GERD (gastroesophageal reflux disease) (Chronic) HLD (hyperlipidemia) (Chronic) Acute urticaria (Resolved) Hematuria (Resolved) Right flank pain (Resolved) Streptococcus agalactiae infection (Resolved) Surgical History History of colectomy (Resolved) S/P lumpectomy of breast (Resolved) [place] teeth extracted (Resolved) S/P cholecystectomy (Acute) Family History Mother Arthritis Hypercholesterolemia Hypertension Cancer Lung Father Cancer Lung Cirrhosis Emphysema lung Social History (Updated 10/29/20 @ 12:[address] Damien Hartman DO) Smoking Status: Never smoker alcohol intake: never substance use type: does not use HPI RIGHT WRIST: Details: Parts of this documentation were recorded by a scribe, this documen tation accurately reflects the service provided and the decisions made by me, Dr. Damien Hartman DO 10/29/20 0803. PREETI HERNÁNDEZ is a 60 year old F here today for s/p Right open carpal tunnel release dos 09/18/20. Patient is denies any pain. She states that she has tightness over her incision. Her incision is fully healed. She denies any numbness or tingling or sharp shooting pains. Patient notes that her surgery was helpful. She notes that she has left hand numbness and tingling. Her tingling is over her entire hand, mostly in her thumb through ring finger. She is dropping items more frequently. She notes that she has a brace which she is having a hard time getting used to. She had an EMG which is here for review. She would like to discuss her surgical options. ROS Musc Reports joint pain, Reports muscle weakness, Reports numbness, Reports tingling Skin/Breast Reports system reviewed and no additional complaints, except as docu Neuro Yes system reviewed and no additional complaints, except as docu, Yes numbness, Yes tingling Ortho Exam Right Wrist/Hand Skin/Wound: Yes healed, No Swelling, No Ecchymosis, Yes capillary refill normal WRIST: incision well healed full wrist and finger rom no sign of infection. Left Wrist/Hand Skin/Wound: No Swelling, No Ecchymosis, No erythema Left Wrist: Yes Durken's Test and Yes Phalen's; no Tinel's Supplemental Info 08/29/2020 EMG bilateral upper extremities moderate median mononeuropathy at the wrist bilateral Assessment & Plan Problems 1. Left carpal tunnel syndrome G56.02 Plan Spoke with her about the healing process and she may continue to have soreness over her right incision. Explained the surgery process for her left carpal tunnel syndrome. She wanted to proceed with surgery. Reviewed the pre-operative plans with the patient. Risks and benefits of the procedure were fully explained, including but not limited to infection, neurovascular injury, continued pain, arthritis, stiffness, need for further surgery, re-injury, DVT, PE, general risks of anesthesia, and loss of limb or life. The patient understands all the risks and does wish to proceed with written consent. Follow up for her 2 week post op appt or sooner if pain, swelling, numbness or associated symptoms, or concerns develop. All questions answered. Patient in agreement of plan. Coding Level of Care Code Off vis,est,level 3 Diagnoses Left carpal tunnel syndrome G56.02 I have re-examined the patient. There are no clinical changes since date of exam Procedure Criteria Procedure Type: Elective COVID Risk Discussion: The surgeon/proceduralist and patient have discussed in detail the risk of exposure to and/or potential harm posed by the COVID-19 virus with having a surgery/procedure at this time versus the risk of delaying the surgery/procedure. It is not possible to know either the risk of delaying the surgery or procedure or chance of getting an infection with perfect accuracy, but a joint decision was made between the patient and the surgeon/proceduralist to proceed at this time with the scheduled surgery/procedure as indicated on the consent form.
[2020-11-13] MEDS: Bupiv/Epi 0.5% Mpf 30 ML Vial (07:33)
--- NOTE | 2020-11-13 07:44 | DCINST_ITS ---
Discharge Diet: No Restrictions Keep extremity elevated above heart level: Operative Extremity Call your doctor if you observe: Shortness of breath, Chest pain Additional Instructions: Ice and elevate operative extremity next 72 hours. Keep dressing on clean and dry for 48 hours then may remove and allow warm soapy water to rinse over incision but do not submerge until sutures are out. Then apply bandaid over incision and change daily. encourage finger range of motion. Not lift more than 1/2 pound. Allergies/Adverse Reactions: Allergies silicone Allergy (Verified 11/13/20 06:02) Rash codeine Adverse Reaction (Verified 11/13/20 06:02) Itching doxycycline Adverse Reaction (Verified 11/13/20 06:02) Itching oxycodone Adverse Reaction (Verified 11/13/20 06:02) Itching Medications to take at Discharge Buprenorphine 1 patch TP FR 02/08/18 Buspirone HCl 15 mg PO BID 11/22/19 Pravastatin Sodium 40 mg PO QHS 11/22/19 Polyethylene Glycol 3350 [Miralax] 17 gm PO DAILY packet 11/24/19 Gabapentin [Neurontin] 100 mg PO QHS 09/11/20 Nabumetone [Relafen] 750 mg PO BID 09/11/20 Senna/Docusate Sodium [Senokot-S] 2 tab PO DAILY 09/11/20 cycloBENZAPRine HCl [Flexeril] 10 mg PO BID 09/11/20 traMADol [Ultram] 50 mg PO Q4H PRN PRN #30 tablet 11/13/20 The following prescriptions were given: traMADol [Ultram] 50 mg PO Q4H PRN PRN #30 tablet PRN Reason: Pain Score 6-10 Transmission Status: Sent to [facility] Primary Care Physician: Rey Palmer Chi, MD [Primary Care Provider] - Test Results: Test results from this visit will be discussed in further detail at your follow- up appointment, if applicable. Please Follow Up With: Damien Hartman DO - 2 weeks
--- NOTE | 2020-11-13 07:45 | PCM.OPRPT ---
Report of Operation Date of Procedure: 11/13/20 Description of Surgical Findings:: Preoperative diagnosis; left carpal tunnel syndrome Postoperative diagnosis; same Procedure: Left open carpal tunnel release Anesthesia: Local with MAC Tourniquet time; 10 minutes 250 mm Hg Complications: None Indication for procedure; This is a 60-year-old female with long-standing symptoms consistent with carpal tunnel syndrome the patient did have electrodiagnostic evidence of this and has failed conservative treatment. Risks benefits and alternatives were reviewed including risks of bleeding infection nerve artery tissue damage need for further surgery and continued pain and symptoms, hypersensitivity to scar and Pillar pain. Procedure; The patient was met in the preoperative holding area the operative extremity was identified by both patient and physician and was marked the patient was met by anesthesia and brought back to the operating room and transferred to the operating table in the supine position. Aanesthesia was started. A well-padded tourniquet was placed on the operative upper extremity. The patient was prepped and draped in the usual sterile fashion. A timeout was called to ensure the proper patient procedure and extremity were being contemplated. 0.5 percent Marcaine with epinephrine was injected into the incisional area. An Esmarch was used to exsanguinate the extremity. The tourniquet was inflated to 250 mmHg. A midline incision was made with a 15 blade scalpel between the thenar and hypothenar eminence. This was carried down through the skin and subcutaneous tissue. Halley retractors were then used, a deep blade scalpel was used to make a deep incision in the palmar aponeurosis. The halley retractors were then placed deep to this and the transverse carpal ligament was identified a perforation was made with a scalpel and a Littler scissors were used to complete the release of the transverse carpal ligament distally under direct visualization with the tips facing ulnarly until the perivascular fat was reached. Then turning our attention proximally using a tension slide technique the proximal extent of the transverse carpal ligament was released . There was noted to be hourglass configuration to the median nerve and hypertrophy of the transverse carpal ligament without other findings. The wound was thoroughly irrigated and was closed with 4-0 nylon vertical mattress stitches. Dressing was applied in the form of xeroform 4 x 4, web roll and an lisandra wrap. Tourniquet was let down there is no intraoperative complications patient tolerated the procedure well and was transferred to the PACU. All counts were correct.
[2020-11-13 07:50] VITALS: BP 129/75; BP 141/77; PULSE 75; RESP 14; TEMP 36.6; O2SAT 94
[2020-11-13 07:58] VITALS: BP 138/78; BP 141/77; PULSE 64; RESP 14; O2SAT 93
[2020-11-13 08:03] VITALS: BP 131/92; BP 141/77; PULSE 61; RESP 14; O2SAT 92
[2020-11-13 08:07] VITALS: BP 136/72; BP 141/77; PULSE 61; RESP 14; TEMP 36.6; O2SAT 93
[2020-11-13 08:31] VITALS: BP 141/66; BP 141/77; PULSE 62; RESP 18; TEMP 36.1; O2SAT 95
== END 2020-11-13 08:38 | disposition home or self-care (01) ==
LOC: SDC 05:42 → AC 05:42
PROVIDERS: PCP Family Medicine Geriatric Medicine; Referring Provider Orthopaedic Surgery; Visit Provider Orthopaedic Surgery
PROC: (CPT 64721; principal; 2020-11-13 07:00)
DX: G56.02 Carpal tunnel syndrome, left upper limb (principal); Z20.822 Contact with and (suspected) exposure to COVID-19; I10 Essential (primary) hypertension; E78.5 Hyperlipidemia, unspecified; K58.9 Irritable bowel syndrome, unspecified; M54.5 Low back pain; G89.29 Other chronic pain; G47.33 Obstructive sleep apnea (adult) (pediatric); K21.9 Gastro-esophageal reflux disease without esophagitis; F32.9 Major depressive disorder, single episode, unspecified; Z78.0 Asymptomatic menopausal state; E66.9 Obesity, unspecified; Z79.899 Other long term (current) drug therapy; Z68.26 Body mass index [BMI] 26.0-26.9, adult
CPT/HCPCS: 64721; 87426; C9803; J7120; J2405

== ENCOUNTER 2021-01-18 12:15 | Day surgery (SDC) | payer MEDICAID, SELFPAY ==
[2021-01-18] VITALS (7 sets, daily range): BP systolic 127–138; BP diastolic 76–83; PULSE 67–75; RESP 16–18; TEMP 36.1–36.8; O2SAT 95–98; BMI 26.2
[2021-01-18] MEDS: Lactated Ringers 1,000 ML 100 ML IV (13:07)
--- NOTE | 2021-01-18 13:45 | RAD_ITS ---
PROCEDURE: Bilateral L4-L5 and L5-S1 facet joint block. DATE OF EXAMINATION: 01/18/2021. INDICATION: Female, 60 years old. Chronic low back pain. FLUOROSCOPY TIME (if supplied): (14 seconds) minutes/seconds. 3 intraoperative images were obtained. RAD/Fluor Guidance for Spine Inj IMPRESSION: Intraoperative imaging provided for bilateral L4-L5 and L5-S1 facet joint block. Electronically Signed: Terrence Chun MD at 15:04 EDT , Service support ,
--- NOTE | 2021-01-18 14:22 | DCINST_ITS ---
- Discharge Diagnoses Current Active Problems: Lower back pain Reason(s) for Visit for Discharge Instructions: Receiving right side lumbar facet blocks You will use the following diet at home:: No restrictions Your food should be the consistency of: Regular Discharge Activity: No Restrictions May shower in (days): 1 May resume sexual activity in: No Restrictions Weight Bearing Status: Weight bearing as tolerated, Toe touch weight bearing Call your doctor if your incision/area has: Continuous Slow Oozing, Sudden Increased Bleeding, Increased Pain/ Swelling, Foul Smelling Discharge, Swelling at the incision site Call your doctor if you observe: Fever of 101 or Higher, Coldness, Increased Pain, Numbness or Tingling, Calf discomfort, Uncontrolled pain Suture Line Care: Avoid Pulling/Pushing, Avoid Pinching/Bending Remove Dressing in (days):: 1 Cleanse incision/area with: Soap & Water Allergies/Adverse Reactions: Allergies silicone Allergy (Verified 01/18/21 12:59) Rash codeine Adverse Reaction (Verified 01/18/21 12:59) Itching doxycycline Adverse Reaction (Verified 01/18/21 12:59) Itching oxycodone Adverse Reaction (Verified 01/18/21 12:59) Itching Medications to take at Discharge Buprenorphine 1 patch TP FR 02/08/18 Buspirone HCl 15 mg PO BID 11/22/19 Pravastatin Sodium 40 mg PO QHS 11/22/19 Polyethylene Glycol 3350 [Miralax] 17 gm PO DAILY packet 11/24/19 Gabapentin [Neurontin] 100 mg PO QHS 09/11/20 Nabumetone [Relafen] 750 mg PO BID 09/11/20 Senna/Docusate Sodium [Senokot-S] 2 tab PO BID 09/11/20 cycloBENZAPRine HCl [Flexeril] 10 mg PO BID 09/11/20 Primary Care Physician: Rey Palmer Chi, MD [Primary Care Provider] - Test Results: Test results from this visit will be discussed in further detail at your follow- up appointment, if applicable. Please Follow Up With: June Mackenzie MD
--- NOTE | 2021-01-18 14:24 | OP.PCM_ITS ---
Problem List (1) Spondylosis without myelopathy or radiculopathy, lumbar region Status: Acute (2) Intractable low back pain Status: Acute Report of Operation Date of Procedure: 01/18/21 Pre-Operative Diagnosis: Right-sided lumbar facet block, at the right side L3-4, L4-5, L5-S1 facet median nerve branch block area. Post-Operative Diagnosis: Lumbar facet spondylosis Surgery/Procedure Performed:: Same Description of Surgical Findings:: Under sterile conditions. Patient placed in the prone position, pressure points were padded, patient was ready from the nursing and the anesthesia team. After identification of the side and the target area for the block under guided fluoroscopy, the entry site was marked with marking pen. I used Betadine for sterilization of the skin, sterile draping were applied. Using 25-gauge needle to infiltrate the skin with local anesthesia using preservative-free lidocaine 0.5% injected 2.5 mL at each site of entry. Using oblique fluoroscopy, accessed the right medial nerve branch supplying the [right] lumbar facets L3-4, L4-5, L5-S1 using 22-gauge spinal needle. After confirmation of appropriate needle placement to the targeted area with AP and lateral fluoroscopy, injected 2.5 mL mixture of preservative-free Marcaine 0.5% and Kenalog [20] mg at each site. Cleghorn was removed, pressure dressing were applied. Patient tolerated the procedure well and was taken to the recovery. Type of Anesthesia:: Local MAC
[2021-01-18] MEDS: Triamcinolone Acetonide 40 MG/ML Vial (14:32)
[2021-01-18] MEDS: Bupivacaine 0.25% 30 ML Vial (14:33)
[2021-01-18] MEDS: Lidocaine 1% (30 ml sdv) 30 ML Vial (14:33)
== END 2021-01-18 15:45 | disposition home or self-care (01) ==
LOC: SDC 12:17 → AC 12:26
PROVIDERS: PCP Family Medicine Geriatric Medicine; Referring Provider Anesthesiology; Visit Provider Anesthesiology
PROC: 3E0T3BZ Introduction of Anesthetic Agent into Peripheral Nerves and Plexi, Percutaneous Approach (ICD-10-PCS; CPT 64493; principal; 2021-01-18 13:40)
DX: M47.816 Spondylosis without myelopathy or radiculopathy, lumbar region (principal); M51.16 Intervertebral disc disorders with radiculopathy, lumbar region; M51.36 Other intervertebral disc degeneration, lumbar region; M51.26 Other intervertebral disc displacement, lumbar region; M51.15 Intervertebral disc disorders with radiculopathy, thoracolumbar region; M47.813 Spondylosis without myelopathy or radiculopathy, cervicothoracic region; M50.122 Cervical disc disorder at C5-C6 level with radiculopathy; M50.322 Other cervical disc degeneration at C5-C6 level; M51.34 Other intervertebral disc degeneration, thoracic region; M25.551 Pain in right hip; M25.552 Pain in left hip; M51.17 Intervertebral disc disorders with radiculopathy, lumbosacral region; M47.812 Spondylosis without myelopathy or radiculopathy, cervical region; M47.892 Other spondylosis, cervical region; M50.120 Mid-cervical disc disorder, unspecified level; M50.320 Other cervical disc degeneration, mid-cervical region, unspecified level; E78.00 Pure hypercholesterolemia, unspecified; G89.29 Other chronic pain; G47.30 Sleep apnea, unspecified; Z79.899 Other long term (current) drug therapy; Z78.0 Asymptomatic menopausal state
CPT/HCPCS: 01992; 64493; 64494; 64495; 64483; 77003; J7120

== ENCOUNTER → 2021-01-30 10:44 | Outpatient (CLI) | payer MEDICAID, SELFPAY ==
[2021-01-18 13:02] VITALS: BMI 26.2
--- NOTE | 2021-01-30 10:53 | MRI_ITS ---
STUDY: MRI BRAIN WITH AND WITHOUT CONTRAST REASON FOR EXAM: Female, 60 years old. MEMORY LOSS TECHNIQUE: Standardized multiplanar fat and water weighted pulse sequences were obtained. IV 12 cc dotarem was administered for the contrast portion of the examination. COMPARISON: CT to FINDINGS: Normal size of the ventricles and extra-axial spaces for the patient''s age. Normal white matter tracts of the supratentorial brain. There is no evidence for recent intracranial ischemia or other cause of cytotoxic edema on diffusion weighted imaging (DWI). Normal T2* images of the brain without demonstrated susceptibility artifact. There is no demonstrated hemosiderin stain. Thin section coronal T2-weighted images through the temporal lobes demonstrate no evidence of hippocampal atrophy. Normal bilateral basal ganglia. Normal thalami. There is no extra-axial fluid accumulation. Normal flow voids within the major intracranial circulation suggesting patency by spin echo criteria. Normal venous enhancement. There is no enhancing intra-axial or extra-axial abnormality. There is enlargement of the sella turcica with increased CSF within the sella and flattening of the pituitary gland consistent with an empty sellar syndrome. Normal infundibular stalk, hypothalamus, and optic chiasm. Normal tectal plate and pineal gland. Normal midbrain, pablo and medulla. Normal cerebellum. Normal basal cisterns. Normal bilateral temporal bones. Normal bilateral internal auditory canals. No demonstrated orbital abnormality, within the constraints of a routine brain study. Normal visualized paranasal sinuses. Normal calvarium and skull base. Normal visualized soft tissue structures. Normal visualized upper cervical spine. MRI/Brain W/WO Contrast IMPRESSION: Normal unenhanced and enhanced MRI of the brain. Electronically Signed: Michael Vargas MD at 13:42 EDT Tel , Service support ,
[2021-01-30 11:30] LABS: CREATININE FINGERSTICK 0.9 mg/dL (0.55-1.02); EGFR FINGERSTICK > 60.0000 mL/min (>60)
== END ==
PROVIDERS: PCP Family Medicine Geriatric Medicine; Referring Provider Psychiatry & Neurology Neurology; Visit Provider Psychiatry & Neurology Neurology
DX: R41.3 Other amnesia (principal)
CPT/HCPCS: 70553; A9575

== ENCOUNTER → 2021-02-28 13:02 | Outpatient (CLI) | payer MEDICAID, SELFPAY ==
[2021-01-18 13:02] VITALS: BMI 26.2
[2021-02-28 17:26] LABS: Absolute Lymphocyte Count 2.69 X10^3/uL (0.83-4.51); Absolute Neutrophil Count 3.2 X10^3/uL (2.0-7.7); Basophil# 0.05 X10^3/uL; Basophil% 0.8 % (0-1); Eosinophil# 0.09 X10^3/uL; Eosinophils% 1.4 % (0-5); Hematocrit 41.5 % (37-47); Hemoglobin 13.5 g/dL (12.0-15.0); Lymphocyte # 2.69 X10^3/ul (0.83-4.51); Lymphocyte % 42.3 % (19-41); Mean Corp Hgb Conc 32.5 g/dL (32-36); Mean Corpuscular Hgb 31.5 pg (27.0-32.0); Mean Corpuscular Volume 96.7 fL (81-99); Mean Platelet Vol. 10.2 fl (6.2-12.0); Monocyte# 0.35 X10^3/uL; Monocyte% 5.5 % (0-10); NRBC Flagged by Analyzer 0 % (0-5); Neutrophil # 3.17 X10^3/uL (2.7-7.7); Neutrophil % 49.8 % (47-70); Platelet Count 327 K/mm3 (150-450); RBC Distribution Width CV 13.1 % (11.6-14.6); RBC Distribution Width SD 46.7 fl (35.1-43.9); Red Blood Count 4.29 M/mm3 (4.2-5.4); White Blood Count 6.4 K/mm3 (4.4-11.0)
[2021-02-28 17:41] LABS: Vitamin D,25 Hydroxy 25.7 ng/mL
[2021-02-28 17:52] LABS: Albumin, Serum 3.7 g/dL (3.2-5.0); BUN 8 mg/dL (7-18); BUN/Creat Ratio 9.6 RATIO (10-20); Creatinine, Serum 0.83 mg/dL (0.55-1.02); EST Glomerular Filtration Rate 74 mL/min (>60); Est Glom Filt Rate - Afr Amer 89 mL/min (>60); Glucose 89 mg/dL (74-106); Protein, Total 7.3 g/dL (6.4-8.2)
[2021-02-28 17:53] LABS: AST(SGOT) 21 U/L (15-37); Alanine Aminotransfer ALT/SGPT 20 U/L (13-56); Alkaline Phosphatase 100 U/L (45-117); Anion Gap 6 (5-15); Calcium,Total 9.4 mg/dL (8.5-10.1); Chloride 103 mmol/L (98-107); Globulin 3.6 g/dL (2.2-4.2); Potassium 3.5 mmol/L (3.5-5.1); Sodium Level 140 mmol/L (136-145); Thyroid Stim Hormone (TSH) 0.76 uIU/mL (0.358-3.74)
== END ==
PROVIDERS: PCP Family Medicine Geriatric Medicine; Visit Provider Family Medicine Geriatric Medicine
DX: I10 Essential (primary) hypertension (principal); E55.9 Vitamin D deficiency, unspecified
CPT/HCPCS: 36415; 80053; 82306; 84443; 85025

== ENCOUNTER 2021-04-02 07:48 | Day surgery (SDC) | payer MEDICAID, SELFPAY ==
[2021-03-22 05:45] VITALS: BMI 25.0
[2021-04-02] VITALS (9 sets, daily range): BP systolic 127–148; BP diastolic 71–84; PULSE 64–80; RESP 16; TEMP 36.1–36.5; O2SAT 98–100; BMI 25.4
--- NOTE | 2021-04-02 | COLBX_PTH ---
PATIENT: PREETI HERNÁNDEZ LOC: EN U#:[id number] AGE/SX: 61/F ROOM: RE04/02/[address]: Dr. Grzegorz Cummings MD : 1960 BED: DIS: 04/02/2021 SPEC #: [id number] RECD: 04/02/21 12:07 STATUS: WILDER YOSTDewey #: [id number] NELLIE: 04/02/21 00:[address]: Grzegorz Cummings DEPT: SURGICAL PATHOLOGY RECD BY: Alberto Wong ENTERED: 04/02/21 12:07 SP TYPE: COLON BX SURINDER DR: Dr. Rey Palmer MD Tissues: COLON BIOPSY Procedures: Surgery Specimen Level IV HEADER OPERATION: Colonoscopy (MAC) PRE-OP DIAGNOSIS: Change in bowel habit TISSUE SUBMITTED: Random colon biopsies MICROSCOPIC DIAGNOSIS Colon, random biopsy: Melanosis coli. AM:samuel 04/03/2021 MICROSCOPIC DESCRIPTION Slides are reviewed. GROSS DESCRIPTION Received in fixative is one container labeled with the patient's name and designated random colon biopsy. The specimen consists of multiple irregular fragments of light christine soft tissue that in aggregate measure 2 x 1 x 0.1 cm. The specimen is totally submitted in one cassette. / AM:samuel 04/02/21 TC:5 CPT: 71120
--- NOTE | 2021-04-02 08:26 | HP.PCM_ITS ---
History and Physical Date of Admission: 04/02/21 Intake Visit Reasons: C-Scope Chief Complaint: change in bowel habits, abd pain Content Checker Required: No Is patient in pain?: No Allergies silicone Allergy (Verified 03/22/21 08:49) Rash codeine Adverse Reaction (Verified 03/22/21 08:49) Itching doxycycline Adverse Reaction (Verified 03/22/21 08:49) Itching oxycodone Adverse Reaction (Verified 03/22/21 08:49) Itching Medications buprenorphine 1 patch TP FR 02/08/18 [History Confirmed 03/22/21] buspirone 15 mg PO BID 11/22/19 [History Confirmed 03/22/21] pravastatin 40 mg PO QHS 11/22/19 [History Confirmed 03/22/21] cyclobenzaprine 10 mg PO BID 09/11/20 [History Confirmed 03/22/21] gabapentin 100 mg PO QHS 09/11/20 [History Confirmed 03/22/21] nabumetone 750 mg PO BID 09/11/20 [History Confirmed 03/22/21] sennosides-docusate sodium 2 tab PO BID 09/11/20 [History Confirmed 03/22/21] Is last menstrual period known: No Post menopausal: Yes Patient : No PFSH Medical History (Updated 03/22/21 @ 09:[address] Grzegorz Cummings MD) Abnormal mammogram of right breast Acute urticaria Allergic rhinitis Anxiety BPPV (benign paroxysmal positional vertigo) Chronic lower back pain Dehydration Depression Fatty liver GERD (gastroesophageal reflux disease) Hematuria Hiatal hernia HLD (hyperlipidemia) Lumbar disc lesion Muscle spasm Neck pain Obesity ARIELA (obstructive sleep apnea) Right flank pain Scoliosis Streptococcus agalactiae infection Thoracic back pain Warts Surgical History (Updated 03/22/21 @ 08:54 by Mary Larios) History of colonoscopy (~2015) History of Angel fundoplication History of tubal ligation S/P cholecystectomy S/P lumpectomy of breast Mobile teeth extracted Family History Mother Arthritis Hypercholesterolemia Hypertension Cancer Lung Father Cancer Lung Cirrhosis Emphysema lung Social History Smoking Status: Never smoker alcohol intake: never substance use type: does not use HPI HPI HPI: PREETI HERNÁNDEZ, is a 61 F who presents to the office today for surgical consultation regarding abdominal cramping. The patient is referred by Dr. Palmer and a written copy of my surgical consult and recommendations will return to him. I have previously assisted this patient on March 13, 2019 with a laparoscopic Angel fundoplication. This was performed because of intractable gastroesophageal reflux disease. She had a moderately large hiatal hernia. She also had some findings at the time suggesting some bile reflux and mild duodenitis. Her esophageal manometry study of March 10, 2019 was normal. In the postoperative period on June 28, 2019 because of esophageal dysphagia I did do a postoperative EGD and dilated her Angel wrap to 20 mm. Also previously October 16, 2016 because of abnormal imaging data wire localized lumpectomy upper outer quadrant right breast with final pathology showing focal minimal fibrocystic change with adenosis and intraductal hyperplasia without atypia but there was extensive dense fibrosis. There were focal changes consistent with the previous needle core biopsy site and focal microcalcifications but no evidence of malignancy. The patient has had a previous liver ultrasound September 19, 2020 demonstrating evidence of a previous cholecystectomy and fatty infiltration of the liver. On November 22, 2019 because of abdominal pain she had a CT scan of the abdomen and pelvis with contrast. A liver hemangioma in segment 5 was unchanged. Evidence of the Angel fundoplication noted. It was felt to be a normal examination. The patient's current concern is that she is having severe cramping of her abdomen. Claims that this has been going on for several months. She will then alternate with having diarrhea and then severe constipation. She states that she takes 2 stool softeners daily. She also takes MiraLAX as needed. She is s een by local pain specially and has a fentanyl pain patch in place because of degenerative changes of her back. She states that has been ongoing for several years and she is not sure that that correlates with her current problem. She also complains that sometimes when she has her severe cramping that she can break out in a diffuse sweat and become lightheaded. As of February 28, 2021 her white blood cell count was 6.4 with a hemoglobin 13.5 hematocrit 41.5 platelet count 327,000 and a normal shift. BUN was 8 and creatinine 0.83. Liver function tests were normal. She does note that she has had a history of a fatty liver. She states that she has been told that it has a rating of 3-4. I mention her CT scan of approximately year ago through the emergency room. She states that that was for right-sided pain. She states that her current problem seems to be different. She used to weigh 203 pounds. She currently weighs approximately 135 pounds. She states some of that weight loss occurred in her postoperative period from her laparoscopic Angel but that she had a progressive loss she states dating back to a previous laparoscopic cholecystectomy. The only other abdominal surgery she had was a tubal ligation. ROS General General: Yes fatigue; No weight change, appetite, colon cancer, breast cancer or weakness HEENT HEENT: No difficulty swallowing, eye injury, eye surgery, swollen glands or hoarseness Endo Endocrine: No thyroid disease, diabetes mellitus, thyroid cancer, Hair loss, heat intolerance or cold intolerance Musc Musculoskeletal: Yes back problems and arthritis; No rheumatoid arthritis, gout or joint pain Cardio Cardiovascular: No murmur, pacemaker, heart disease, atrial fibrillation, high blood pressure, heart attack, heart stent, palpitations, shortness of breat with exertion or chest pain Psych Psychiatric: Yes anxiety; No depression or hearing voices Resp Respiratory: No shortness of breath, Yes sleep apnea, No cough, No COPD, No asthma, No emphysema and No wheezing Gastro Gastrointestinal: Yes abdominal pain, Yes nausea or vomiting, Yes diarrhea, Yes constipation, No blood in stool, No acid reflux, Yes hemorrhoids, No ulcers, No gallbladder problem and No black,tarry stools Horacio Hematologic: No blood thinners, No blood disorders, No bleeding, No anemia and No blood clots Neuro Neurologic: No weakness Exam Const General: cooperative, comfortable and no acute distress Nutritional Appearance: average body habitus Orientation: alert and awake [facility] Head: normal to inspection Eyes General: appearance normal, both eyes and all related structures Chest Chest palpation & inspection: normal inspection of the chest Resp Effort & Inspection: normal respiratory effort Auscultation: clear to auscultation bilaterally Cardio Rate: regular rate Rhythm: regular rhythm GI Palpation: soft and no hepatosplenomegaly Auscultation: normal bowel sounds Other: Evidence of previous significant weight loss with lax abdominal wall Musc Other: Mild kyphosis Skin General: no rashes or lesions noted Neuro Cognition: normal cognition Extrem General: no calf tenderness bilaterally Psych Affect: normal affect COVID (Procedure Consent) Procedure Criteria Procedure Criteria: Yes Elective The surgeon/proceduralist and patient have discussed in detail the risk of exposure to and/or potential harm posed by the COVID-19 virus with having a surgery/procedure at this time versus the risk of delaying the surgery/procedure. It is not possible to know either the risk of delaying the surgery or procedure or chance of getting an infection with perfect accuracy, but a joint decision was made between the patient and the surgeon/proceduralist to proceed at this time with the scheduled surgery/procedure as indicated on the consent form. Assessment and Plan Assessment and Plan (1) Change in bowel habit: Status: Acute Plan - Dr. Grzegorz Cummings MD: Change of bowel habit with combination of problems with constipation intermittent diarrhea severe cramping. She also describes some episodes of profuse sweating and lightheadedness. Complicate presentation she does require pain patch chronic narcotic pain medication for degenerative disease of her back. She has had the previous Angel fundoplication. She denies any specific food intolerances and does not drink lactose-containing products. This does not seem to correlate back to the date of her laparoscopic Angel fundoplication so it does not seem to be dumping syndrome. At this point I do recommend to her a colonoscopy with careful inspection and possible random biopsies due to the diarrhea. She is aware of the technique, benefit, risk of alternatives. Because of the significant weight loss I am anticipating this to be a more challenging procedure. I anticipate using monitored anesthesia care and an adult colonoscope. She has had an opportunity to ask and have questions answered. We will schedule procedure at her discretion. I appreciate the ongoing opportunity of assisting with her surgical care. Copy: Dr. Rey Cummings M.D., F.A.C.S. I have re-examined the patient. There are no clinical changes since date of exam.
[2021-04-02] MEDS: Lactated Ringers 1,000 ML 100 ML IV (09:13)
--- NOTE | 2021-04-02 10:24 | OP.CCLET_ITS ---
04/02/2021 Rey Palmer MD [address] [place] [address] Re : Colonoscopy procedure for Melissa Valenzuela Dear Dr. Palmer This procedure was performed on Friday, April 02, 2021. My impressions and recommendations are as follows: Impressions : - Preparation of the colon was unsatisfactory. - Hemorrhoids found on perianal exam. - Diverticulosis in the sigmoid colon and in the descending colon. - Biopsies were taken with a cold forceps from the entire colon for evaluation of microscopic colitis. Very severe sigmoid diverticulosis making transversing this area quite challenging. Unsatisfactory bowel prep making identifications of polyps not possible. Random biopsies were pursued to try to help determine etiology of the diarrhea. Gross colitis not identified Recommendations : - Discharge patient to home. - Resume previous diet. - Continue present medications. - Repeat colonoscopy date to be determined after pending pathology results are reviewed for surveillance based on pathology results. - Telephone my office for pathology results in 1 week. My findings are described in the full procedure note, which is enclosed. If I can be of further assistance, please feel free to contact me at Doctor phone number(s): Work: . Sincerely, Grzegorz Cummings MD 04/02/2021 10:24:00 AM This report has been signed electronically.
--- NOTE | 2021-04-02 10:24 | OP.COLON_ITS ---
Patient Name: Melissa Valenzuela Procedure Date: 04/02/2021 9:50 AM Date of : 1960 Age: 61 Procedure: Colonoscopy Indications: Clinically significant diarrhea of unexplained origin Providers: Grzegorz Cummings MD Referring MD: Rey Palmer MD Medicines: See the Anesthesia note for documentation of the administered medications Patient Profile: Last Colonoscopy: date unknown. Complications: No immediate complications. Procedure: Pre-Anesthesia Assessment: - Prior to the procedure, a History and Physical was performed, and patient medications and allergies were reviewed. The patient's tolerance of previous anesthesia was also reviewed. The risks and benefits of the procedure and the sedation options and risks were discussed with the patient. All questions were answered, and informed consent was obtained. Prior Anticoagulants: The patient has taken no previous anticoagulant or antiplatelet agents. ASA Grade Assessment: II - A patient with mild systemic disease. After reviewing the risks and benefits, the patient was deemed in satisfactory condition to undergo the procedure. After I obtained informed consent, the scope was passed under direct vision. Throughout the procedure, the patient's blood pressure, pulse, and oxygen saturations were monitored continuously. The colonoscope was introduced through the anus and advanced to the cecum, identified by appendiceal orifice and ileocecal valve. The colonoscopy was performed with moderate difficulty due to unsatisfactory bowel prep. The patient tolerated the procedure well. The quality of the bowel preparation was unsatisfactory. Scope In: 9:58:29 AM Scope Withdrawal Time 0 hours 6 minutes 19 seconds Scope Out: 10:18:31 AM Total Procedure Duration Time 0 hours 20 minutes 2 seconds Findings: Hemorrhoids were found on perianal exam. Multiple diverticula were found in the sigmoid colon and descending colon. Biopsies for histology were taken with a cold forceps from the entire colon for evaluation of microscopic colitis. Impression: - Preparation of the colon was unsatisfactory. - Hemorrhoids found on perianal exam. - Diverticulosis in the sigmoid colon and in the descending colon. - Biopsies were taken with a cold forceps from the entire colon for evaluation of microscopic colitis. Very severe sigmoid diverticulosis making transversing this area quite challenging. Unsatisfactory bowel prep making identifications of polyps not possible. Random biopsies were pursued to try to help determine etiology of the diarrhea. Gross colitis not identified Recommendation: - Discharge patient to home. - Resume previous diet. - Continue present medications. - Repeat colonoscopy date to be determined after pending pathology results are reviewed for surveillance based on pathology results. - Telephone my office for pathology results in 1 week. Procedure Code(s): --- Professional --- 34117, Colonoscopy, flexible; with biopsy, single or multiple Diagnosis Code(s): --- Professional --- K64.9, Unspecified hemorrhoids R19.7, Diarrhea, unspecified K57.30, Diverticulosis of large intestine without perforation or abscess without bleeding CPT copyright 2017 [employer]. All rights reserved. The codes documented in this report are preliminary and upon bake room worker review may be revised to meet current compliance requirements. Grzegorz Cummings MD 04/02/2021 10:24:00 AM This report has been signed electronically. Number of Addenda: 0 Note Initiated On: 04/02/2021 9:50 AM
== END 2021-04-02 11:15 ==
LOC: EN 07:49 → AC 08:01
PROVIDERS: PCP Family Medicine Geriatric Medicine; Referring Provider Family Medicine Geriatric Medicine; Visit Provider Surgery
PROC: 0DJD8ZZ Inspection of Lower Intestinal Tract, Via Natural or Artificial Opening Endoscopic (ICD-10-PCS; CPT 45378; principal; 2021-04-02 09:25)
DX: K57.30 Diverticulosis of large intestine without perforation or abscess without bleeding (principal); K63.89 Other specified diseases of intestine; K64.9 Unspecified hemorrhoids; K44.9 Diaphragmatic hernia without obstruction or gangrene; R19.7 Diarrhea, unspecified; K21.9 Gastro-esophageal reflux disease without esophagitis; G47.33 Obstructive sleep apnea (adult) (pediatric); F41.9 Anxiety disorder, unspecified; E66.9 Obesity, unspecified; Z78.0 Asymptomatic menopausal state; Z79.899 Other long term (current) drug therapy; Z79.1 Long term (current) use of non-steroidal anti-inflammatories (NSAID)
CPT/HCPCS: 45380; 88305; J7120; J2405

== ENCOUNTER 2021-04-10 15:57 | Outpatient (RCR) | payer MEDICAID, SELFPAY ==
[2021-03-22 05:45] VITALS: BMI 25.0
[2021-04-02 08:46] VITALS: BMI 25.4
--- NOTE | 2021-04-10 16:35 | HP.PTEVAL ---
Patient's Visit Information PREETI HERNÁNDEZ is a 61 year old F referred to Physical Therapy by Dr. Rey Palmer MD with a diagnosis of BPPV. Date of Evaluation: 04/10/21 Physical Therapist: Ted Dooley DPT, OCS, CSCS - Visit Plan Frequency: 1-2x /Week Duration: 2-4 Weeks - Subjective Has dizzyness for a couple months insidious onset. Rolling in bed causes it or bending over to pepper picker laundry. Gets spinning dizzy for seconds. Life normal in between. Not employed. Sleep is not great lately. Spends day watching 3 yo grandson sometimes. Can do this. Basic aDLs are getting done. - Objective Walks I and trasnfers I without difficulty today and safely. Cervical aROM WFL adn painfree. UE AROM WFL and strength at 4-/5. + R hallpike ivette with up torsional x 7 sec Treated with Ko. + L hallpike ivette with up torsional x5 seconds. Treated with Ko. Both Hallpike ivette negative after treatment today. - Balance Scores Functional Gait Assessment Score: 25 % Disability: 16.6700 - Goals Goal 1:: abolish dizzyness turning in bed Goal Time Frame: 2-4 Weeks Goal 2:: Bend at home without safety concerns. Goal Time Frame: 2-4 Weeks Goal 3:: Pt feel 100% back to normal Goal Time Frame: 4-6 Weeks Goal 4:: <10 DHI score Goal Time Frame: 2-4 Weeks - Rehabilitation Potential Physical Therapy Diagnosis: BPPV with dizzyness Rehabilitation Potential: Good - Anticipated Interventions Patient/Client Instruction: Educate patient on: Condition, Plan of Care For the Purpose of:: To increase tolerance to activity/condition/position Comment: positional treatements For the Purpose of:: To increase tolerance to activity/condition/position Thank you for the opportunity to evaluate your patient. For Medicare and Medicare HMO plans, please review the plan of care and approve it. It will need to be FAXED BACK to us at [phone] for Medicare purposes. For Medicare only, by signing this I certify the plan of care. Please let me know if there are questions or concerns regarding this plan of care. Physician Signature: Date:
--- NOTE | 2021-05-07 15:51 | HP.PT.NRP ---
PREETI HERNÁNDEZ was seen in my office for initial evaluation on 04/10/21. The following Plan of Care was established for this patient: Initial Frequency: 1-2x /Week Initial Duration: 2-4 Weeks Patient/Client Instruction: Educate patient on: Condition, Plan of Care For the Purpose of:: To increase tolerance to activity/condition/position For the Purpose of:: To increase tolerance to activity/condition/position This patient was last seen in our office 04/10/21. Pertinent comments regarding their Physical therapy will appear below: Pt seen one visit for positional treatments. Was to f/u weekly but did not schedule until 05/07. She has cancelled today stating that she feels all better. I will disocntinue at this timie. At this point I will be discontinuing this patient from physical therapy. I would be happy to see this patient again in the future if found appropriate by the physician. Thank you! Ted Dooley, DPT, OCS, CSCS Balance/Gait/Functional tests - Balance/Special Test Scores Functional Gait Assessment Score: 25 % Disability: 16.6700 Dizziness Score: 46
== END 2021-04-10 19:00 | disposition home or self-care (01) ==
LOC: PT 15:57
PROVIDERS: PCP Family Medicine Geriatric Medicine; Referring Provider Family Medicine Geriatric Medicine; Visit Provider Family Medicine Geriatric Medicine
DX: H81.10 Benign paroxysmal vertigo, unspecified ear (principal)
CPT/HCPCS: 97161

== ENCOUNTER 2021-05-06 20:09 | Emergency (ER) | payer MEDICAID, SELFPAY ==
[2021-04-02 08:46] VITALS: BMI 25.4
[2021-05-06 20:10] VITALS: BP 175/100; PULSE 87; RESP 18; TEMP 36.4; O2SAT 99; BMI 24.7
[2021-05-06] MEDS: 0.9% Normal Saline 1,000 ML 999 ML IV (22:08)
[2021-05-06] MEDS: Metoclopramide 10 MG/2 ML Vial 5 MG IV (22:11)
[2021-05-06] MEDS: DiphenhydrAMINE 50 MG/ML Syringe 12.5 MG IV (22:12)
[2021-05-06] MEDS: Ketorolac 15 MG/ML Vial IV (22:13)
--- NOTE | 2021-05-06 22:41 | EDS_ITS ---
HPI History of Present Illness Chief Complaint: Headache Informant: patient Onset/Context/Timing Onset: Today Context: Gradual Quality -Headache: Positive for Similar Prior Headaches and Throbbing Current Severity: Moderate Maximum Severity: Moderate Associated Symptoms/Injury Associated Symptoms: Positive for Nausea and Photophobia Injury - JONES: Negative for Direct Trauma, Fall and Assault Narrative Narrative: Patient presents secondary to migraine headache. Patient is a history of migraines but states is been several years since she had a migraine. Headache today was gradual in onset became more severe this evening. She does have light sensitivity and nausea. She describes the pain is diffuse in location. She denies vision changes. She has had no recent URI symptoms and no head trauma. [facility] Medical History Abnormal mammogram of right breast Acute urticaria Allergic rhinitis Anxiety Back pain BPPV (benign paroxysmal positional vertigo) Chronic lower back pain CPAP (continuous positive airway pressure) dependence Dehydration Depression Fatty liver Fatty liver GERD (gastroesophageal reflux disease) Hematuria Hiatal hernia High cholesterol History of pain when walking History of stress test HLD (hyperlipidemia) Hx of echocardiogram Hypertension Lumbar disc lesion Migraine headache Muscle spasm Neck pain Non-smoker Obesity ARIELA (obstructive sleep apnea) Restless legs Right flank pain Scoliosis Shortness of breath on exertion Streptococcus agalactiae infection Syncope Thoracic back pain Warts Wears glasses Home Medications buprenorphine [Butrans] 1 patch TP FR 02/08/18 [History Last Taken 11/16/19] buspirone 15 mg PO BID 11/22/19 [History Last Taken 11/21/19] pravastatin 40 mg PO QHS 11/22/19 [History Last Taken 11/21/19] cyclobenzaprine 10 mg PO BID 09/11/20 [History Last Taken Unknown] gabapentin 100 mg PO BID 09/11/20 [History Last Taken Unknown] nabumetone [Relafen] 750 mg PO BID 09/11/20 [History Last Taken Unknown] sennosides-docusate sodium 2 tab PO BID 09/11/20 [History Last Taken Unknown] Allergy/AdvReac Type Severity Reaction Status Date / Time silicone Allergy Rash Verified 03/28/21 11:30 codeine AdvReac Itching Verified 03/28/21 11:30 doxycycline AdvReac Itching Verified 03/28/21 11:30 oxycodone AdvReac Itching Verified 03/28/21 11:30 Family History Mother Arthritis Hypercholesterolemia Hypertension Cancer Lung Father Cancer Lung Cirrhosis Emphysema lung Surgical History History of colonoscopy (~2016) History of Angel fundoplication History of tubal ligation S/P cholecystectomy S/P lumpectomy of breast [place] teeth extracted Social History Smoking Status: Never smoker alcohol intake: never substance use type: does not use ROS ROS ED Constitutional Constitutional ED: Denies chills or fever(s) Eyes Eyes: Denies change in vision ENT ENT ED: Denies sore throat Cardiovascular Cardiovascular: Denies chest pain Respiratory/Chest Respiratory/Chest: Denies cough or dyspnea Gastrointestinal Gastrointestinal: Reports nausea; Denies abdominal pain, diarrhea or vomiting Genitourinary Genitourinary ED: Denies dysuria Musculoskeletal Musculoskeletal: Denies back pain or neck pain Integumentary Denies rash Neurologic Neurologic: Reports headache(s); Denies paresthesias or weakness Psychiatric Psychiatric: Denies anxiety or depression Allergic/Immunologic Allergic/Immunologic ED: Denies urticaria EXAM Physical Exam Const Vital Signs: 05/06/21 20:10 Temperature 97.6 F L Temperature Source Temporal Pulse Rate 87 Respiratory Rate 18 Blood Pressure 175/100 H Blood Pressure Mean 125 Pulse Ox 99 Oxygen Delivery Method Room Air Positive well nourished and well developed General Appearance ED: well developed HEENT Reports normocephalic and head/scalp atraumatic Eyes PERRL and EOMs intact bilaterally Neck supple and no meningeal signs Chest Wall inspection of chest normal and palpation of chest normal Resp normal respiratory effort and clear to auscultation bilaterally Cardio regular rate and regular rhythm GI normal to inspection, nondistended, normoactive bowel sounds Palpation: soft Extremity normal to inspection Neuro oriented x3 and no sensory deficits noted Sensorium / Orientation: alert Motor Exam: strength 5/5 throughout Psych mental status grossly normal Skin no rashes or lesions noted MDM MDM MDM Narrative Medical decision making narrative: Patient was given Toradol, Reglan, Benadryl, IV fluids. Treatment and Re-Evaluation Comments:: Repeat evaluation patient reports significant provement in her headache. She will be discharged home with family at this time. Discharge Plan Triage Chief Complaint: Headache ED Provider: Julieth Casas Dx/Rx/DC Orders Clinical Impression: Migraine Instructions: ED, Migraine (Classical) Prescriptions: No Action buprenorphine [Butrans] 1 EACH patch weekly 1 patch TP FR RF: 0 pravastatin 40 MG tablet 40 mg PO QHS RF: 0 buspirone 15 MG tablet 15 mg PO BID RF: 0 gabapentin 100 MG capsule 100 mg PO BID RF: 0 nabumetone [Relafen] 500 MG tablet 750 mg PO BID RF: 0 cyclobenzaprine 10 MG tablet 10 mg PO BID RF: 0 sennosides-docusate sodium 1 TABLET tablet 2 tab PO BID RF: 0 Primary Care Provider: Rey Palmer Chi Referrals: Rey Palmer Chi, MD [Primary Care Provider] - 3-5 Days if not improving Disposition Disposition: Home, Self Care
[2021-05-06 23:33] VITALS: BP 117/70; PULSE 74; RESP 14; O2SAT 97
== END 2021-05-06 23:35 | disposition home or self-care (01) ==
PROVIDERS: Emergency Provider Emergency Medicine; PCP Family Medicine Geriatric Medicine
DX: G43.909 Migraine, unspecified, not intractable, without status migrainosus (principal); I10 Essential (primary) hypertension; E78.5 Hyperlipidemia, unspecified; G47.33 Obstructive sleep apnea (adult) (pediatric); K21.9 Gastro-esophageal reflux disease without esophagitis; F32.9 Major depressive disorder, single episode, unspecified; F41.9 Anxiety disorder, unspecified; E66.9 Obesity, unspecified; Z79.899 Other long term (current) drug therapy
CPT/HCPCS: 96361; 96374; 96375; 99282; J7030; A4216

== ENCOUNTER → 2021-05-21 15:14 | Outpatient (CLI) | payer MEDICAID, SELFPAY ==
--- NOTE | 2021-05-21 | LES_PTH ---
PATIENT: PREETI HERNÁNDEZ LOC: [facility] U#:[id number] AGE/SX: 65/F ROOM: RE05/21/[address]: Dr. Rey Palmer MD : 1960 BED: DIS: SPEC #: [id number] RECD: 05/22/21 09:31 STATUS: [place] #: [id number] NELLIE: 05/21/21 00:[address]: Rey Palmer Chi DEPT: SURGICAL PATHOLOGY RECD BY: Estela Kimball Tissues: Skin of arm Procedures: Surgery Specimen Level IV HEADER OPERATION: Right arm, shave biopsy PRE-OP DIAGNOSIS: L98.9 TISSUE SUBMITTED: Right arm MICROSCOPIC DIAGNOSIS Right arm lesion, shave biopsy: Actinic keratosis with verrucous features and mild to moderate atypia. Solar elastosis. Negative for malignancy. CELESTE:samuel 05/23/2021 MICROSCOPIC DESCRIPTION Slides are reviewed. GROSS DESCRIPTION Received in fixative is one container labeled with the patient's name and designated right arm. The specimen consists of a shave biopsy of christine-white skin measuring 0.8 x 0.8 x 0.1 cm. The specimen is inked and submitted entirely in one cassette. It will be sectioned at the time of embedding. / SJ:samuel 05/22/21 TC:5 CPT: 06668
== END ==
PROVIDERS: PCP Family Medicine Geriatric Medicine; Visit Provider Family Medicine Geriatric Medicine
DX: L98.9 Disorder of the skin and subcutaneous tissue, unspecified (principal)
CPT/HCPCS: 88305

== ENCOUNTER 2021-06-14 12:53 | Day surgery (SDC) | payer MEDICAID, SELFPAY ==
[2021-06-14] VITALS (7 sets, daily range): BP systolic 130–174; BP diastolic 72–90; PULSE 64–79; RESP 16; TEMP 36.3–36.6; O2SAT 94–100; BMI 25.2
[2021-06-14] MEDS: Lactated Ringers 1,000 ML 100 ML IV (13:20)
--- NOTE | 2021-06-14 14:04 | PCM.DC ---
Discharge Instructions Diet Discharge Diet: No restrictions Activity May resume sexual activity in: No Restrictions Weight Bearing Status: Weight bearing as tolerated Dressing / Incision Call your doctor if your incision/area has: Continuous Slow Oozing, Sudden Increased Bleeding, Increased Pain/ Swelling, Increased Redness, Foul Smelling Discharge and Swelling at the incision site Call your doctor if you observe: Fever of 101 or Higher, Coldness, Increased Pain, Numbness or Tingling, Change in Color, Inability to urinate, Inability to have a bowel movement, Increased palpitations (irregular heartbeat), Calf discomfort and Uncontrolled pain Suture Line Care: Avoid Pulling/Pushing and Avoid Pinching/Bending Change Dressing in: 1 day Remove Dressing in: 1 day Cleanse incision/area with: Soap & Water and Keep Dressing Clean & Dry Follow Up Care Please Follow Up With: June Mackenzie MD When: 2 to 4-week Test Results: Test results from this visit will be discussed in further detail at your follow-up appointment, if applicable. Discharge Plan Admission Attending Provider: June Mackenzie Primary Care Provider: Rey Palmer Chi Discharge Orders/Prescriptions Prescriptions: No Action buprenorphine [Butrans] 1 EACH patch weekly 1 patch TP FR RF: 0 pravastatin 40 MG tablet 40 mg PO QHS RF: 0 buspirone 15 MG tablet 15 mg PO BID RF: 0 gabapentin 100 MG capsule 100 mg PO BID RF: 0 nabumetone [Relafen] 500 MG tablet 750 mg PO BID RF: 0 cyclobenzaprine 10 MG tablet 10 mg PO BID RF: 0 sennosides-docusate sodium 1 TABLET tablet 2 tab PO BID RF: 0
--- NOTE | 2021-06-14 14:06 | PCM.OPRPT ---
Report of Operation Pre-Operative Diagnosis: Lumbar facet spondylosis Post-Operative Diagnosis: Same Surgery/Procedure Performed:: Lumbar facets median nerve branch block at the level of the L4-5, L5-S1 Description of Surgical Findings:: Under sterile conditions. Patient placed in the prone position, pressure points were padded, patient was ready from the nursing and the anesthesia team. After identification of the side and the target area for the block under guided fluoroscopy, the entry site was marked with marking pen. I used Betadine for sterilization of the skin, sterile draping were applied. Using 25-gauge needle to infiltrate the skin with local anesthesia using preservative-free lidocaine 0.5% injected 2.5 mL at each site of entry. Using oblique fluoroscopy, accessed the right medial nerve branch supplying the [right] lumbar facets , L4-5, L5-S1 using 22-gauge spinal needle. After confirmation of appropriate needle placement to the targeted area with AP and lateral fluoroscopy, injected 2.5 mL mixture of preservative-free Marcaine 0.5% and Kenalog [25] mg at each site. [place] was removed, pressure dressing were applied. Patient tolerated the procedure well and was taken to the recovery. Surgeon: June Mackenzie Type of Anesthesia: MAC/Supplemental/Local Estimated Blood Loss (mL): None Complications No complications Admit VTE Documentation VTE Present on Admission: No VTE Mechan Device Prophylaxis: None Reason prophylaxis not ordered:: Procedure Not Indicated
--- NOTE | 2021-06-14 14:12 | RAD_ITS ---
STUDY: X-RAY - LUMBAR SPINE REASON FOR EXAM: Female, 61 years old. BLOCK, LUMBAR FACET, JOINT INJECTION L4-5, L5-S1 TECHNIQUE: 3 view(s) of the lumbar spine were obtained. COMPARISON: None FINDINGS: 3 fluoroscopic views of the lumbar spine were obtained during the procedure on a C-arm for facet block. The examination was not performed for diagnostic purposes and is nondiagnostic. The fluoroscopy time was 16 seconds RAD/Lumbar Spine 2 or 3 Views IMPRESSION: Exam performed during procedure as described above. Electronically Signed: Pillo Sanchez MD at 13:38 EDT Tel , Service support ,
[2021-06-14] MEDS: Triamcinolone Acetonide 40 MG/ML Vial (14:25)
[2021-06-14] MEDS: Lidocaine 1% (30 ml sdv) 30 ML Vial (14:25)
[2021-06-14] MEDS: Bupivacaine 0.25% 30 ML Vial (14:25)
== END 2021-06-14 15:22 ==
LOC: SDC 12:54 → AC 12:56
PROVIDERS: PCP Family Medicine Geriatric Medicine; Visit Provider Anesthesiology
PROC: 3E0T3BZ Introduction of Anesthetic Agent into Peripheral Nerves and Plexi, Percutaneous Approach (ICD-10-PCS; principal; 2021-06-14 13:55)
DX: M47.816 Spondylosis without myelopathy or radiculopathy, lumbar region (principal); M51.17 Intervertebral disc disorders with radiculopathy, lumbosacral region; M51.26 Other intervertebral disc displacement, lumbar region; M46.1 Sacroiliitis, not elsewhere classified; M79.10 Myalgia, unspecified site; I10 Essential (primary) hypertension; G43.909 Migraine, unspecified, not intractable, without status migrainosus; E78.5 Hyperlipidemia, unspecified; K21.9 Gastro-esophageal reflux disease without esophagitis; G47.33 Obstructive sleep apnea (adult) (pediatric); F32.9 Major depressive disorder, single episode, unspecified; F41.9 Anxiety disorder, unspecified; Z79.1 Long term (current) use of non-steroidal anti-inflammatories (NSAID); Z79.899 Other long term (current) drug therapy
CPT/HCPCS: 01992; 64493; 64494; 64483; 72100; J7120

== ENCOUNTER 2021-06-28 12:25 | Day surgery (SDC) | payer MEDICAID, SELFPAY ==
[2021-06-28] VITALS (7 sets, daily range): BP systolic 124–156; BP diastolic 74–90; PULSE 63–79; RESP 16–18; TEMP 36.2–36.6; O2SAT 96–100; BMI 25.0
[2021-06-28] MEDS: Lactated Ringers 1,000 ML 100 ML IV (12:45)
--- NOTE | 2021-06-28 14:00 | RAD_ITS ---
STUDY: X-RAY - LUMBAR SPINE REASON FOR EXAM: Female, 61 years old. BLOCK, L4-S1, LEFT TECHNIQUE: 3 fluoroscopic view(s) of the lumbar spine were obtained. COMPARISON: None RAD/Lumbar Spine 2 or 3 Views IMPRESSION: [place] project posterior-lateral to the L3, L4, L5, and S1 vertebral bodies. Electronically Signed: Len Clark MD at 7:13 EDT Tel , Service support ,
--- NOTE | 2021-06-28 14:09 | PCM.CONS.GEN ---
Assessment & Plan Assessment/Plan (1) Spondylosis without myelopathy or radiculopathy, lumbar region: HPI Consult Data Date of Consult: 06/28/21 HPI Narrative Reason for Consultation: Lower abck pain is on the left side/ HPI Narrative: PREETI HERNÁNDEZ, is a 61 F who presents [facility] Medical History Abnormal mammogram of right breast Acute urticaria Allergic rhinitis Anxiety Back pain BPPV (benign paroxysmal positional vertigo) Chronic lower back pain CPAP (continuous positive airway pressure) dependence Dehydration Depression Fatty liver Fatty liver GERD (gastroesophageal reflux disease) Hematuria Hiatal hernia High cholesterol History of pain when walking History of stress test HLD (hyperlipidemia) Hx of echocardiogram Hypertension Lumbar disc lesion Migraine headache Muscle spasm Neck pain Non-smoker Obesity ARIELA (obstructive sleep apnea) Restless legs Right flank pain Scoliosis Shortness of breath on exertion Streptococcus agalactiae infection Syncope Thoracic back pain Warts Wears glasses Home Medications buprenorphine [Butrans] 1 patch TP FR 02/08/18 [History Last Taken 11/16/19] buspirone 15 mg PO BID 11/22/19 [History Last Taken 11/21/19] pravastatin 40 mg PO QHS 11/22/19 [History Last Taken 11/21/19] cyclobenzaprine 10 mg PO BID 09/11/20 [History Last Taken Unknown] gabapentin 100 mg PO BID 09/11/20 [History Last Taken Unknown] nabumetone [Relafen] 750 mg PO BID 09/11/20 [History Last Taken Unknown] sennosides-docusate sodium 2 tab PO BID 09/11/20 [History Last Taken Unknown] Allergy/AdvReac Type Severity Reaction Status Date / Time silicone Allergy Rash Verified 06/28/21 12:50 codeine AdvReac Itching Verified 06/28/21 12:50 doxycycline AdvReac Itching Verified 06/28/21 12:50 oxycodone AdvReac Itching Verified 06/28/21 12:50 Family History Mother Arthritis Hypercholesterolemia Hypertension Cancer Lung Father Cancer Lung Cirrhosis Emphysema lung Surgical History History of colonoscopy (~2016) History of Angel fundoplication History of tubal ligation S/P cholecystectomy S/P lumpectomy of breast [place] teeth extracted Social History Smoking Status: Never smoker alcohol intake: never substance use type: does not use ROS ROS Narrative Review of system: 12 system review otherwise negative except for back pain. Physical Exam Const oriented x3 and healthy appearing General Appearance: comfortable Orientation / Consciousness: awake HEENT Head and Scalp: normal to inspection Face and Sinus: normal facial exam Nose: external nose normal General Ear: hearing grossly impaired External Ear: external ears normal Mouth: oral and palatal mucosa normal Teeth and Gingiva: abnormal tooth and associated gingiva Throat: posterior oropharynx normal Eyes General Eye: normal appearance of both eyes Visual Acuity: acuity normal Neck full ROM General: normal visual inspection Lymph Lymphatic: no lymphadenopathy noted Chest palpation of chest normal Resp Effort and Inspection: able to speak in complete sentences Cardio Palpation: normal PMI Rate: regular rate Rhythm: regular rhythm no CVA tenderness Back/Spine normal ROM Cervical Spine: cervical ROM normal Lumbar Spine / Lower Back: pain with ROM, lumbar spinal tenderness, paraspinal muscle tenderness, paraspinal muscle spasm and straight leg raise negative bilaterally Sacroiliac Joints: SI joints abnormal Coccyx: tenderness Extremity General Extremity: normal exam except as noted Neuro Meningeal Signs: no meningeal signs Motor Exam: strength 5/5 throughout Psych Speech: normal speech Thought Process: normal thought process Memory / Cognition: memory grossly intact
[2021-06-28] MEDS: Bupivacaine 0.25% 30 ML Vial (14:22)
[2021-06-28] MEDS: Lidocaine 1% (30 ml sdv) 30 ML Vial (14:22)
[2021-06-28] MEDS: Triamcinolone Acetonide 40 MG/ML Vial (14:23)
--- NOTE | 2021-06-28 14:24 | OP.PCM_ITS ---
Report of Operation Pre-Operative Diagnosis: Lumbar facet spondylosis Post-Operative Diagnosis: Same Surgery/Procedure Performed:: Lumbar facets median nerve branch block at the level of the L3-4, L4-5, L5-S1 Description of Surgical Findings:: Under sterile conditions. Patient placed in the prone position, pressure points were padded, patient was ready from the nursing and the anesthesia team. After identification of the side and the target area for the block under guided fluoroscopy, the entry site was marked with marking pen. I used Betadine for sterilization of the skin, sterile draping were applied. Using 25-gauge needle to infiltrate the skin with local anesthesia using preservative-free lidocaine 0.5% injected 2.5 mL at each site of entry. Using oblique fluoroscopy, accessed the right medial nerve branch supplying the [left] lumbar facets L4-5, L5-S1 using 22-gauge spinal needle. After confirmation of appropriate needle placement to the targeted area with AP and lateral fluoroscopy, injected 2.5 mL mixture of preservative-free Marcaine 0.5% and Kenalog [20] mg at each site. [place] was removed, pressure dressing were applied. Patient tolerated the procedure well and was taken to the recovery. Surgeon: June Mackenzie Type of Anesthesia: MAC/Supplemental/Local Estimated Blood Loss (mL): None Complications No complications Admit VTE Documentation VTE Present on Admission: No VTE Mechan Device Prophylaxis: None Reason prophylaxis not ordered:: Procedure Not Indicated
== END 2021-06-28 15:26 ==
LOC: SDC 12:26 → AC 12:27
PROVIDERS: PCP Family Medicine Geriatric Medicine; Referring Provider Anesthesiology; Visit Provider Anesthesiology
PROC: 3E0T3BZ Introduction of Anesthetic Agent into Peripheral Nerves and Plexi, Percutaneous Approach (ICD-10-PCS; CPT 64493; principal; 2021-06-28 13:55)
DX: M47.816 Spondylosis without myelopathy or radiculopathy, lumbar region (principal); M62.838 Other muscle spasm; G89.29 Other chronic pain; I10 Essential (primary) hypertension; E78.5 Hyperlipidemia, unspecified; K21.9 Gastro-esophageal reflux disease without esophagitis; G47.33 Obstructive sleep apnea (adult) (pediatric); E66.9 Obesity, unspecified; Z68.25 Body mass index [BMI] 25.0-25.9, adult; Z79.1 Long term (current) use of non-steroidal anti-inflammatories (NSAID); Z79.899 Other long term (current) drug therapy
CPT/HCPCS: 64493; 64494; 64495; 64483; 72100; J7120

== ENCOUNTER 2021-07-16 15:38 | Emergency (ER) | payer MEDICAID, SELFPAY ==
[2021-07-16 15:39] VITALS: BP 156/98; PULSE 119; RESP 20; TEMP 36.8; O2SAT 99; BMI 24.5
--- NOTE | 2021-07-16 17:02 | EKG12_ITS ---
Test Reason : Blood Pressure : / mmHG Vent. Rate : 097 BPM Atrial Rate : 097 BPM P-R Int : 164 ms QRS Dur : 090 ms QT Int : 364 ms P-R-T Axes : 061 000 053 degrees QTc Int : 462 ms Normal sinus rhythm Normal ECG Confirmed by YASMIN FELDMAN, RICARDO ([id number]), city editor TIMA DUTTA ([id number]) on 07/17/2021 8:55:04 AM Referred By: PERLITA Confirmed By:RICARDO HOFFMAN MD
--- NOTE | 2021-07-16 17:03 | RAD_ITS ---
STUDY: X-RAY CHEST REASON FOR EXAM: Female, 61 years old. Chest pain TECHNIQUE: Single AP portable view of the chest. COMPARISON: None. FINDINGS: EKG leads overlie the chest The lungs are clear and expanded. There is no demonstrated pleural abnormality. Normal size heart. Normal mediastinum and razia. Normal visualized pulmonary arteries. Normal visualized aortic arch and descending thoracic aorta. Normal visualized thoracic spine. Normal visualized ribs, clavicles, and shoulders. There is no demonstrated abnormality of the visualized soft tissue structures of the upper abdomen. RAD/Chest 1 View (Portable) IMPRESSION: Normal x-ray examination of the chest. Electronically Signed: Lc Yee MD at 17:36 EDT , Service support ,
[2021-07-16 17:30] LABS: Absolute Lymphocyte Count 3.01 X10^3/uL (0.83-4.51); Absolute Neutrophil Count 3.8 X10^3/uL (2.0-7.7); Basophil# 0.03 X10^3/uL; Basophil% 0.4 % (0-1); Eosinophil# 0.04 X10^3/uL; Eosinophils% 0.5 % (0-5); Hematocrit 44.2 % (37-47); Hemoglobin 14.7 g/dL (12.0-15.0); Lymphocyte # 3.01 X10^3/ul (0.83-4.51); Lymphocyte % 41.2 % (19-41); Mean Corp Hgb Conc 33.3 g/dL (32-36); Mean Corpuscular Hgb 32.4 pg (27.0-32.0); Mean Corpuscular Volume 97.4 fL (81-99); Mean Platelet Vol. 9.6 fl (6.2-12.0); Monocyte# 0.45 X10^3/uL; Monocyte% 6.2 % (0-10); NRBC Flagged by Analyzer 0 % (0-5); Neutrophil # 3.77 X10^3/uL (2.7-7.7); Neutrophil % 51.6 % (47-70); Platelet Count 411 K/mm3 (150-450); RBC Distribution Width CV 13.2 % (11.6-14.6); Red Blood Count 4.54 M/mm3 (4.2-5.4); White Blood Count 7.3 K/mm3 (4.4-11.0)
[2021-07-16 17:45] LABS: Anion Gap 5 (5-15); BUN 10 mg/dL (7-18); BUN/Creat Ratio 12.2 RATIO (10-20); Calcium,Total 9.4 mg/dL (8.5-10.1); Chloride 103 mmol/L (98-107); Creatinine, Serum 0.82 mg/dL (0.55-1.02); EST Glomerular Filtration Rate 75 mL/min (>60); Est Glom Filt Rate - Afr Amer 91 mL/min (>60); Estimated Creatinine Clearance 53.68 ml/min; Glucose 102 mg/dL (74-106); Potassium 3.3 mmol/L (3.5-5.1); Sodium Level 140 mmol/L (136-145); Troponin-I HS 6 pg/mL (3.0-54.0)
[2021-07-16 18:11] LABS: Magnesium 2.5 mg/dL (1.6-2.6)
[2021-07-16] MEDS: Aspirin 81 MG TAB.CHEW 324 MG PO (18:13)
[2021-07-16] MEDS: 0.9% Normal Saline 1,000 ML 999 ML IV (18:15)
[2021-07-16 18:16] VITALS: BP 173/95; PULSE 73; RESP 14; O2SAT 99
[2021-07-16 18:23] LABS: D-Dimer Quantitative (DVT/PE) 0.58 FEU/ug/m (0.27-0.49)
--- NOTE | 2021-07-16 18:58 | CT_ITS ---
INDICATION: Chest pain with elevated D-dimer EXAMINATION: CTA Chest WO/W Contrast Injection TECHNIQUE: Helically acquired images were obtained of the chest following administration of IV contrast. A radiation dose optimization technique was used for this scan. 3D postprocessing images including MIPS were reviewed. IV Contrast dosage and agent: IV 100mL [id number] COMPARISON: None. FINDINGS: Lungs: Scattered bilateral airspace opacities. Mediastinum: The cardiomediastinal silhouette is not enlarged. No mediastinal, hilar or axillary adenopathy. Mild aortic arch and coronary artery calcifications. No obvious filling defect seen within the visualized pulmonary arteries. Pleura: Unremarkable Bones/Soft tissues: No suspicious osseous or soft tissue lesions Upper abdomen: No visualized abnormalities in the upper abdomen. CT/CTA Chest W/WO Contrast IMPRESSION: No evidence of acute pulmonary emboli to segmental level. Scattered bilateral airspace opacities concerning for infection. Electronically Signed: Sami Wyatt MD at 19:56 EDT Tel , Service support ,
[2021-07-16 19:48] VITALS: PULSE 79; RESP 14; O2SAT 98
[2021-07-16 20:33] LABS: Troponin-I HS 6 pg/mL (3.0-54.0)
[2021-07-16 20:57] VITALS: PULSE 80; RESP 13; O2SAT 97
--- NOTE | 2021-07-16 21:00 | EDS_ITS ---
HPI History of Present Illness Chief Complaint: Chest Pain Narrative Narrative: Patient is a 61-year-old female who states that beginning yesterday she noticed some pain in her left upper back. She states today the pain seemed to radiate into her left arm and slightly into her chest. She states she did not have any type of nausea vomiting diaphoresis or shortness of breath associated with this. She denies any trauma prior to the pain beginning. She denies any recent fevers or chills cough or shortness of breath. She states she was worried this could be cardiac in nature and therefore comes in for evaluation [facility] Medical History Abnormal mammogram of right breast Acute urticaria Allergic rhinitis Anxiety Back pain BPPV (benign paroxysmal positional vertigo) Chronic lower back pain CPAP (continuous positive airway pressure) dependence Dehydration Depression Fatty liver Fatty liver GERD (gastroesophageal reflux disease) Hematuria Hiatal hernia High cholesterol History of pain when walking History of stress test HLD (hyperlipidemia) Hx of echocardiogram Hypertension Lumbar disc lesion Migraine headache Muscle spasm Neck pain Non-smoker Obesity ARIELA (obstructive sleep apnea) Restless legs Right flank pain Scoliosis Shortness of breath on exertion Streptococcus agalactiae infection Syncope Thoracic back pain Warts Wears glasses Home Medications buprenorphine [Butrans] 1 patch TP FR 02/08/18 [History Last Taken 11/16/19] buspirone 15 mg PO BID 11/22/19 [History Last Taken 11/21/19] pravastatin 40 mg PO QHS 11/22/19 [History Last Taken 11/21/19] gabapentin 100 mg PO BID 09/11/20 [History Last Taken Unknown] nabumetone [Relafen] 750 mg PO BID 09/11/20 [History Last Taken Unknown] cefdinir 300 mg PO BID #20 cap 07/16/21 [Rx Last Taken Unknown] donepezil 5 mg PO DAILY 07/16/21 [History Last Taken Unknown] Allergy/AdvReac Type Severity Reaction Status Date / Time silicone Allergy Rash Verified 07/16/21 15:42 codeine AdvReac Itching Verified 07/16/21 15:42 doxycycline AdvReac Itching Verified 07/16/21 15:42 oxycodone AdvReac Itching Verified 07/16/21 15:42 Family History Mother Arthritis Hypercholesterolemia Hypertension Cancer Lung Father Cancer Lung Cirrhosis Emphysema lung Surgical History History of colonoscopy (~2016) History of Angel fundoplication History of tubal ligation S/P cholecystectomy S/P lumpectomy of breast [place] teeth extracted Social History Smoking Status: Never smoker alcohol intake: never substance use type: does not use ROS ROS ED Constitutional Constitutional ED: Denies chills or fever(s) ENT ENT ED: Denies sore throat Cardiovascular Cardiovascular: Reports chest pain; Denies palpitations or racing heartbeat Respiratory/Chest Respiratory/Chest: Reports cough; Denies dyspnea Gastrointestinal Gastrointestinal: Denies abdominal pain, diarrhea, nausea or vomiting Genitourinary Genitourinary ED: Denies dysuria Musculoskeletal Musculoskeletal: Reports back pain; Denies myalgias Integumentary Denies rash Neurologic Neurologic: Denies headache(s) Hematologic/Lymphatic Hematologic/Lymphatic: Denies easy bleeding or easy bruising EXAM Physical Exam Const Vital Signs: 07/16/21 15:39 07/16/21 15:42 07/16/21 17:02 Temperature 98.2 F Temperature Source Temporal Pulse Rate 119 H Respiratory Rate 20 H Respiratory Effort Normal Blood Pressure 156/98 H Blood Pressure Mean 117 Pulse Ox 99 Oxygen Delivery Method Room Air Room Air 07/16/21 18:16 07/16/21 19:48 07/16/21 20:57 Temperature Temperature Source Pulse Rate 73 79 80 Respiratory Rate 14 14 13 Respiratory Effort Blood Pressure 173/95 H Blood Pressure Mean 121 Pulse Ox 99 98 97 Oxygen Delivery Method Room Air Room Air Room Air Positive well nourished and well developed General Appearance ED: well developed HEENT Reports moist mucous membranes Eyes PERRL and EOMs intact bilaterally Neck supple Chest Wall palpation of chest normal Resp normal respiratory effort Resp Narrative: Breath sounds are diminished throughout with faint expiratory wheezes but no signs of respiratory distress Cardio regular rate and regular rhythm GI normal to inspection, nondistended, normoactive bowel sounds, non-tender, non- distended and no masses Auscultation: normoactive bowel sounds Palpation: soft Extremity normal to inspection Extremity Narrative: No asymmetric edema no pitting edema negative Homans' sign bilaterally Neuro oriented x3 and CN's II-XII intact bilaterally Sensorium / Orientation: alert Motor Exam: strength 5/5 throughout Psych mental status grossly normal Skin no rashes or lesions noted MDM MDM MDM Narrative Medical decision making narrative: Patient presented to the ER mildly hypertensive otherwise in no acute distress. Her symptoms not classic cardiac in nature but with concern that this could be an atypical cardiac presentation a basic work-up was obtained. Initial and delta troponin were normal at 6. Patient's D-dimer was slightly elevated at 0.58 so a CTA was added. This showed no pulmonary was but did show some inflammatory changes concerning for pneumonia. Patient has not had fevers or chills and she has had slight cough but she states this is normal for her. Clinically it does not correlate. I discussed possible Covid testing with this read on the chest CT but patient states she is not concerned for this and does not want a Covid test obtained. At this time with the possible pneumonia as a cause of her chest discomfort I will start her on antibiotics but with negative CTA for dissection or pulmonary embolus and no elevation in her troponin she can be discharged at this time. Lab Data Attestation: I reviewed the patient's lab results. Labs: Laboratory Results - last 24 hr 07/16/21 07/16/21 07/16/21 15:53 15:53 15:53 WBC 7.3 RBC 4.54 Hgb 14.7 Hct 44.2 MCV 97.4 MCH 32.4 H MCHC 33.3 RDW Std Deviation 48.0 H RDW Coeff of Andry 13.2 Plt Count 411 MPV 9.6 Immature Gran % (Auto) 0.100 Neut % (Auto) 51.6 Lymph % (Auto) 41.2 H Winkler % (Auto) 6.2 Eos % (Auto) 0.5 Baso % (Auto) 0.4 Absolute Neuts (auto) 3.8 Absolute Lymphs (auto) 3.01 Nucleated RBC % 0 D-Dimer Quant (PE/DVT) 0.58 H* Sodium 140 Potassium 3.3 L Chloride 103 Carbon Dioxide 32.0 Anion Gap 5 BUN 10 Creatinine 0.82 Estim Creat Clear Calc 53.68 Est GFR (MDRD) Af Amer 91 Est GFR (MDRD) Non-Af 75 BUN/Creatinine Ratio 12.2 Glucose 102 Calcium 9.4 Magnesium Troponin I High Sens 6 07/16/21 07/16/21 17:34 19:35 WBC RBC Hgb Hct MCV MCH MCHC RDW Std Deviation RDW Coeff of Andry Plt Count MPV Immature Gran % (Auto) Neut % (Auto) Lymph % (Auto) Winkler % (Auto) Eos % (Auto) Baso % (Auto) Absolute Neuts (auto) Absolute Lymphs (auto) Nucleated RBC % D-Dimer Quant (PE/DVT) Sodium Potassium Chloride Carbon Dioxide Anion Gap BUN Creatinine Estim Creat Clear Calc Est GFR (MDRD) Af Amer Est GFR (MDRD) Non-Af BUN/Creatinine Ratio Glucose Calcium Magnesium 2.5 Troponin I High Sens 6 Radiography Diagnostic Testing: Clinical Impression(s) from Imaging Studies Chest X-Ray 07/16/21 17:03 IMPRESSION: Normal x-ray examination of the chest. Electronically Signed: Lc Yee MD at 17:36 EDT , Service support , Chest CTA 07/16/21 18:58 IMPRESSION: No evidence of acute pulmonary emboli to segmental level. Scattered bilateral airspace opacities concerning for infection. Electronically Signed: Sami Wyatt MD at 19:56 EDT Tel , Service support , Discharge Plan Triage Chief Complaint: Chest Pain ED Provider: Obed Renae Dx/Rx/DC Orders Clinical Impression: Nonspecific chest pain, Pneumonia Instructions: ED Chest Pain, Uncertain Cause, ED Pneumonia (Adult) Prescriptions: New cefdinir 300 mg capsule 300 mg PO BID Qty: 20 RF: 0 No Action buprenorphine [Butrans] 1 EACH patch weekly 1 patch TP FR RF: 0 pravastatin 40 MG tablet 40 mg PO QHS RF: 0 buspirone 15 MG tablet 15 mg PO BID RF: 0 gabapentin 100 MG capsule 100 mg PO BID RF: 0 nabumetone [Relafen] 500 MG tablet 750 mg PO BID RF: 0 donepezil 5 mg tablet 5 mg PO DAILY RF: 0 Primary Care Provider: Rye Palmer Chi Referrals: Rey Palmer Chi, MD [Primary Care Provider] - Disposition Disposition: Home, Self Care
[2021-07-16 21:03] VITALS: BP 156/94; PULSE 75; RESP 14; O2SAT 96
== END 2021-07-16 21:13 | disposition home or self-care (01) ==
PROVIDERS: Emergency Provider Emergency Medicine; PCP Family Medicine Geriatric Medicine
DX: J18.9 Pneumonia, unspecified organism (principal); M54.6 Pain in thoracic spine; M79.602 Pain in left arm; G89.29 Other chronic pain; I10 Essential (primary) hypertension; E78.5 Hyperlipidemia, unspecified; G47.33 Obstructive sleep apnea (adult) (pediatric); K21.9 Gastro-esophageal reflux disease without esophagitis; F32.A Depression, unspecified; F41.9 Anxiety disorder, unspecified; E66.9 Obesity, unspecified; Z79.1 Long term (current) use of non-steroidal anti-inflammatories (NSAID); Z79.899 Other long term (current) drug therapy
CPT/HCPCS: 71045; 71275; 80048; 83735; 84484; 85025; 85379; 93005; 96360; 99285; J7030; Q9967; A4216

== ENCOUNTER 2021-07-26 12:53 | Day surgery (SDC) | payer MEDICAID, SELFPAY ==
[2021-07-26] VITALS (7 sets, daily range): BP systolic 147–172; BP diastolic 80–90; PULSE 64–80; RESP 16–18; TEMP 36.3–36.8; O2SAT 94–100; BMI 26.2
[2021-07-26] MEDS: Lactated Ringers 1,000 ML 100 ML IV (13:18)
--- NOTE | 2021-07-26 14:35 | RAD_ITS ---
STUDY: X-RAY - SACROILIAC JOINTS REASON FOR EXAM: Female, 61 years old. SI injection, right side. TECHNIQUE: 2 intraprocedural view(s) of the sacroiliac joints were obtained. 15.9 seconds of fluoroscopy were used. 3.81 mGy. COMPARISON: Pelvis and bilateral hips, 07/26/2018. FINDINGS: Fluoroscopic guidance was provided. 2 images were presented for interpretation. The study demonstrates a needle inserted into the lower right sacroiliac joint. Contrast is seen within the joint space. Please refer to the operative report for further details. RAD/Fluoro Guided Needle Placement IMPRESSION: Fluoroscopy provided during a right SI joint injection. Electronically Signed: Layton Badillo DO at 16:24 EDT Tel [phone], Service support ,
[2021-07-26] MEDS: Lidocaine 1% (30 ml sdv) 30 ML Vial (14:41)
[2021-07-26] MEDS: Triamcinolone Acetonide 40 MG/ML Vial (14:41)
[2021-07-26] MEDS: Bupivacaine 0.25% 30 ML Vial (14:42)
--- NOTE | 2021-07-26 14:46 | PCM.OPRPT ---
Problems Associated Problem List Diagnoses (1) Sacroiliitis, not elsewhere classified: Report of Operation Pre-Operative Diagnosis: Sacroiliac joint pain, sacroiliitis, piriformis muscle pain Post-Operative Diagnosis: Same Surgery/Procedure Performed:: Sacroiliac joint injection under fluoroscopy guidance, piriformis muscle injection under fluoroscopy guidance Description of Surgical Findings:: Procedure injection to the right sacroiliac joint, using identified fluoroscopy Under sterile conditions. Patient placed in the prone position, pressure points were padded, patient was ready from the nursing and the anesthesia team. After identification of the side and the target area for the block under guided fluoroscopy, the entry site was marked with marking pen. I used Betadine for sterilization of the skin, sterile draping were applied. Identified the site at the lower one 1/3 of the right sacroiliac joint, using oblique angle fluoroscopy, also identified the midpoint of the piriformis muscle with AP fluoroscopy. Using 25-gauge needle to infiltrate the skin with local anesthesia using preservative-free lidocaine 0.5% injected 2.5 mL at each site of entry. Using oblique fluoroscopy, accessed the right sacroiliac joint using 22-gauge spinal needle. After confirmation of appropriate needle placement to the targeted area with AP and lateral fluoroscopy, injected 8 mL mixture of preservative-free Marcaine 0.5% and Kenalog [80] mg at each site. Seaman was removed, pressure dressing were applied. Patient tolerated the procedure well and was taken to the recovery. Surgeon: June Mackenzie Type of Anesthesia: MAC/Supplemental/Local Estimated Blood Loss (mL): None Complications No complications Admit VTE Documentation VTE Present on Admission: No VTE Pharm Prophylaxis ordered?: No Reason prophylaxis not ordered:: Procedure Not Indicated
--- NOTE | 2021-07-26 14:57 | PCM.DC ---
Discharge Instructions Diet Discharge Diet: No restrictions Activity May resume sexual activity in: No Restrictions Weight Bearing Status: Weight bearing as tolerated Dressing / Incision Call your doctor if your incision/area has: Continuous Slow Oozing, Sudden Increased Bleeding, Increased Pain/ Swelling, Increased Redness, Foul Smelling Discharge and Swelling at the incision site Call your doctor if you observe: Fever of 101 or Higher, Coldness, Increased Pain, Numbness or Tingling, Change in Color, Inability to urinate, Inability to have a bowel movement, Increased palpitations (irregular heartbeat), Calf discomfort and Uncontrolled pain Suture Line Care: Avoid Pulling/Pushing and Avoid Pinching/Bending Change Dressing in: 1 day Remove Dressing in: 1 day Cleanse incision/area with: Soap & Water and Keep Dressing Clean & Dry Follow Up Care Please Follow Up With: June Mackenzie MD When: 2 to 4-week Test Results: Test results from this visit will be discussed in further detail at your follow-up appointment, if applicable. Discharge Plan Admission Primary Reason for Your Visit: Caudal epidural steroid injection Attending Provider: June Mackenzie Primary Care Provider: Rey Palmer Chi Discharge Orders/Prescriptions Prescriptions: No Action buprenorphine [Butrans] 1 EACH patch weekly 1 patch TP FR RF: 0 pravastatin 40 MG tablet 40 mg PO QHS RF: 0 buspirone 15 MG tablet 15 mg PO BID RF: 0 gabapentin 100 MG capsule 100 mg PO BID RF: 0 nabumetone [Relafen] 500 MG tablet 750 mg PO BID RF: 0 Linzess 72 mcg Capsule 72 mcg PO DAILY RF: 0 donepezil 5 mg tablet 5 mg PO DAILY RF: 0 cefdinir 300 mg capsule 300 mg PO BID Qty: 20 RF: 0 Referrals / Follow Up: Rey Palmer Chi, MD [Primary Care Provider] - Disposition Disposition (needs filled in before D/C Order can be placed): Home, Self Care
== END 2021-07-26 15:33 | disposition home or self-care (01) ==
LOC: SDC 12:54 → AC 12:55
PROVIDERS: PCP Family Medicine Geriatric Medicine; Referring Provider Anesthesiology; Visit Provider Anesthesiology
PROC: 3E0U3GC Introduction of Other Therapeutic Substance into Joints, Percutaneous Approach (ICD-10-PCS; CPT 27096; principal; 2021-07-26 13:55)
DX: M46.1 Sacroiliitis, not elsewhere classified (principal); M53.3 Sacrococcygeal disorders, not elsewhere classified; M50.122 Cervical disc disorder at C5-C6 level with radiculopathy; I10 Essential (primary) hypertension; G43.909 Migraine, unspecified, not intractable, without status migrainosus; E66.9 Obesity, unspecified; Z79.1 Long term (current) use of non-steroidal anti-inflammatories (NSAID); Z79.899 Other long term (current) drug therapy
CPT/HCPCS: 01992; 20552; 27096; 76000; 77002

== ENCOUNTER → 2021-09-02 12:58 | Outpatient (CLI) | payer MEDICAID, SELFPAY ==
[2021-09-02 16:28] LABS: Absolute Lymphocyte Count 3.06 X10^3/uL (0.83-4.51); Absolute Neutrophil Count 4.3 X10^3/uL (2.0-7.7); Basophil# 0.04 X10^3/uL; Basophil% 0.5 % (0-1); Eosinophil# 0.05 X10^3/uL; Eosinophils% 0.6 % (0-5); Hematocrit 40.2 % (37-47); Hemoglobin 13.3 g/dL (12.0-15.0); Lymphocyte # 3.06 X10^3/ul (0.83-4.51); Lymphocyte % 38.4 % (19-41); Mean Corp Hgb Conc 33.1 g/dL (32-36); Mean Corpuscular Volume 96.9 fL (81-99); Mean Platelet Vol. 9.5 fl (6.2-12.0); Monocyte# 0.53 X10^3/uL; Monocyte% 6.6 % (0-10); NRBC Flagged by Analyzer 0 % (0-5); Neutrophil # 4.27 X10^3/uL (2.7-7.7); Neutrophil % 53.6 % (47-70); Platelet Count 351 K/mm3 (150-450); RBC Distribution Width SD 46.5 fl (35.1-43.9); Red Blood Count 4.15 M/mm3 (4.2-5.4)
[2021-09-02 16:43] LABS: Vitamin D,25 Hydroxy 20.6 ng/mL
[2021-09-02 17:05] LABS: AST(SGOT) 18 U/L (15-37); Alanine Aminotransfer ALT/SGPT 19 U/L (13-56); Albumin, Serum 3.5 g/dL (3.2-5.0); Alkaline Phosphatase 64 U/L (45-117); Anion Gap 7 (5-15); BUN 10 mg/dL (7-18); BUN/Creat Ratio 11.7 RATIO (10-20); Calcium,Total 9.4 mg/dL (8.5-10.1); Chloride 105 mmol/L (98-107); Creatinine, Serum 0.86 mg/dL (0.55-1.02); EST Glomerular Filtration Rate 71 mL/min (>60); Est Glom Filt Rate - Afr Amer 86 mL/min (>60); Globulin 3.4 g/dL (2.2-4.2); Glucose 84 mg/dL (74-106); Potassium 3.8 mmol/L (3.5-5.1); Protein, Total 6.9 g/dL (6.4-8.2); Sodium Level 142 mmol/L (136-145); Thyroid Stim Hormone (TSH) 0.72 uIU/mL (0.358-3.74)
== END ==
PROVIDERS: PCP Family Medicine Geriatric Medicine; Visit Provider Family Medicine Geriatric Medicine
DX: I10 Essential (primary) hypertension (principal); E55.9 Vitamin D deficiency, unspecified
CPT/HCPCS: 36415; 80053; 82306; 84443; 85025

== ENCOUNTER 2021-09-26 14:30 | Outpatient (RCR) | payer MEDICAID, SELFPAY ==
--- NOTE | 2021-08-21 14:02 | HP.PTEVAL ---
Patient's Visit Information PREETI HERNÁNDEZ is a 61 year old F referred to Physical Therapy by Dr. aDmien Hartman DO with a diagnosis of Cervical DDD, cervical radiculopathy. Date of Evaluation: 08/20/21 Physical Therapist: Boni Gray DPT - Visit Plan Frequency: 2x /Week Duration: 6 Weeks Plan: Start with US to cervical erector spinae, chin tucks, cervical retraction. Manual cervical traction progressing to mechanical if tolerating. Progress postural strengthening as tolerated. - Subjective Pt. is here today for her initial evaluation with diagnosis of cervical radiculopathy and cervical DDD. PT. reports having symptoms for years, but has been progressively worsening. Pt. reports pain in her cervical spine and down her L arm to her fingers at times. She is also c/o N/T in B finger tips at times. She has had multiple injections in her neck with mixed results. Pt. did have an xray on both her neck and shoulder. Shoulder xray showed mild arthrosis, but greater issues with her neck xray, DDD and reverse curvature noted. Pt. is having trouble sleeping and increased pain with all ADLs. She reports having 8/10 pain currently, but does have pain increasing to 10/10 throughout the day. She reports only having relief in her neck with supine lying at times, but this also bothers her lumbar spine, which is also painful. Pt. is unemployed. She would like to sleep without issues and be able to complete basic ADLs without limitations. - Pain Cervical spine Pain Intensity (Out of 10): 8 Pain Intensity Range: 5, 10 - Objective POSTURE: Pt. has FH posture with anterior shoulders. Pt. is able to correct, but has increased pain. PALPATION: Pt. is very tender throughout B cervical erector spinae, very tender with spring testing to C2-C6. Pt. has tenderness in B UT and levator scapulae as well. NEURO: Pt. has normal sensation in BUEs, except at L deltoid region. She has normal DTR of biceps and triceps on R side. Decreased 1+ on L side. ROM: Cervical spine: flexion: min loss increase NW, ext: mod loss increase NW, SB mod loss bilat increase NW, rotation mod loss increase NW bilat. Pt. has normal R shoulder ROM without symptoms. L shoulder is limited to ~50% of all flexion and scaption motions secondary to pain. Slight increase in shoulder pain with functional ER ROM to C3. no pain with functional IR L3. 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 RUE: wrist 5/5 throughout, elbow 5/5 throughout; shoulder- flexon 4/5, adb 4/5, ext 5/5. Mild increase in symptoms with shoulder flexion/abd. LUE- 5/5 throughout. - Special Tests C/S Radiculapathy - Left Upper limb tension test: Negative C/S Radiculapathy - Right Upper limb tension test: Negative C/S Radiculapathy - Left Spurlings: Positive C/S Radiculapathy - Right Spurlings: Negative C/S Radiculapathy - Left Cervical distraction: Negative C/S Radiculapathy - Right Cervical distraction: Negative C/S Radiculapathy - Left Relief test: Positive C/S Radiculapathy - Right Relief test: Negative Cervical Sitting: Protrusion - Mechanical Response: No effect Cervical Sitting: Protrusion - Symptoms During Testing: No effect Cervical Sitting: Protrusion - Symptoms After Testing: No effect Cervical Sitting: Retraction - Mechanical Response: No effect Cervical Sitting: Retraction - Symptoms During Testing: Increases Cervical Sitting: Retraction - Symptoms After Testing: No worse Cervical Sitting: Retraction-Extension - Mechanical Response: No effect Cerv Sitting: Retraction-Extension - Symptoms During Testing: Increases Cerv Sitting: Retraction-Extension - Symptoms After Testing: No worse Cervical Sitting: Sidebend Right - Symptoms During Testing: Increases Cervical Sitting: Sidebend Right - Symptoms After Testing: No worse Cervical Sitting: Sidebend Left - Mechanical Response: No effect Cervical Sitting: Sidebend Left - Symptoms During Testing: Increases Cervical Sitting: Sidebend Left - Symptoms After Testing: No worse Cervical Lying: Retraction - Mechanical Response: No effect Cervical Lying: Retraction - Symptoms During Testing: Decreases Cervical Lying: Retraction - Symptoms After Testing: Better - Balance/Special Test Scores Oswestry Neck Score: 37 - Goals Goal 1:: STG: Pt. to be able to sleep throughout the night with 0-4/10 pain in cervical spine. Goal Time Frame: 2-4 Weeks Goal 2:: LTG: pt. to have increased cervical ROM by 25% in all directions without increase in symptoms. Goal Time Frame: 4-6 Weeks Goal 3:: LTG: pt. to decreased distal LUE symptoms by 50% allowing for increased quality of life. Goal Time Frame: 4-6 Weeks Goal 4:: LTG: Pt. 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 Goal Time Frame: 4-6 Weeks Goal 5:: LTG: Pt. to have increased LUE strength to 5/5 throughout. Goal Time Frame: 4-6 Weeks Goal 6:: LTG: Pt. to be able to demonstrate and maintain proper posture throughout therapy session indicating increased postural awareness. Goal Time Frame: 4-6 Weeks - Rehabilitation Potential Physical Therapy Diagnosis: Pt. has signs and symptoms consistent with cervical DDD with radiculopathy. Pt. has symptoms going down her L arm to her hand at times. She reports having difficulty sleeping and that her symptoms are progressively getting worse. She would benefit from PT to work on cervical ROM, improved posture and decrease pain. Rehabilitation Potential: Good - Anticipated Interventions Patient/Client Instruction: Educate patient on: Condition, Plan of Care, Risk Factors, Benefits of Fitness Program For the Purpose of:: To assume or resume ADL's, To reduce risk of recurrence, To improve safety, To improve health and function, To foster healthy habits, To improve decision making, To prevent re-injury, To improve ability to perform tasks related to life management, To improve tolerance to ADL's Therapeutic Exercise to Include: Strength training, Power training, Passive ROM, Active ROM, Wade Exercises, Scapular Strength/Stabilization For the Purpose of:: To decrease pain, To decrease swelling/inflammation, To increase ROM, To improve nutrient delivery to tissue, To increase oxygenation perfusion, To improve muscle performance and motor function, To increase tolerance to activity/condition/position, To improve performance and independence with ADL's, To decrease level of supervision to perform tasks Manual Therapy Techniques to Include: Mobilization, Passive ROM, Functional dry needling, Soft tissue mobilization Comment: cervical traction For the Purpose of:: To decrease pain, To decrease swelling/inflammation, To increase ROM, To improve nutrient delivery to tissue, To increase oxygenation perfusion, To improve muscle performance and motor function, To improve ability to perform ADL's, To increase tolerance to activity/condition/position Cryotherapy (ice pack, ice massage): Yes Thermo therapy (hot pack): Yes Ultrasound (thermal/non thermal): Yes Intermittent cervical traction: Yes For the Purpose of:: To decrease pain, To increase ROM, To improve nutrient delivery to tissue, To increase oxygenation perfusion, To improve muscle performance and motor function Thank you for the opportunity to evaluate your patient. For Medicare and Medicare HMO plans, please review the plan of care and approve it. It will need to be FAXED BACK to us at [phone] for Medicare purposes. For Medicare only, by signing this I certify the plan of care. Please let me know if there are questions or concerns regarding this plan of care. Physician Signature: Date:
== END 2021-09-26 19:00 | disposition home or self-care (01) ==
LOC: PT 14:30
PROVIDERS: PCP Family Medicine Geriatric Medicine; Referring Provider Orthopaedic Surgery; Visit Provider Orthopaedic Surgery
DX: M50.10 Cervical disc disorder with radiculopathy, unspecified cervical region (principal)
CPT/HCPCS: 97035; 97110; 97140; 97161

== ENCOUNTER 2021-10-14 11:18 | Outpatient (CLI) | payer MEDICAID, SELFPAY ==
--- NOTE | 2021-10-14 11:24 | RAD_ITS ---
STUDY: X-RAY - LEFT KNEE REASON FOR EXAM: Female, 61 years old. KNEE PAIN TECHNIQUE: 4 view(s) of the knee. COMPARISON: None. FINDINGS: Normal visualized distal femur. Normal visualized proximal tibia and fibula. Normal proximal tibiofibular articulation. Normal medial femorotibial compartment. Normal lateral femorotibial compartment. Normal patellofemoral articulation. The soft tissue structures are unremarkable. RAD/Knee 4 or More Views IMPRESSION: Normal x-ray examination of the knee. Electronically Signed: Terrence Chun MD at 11:43 EST , Service support ,
== END 2021-10-14 23:59 | disposition short-term general hospital (02) ==
PROVIDERS: PCP Family Medicine Geriatric Medicine; Referring Provider Family Medicine Geriatric Medicine; Visit Provider Family Medicine Geriatric Medicine
DX: M25.562 Pain in left knee (principal)
CPT/HCPCS: 73564

== ENCOUNTER 2021-11-01 09:05 | Outpatient (CLI) | payer MEDICAID, SELFPAY ==
[2021-11-01 11:55] LABS: Anion Gap 5 (5-15); BUN 16 mg/dL (7-18); BUN/Creat Ratio 19.6 RATIO (10-20); Calcium,Total 9.9 mg/dL (8.5-10.1); Chloride 106 mmol/L (98-107); Creatinine, Serum 0.82 mg/dL (0.55-1.02); EST Glomerular Filtration Rate 75 mL/min (>60); Est Glom Filt Rate - Afr Amer 91 mL/min (>60); Glucose 89 mg/dL (74-106); Potassium 4.2 mmol/L (3.5-5.1); Sodium Level 140 mmol/L (136-145)
== END 2021-11-01 23:59 | disposition short-term general hospital (02) ==
LOC: POLAB3 09:05
PROVIDERS: PCP Family Medicine Geriatric Medicine; Visit Provider Family Medicine Geriatric Medicine
DX: I10 Essential (primary) hypertension (principal)
CPT/HCPCS: 36415; 80048

== ENCOUNTER 2021-11-04 14:39 | Outpatient (CLI) | payer MEDICAID, SELFPAY ==
--- NOTE | 2021-11-04 14:45 | RAD_ITS ---
STUDY: X-RAY - LEFT FEMUR REASON FOR STUDY: Female, 61 years old. LEFT HIP PAIN TECHNIQUE: 4 view(s) of the femur. COMPARISON: None. FINDINGS: Normal visualized femur. Normal visualized soft tissue structure. There is no demonstrated fracture or destructive process. Left posterior calcified granuloma noted which is of no clinical significance. RAD/Femur Min 2 Views IMPRESSION: Normal x-ray examination of the femur. Electronically Signed: Joselito Eaton MD at 21:26 EST ,
== END 2021-11-04 23:59 | disposition home or self-care (01) ==
LOC: RAD 14:41
PROVIDERS: PCP Family Medicine Geriatric Medicine; Referring Provider Anesthesiology Pain Medicine; Visit Provider Anesthesiology Pain Medicine
DX: M25.552 Pain in left hip (principal)
CPT/HCPCS: 73552

== ENCOUNTER 2021-11-07 14:38 | Outpatient (CLI) | payer MEDICAID, SELFPAY ==
--- NOTE | 2021-11-07 15:00 | RAD_ITS ---
STUDY: X-RAY - LEFT KNEE REASON FOR EXAM: Female, 61 years old. KNEE PAIN TECHNIQUE: 3 view(s) of the knee. COMPARISON: None. FINDINGS: Normal visualized distal femur. Normal visualized proximal tibia and fibula. Normal proximal tibiofibular articulation. Normal medial femorotibial compartment. Normal lateral femorotibial compartment. Normal patellofemoral articulation. There is no demonstrated joint effusion. The soft tissue structures are unremarkable. RAD/Knee 3 Views IMPRESSION: Normal x-ray examination of the knee. Electronically Signed: Elan Arevalo MD ([place]) at 15:22 EST ,
[2021-11-07 17:10] LABS: Absolute Neutrophil Count 5.7 X10^3/uL (2.0-7.7); Basophil# 0.01 X10^3/uL; Basophil% 0.1 % (0-1); Hematocrit 41.9 % (37-47); Hemoglobin 14.6 g/dL (12.0-15.0); Lymphocyte % 21.6 % (19-41); Mean Corp Hgb Conc 34.8 g/dL (32-36); Mean Corpuscular Hgb 32.4 pg (27.0-32.0); Mean Corpuscular Volume 93.1 fL (81-99); Mean Platelet Vol. 9.9 fl (6.2-12.0); Monocyte# 0.41 X10^3/uL; Monocyte% 5.2 % (0-10); NRBC Flagged by Analyzer 0 % (0-5); Neutrophil # 5.73 X10^3/uL (2.7-7.7); Neutrophil % 72.8 % (47-70); Platelet Count 327 K/mm3 (150-450); RBC Distribution Width CV 11.6 % (11.6-14.6); RBC Distribution Width SD 39.8 fl (35.1-43.9); White Blood Count 7.9 K/mm3 (4.4-11.0)
[2021-11-07 17:28] LABS: Anion Gap 5 (5-15); BUN 14 mg/dL (7-18); BUN/Creat Ratio 15.3 RATIO (10-20); Calcium,Total 9.9 mg/dL (8.5-10.1); Chloride 108 mmol/L (98-107); Creatinine, Serum 0.91 mg/dL (0.55-1.02); EST Glomerular Filtration Rate 66 mL/min (>60); Est Glom Filt Rate - Afr Amer 80 mL/min (>60); Glucose 125 mg/dL (74-106); Potassium 3.5 mmol/L (3.5-5.1); Sodium Level 140 mmol/L (136-145)
== END 2021-11-07 23:59 | disposition home or self-care (01) ==
LOC: POLAB3 14:40 → RAD 14:58
PROVIDERS: PCP Family Medicine Geriatric Medicine; Referring Provider Family Medicine Geriatric Medicine; Visit Provider Family Medicine Geriatric Medicine
DX: I10 Essential (primary) hypertension (principal); N39.0 Urinary tract infection, site not specified; M25.569 Pain in unspecified knee
CPT/HCPCS: 36415; 73562; 80048; 85025; 87086; 87088

== ENCOUNTER 2021-11-08 08:00 | Outpatient (CLI) | payer MEDICAID, SELFPAY | END 2021-11-08 23:59 | disposition home or self-care (01) | LOC: PSN 08:01 | PROVIDERS: PCP Family Medicine Geriatric Medicine; Referring Provider Family Medicine Geriatric Medicine; Visit Provider Family Medicine Geriatric Medicine | DX: R68.83 Chills (without fever) (principal); Z20.822 Contact with and (suspected) exposure to COVID-19 | CPT/HCPCS: 87635; 87804; 87807; C9803; U0003; U0005 ==

== ENCOUNTER → 2022-03-04 | Outpatient (CLI) | payer MEDICAID, SELFPAY ==
[2022-03-04 17:29] LABS: Absolute Lymphocyte Count 2.23 X10^3/uL (0.83-4.51); Absolute Neutrophil Count 2.6 X10^3/uL (2.0-7.7); Basophil# 0.03 X10^3/uL; Basophil% 0.6 % (0-1); Eosinophil# 0.05 X10^3/uL; Eosinophils% 0.9 % (0-5); Hematocrit 39.9 % (37-47); Hemoglobin 13.1 g/dL (12.0-15.0); Lymphocyte # 2.23 X10^3/ul (0.83-4.51); Lymphocyte % 41.9 % (19-41); Mean Corp Hgb Conc 32.8 g/dL (32-36); Mean Corpuscular Hgb 31.6 pg (27.0-32.0); Mean Corpuscular Volume 96.4 fL (81-99); Mean Platelet Vol. 10.3 fl (6.2-12.0); Monocyte# 0.39 X10^3/uL; Monocyte% 7.3 % (0-10); NRBC Flagged by Analyzer 0 % (0-5); Neutrophil # 2.61 X10^3/uL (2.7-7.7); Neutrophil % 49.1 % (47-70); Platelet Count 272 K/mm3 (150-450); RBC Distribution Width CV 11.9 % (11.6-14.6); RBC Distribution Width SD 42.5 fl (35.1-43.9); Red Blood Count 4.14 M/mm3 (4.2-5.4); White Blood Count 5.3 K/mm3 (4.4-11.0)
[2022-03-04 17:49] LABS: ALB/GLOB Ratio 1.1 RATIO (0.9-2.4); AST(SGOT) 23 U/L (15-37); Alanine Aminotransfer ALT/SGPT 25 U/L (13-56); Albumin, Serum 3.6 g/dL (3.2-5.0); Alkaline Phosphatase 70 U/L (45-117); Anion Gap 7 (5-15); BUN 12 mg/dL (7-18); BUN/Creat Ratio 14.5 RATIO (10-20); Calcium,Total 9.5 mg/dL (8.5-10.1); Chloride 105 mmol/L (98-107); Creatinine, Serum 0.83 mg/dL (0.55-1.02); EST Glomerular Filtration Rate 74 mL/min (>60); Est Glom Filt Rate - Afr Amer 89 mL/min (>60); Globulin 3.2 g/dL (2.2-4.2); Glucose 91 mg/dL (74-106); Potassium 3.6 mmol/L (3.5-5.1); Protein, Total 6.8 g/dL (6.4-8.2); Sodium Level 141 mmol/L (136-145); Thyroid Stim Hormone (TSH) 1.12 uIU/mL (0.358-3.74)
== END | disposition home or self-care (01) ==
LOC: POLAB3 13:51
PROVIDERS: PCP Family Medicine Geriatric Medicine; Visit Provider Family Medicine Geriatric Medicine
DX: I10 Essential (primary) hypertension (principal)
CPT/HCPCS: 36415; 80053; 84443; 85025

== ENCOUNTER → 2022-03-19 | Outpatient (CLI) | payer MEDICAID, SELFPAY | END | disposition home or self-care (01) | LOC: POLAB3 10:51 | PROVIDERS: PCP Family Medicine Geriatric Medicine; Visit Provider Family Medicine Geriatric Medicine | DX: N39.0 Urinary tract infection, site not specified (principal) | CPT/HCPCS: 87086; 87088; 87186 ==

== ENCOUNTER → 2022-04-17 | Outpatient (CLI) | payer MEDICAID, SELFPAY ==
--- NOTE | 2022-04-17 15:36 | MRI_ITS ---
EXAM: MR LUMBAR SPINE WITHOUT INTRAVENOUS CONTRAST CLINICAL INDICATION: LUMBAR RADICULOPATHY TECHNIQUE: Multiplanar and multisequence MR images of the lumbar spine without intravenous contrast. This report was created using [employer] report [employer] technology. COMPARISON: None. FINDINGS: VERTEBRAE: Moderate scoliosis of the lumbar spine convex to the left measuring 30 degrees centered at L2-L3 unchanged since previous exam. Vertebral body heights are preserved. No spondylolisthesis. SPINAL CORD: Unremarkable. Normal position and signal intensity of the conus medullaris. SOFT TISSUES: Unremarkable. DISCS/SPINAL CANAL/NEURAL FORAMINA: L1-L2: Marked loss of disc height and disc signal. Moderate generalized disc bulge with extends bilaterally into the neural foramina. Moderate right neural foraminal narrowing due to the generalized disc bulge and moderate right facet arthropathy. Normal spinal canal and lateral recesses. L2-L3: Marked disc space narrowing and mild generalized disc bulge. No spinal canal, foraminal, or lateral recess stenosis. Moderate bilateral facet arthropathy. L3-L4: Marked disc space narrowing and moderate generalized disc bulge. AP diameter of the dural sac is narrowed to 7 mm consistent with moderate spinal stenosis with some effacement of the CSF around the cauda equina. Moderate narrowing of the right neural foramen due to broad-based disc bulge and prominent right facet arthropathy. L4-L5: Marked disc space narrowing and mild generalized disc bulge. Moderate left neural foraminal narrowing due to severe left facet arthropathy that appears increased compared with the previous exam. Normal spinal canal and lateral recesses. L5-S1: Marked disc space narrowing and mild generalized bulge. Moderate bilateral neural foraminal narrowing due to severe bilateral facet arthropathy. Normal spinal canal and lateral recesses. MRI/Spine Lumbar (Routine) IMPRESSION: 1. Moderate acquired spinal stenosis at L3-L4 due to generalized disc bulge similar to the prior exam. Moderate right neural foraminal stenosis due to broad-based bulge and prominent right facet arthropathy. 2. Moderate right neural foraminal narrowing at L1-L2 due to generalized bulge and moderate right facet arthropathy similar to the prior exam. 3. Moderate left neural foraminal narrowing due to severe left facet arthropathy that appears increased compared with the previous exam. 4. Moderate bilateral neural foraminal narrowing due to severe bilateral facet arthropathy. 5. Diffuse moderate to severe spondylitic changes throughout the lumbar spine. 6. Moderate scoliosis of the lumbar spine convex to the left measuring 30 degrees centered at L2-L3 unchanged since previous exam. Electronically Signed: Brad Neumann MD at 8:03 EDT ,
== END | disposition home or self-care (01) ==
LOC: MRI 15:29
PROVIDERS: PCP Family Medicine Geriatric Medicine; Referring Provider Anesthesiology Pain Medicine; Visit Provider Anesthesiology Pain Medicine
DX: M54.16 Radiculopathy, lumbar region (principal)
CPT/HCPCS: 72148

== ENCOUNTER 2022-07-04 08:57 | Day surgery (SDC) | payer MEDICAID, SELFPAY ==
[2022-07-04] VITALS (7 sets, daily range): BP systolic 118–133; BP diastolic 61–85; PULSE 68–73; RESP 14–16; TEMP 36.5–36.7; O2SAT 98–100; BMI 24.1
--- NOTE | 2022-07-04 | COLBX_PTH ---
PATIENT: PREETI HERNÁNDEZ LOC: EN U#:[id number] AGE/SX: 62/F ROOM: RE07/04/[address]: Dr. Grzegorz Cummings MD : 1960 BED: DIS: 07/04/2022 SPEC #: [id number] RECD: 07/04/22 13:41 STATUS: [facility] [place] #: [id number] NELLIE: 07/04/22 00:[address]: Grzegorz Cummings DEPT: SURGICAL PATHOLOGY RECD BY: Alberto Wong ENTERED: 07/04/22 13:42 SP TYPE: COLON BX OTHR DR: Dr. Rey Palmer MD Tissues: COLON BIOPSY Procedures: Surgery Specimen Level IV HEADER OPERATION: Colonoscopy (MAC), biopsy PRE-OP DIAGNOSIS: Change in bowel habits TISSUE SUBMITTED: Random colonic biopsy MICROSCOPIC DIAGNOSIS Colon, random biopsy: Melanosis coli. AM:samuel 07/07/2022 MICROSCOPIC DESCRIPTION Slides are reviewed. GROSS DESCRIPTION Received in fixative is one container labeled with the patient's name and designated random colon biopsy. The specimen consists of multiple irregular fragments of light christine soft tissue that in aggregate measure 2 x 0.5 x 0.1 cm. The specimen is totally submitted in one cassette. / AM:samuel 07/04/2022 TC:5 CPT: 47516
[2022-07-04] MEDS: Lactated Ringers 1,000 ML 15 ML IV (09:15)
--- NOTE | 2022-07-04 09:17 | PCM.HP.STD ---
HPI - General General Date of Service: 07/04/22 Chief Complaint: Screening for intestinal cancer HPI Narrative PREETI HRENÁNDEZ, is a 62 F who presents for screening colonoscopy. I saw her in March 2021 at that point she had presented for a colonoscopy she stated that her stools were more constipated. Bowel prep was very poor. She was rescheduled several times but only now presents at this time after repeating a bowel prep which she says is good. She says that since I have seen her last her stools have been more on the loose side. No bright red blood per rectum or melena. No abdominal pain. [facility] Medical History (Updated 07/01/22 @ 08:49 by Aster Ramsay) Abnormal mammogram of right breast Acute urticaria Allergic rhinitis Anxiety Arthritis Back pain BPPV (benign paroxysmal positional vertigo) Cervical radiculitis Chronic lower back pain CPAP (continuous positive airway pressure) dependence Dehydration Depression Fatty liver Fatty liver GERD (gastroesophageal reflux disease) Hematuria Hiatal hernia High cholesterol History of IBS History of pain when walking History of stress test HLD (hyperlipidemia) Hx of echocardiogram Hypertension Lumbar disc lesion Migraine headache Muscle spasm Neck pain Non-smoker Obesity ARIELA (obstructive sleep apnea) Post-menopausal Restless legs Right flank pain Scoliosis Shortness of breath on exertion Streptococcus agalactiae infection Syncope Thoracic back pain Warts Wears glasses Home Medications buprenorphine 5 mcg/hour weekly transdermal patch (Butrans) 1 patch TP FR pain 02/08/18 [History Last Taken 11/16/19] buspirone 15 mg tablet 15 mg PO BID MOOD 11/22/19 [History Last Taken 11/21/19] pravastatin 40 mg tablet 40 mg PO QHS CHOLESTEROL 11/22/19 [History Last Taken 11/21/19] gabapentin 100 mg capsule 100 mg PO BID 09/11/20 [History Last Taken Unknown] nabumetone 500 mg tablet (Relafen) 750 mg PO BID 09/11/20 [History Last Taken Unknown] donepezil 5 mg tablet 5 mg PO DAILY 07/16/21 [History Last Taken Unknown] cyclobenzaprine 10 mg tablet 10 mg PO DAILY 08/05/21 [History Last Taken Unknown] peg 3350-electrolytes 236 gram-22.74 gram-6.74 gram-5.86 gram solution 4,000 ml PO ONCE #4,000 mL 06/23/22 [Rx Last Taken Unknown] losartan 50 mg tablet 50 mg PO BID 07/01/22 [History Last Taken Unknown] Allergy/AdvReac Type Severity Reaction Status Date / Time silicone Allergy Rash Verified 07/01/22 08:31 codeine AdvReac Itching Verified 07/01/22 08:31 doxycycline AdvReac Itching Verified 07/01/22 08:31 oxycodone AdvReac Itching Verified 07/01/22 08:31 Family History Mother Arthritis Hypercholesterolemia Hypertension Cancer Lung Father Cancer Lung Cirrhosis Emphysema lung Surgical History (Updated 07/01/22 @ 08:49 by Aster Ramsay) History of colonoscopy (~2015) History of Angel fundoplication History of tubal ligation S/P cholecystectomy S/P lumpectomy of breast [place] teeth extracted Social History Smoking Status: Never smoker alcohol intake: never substance use type: does not use ROS Constitutional Constitutional: Reports systems reviewed and no addt'l complaints, except as documented Cardiovascular Cardiovascular: Denies chest pain Respiratory/Chest Respiratory/Chest: Denies shortness of breath at rest Gastrointestinal Gastrointestinal: Denies abdominal pain, change in bowel habits, hematochezia or melena Physical Exam Const alert, oriented x3 and no apparent distress General Appearance: cooperative and comfortable Eyes General Eye: normal appearance of both eyes Neck General: normal visual inspection Chest inspection of chest normal Resp Effort and Inspection: able to speak in complete sentences and symmetric chest movement Auscultation: clear to auscultation bilaterally Cardio regular rate and regular rhythm GI soft to palpation, non-tender and non-distended Extremity no calf tenderness Neuro oriented x3 Psych thought process normal Assessment & Plan Assessment/Plan (1) Change in bowel habit: PLAN: The patient was scheduled today via open access. Prior to my repeating her history and physical today I had not seen her since March 2021. Other than looser stools she denies acute symptoms. Plan to proceed with a colonoscopy possible biopsy or polypectomy as indicated. She has had an opportunity to ask and have questions answered. We will proceed as noted. Grzegorz Cummings M.D., F.A.C.S.
--- NOTE | 2022-07-04 11:16 | OP.COLON_ITS ---
Patient Name: Melissa Valenzuela Procedure Date: 07/04/2022 10:50 AM Date of : 1960 Age: 62 Procedure: Colonoscopy Indications: Screening for colorectal malignant neoplasm Providers: Grzegorz Cummings MD Referring MD: Grzegorz Cummings MD Medicines: See the Anesthesia note for documentation of the administered medications Patient Profile: Last Colonoscopy: date unknown. Complications: No immediate complications. Procedure: Pre-Anesthesia Assessment: - Prior to the procedure, a History and Physical was performed, and patient medications and allergies were reviewed. The patient's tolerance of previous anesthesia was also reviewed. The risks and benefits of the procedure and the sedation options and risks were discussed with the patient. All questions were answered, and informed consent was obtained. Prior Anticoagulants: The patient has taken no previous anticoagulant or antiplatelet agents. ASA Grade Assessment: II - A patient with mild systemic disease. After reviewing the risks and benefits, the patient was deemed in satisfactory condition to undergo the procedure. After I obtained informed consent, the scope was passed under direct vision. Throughout the procedure, the patient's blood pressure, pulse, and oxygen saturations were monitored continuously. The colonoscope was introduced through the anus and advanced to the cecum, identified by appendiceal orifice and ileocecal valve. The colonoscopy was performed without difficulty. The patient tolerated the procedure well. The quality of the bowel preparation was adequate to identify polyps. The ileocecal valve and the appendiceal orifice were photographed. Scope In: 10:56:03 AM Scope Withdrawal Time 0 hours 9 minutes 18 seconds Scope Out: 11:11:56 AM Total Procedure Duration Time 0 hours 15 minutes 53 seconds Findings: Hemorrhoids were found on perianal exam. Scattered diverticula were found in the sigmoid colon and descending colon. The exam was otherwise normal throughout the examined colon. Biopsies for histology were taken with a cold forceps from the entire colon for evaluation of microscopic colitis. Impression: - Hemorrhoids found on perianal exam. - Diverticulosis in the sigmoid colon and in the descending colon. - Biopsies were taken with a cold forceps from the entire colon for evaluation of microscopic colitis. Recommendation: - Discharge patient to home. - Resume previous diet. - Continue present medications. - Repeat colonoscopy in 10 years for screening purposes. - Telephone my office for pathology results in 1 week. Procedure Code(s): --- Professional --- 48189, Colonoscopy, flexible; with biopsy, single or multiple Diagnosis Code(s): --- Professional --- Z12.11, Encounter for screening for malignant neoplasm of colon K64.9, Unspecified hemorrhoids K57.30, Diverticulosis of large intestine without perforation or abscess without bleeding CPT copyright 2017 [employer]. All rights reserved. The codes documented in this report are preliminary and upon patient registration representative review may be revised to meet current compliance requirements. Grzegorz Cummings MD 07/04/2022 11:15:38 AM This report has been signed electronically. Number of Addenda: 0 Note Initiated On: 07/04/2022 10:50 AM
--- NOTE | 2022-07-04 11:17 | OP.CCLET_ITS ---
07/04/2022 Rey Palmer MD [address] [place] [address] Re : Colonoscopy procedure for Melissa Valenzuela Dear Dr. Palmer This procedure was performed on Monday, July 04, 2022. My impressions and recommendations are as follows: Impressions : - Hemorrhoids found on perianal exam. - Diverticulosis in the sigmoid colon and in the descending colon. - Biopsies were taken with a cold forceps from the entire colon for evaluation of microscopic colitis. Recommendations : - Discharge patient to home. - Resume previous diet. - Continue present medications. - Repeat colonoscopy in 10 years for screening purposes. - Telephone my office for pathology results in 1 week. My findings are described in the full procedure note, which is enclosed. If I can be of further assistance, please feel free to contact me at Doctor phone number(s): Work: . Sincerely, Grzegorz Cummings MD 07/04/2022 11:15:38 AM This report has been signed electronically.
== END 2022-07-04 11:56 | disposition home or self-care (01) ==
LOC: EN 08:58 → AC 09:00
PROVIDERS: PCP Family Medicine Geriatric Medicine; Referring Provider Surgery; Visit Provider Surgery
PROC: 0DJD8ZZ Inspection of Lower Intestinal Tract, Via Natural or Artificial Opening Endoscopic (ICD-10-PCS; CPT 45378; principal; 2022-07-04 10:10)
DX: Z12.11 Encounter for screening for malignant neoplasm of colon (principal); K57.30 Diverticulosis of large intestine without perforation or abscess without bleeding; K63.89 Other specified diseases of intestine; R19.4 Change in bowel habit; E78.00 Pure hypercholesterolemia, unspecified; K64.9 Unspecified hemorrhoids; M19.90 Unspecified osteoarthritis, unspecified site; K21.9 Gastro-esophageal reflux disease without esophagitis; G47.33 Obstructive sleep apnea (adult) (pediatric); F41.9 Anxiety disorder, unspecified; F32.A Depression, unspecified; E66.9 Obesity, unspecified; Z78.0 Asymptomatic menopausal state; Z79.899 Other long term (current) drug therapy
CPT/HCPCS: 45380; 88305; J7120; J2405

== ENCOUNTER → 2022-09-03 | Outpatient (CLI) | payer MEDICAID, SELFPAY ==
[2022-09-03 17:21] LABS: Absolute Neutrophil Count 2.8 X10^3/uL (2.0-7.7); Basophil# 0.02 X10^3/uL; Basophil% 0.3 % (0-1); Eosinophils% 1.7 % (0-5); Hematocrit 38.9 % (37-47); Hemoglobin 12.6 g/dL (12.0-15.0); Lymphocyte % 44.4 % (19-41); Mean Corp Hgb Conc 32.4 g/dL (32-36); Mean Corpuscular Hgb 30.8 pg (27.0-32.0); Mean Corpuscular Volume 95.1 fL (81-99); Mean Platelet Vol. 10.1 fl (6.2-12.0); Monocyte% 5.1 % (0-10); NRBC Flagged by Analyzer 0 % (0-5); Neutrophil # 2.82 X10^3/uL (2.7-7.7); Neutrophil % 48.3 % (47-70); Platelet Count 311 K/mm3 (150-450); RBC Distribution Width CV 12.3 % (11.6-14.6); RBC Distribution Width SD 43.3 fl (35.1-43.9); Red Blood Count 4.09 M/mm3 (4.2-5.4); White Blood Count 5.9 K/mm3 (4.4-11.0)
[2022-09-03 18:18] LABS: ALB/GLOB Ratio 1.1 RATIO (0.9-2.4); AST(SGOT) 14 U/L (15-37); Alanine Aminotransfer ALT/SGPT 13 U/L (13-56); Albumin, Serum 3.5 g/dL (3.2-5.0); Alkaline Phosphatase 71 U/L (45-117); Anion Gap 8 (5-15); BUN 10 mg/dL (7-18); Calcium,Total 9.6 mg/dL (8.5-10.1); Chloride 105 mmol/L (98-107); Creatinine, Serum 0.71 mg/dL (0.55-1.02); EST Glomerular Filtration Rate 88 mL/min (>60); Est Glom Filt Rate - Afr Amer 106 mL/min (>60); Globulin 3.2 g/dL (2.2-4.2); Glucose 100 mg/dL (74-106); Potassium 3.4 mmol/L (3.5-5.1); Protein, Total 6.7 g/dL (6.4-8.2); Sodium Level 141 mmol/L (136-145)
== END | disposition home or self-care (01) ==
LOC: POLAB3 13:14
PROVIDERS: PCP Family Medicine Geriatric Medicine; Visit Provider Family Medicine Geriatric Medicine
DX: I10 Essential (primary) hypertension (principal)
CPT/HCPCS: 36415; 80053; 84443; 85025

== ENCOUNTER 2022-09-11 00:53 | Emergency (ER) | payer MEDICAID, SELFPAY ==
[2022-09-11 00:53] VITALS: BP 173/109; PULSE 118; RESP 23; TEMP 36.6; O2SAT 100; BMI 23.8
[2022-09-11 00:56] VITALS: BP 173/109; PULSE 112; PULSE 115; RESP 23; TEMP 36.6; O2SAT 100
--- NOTE | 2022-09-11 01:07 | EDS_ITS ---
HPI History of Present Illness Chief Complaint: Nausea/Vomiting Detail of Chief Complaint: Upper abdominal pain with nausea and vomiting Informant: patient and spouse/S.O. Onset/Context/Timing Onset: Hours (Onset 1999) Context: Sudden Onset Timing: Continuous and Waxes and wanes Quality: Pain Location: Right upper quadrant/epigastric area Current Severity: Mild Maximum Severity: Severe Worsened by: Nothing Relieved by: Nothing Associated Symptoms Associated Symptoms: Nausea and vomiting without diarrhea or constipation Narrative Narrative: Patient is a 62-year-old woman who presents with upper abdominal pain predominantly on the right side with nausea and vomiting. She had 1 episode of vomiting prior to arrival. She had episode of vomiting during history and physical. Patient is status postcholecystectomy. She had a colectomy performed and tubal ligation. She denies history of bowel obstruction. She denies respiratory symptoms. She denies cardiac symptoms. She states she became sweaty and dizzy. When asked to define dizziness she informing she was lightheaded. He denies headache, visual, ocular auditory symptoms. Denies t rouble speech or swallowing. Denies problems with balance or coordination from baseline. Prior similar symptoms: No Recent Illness/Hospitalization: No PFSH [facility] Medical History Abnormal mammogram of right breast Acute urticaria MAIN (acute kidney injury) Amplified musculoskeletal pain, localized Anxiety Arthritis Back pain Bilateral buttock pain BPPV (benign paroxysmal positional vertigo) Cervical disc disorder at C5-C6 level with radiculopathy Cervical disc disorder with radiculopathy of mid-cervical region Cervical radiculopathy due to degenerative joint disease of spine Cervical spondylosis Change in bowel habit Chronic lower back pain CPAP (continuous positive airway pressure) dependence DDD (degenerative disc disease), lumbar Dehydration Depression Disorder of intervertebral disc at C5-C6 level with radiculopathy Dysphagia Exertional dyspnea Fatty liver Foreign body GERD with esophagitis Hematuria Hiatal hernia High cholesterol History of IBS History of pain when walking History of stress test HLD (hyperlipidemia) Hx of echocardiogram Hypertension Intervertebral disc disorder with radiculopathy of lumbar region Intractable low back pain Lumbar disc lesion Migraine Migraine headache Muscle spasm Myalgia Neck pain Non-smoker Obesity ARIELA (obstructive sleep apnea) Other intervertebral disc degeneration, lumbar region Post-menopausal Restless legs Right flank pain Sacroiliitis, not elsewhere classified Scoliosis Shortness of breath on exertion Spondylosis without myelopathy or radiculopathy, lumbar region Spondylosis without myelopathy or radiculopathy, lumbar region Streptococcus agalactiae infection Syncope Thoracic back pain Warts Wears glasses Home Medications buprenorphine 5 mcg/hour weekly transdermal patch (Butrans) 1 patch TP FR pain 02/08/18 [History Last Taken 11/16/19] buspirone 15 mg tablet 15 mg PO BID MOOD 11/22/19 [History Last Taken 11/21/19] pravastatin 40 mg tablet 40 mg PO QHS CHOLESTEROL 11/22/19 [History Last Taken 11/21/19] gabapentin 100 mg capsule 100 mg PO BID 09/11/20 [History Last Taken Unknown] nabumetone 500 mg tablet (Relafen) 750 mg PO BID 09/11/20 [History Last Taken Unknown] donepezil 5 mg tablet 5 mg PO DAILY 07/16/21 [History Last Taken Unknown] losartan 50 mg tablet 50 mg PO BID 07/01/22 [History Last Taken 07/04/22 07:30] cyclobenzaprine 10 mg tablet 10 mg PO BID 09/10/22 [History Last Taken Unknown] Allergy/AdvReac Type Severity Reaction Status Date / Time silicone Allergy Rash Verified 09/11/22 00:57 codeine AdvReac Itching Verified 09/11/22 00:57 doxycycline AdvReac Itching Verified 09/11/22 00:57 oxycodone AdvReac Itching Verified 09/11/22 00:57 Family History Mother Arthritis Hypercholesterolemia Hypertension Cancer Lung Father Cancer Lung Cirrhosis Emphysema lung Surgical History History of colectomy History of colonoscopy (~2015) History of Angel fundoplication History of tubal ligation S/P cholecystectomy S/P lumpectomy of breast [place] teeth extracted Social History (Updated 09/11/22 @ 01:[address] Rafael Avila MD) household members: spouse Smoking Status: Never smoker alcohol intake: never substance use type: does not use caffeine: No ROS ROS ED Constitutional Constitutional ED: Reports sweats; Denies chills, fever(s), subjective or weight loss Eyes Eyes: Denies blurry vision, change in vision or diplopia ENT ENT ED: Denies ear pain, rhinorrhea or sore throat Cardiovascular Cardiovascular: Denies chest pain or palpitations Respiratory/Chest Respiratory/Chest: Denies cough, dyspnea or dyspnea on exertion Gastrointestinal Gastrointestinal: Reports abdominal pain, nausea and vomiting; Denies diarrhea or melena Genitourinary Genitourinary ED: Denies dysuria, hematuria or urinary frequency Musculoskeletal Musculoskeletal: Denies arthralgias, back pain, myalgias or neck pain Integumentary Denies Abrasions or rash Neurologic Neurologic: Denies headache(s) or paresthesias Psychiatric Psychiatric: Reports anxiety Hematologic/Lymphatic Hematologic/Lymphatic: Reports systems reviewed and no addt'l complaints, except as documented and none EXAM Physical Exam Const Vital Signs: 09/11/22 00:53 09/11/22 00:56 09/11/22 00:56 Temperature 97.8 F 97.8 F 97.8 F Temperature Source Oral Oral Oral Pulse Rate 118 H 112 H 115 H Respiratory Rate 23 H 23 H 23 H Blood Pressure 173/109 H 173/109 H 173/109 H Blood Pressure Mean 130 130 130 Pulse Ox 100 100 100 Oxygen Delivery Method Room Air Room Air Room Air 09/11/22 02:07 09/11/22 03:07 Temperature 96.8 F L Temperature Source Temporal Pulse Rate 77 85 Respiratory Rate 18 10 L Blood Pressure 173/109 H Blood Pressure Mean 130 Pulse Ox 99 96 Oxygen Delivery Method Room Air Room Air Positive well nourished Constitutional Narrative: Patient had little eye contact. She began to vomit during the history and physical portion. She did become slightly diaphoretic when she vomited. General Appearance ED: Negative for cyanotic, diaphoretic or pallor HEENT Reports moist mucous membranes HEENT Narrative: Head is atraumatic normocephalic. Ears normal. Nares positive for rhinorrhea. She attributes this to the fact that she vomited. Eyes PERRL and EOMs intact bilaterally General Eye ED: Negative for pale conjunctiva or scleral icterus Neck no lymphadenopathy, supple and no JVD Chest Wall palpation of chest normal Resp normal respiratory effort and clear to auscultation bilaterally Cardio regular rhythm, S1 normal heart sound, S2 normal heart sound and no murmurs Rate: tachycardic GI normal to inspection, nondistended, normoactive bowel sounds, non-tender, non- distended and no masses; Negative for hepatosplenomegaly Inspection: Negative for abdominal distention Palpation: soft Back/Spine no CVA tenderness Extremity normal to inspection General Extremety ED: Negative for edema or tenderness General Extremity: Negative for edema Neuro oriented x3, CN's II-XII intact bilaterally and no sensory deficits noted Sensorium / Orientation: alert Psych Mood & Affect: depressed Skin no rashes or lesions noted, no wounds and No skin turgor normal General Skin Exam: Negative for elasticity normal, jaundice or pallor MDM MDM MDM Narrative Medical decision making narrative: With upper abdominal pain with nausea vomiting need to evaluate for choledocholithiasis, pancreatitis, viral illness. Patient has minimal vomiting since she is status post Angel fundoplication. There is no blood or coffee grounds noted. Since patient is tachycardic with nausea vomiting liter of normal saline was ordered. She was medicated with Zofran and morphine. She states she is had morphine in the past with no reaction. We will obtain liver panel, CBC and basic metabolic panel to assess for elevated liver as well as bilirubin and lipase. CBC to assess white count differential. Basic metabolic panel to assess renal function, electrolytes and CO2/anion gap. Old records were reviewed. There is no prior history of bowel obstruction. Since her abdomen is soft nondistended and she is having bowel movements this is very unlikely. Patient was reassessed and informed of her laboratory results at 0355. Patient states she does not need any for pain to go home with. She was informed of results. Lab Data Labs: Laboratory Results - last 24 hr 09/11/22 09/11/22 09/11/22 01:22 01:22 01:55 WBC Cancelled 7.9 Corrected WBC Cancelled RBC Cancelled 4.68 Hgb Cancelled 14.4 Hct Cancelled 43.2 MCV Cancelled 92.3 MCH Cancelled 30.8 MCHC Cancelled 33.3 RDW Std Deviation Cancelled 42.0 RDW Coeff of Andry Cancelled 12.3 Plt Count Cancelled 293 MPV Cancelled 9.4 Immature Gran % (Auto) Cancelled 0.300 Neut % (Auto) Cancelled 56.2 Lymph % (Auto) Cancelled 35.7 Gage % (Auto) Cancelled 5.5 Eos % (Auto) Cancelled 1.8 Baso % (Auto) Cancelled 0.5 Absolute Neuts (auto) Cancelled 4.4 Absolute Lymphs (auto) Cancelled 2.81 Total Counted Cancelled Neutrophils % (Manual) Cancelled Band Neutrophils % Cancelled Lymphocytes % (Manual) Cancelled Monocytes % (Manual) Cancelled Eosinophils % (Manual) Cancelled Basophils % (Manual) Cancelled Metamyelocytes % Cancelled Myelocytes % Cancelled Promyelocytes % Cancelled Blast Cells % Cancelled Plasma Cell % (Manual) Cancelled Other Cells % Cancelled Nucleated RBC % Cancelled 0 Nucleated RBCs/100 WBC Cancelled Differential Comment Cancelled Diff Path Review Cancelled Hypersegmented Neuts Cancelled Atypical Lymphocytes Cancelled Reactive Lymphocytes Cancelled Smudge Cells Cancelled Toxic Granulation Cancelled Toxic Vacuolation Cancelled Dohle Bodies Cancelled Sterling Rods Cancelled Platelet Estimate Cancelled Plt Morphology Comment Cancelled RBC Morphology Cancelled Polychromasia Cancelled Hypochromasia Cancelled Poikilocytosis Cancelled Basophilic Stippling Cancelled Anisocytosis Cancelled Microcytosis Cancelled Macrocytosis Cancelled Spherocytes Cancelled Sickle Cells Cancelled Target Cells Cancelled Tear Drop Cells Cancelled Ovalocytes Cancelled Stomatocytes Cancelled Reyna-Cankton Bodies Cancelled Robert Cells Cancelled Bite Cells Cancelled Crenated Cell Cancelled Acanthocytes (Spur) Cancelled Rouleaux Cancelled Schistocytes Cancelled Sodium Cancelled Potassium Cancelled Chloride Cancelled Carbon Dioxide Cancelled Anion Gap Cancelled BUN Cancelled Creatinine Cancelled Estim Creat Clear Calc Cancelled Est GFR (MDRD) Af Amer Cancelled Est GFR (MDRD) Non-Af Cancelled BUN/Creatinine Ratio Cancelled Glucose Cancelled Calcium Cancelled Total Bilirubin Cancelled Direct Bilirubin Cancelled AST Cancelled ALT Cancelled Alkaline Phosphatase Cancelled Total Protein Cancelled Albumin Cancelled Globulin Cancelled Lipase Cancelled 09/11/22 01:55 WBC Corrected WBC RBC Hgb Hct MCV MCH MCHC RDW Std Deviation RDW Coeff of Andry Plt Count MPV Immature Gran % (Auto) Neut % (Auto) Lymph % (Auto) Gage % (Auto) Eos % (Auto) Baso % (Auto) Absolute Neuts (auto) Absolute Lymphs (auto) Total Counted Neutrophils % (Manual) Band Neutrophils % Lymphocytes % (Manual) Monocytes % (Manual) Eosinophils % (Manual) Basophils % (Manual) Metamyelocytes % Myelocytes % Promyelocytes % Blast Cells % Plasma Cell % (Manual) Other Cells % Nucleated RBC % Nucleated RBCs/100 WBC Differential Comment Diff Path Review Hypersegmented Neuts Atypical Lymphocytes Reactive Lymphocytes Smudge Cells Toxic Granulation Toxic Vacuolation Dohle Bodies Sterling Rods Platelet Estimate Plt Morphology Comment RBC Morphology Polychromasia Hypochromasia Poikilocytosis Basophilic Stippling Anisocytosis Microcytosis Macrocytosis Spherocytes Sickle Cells Target Cells Tear Drop Cells Ovalocytes Stomatocytes Reyna-Cankton Bodies [place] Cells Bite Cells Crenated Cell Acanthocytes (Spur) Rouleaux Schistocytes Sodium 141 Potassium 3.3 L Chloride 106 Carbon Dioxide 31.0 Anion Gap 4 L BUN 13 Creatinine 0.73 Estim Creat Clear Calc 59.52 Est GFR (MDRD) Af Amer 104 Est GFR (MDRD) Non-Af 86 BUN/Creatinine Ratio 17.8 Glucose 109 H Calcium 10.2 H Total Bilirubin 0.70 Direct Bilirubin 0.14 AST 20 ALT 17 Alkaline Phosphatase 84 Total Protein 7.9 Albumin 4.1 Globulin 3.8 Lipase 516 H Radiography Diagnostic Testing: Clinical Impression(s) from Imaging Studies Abdomen/Pelvis CT 09/11/22 02:27 IMPRESSION: No specific finding to explain pain. Large colonic stool burden as can be seen with constipation. Electronically Signed: Jaydon Quigley MD at 3:24 EST , Discharge Plan Triage Chief Complaint: Nausea/Vomiting ED Provider: Rafael Avila Dx/Rx/DC Orders Clinical Impression: Right upper quadrant abdominal pain, Nausea & vomiting, Elevated lipase, Constipation, Sinus tachycardia Instructions: ED Constipation (Adult) Prescriptions: No Action cyclobenzaprine 10 mg tablet 10 mg PO BID buprenorphine [Butrans] 1 EACH patch weekly 1 patch TP FR Label Comments: apply 1 (ONE) patch every week, APPLIES ON THURSDAY pravastatin 40 MG tablet 40 mg PO QHS buspirone 15 MG tablet 15 mg PO BID gabapentin 100 MG capsule 100 mg PO BID nabumetone [Relafen] 500 MG tablet 750 mg PO BID donepezil 5 mg tablet 5 mg PO DAILY Label Comments: TAKE 1 TABLET BY MOUTH EVERY DAY AT BEDTIME losartan 50 mg Tablet 50 mg PO BID Primary Care Provider: Rye Palmer Chi Referrals: Rey Palmer Chi, MD [Primary Care Provider] - 1 Week if not improving Activity Restrictions/Additional Instructions: 1. Recommend Metamucil 3 times a day for the next week. 2. After the first week recommend Metamucil twice a day for a week. 3. There after take Metamucil once a day. Disposition Disposition: Home, Self Care
[2022-09-11] MEDS: Ondansetron 4 MG/2 ML Vial IV (01:37)
[2022-09-11] MEDS: Morphine 4 MG/ML Syringe IV ×2 (01:37→02:06)
[2022-09-11] MEDS: 0.9% Normal Saline 1,000 ML 1000 ML IV (01:38)
--- NOTE | 2022-09-11 01:55 | ED.RN ---
IV removed and charge nurse using ultrasound for IV
[2022-09-11 02:03] LABS: Absolute Lymphocyte Count 2.81 X10^3/uL (0.83-4.51); Absolute Neutrophil Count 4.4 X10^3/uL (2.0-7.7); Basophil# 0.04 X10^3/uL; Basophil% 0.5 % (0-1); Eosinophil# 0.14 X10^3/uL; Eosinophils% 1.8 % (0-5); Hematocrit 43.2 % (37-47); Hemoglobin 14.4 g/dL (12.0-15.0); Lymphocyte # 2.81 X10^3/ul (0.83-4.51); Lymphocyte % 35.7 % (19-41); Mean Corp Hgb Conc 33.3 g/dL (32-36); Mean Corpuscular Hgb 30.8 pg (27.0-32.0); Mean Corpuscular Volume 92.3 fL (81-99); Mean Platelet Vol. 9.4 fl (6.2-12.0); Monocyte# 0.43 X10^3/uL; Monocyte% 5.5 % (0-10); NRBC Flagged by Analyzer 0 % (0-5); Neutrophil # 4.43 X10^3/uL (2.7-7.7); Neutrophil % 56.2 % (47-70); Platelet Count 293 K/mm3 (150-450); RBC Distribution Width CV 12.3 % (11.6-14.6); Red Blood Count 4.68 M/mm3 (4.2-5.4); White Blood Count 7.9 K/mm3 (4.4-11.0)
[2022-09-11 02:07] VITALS: BP 173/109; PULSE 77; RESP 18; TEMP 36; O2SAT 99
[2022-09-11 02:19] LABS: AST(SGOT) 20 U/L (15-37); Alanine Aminotransfer ALT/SGPT 17 U/L (13-56); Albumin, Serum 4.1 g/dL (3.2-5.0); Alkaline Phosphatase 84 U/L (45-117); Anion Gap 4 (5-15); BUN 13 mg/dL (7-18); BUN/Creat Ratio 17.8 RATIO (10-20); Bilirubin, Direct 0.14 mg/dL (0.00-0.30); Calcium,Total 10.2 mg/dL (8.5-10.1); Chloride 106 mmol/L (98-107); Creatinine, Serum 0.73 mg/dL (0.55-1.02); EST Glomerular Filtration Rate 86 mL/min (>60); Est Glom Filt Rate - Afr Amer 104 mL/min (>60); Estimated Creatinine Clearance 59.52 ml/min; Globulin 3.8 g/dL (2.2-4.2); Glucose 109 mg/dL (74-106); Lipase 516 U/L (73-393); Potassium 3.3 mmol/L (3.5-5.1); Protein, Total 7.9 g/dL (6.4-8.2); Sodium Level 141 mmol/L (136-145)
--- NOTE | 2022-09-11 02:27 | CT_ITS ---
INDICATION: Pain, nausea and vomiting, elevated lipase EXAMINATION: CT ABDOMEN AND PELVIS WITH CONTRAST - CT Abdomen And Pelvis W/ Contrast Injection TECHNIQUE: Helically acquired images were obtained of the abdomen and pelvis following IV contrast. A radiation dose optimization technique was used for this scan. IV Contrast dosage and agent: 75ml isovue 370 Oral contrast: None. COMPARISON: 11/22/19. FINDINGS: LOWER CHEST: Lung bases are clear. No cardiomegaly or pericardial effusion. LIVER: Posterior right hepatic hypodense 2.1 cm mass, better characterized as hemangioma on prior CTs. No focal mass. GALLBLADDER AND BILIARY TREE: Cholecystectomy with chronic biliary ductal dilatation at 1.5cm. No intra- or extrahepatic biliary ductal dilation. PANCREAS: No focal cystic or solid mass. No gross peripancreatic inflammation organized fluid collection. Prominent pancreatic duct without evidence of obstructing stone or mass. SPLEEN: Normal size without focal cystic or solid mass. ADRENAL GLANDS: No nodules. KIDNEYS AND URETERS: Normal renal size and position. No hydronephrosis. PERITONEUM: No ascites or free air. No other fluid collection. BOWEL: Epigastric surgical change. No acute gastric finding. No small bowel obstruction or focal wall thickening. Normal appendix specimen and coronal reformats. Large colonic stool burden. Few distal colonic diverticuli without evidence of diverticulitis. LYMPH NODES: No enlarged mesenteric or retroperitoneal lymph nodes. VESSELS: Aortic atherosclerosis without ectasia. URINARY BLADDER: Unremarkable. REPRODUCTIVE ORGANS: Unremarkable uterus and adnexa.. ABDOMINAL WALL: No discrete abdominal or pelvic wall hernia. BONES: No lytic or blastic abnormality. CT/Abdomen/Pelvis W IV Cont ONLY IMPRESSION: No specific finding to explain pain. Large colonic stool burden as can be seen with constipation. Electronically Signed: Jaydon Quigley MD at 3:24 EST ,
[2022-09-11 03:07] VITALS: PULSE 85; RESP 10; O2SAT 96
== END 2022-09-11 04:13 | disposition home or self-care (01) ==
PROVIDERS: Emergency Provider Emergency Medicine; PCP Family Medicine Geriatric Medicine; Visit Provider Emergency Medicine
DX: R10.11 Right upper quadrant pain (principal); R11.2 Nausea with vomiting, unspecified; R74.8 Abnormal levels of other serum enzymes; K59.00 Constipation, unspecified; R00.0 Tachycardia, unspecified; M51.36 Other intervertebral disc degeneration, lumbar region; K76.0 Fatty (change of) liver, not elsewhere classified; G47.33 Obstructive sleep apnea (adult) (pediatric)
CPT/HCPCS: 74177; 80048; 80076; 83690; 85025; 96361; 96374; 96375; 96376; 99284; J7030; Q9967; A4216; J2405

== ENCOUNTER → 2022-09-16 | Outpatient (CLI) | payer MEDICAID, SELFPAY ==
--- NOTE | 2022-09-16 09:51 | US_ITS ---
STUDY: ABDOMINAL ULTRASOUND - ELASTOGRAPHY REASON FOR VISIT: Female, 62 years old. Fatty infiltration of the liver. TECHNIQUE: Liver stiffness measurements were obtained on a [employer] RS 85 ultrasound machine using a CA 1-7 probe following the SRU guidelines. 3 measurements were obtained using a 2-D-SWE method. The IQR/M was 13% suggesting a quality data set. TECHNICAL QUALITY: Adequate. COMPARISON: Comparison is made with prior study dated 09/19/2020. FINDINGS: Liver: Fatty infiltration of the liver. Median liver stiffness measured 10.1 kPa. US/Elastography Parenchyma/Organ IMPRESSION: Liver stiffness measures 10.1 kPa compatible with F2-F3 (Mild to moderate liver fibrosis) Metavir score. Electronically Signed: Terrence Chun MD at 10:32 EST ,
--- NOTE | 2022-09-16 09:51 | US_ITS ---
STUDY: ABDOMINAL ULTRASOUND - RIGHT UPPER QUADRANT REASON FOR VISIT: Female, 62 years old FATTY LIVER TECHNIQUE: Ultrasound evaluation of the right upper quadrant was performed with real-time and static hurtado-scale imaging. TECHNICAL QUALITY: Adequate. COMPARISON: None. FINDINGS: Liver: The liver measures 12.8 cm. There is a hyperechoic mass in the right lobe of the liver measures 2.4 x 1.9 x 1.7 cm is consistent with hemangioma. The bile ducts are within normal limits. There is hepatic color flow. The direction of portal flow is hepatopetal. There is no demonstrated mass lesion. Gallbladder: The patient is status post cholecystectomy. Common Bile Duct (C.B.D.): The common bile duct measures 11.2 mm. Pancreas: There is nonvisualization of the pancreas. Right Kidney: Normal size of the right kidney. The right kidney measures 9.2 x 4.4 x 4.1 cm. Normal renal cortex. The right cortex measures 1.6 cm. There is no demonstrated renal mass or cyst. There is no right hydronephrosis. US/Abdomen Limited IMPRESSION: Normal right upper quadrant ultrasound examination. There is a hyperechoic mass in the right lobe of the liver measures 2.4 x 1.9 x 1.7 cm is consistent with hemangioma. Electronically Signed: Alan Gamboa MD at 3:29 EST ,
== END | disposition home or self-care (01) ==
LOC: US 09:50
PROVIDERS: PCP Family Medicine Geriatric Medicine; Referring Provider Family Medicine Geriatric Medicine; Visit Provider Family Medicine Geriatric Medicine
DX: K76.0 Fatty (change of) liver, not elsewhere classified (principal)
CPT/HCPCS: 76705; 76981

== ENCOUNTER → 2022-10-28 | Outpatient (CLI) | payer MEDICAID, SELFPAY | END | disposition home or self-care (01) | LOC: POLAB3 15:31 | PROVIDERS: PCP Family Medicine Geriatric Medicine; Visit Provider Family Medicine Geriatric Medicine | DX: N39.0 Urinary tract infection, site not specified (principal) | CPT/HCPCS: 87077; 87086; 87088; 87186 ==

== ENCOUNTER → 2022-11-06 | Outpatient (CLI) | payer MEDICAID, SELFPAY ==
--- NOTE | 2022-11-06 12:00 | BI_ITS ---
MAMMOGRAPHY - BILATERAL SCREENING REASON FOR EXAM: Female, 62 years old. Routine annual screening examination. PERTINENT HISTORY: Non-contributory. History of prior right excisional breast biopsy and right ultrasound-guided breast biopsy. TECHNIQUE: Digital bilateral breast jacqui (3D mammographic acquisition) in the CC and MLO projections. 2-D mediolateral oblique (MLO) and craniocaudad (CC) views of both breasts were obtained. CAD: Full Field Digital Mammography with Computer Added Detection was performed. COMPARISON: Comparison is made with prior study dated 09/08/2020 and 11/30/2017. FINDINGS: Breast Composition: The breasts are heterogeneously dense, which may obscure small masses. There are no dominant masses or suspicious calcifications. Once again, there is a focal area of architectural distortion in the upper lateral portion of the right breast and keep with history of prior excisional breast biopsy. A tissue clip marker is also seen at that site. No other significant abnormalities are identified. There has been no significant change since the prior study. BI/SCRN MAMM (CAD)W/JACQUI BILAT IMPRESSION: Stable bilateral screening mammogram. Yearly follow-up mammogram recommended. (A) ASSESSMENT CATEGORY: BIRADS Category 2: Benign. A letter regarding these results will be sent to the patient by the facility within 30 days. Approximately 10% of breast cancers are not detected by mammography. A normal mammogram should not delay biopsy of a clinically suspicious abnormality. [id number] Electronically Signed: Terrence Chun MD at 13:09 EST ,
== END | disposition home or self-care (01) ==
PROVIDERS: PCP Family Medicine Geriatric Medicine; Referring Provider Family Medicine Geriatric Medicine; Visit Provider Family Medicine Geriatric Medicine
DX: Z12.31 Encounter for screening mammogram for malignant neoplasm of breast (principal)
CPT/HCPCS: 77063; 77067

== ENCOUNTER 2023-02-21 14:47 | Emergency (ER) | payer MEDICAID, SELFPAY ==
[2023-02-21 14:48] VITALS: BP 142/95; PULSE 94; RESP 16; TEMP 36.6; O2SAT 99
--- NOTE | 2023-02-21 14:57 | CT_ITS ---
STUDY: CT ABDOMEN AND PELVIS WITH CONTRAST REASON FOR EXAM: Female, 62 years old. rlq pain RADIATION DOSAGE (If Supplied By Facility): CTDIvol = ( 12.10 ) mGy, DLP = ( 499.70 ) mGycm TECHNIQUE: Transaxial images were obtained from the dome of the diaphragm to the symphysis pubis without oral contrast. IV 100mL Isovue-370 was administered. Sagittal and coronal images were reconstructed. Individualized dose optimization techniques were used for this CT. COMPARISON: 09/11/2022. FINDINGS: The visualized lung bases are unremarkable. The visualized portions of the heart are within normal limits. Normal shape and size of the liver. Stable subtle ill-defined 2 cm mass in the posterior segment right lobe previously shown to represent probable hemangioma. There is non-visualization of the gallbladder, which may be secondary to either contraction or a prior cholecystectomy. Dilated common bile duct measuring 1.3 cm across. Findings are stable. Correlate with liver function tests. Normal spleen. Normal pancreas. Normal bilateral adrenal glands. Normal right kidney. Normal left kidney. Evaluation of the GI tract is limited by absence of oral contrast. Cannot exclude stomach wall thickening. No dilated loops of bowel or evidence for obstruction. Cannot exclude segmental thickening of the junior of the small bowel. Enteritis is not excluded. There is suspicion of nonspecific thickening of the wall of the large bowel. Nonspecific colitis is not excluded. Cannot exclude enteritis or colitis. Moderate diffuse fecal retention. Diverticulosis without definite diverticulitis. Appendix not definitely seen. There is diffuse atherosclerotic calcification of the abdominal aorta with elongation and tortuosity, but without a demonstrated aneurysm. Normal inferior vena cava. Normal retroperitoneum. Normal urinary bladder. Normal visualized uterus. Normal abdominal wall. There are diffuse degenerative changes of the visualized lumbar spine. Mild levoconvex scoliosis. CT/Abdomen/Pelvis W IV Cont ONLY IMPRESSION: Limited evaluation of GI tract without oral contrast. Suggestion of possible nonspecific diffuse colitis. Consider colonoscopy. Dilated common bile duct. Correlate with liver function tests. Electronically Signed: Christian Anderson MD at 16:33 EDT ,
--- NOTE | 2023-02-21 15:05 | EX.ED.DYSGE1 ---
HPI <NEIL Cox - Last Filed: 02/21/23 16:54> History of Present Illness Chief Complaint: Abd Pain Narrative Narrative: 62-year-old female presents with 2 days of RLQ abdominal pain. Yesterday she had 2-3 episodes of diarrhea but none today. She having normal urination. No fever, chills, nausea, or vomiting. She is on Butrans patch for chronic back pain. She has had a cholecystectomy and hiatal hernia repair. PFS <NEIL Cox - Last Filed: 02/21/23 16:54> FOR[facility]LY [facility] Medical History Abnormal mammogram of right breast Acute urticaria MAIN (acute kidney injury) Amplified musculoskeletal pain, localized Anxiety Arthritis Back pain Bilateral buttock pain BPPV (benign paroxysmal positional vertigo) Cervical disc disorder at C5-C6 level with radiculopathy Cervical disc disorder with radiculopathy of mid-cervical region Cervical radiculopathy due to degenerative joint disease of spine Cervical spondylosis Change in bowel habit Chronic lower back pain CPAP (continuous positive airway pressure) dependence DDD (degenerative disc disease), lumbar Dehydration Depression Disorder of intervertebral disc at C5-C6 level with radiculopathy Dysphagia Exertional dyspnea Fatty liver Foreign body GERD with esophagitis Hematuria Hiatal hernia High cholesterol History of IBS History of pain when walking History of stress test HLD (hyperlipidemia) Hx of echocardiogram Hypertension Intervertebral disc disorder with radiculopathy of lumbar region Intractable low back pain Lumbar disc lesion Migraine Migraine headache Muscle spasm Myalgia Neck pain Non-smoker Obesity ARIELA (obstructive sleep apnea) Other intervertebral disc degeneration, lumbar region Post-menopausal Restless legs Right flank pain Sacroiliitis, not elsewhere classified Scoliosis Shortness of breath on exertion Spondylosis without myelopathy or radiculopathy, lumbar region Spondylosis without myelopathy or radiculopathy, lumbar region Streptococcus agalactiae infection Syncope Thoracic back pain Warts Wears glasses Home Medications buprenorphine 5 mcg/hour weekly transdermal patch (Butrans) 1 patch TP FR pain 02/08/18 [History Last Taken 11/16/19] buspirone 15 mg tablet 15 mg PO BID MOOD 11/22/19 [History Last Taken 11/21/19] pravastatin 40 mg tablet 40 mg PO QHS CHOLESTEROL 11/22/19 [History Last Taken 11/21/19] gabapentin 100 mg capsule 100 mg PO BID 09/11/20 [History Last Taken Unknown] nabumetone 500 mg tablet (Relafen) 750 mg PO BID 09/11/20 [History Last Taken Unknown] donepezil 5 mg tablet 5 mg PO DAILY 07/16/21 [History Last Taken Unknown] losartan 50 mg tablet 50 mg PO BID 07/01/22 [History Last Taken 07/04/22 07:30] cyclobenzaprine 10 mg tablet 10 mg PO BID 09/10/22 [History Last Taken Unknown] Allergy/AdvReac Type Severity Reaction Status Date / Time silicone Allergy Rash Verified 02/21/23 14:50 codeine AdvReac Itching Verified 02/21/23 14:50 doxycycline AdvReac Itching Verified 02/21/23 14:50 oxycodone AdvReac Itching Verified 02/21/23 14:50 Family History Mother Arthritis Hypercholesterolemia Hypertension Cancer Lung Father Cancer Lung Cirrhosis Emphysema lung Surgical History History of colectomy History of colonoscopy (~2015) History of Angel fundoplication History of tubal ligation S/P cholecystectomy S/P lumpectomy of breast [place] teeth extracted Social History (Updated 09/11/22 @ 01:[address] Rafael Avila MD) household members: spouse Smoking Status: Never smoker alcohol intake: never substance use type: does not use caffeine: No ROS <NEIL Cox - Last Filed: 02/21/23 16:54> ROS ED ROS Narrative Constitutional: Negative for fever, chills, malaise. CVS: Negative for chest pain. Respiratory: Negative for shortness of breath, cough. GI: Positive for abdominal pain, diarrhea. Negative for nausea, vomiting, constipation, melena, hematochezia. : Negative for dysuria, hematuria or frequency. EXAM <NEIL Cox - Last Filed: 02/21/23 16:54> Physical Exam Narrative Exam Narrative: CONST: Patient sitting in no acute distress. EYES: Normal inspection.. NECK: Normal inspection. RESP: No respiratory distress, CTAB. CVS: Regular rate and rhythm, no murmur, no gallop. ABD: Soft with RLQ tenderness, no guarding or rebound, nondistended, no hepatosplenomegaly. SKIN: Color normal, no rash, warm, dry, intact. EXTREMITIES: Normal appearance, no pedal edema. NEURO: Oriented x4. PSYCH: Normal affect. Const Vital Signs: 02/21/23 14:48 02/21/23 16:47 02/21/23 17:00 Temperature 97.8 F 97.6 F L Temperature Source Temporal Pulse Rate 94 78 82 Respiratory Rate 16 16 14 Blood Pressure 142/95 H 134/78 H 134/66 H Blood Pressure Mean 110 96 Pulse Ox 99 98 100 Oxygen Delivery Method Room Air Room Air <Dr. Len Becker MD - Last Filed: 02/21/23 19:11> Physical Exam Const Vital Signs: 02/21/23 14:48 02/21/23 16:47 02/21/23 17:00 Temperature 97.8 F 97.6 F L Temperature Source Temporal Pulse Rate 94 78 82 Respiratory Rate 16 16 14 Blood Pressure 142/95 H 134/78 H 134/66 H Blood Pressure Mean 110 96 Pulse Ox 99 98 100 Oxygen Delivery Method Room Air Room Air MDM <NEIL Cox - Last Filed: 02/21/23 16:54> MDM MDM Narrative Medical decision making narrative: Patient was evaluated for 2 days of RLQ abdominal pain and loose stools yesterday. She appears well and nontoxic. Afebrile with normal vital signs. She has right lower quadrant tenderness on exam but no peritoneal signs. CBC and BMP are within normal limits. Urinalysis negative for infection. CT shows possible nonspecific diffuse colitis. And also notes dilated common bile duct but patient has no RUQ pain and is status postcholecystectomy so I do not think this is related to her symptoms. She is on Butrans patches for chronic back pains I do not prescribe narcotics. I recommended Tylenol Motrin as needed. She was instructed on symptoms that would warrant return to the ER and should have a colonoscopy when improved. She was discharged in stable condition. Differential: Appendicitis, diverticulitis, IBD, IBS, unlikely SBO Lab Data Attestation: I reviewed the patient's lab results. Labs: Laboratory Results - last 24 hr 05/02/21/23 02/21/23 15:10 15:13 15:13 WBC 5.8 RBC 4.32 Hgb 13.3 Hct 41.2 MCV 95.4 MCH 30.8 MCHC 32.3 RDW Std Deviation 41.8 RDW Coeff of Andry 12.0 Plt Count 283 MPV 9.3 Immature Gran % (Auto) 0.200 Neut % (Auto) 41.7 L Lymph % (Auto) 49.3 H [place] % (Auto) 6.2 Eos % (Auto) 1.9 Baso % (Auto) 0.7 Absolute Neuts (auto) 2.4 Absolute Lymphs (auto) 2.86 Nucleated RBC % 0 Sodium 143 Potassium 3.6 Chloride 107 Carbon Dioxide 31.0 Anion Gap 5 BUN 12 Creatinine 0.77 Estim Creat Clear Calc 56.43 Est GFR (MDRD) Af Amer 97 Est GFR (MDRD) Non-Af 80 BUN/Creatinine Ratio 15.6 Glucose 104 Calcium 9.9 Urine Color Yellow Urine Clarity Clear Urine pH 6.0 Ur Specific [place] 1.020 Urine Protein 15 H Urine Glucose (UA) Normal Urine Ketones 5 H Urine Occult Blood Negative Urine Nitrite Negative Urine Bilirubin Negative Urine Urobilinogen 1 H Ur Leukocyte Esterase 25 H Urine RBC 0 SEEN Urine WBC 0-5 SEEN Ur Squamous Epith Cells 0-5 SEEN Urine Bacteria RARE Urine Mucus 1+ Radiography Diagnostic Testing: Clinical Impression(s) from Imaging Studies Abdomen/Pelvis CT 02/21/23 14:57 IMPRESSION: Limited evaluation of GI tract without oral contrast. Suggestion of possible nonspecific diffuse colitis. Consider colonoscopy. Dilated common bile duct. Correlate with liver function tests. Electronically Signed: Christian Anderson MD at 16:33 EDT , <Dr. Len Becker MD - Last Filed: 02/21/23 19:11> [facility] Narrative Medical decision making narrative: Patient was evaluated for 2 days of RLQ abdominal pain and loose stools yesterday. She appears well and nontoxic. Afebrile with normal vital signs. She has right lower quadrant tenderness on exam but no peritoneal signs. CBC and BMP are within normal limits. Urinalysis negative for infection. CT shows possible nonspecific diffuse colitis. And also notes dilated common bile duct but patient has no RUQ pain and is status postcholecystectomy so I do not think this is related to her symptoms. She is on Butrans patches for chronic back pains I do not prescribe narcotics. I recommended Tylenol Motrin as needed. She was instructed on symptoms that would warrant return to the ER and should have a colonoscopy when improved. She was discharged in stable condition. Differential: Appendicitis, diverticulitis, IBD, IBS, unlikely SBO Cornici: Patient was seen by me. I agree with the above extenders note, note was done by both me and the PA as I may have edited some of the above. Lab Data Labs: Laboratory Results - last 24 hr 02/21/23 02/21/23 02/21/23 15:10 15:13 15:13 WBC 5.8 RBC 4.32 Hgb 13.3 Hct 41.2 MCV 95.4 MCH 30.8 MCHC 32.3 RDW Std Deviation 41.8 RDW Coeff of Andry 12.0 Plt Count 283 MPV 9.3 Immature Gran % (Auto) 0.200 Neut % (Auto) 41.7 L Lymph % (Auto) 49.3 H [place] % (Auto) 6.2 Eos % (Auto) 1.9 Baso % (Auto) 0.7 Absolute Neuts (auto) 2.4 Absolute Lymphs (auto) 2.86 Nucleated RBC % 0 Sodium 143 Potassium 3.6 Chloride 107 Carbon Dioxide 31.0 Anion Gap 5 BUN 12 Creatinine 0.77 Estim Creat Clear Calc 56.43 Est GFR (MDRD) Af Amer 97 Est GFR (MDRD) Non-Af 80 BUN/Creatinine Ratio 15.6 Glucose 104 Calcium 9.9 Urine Color Yellow Urine Clarity Clear Urine pH 6.0 Ur Specific [place] 1.020 Urine Protein 15 H Urine Glucose (UA) Normal Urine Ketones 5 H Urine Occult Blood Negative Urine Nitrite Negative Urine Bilirubin Negative Urine Urobilinogen 1 H Ur Leukocyte Esterase 25 H Urine RBC 0 SEEN Urine WBC 0-5 SEEN Ur Squamous Epith Cells 0-5 SEEN Urine Bacteria RARE Urine Mucus 1+ Radiography Diagnostic Testing: Clinical Impression(s) from Imaging Studies Abdomen/Pelvis CT 02/21/23 14:57 IMPRESSION: Limited evaluation of GI tract without oral contrast. Suggestion of possible nonspecific diffuse colitis. Consider colonoscopy. Dilated common bile duct. Correlate with liver function tests. Electronically Signed: Christian Anderson MD at 16:33 EDT , Discharge Plan Triage Chief Complaint: Abd Pain ED Midlevel Provider: Maggie Yeh ED Provider: Len Becker Dx/Rx/DC Orders Clinical Impression: Abdominal pain, Colitis Instructions: Abdominal Pain Prescriptions: No Action cyclobenzaprine 10 mg tablet 10 mg PO BID buprenorphine [Butrans] 1 EACH patch weekly 1 patch TP FR Label Comments: apply 1 (ONE) patch every week, APPLIES ON THURSDAY pravastatin 40 MG tablet 40 mg PO QHS buspirone 15 MG tablet 15 mg PO BID gabapentin 100 MG capsule 100 mg PO BID nabumetone [Relafen] 500 MG tablet 750 mg PO BID donepezil 5 mg tablet 5 mg PO DAILY Label Comments: TAKE 1 TABLET BY MOUTH EVERY DAY AT BEDTIME losartan 50 mg Tablet 50 mg PO BID Primary Care Provider: Rey Palmer Chi Referrals: Rey Palmer Chi, MD [Primary Care Provider] - Activity Restrictions/Additional Instructions: Take Tylenol Motrin as needed, stay hydrated. Return to ER if symptoms worsen such as severe pain, intractable vomiting, blood in the stool, fever. Disposition Disposition: Home, Self Care Discharge Date/Time: 02/21/23 17:19
[2023-02-21 15:06] VITALS: BMI 24.7
[2023-02-21 15:11] LABS: Red Blood Cells-Urine 0 SEEN /hpf (0-5)
[2023-02-21] MEDS: 0.9% Normal Saline 1,000 ML 1000 ML IV (15:12)
[2023-02-21 15:22] LABS: Absolute Lymphocyte Count 2.86 X10^3/uL (0.83-4.51); Absolute Neutrophil Count 2.4 X10^3/uL (2.0-7.7); Basophil# 0.04 X10^3/uL; Basophil% 0.7 % (0-1); Eosinophil# 0.11 X10^3/uL; Eosinophils% 1.9 % (0-5); Hematocrit 41.2 % (37-47); Hemoglobin 13.3 g/dL (12.0-15.0); Lymphocyte # 2.86 X10^3/ul (0.83-4.51); Lymphocyte % 49.3 % (19-41); Mean Corp Hgb Conc 32.3 g/dL (32-36); Mean Corpuscular Hgb 30.8 pg (27.0-32.0); Mean Corpuscular Volume 95.4 fL (81-99); Mean Platelet Vol. 9.3 fl (6.2-12.0); Monocyte# 0.36 X10^3/uL; Monocyte% 6.2 % (0-10); NRBC Flagged by Analyzer 0 % (0-5); Neutrophil # 2.42 X10^3/uL (2.7-7.7); Neutrophil % 41.7 % (47-70); Platelet Count 283 K/mm3 (150-450); RBC Distribution Width SD 41.8 fl (35.1-43.9); Red Blood Count 4.32 M/mm3 (4.2-5.4); White Blood Count 5.8 K/mm3 (4.4-11.0)
[2023-02-21 15:23] LABS: Color, Urine Yellow (Yellow); Glucose, Dipstick Normal (Normal); Ketone-Dipstick 5 mg/dl (Negative); Leukocyte Esterase-Dipstick 25 /ul (Negative); Nitrite-Dipstick Negative (Negative); Occult Blood-Urine Negative /ul (Negative); Protein-Dipstick 15 mg/dl (Negative); Urine Bilirubin Dipstick Negative (Negative); Urine Clarity Clear (Clear); Urine Urobilinogen 1 mg/dl (Normal)
[2023-02-21 15:33] LABS: Anion Gap 5 (5-15); BUN 12 mg/dL (7-18); BUN/Creat Ratio 15.6 RATIO (10-20); Calcium,Total 9.9 mg/dL (8.5-10.1); Chloride 107 mmol/L (98-107); Creatinine, Serum 0.77 mg/dL (0.55-1.02); EST Glomerular Filtration Rate 80 mL/min (>60); Est Glom Filt Rate - Afr Amer 97 mL/min (>60); Estimated Creatinine Clearance 56.43 ml/min; Glucose 104 mg/dL (74-106); Potassium 3.6 mmol/L (3.5-5.1); Sodium Level 143 mmol/L (136-145)
[2023-02-21 16:47] VITALS: BP 134/78; PULSE 78; RESP 16; O2SAT 98
[2023-02-21 17:00] VITALS: BP 134/66; PULSE 82; RESP 14; TEMP 36.4; O2SAT 100
[2023-02-21] MEDS: Ketorolac 15 MG/ML Vial IV (17:11)
[2023-02-21 17:12] LABS: Bacteria RARE /hpf (None Seen); Mucous, Urine 1+ /hpf (<or=2+); Squamous Epithelial Cells - UA 0-5 SEEN /hpf (5-10); White Blood Cells 0-5 SEEN /hpf (0-5)
== END 2023-02-21 17:19 | disposition home or self-care (01) ==
PROVIDERS: Physician Assistant; Emergency Provider Emergency Medicine; PCP Family Medicine Geriatric Medicine; Visit Provider Emergency Medicine
DX: K52.9 Noninfective gastroenteritis and colitis, unspecified (principal); I10 Essential (primary) hypertension; G89.29 Other chronic pain; M54.9 Dorsalgia, unspecified; E78.00 Pure hypercholesterolemia, unspecified; K83.8 Other specified diseases of biliary tract; Z90.49 Acquired absence of other specified parts of digestive tract
CPT/HCPCS: 74177; 80048; 81001; 85025; 96361; 96374; 99283; J7030; Q9967

== ENCOUNTER → 2023-03-11 | Outpatient (CLI) | payer MEDICAID, SELFPAY ==
[2023-03-11 15:45] LABS: Absolute Lymphocyte Count 2.74 X10^3/uL (0.83-4.51); Absolute Neutrophil Count 2.8 X10^3/uL (2.0-7.7); Basophil# 0.05 X10^3/uL; Basophil% 0.8 % (0-1); Eosinophil# 0.21 X10^3/uL; Eosinophils% 3.4 % (0-5); Hematocrit 40.4 % (37-47); Hemoglobin 13.6 g/dL (12.0-15.0); Lymphocyte # 2.74 X10^3/ul (0.83-4.51); Lymphocyte % 44.6 % (19-41); Mean Corp Hgb Conc 33.7 g/dL (32-36); Mean Corpuscular Volume 95.1 fL (81-99); Mean Platelet Vol. 9.5 fl (6.2-12.0); Monocyte# 0.37 X10^3/uL; NRBC Flagged by Analyzer 0 % (0-5); Neutrophil # 2.77 X10^3/uL (2.7-7.7); Platelet Count 305 K/mm3 (150-450); RBC Distribution Width CV 12.2 % (11.6-14.6); RBC Distribution Width SD 42.4 fl (35.1-43.9); Red Blood Count 4.25 M/mm3 (4.2-5.4); White Blood Count 6.2 K/mm3 (4.4-11.0)
[2023-03-11 16:16] LABS: ALB/GLOB Ratio 1.1 RATIO (0.9-2.4); AST(SGOT) 22 U/L (15-37); Alanine Aminotransfer ALT/SGPT 19 U/L (13-56); Albumin, Serum 3.6 g/dL (3.2-5.0); Alkaline Phosphatase 91 U/L (45-117); Anion Gap 7 (5-15); BUN 11 mg/dL (7-18); BUN/Creat Ratio 13.4 RATIO (10-20); Calcium,Total 9.7 mg/dL (8.5-10.1); Chloride 107 mmol/L (98-107); Creatinine, Serum 0.82 mg/dL (0.55-1.02); EST Glomerular Filtration Rate 74 mL/min (>60); Est Glom Filt Rate - Afr Amer 90 mL/min (>60); Globulin 3.4 g/dL (2.2-4.2); Glucose 97 mg/dL (74-106); Potassium 3.6 mmol/L (3.5-5.1); Sodium Level 143 mmol/L (136-145); Thyroid Stim Hormone (TSH) 0.88 uIU/mL (0.358-3.74)
== END | disposition home or self-care (01) ==
LOC: LAB 14:50
PROVIDERS: PCP Family Medicine Geriatric Medicine; Referring Provider Family Medicine Geriatric Medicine; Visit Provider Family Medicine Geriatric Medicine
DX: I10 Essential (primary) hypertension (principal)
CPT/HCPCS: 36415; 80053; 84443; 85025

== ENCOUNTER 2023-06-07 16:06 | Emergency (ER) | payer MEDICAID, SELFPAY ==
[2023-06-07 16:07] VITALS: BP 143/82; PULSE 94; RESP 19; TEMP 36.6; O2SAT 100; BMI 25.0
--- NOTE | 2023-06-07 16:13 | EKG12_ITS ---
Test Reason : CP Blood Pressure : / mmHG Vent. Rate : 090 BPM Atrial Rate : 090 BPM P-R Int : 164 ms QRS Dur : 070 ms QT Int : 374 ms P-R-T Axes : 063 -10 061 degrees QTc Int : 457 ms Normal sinus rhythm Possible Inferior infarct , age undetermined Abnormal ECG Confirmed by YASMIN FELDMAN, RICARDO ([id number]), video effects editor ANA LUISA SU ([id number]) on 06/15/2023 7:30:34 AM Referred By: NINA Confirmed By:RICARDO HOFFMAN MD
--- NOTE | 2023-06-07 16:21 | ED.VIS.CHEST ---
HPI History of Present Illness Chief Complaint: Chest Pain Detail of Chief Complaint: Mid to lower sternal chest pain. Informant: patient Onset/Context/Timing Onset: Today Activity at onset: sudden Timing: Continuous Quality: Positive for Aching Location: - (Midsternal. Some nausea.) Current Severity: Moderate Maximum Severity: Moderate Worsened By: Movement of Torso Relieved By: Remaining Still Associated Symptoms: Negative for Nausea, Vomiting, Diaphoresis, Dyspnea, Cough, Fever, Lightheadedness, Acid Reflux or Palpitations Narrative Narrative: 63-year-old female denies any significant past medical history. Prior cholecystectomy. Denies any cardiac disease. Prior negative stress test. States about half an hour ago she had sudden onset of midsternal chest discomfort. Denies nausea or vomiting. Denies fever or chills. Denies shortness of breath. No hemoptysis. No leg pain or swelling. No history of DVT or PE. No prior history of cardiac disease. Pain is worsened by movement. She denies any recent travel, surgery or immobilization. Prior Similar Symptoms: Yes Recent Illness/Hospitalization: No CVD Risk Factors: Negative for Hypertension or Diabetes PE Risk Factors: Negative for Recent Travel/Surgery, Recent Immobilization, Prior DVT or PE, Cancer or OCP + Smoking + >/=35 TAD Risk Factors: Negative for Marfan's Syndrome PFSH PFS Medical History Abnormal mammogram of right breast Acute urticaria MAIN (acute kidney injury) Alcohol use Amplified musculoskeletal pain, localized Anxiety Arthritis Back pain Bilateral buttock pain BPPV (benign paroxysmal positional vertigo) Cervical disc disorder at C5-C6 level with radiculopathy Cervical disc disorder with radiculopathy of mid-cervical region Cervical radiculopathy due to degenerative joint disease of spine Cervical spondylosis Change in bowel habit Chronic lower back pain CPAP (continuous positive airway pressure) dependence DDD (degenerative disc disease), lumbar Dehydration Depression Disorder of intervertebral disc at C5-C6 level with radiculopathy Dysphagia Exertional dyspnea Fatty liver Foreign body GERD with esophagitis Heartburn Hematuria Hiatal hernia High cholesterol History of IBS History of pain when walking History of stress test HLD (hyperlipidemia) Hx of echocardiogram Hypertension Injury of head and neck Intervertebral disc disorder with radiculopathy of lumbar region Intractable low back pain Lumbar disc lesion Marijuana use Migraine Migraine headache Muscle spasm Myalgia Neck pain Non-smoker Obesity ARIELA (obstructive sleep apnea) Other intervertebral disc degeneration, lumbar region Post-menopausal Redness of skin Restless legs Right flank pain Sacroiliitis, not elsewhere classified Scoliosis Shortness of breath on exertion Spondylosis without myelopathy or radiculopathy, lumbar region Spondylosis without myelopathy or radiculopathy, lumbar region Streptococcus agalactiae infection Syncope Thoracic back pain Warts Wears glasses Home Medications buprenorphine 5 mcg/hour weekly transdermal patch (Butrans) 1 patch TP FR pain 02/08/18 [History Last Taken 11/16/19] buspirone 15 mg tablet 15 mg PO BID MOOD 11/22/19 [History Last Taken 11/21/19] pravastatin 40 mg tablet 40 mg PO QHS CHOLESTEROL 11/22/19 [History Last Taken 11/21/19] gabapentin 100 mg capsule 100 mg PO BID 09/11/20 [History Last Taken Unknown] losartan 50 mg tablet 50 mg PO BID 07/01/22 [History Last Taken 07/04/22 07:30] cyclobenzaprine 10 mg tablet 10 mg PO BID 09/10/22 [History Last Taken Unknown] donepezil 5 mg tablet 10 mg PO DAILY 03/09/23 [History Last Taken Unknown] Allergy/AdvReac Type Severity Reaction Status Date / Time silicone Allergy Rash Verified 06/05/23 13:29 codeine AdvReac Itching Verified 06/05/23 13:29 doxycycline AdvReac Itching Verified 06/05/23 13:29 oxycodone AdvReac Itching Verified 04/30/23 13:41 Family History Mother Arthritis Hypercholesterolemia Hypertension Cancer Lung Father Cancer Lung Cirrhosis Emphysema lung Surgical History History of colectomy History of colonoscopy (~2016) History of Angel fundoplication History of tubal ligation S/P cholecystectomy S/P lumpectomy of breast [place] teeth extracted Social History household members: spouse Smoking Status: Never smoker alcohol intake: never substance use type: does not use caffeine: No ROS ROS ED ROS Narrative Denies recent illness. 30 minutes ago started having lower sternal chest pain. Review of Systems ROS Unobtainable: Denies due to encephalopathy Constitutional Constitutional ED: Denies chills or fever(s) Eyes Eyes: Reports none ENT ENT ED: Denies ear pain Cardiovascular Cardiovascular: Reports as per HPI and chest pain; Denies palpitations or racing heartbeat Respiratory/Chest Respiratory/Chest: Denies cough or dyspnea Gastrointestinal Gastrointestinal: Denies abdominal pain, diarrhea, nausea or vomiting Genitourinary Genitourinary ED: Denies dysuria or hematuria Musculoskeletal Musculoskeletal: Denies arthralgias Integumentary Denies abscess or Abrasions Neurologic Neurologic: Denies headache(s) Psychiatric Psychiatric: Denies anxiety or depression Endocrine Endocrinology: Denies cold intolerance Hematologic/Lymphatic Hematologic/Lymphatic: Denies easy bleeding or easy bruising Allergic/Immunologic Allergic/Immunologic ED: Denies mouth swelling or tongue swelling EXAM Physical Exam Narrative Exam Narrative: Well-appearing 63-year-old female. Vital signs stable afebrile. Initial blood pressure 143/82. Pulse ox 100% room air no signs hypoxia. No distress. HEENT exam normal. Neck nontender. Lungs clear to auscultation bilaterally. Heart regular rhythm rate about 90 no murmur. Chest wall she has reproducible mid sternal chest discomfort. No ecchymosis or bruising. No redness or warmth. No signs of trauma. No subcu air or crepitance. Abdomen is soft and nontender. Normal bowel sounds no peritoneal signs. No tenderness. Moving all 4 extremities. Calves are nontender without edema or cords. Radial pulses are equal and symmetrical. Normal court recorder strength bilaterally. Dorsi plantarflexion intact. Back she has some upper musculoskeletal tenderness to her back spine is unremarkable. Neurologically she is awake and alert with no focal motor deficits. Const Vital Signs: 06/07/23 16:07 06/07/23 16:08 06/07/23 16:32 Temperature 97.8 F Temperature Source Temporal Pulse Rate 94 Respiratory Rate 19 H Respiratory Effort Normal Non-Labored Blood Pressure 143/82 H Blood Pressure Mean 102 Pulse Ox 100 Oxygen Delivery Method Room Air Room Air Positive well nourished; Negative for cachectic, contractures or unkempt General Appearance ED: NAD; Negative for unkempt, cachectic, contractures or pallor Nutritional Appearance: Negative for cachectic HEENT Reports moist mucous membranes normocephalic and atraumatic; Negative for trauma or tenderness Eyes PERRL and EOMs intact bilaterally General Eye ED: Negative for pale conjunctiva or scleral icterus Neck no lymphadenopathy, supple and no JVD General: Negative for tenderness Chest Wall inspection of chest normal and palpation of chest normal Chest: Negative for tenderness Resp normal respiratory effort and clear to auscultation bilaterally Effort and Inspection: Negative for respiratory distress Auscultation: Negative for rales, rhonchi or wheezes Cardio regular rate, regular rhythm, S1 normal heart sound, S2 normal heart sound and no murmurs Rate: Negative for bradycardia Peripheral Pulses: pulses 2+ throughout GI normal to inspection, nondistended, normoactive bowel sounds, soft to palpation, non-tender, non-distended and no masses Palpation: Negative for mass Back/Spine no CVA tenderness and no thoracic nor lumbar tenderness General Back: Negative for CVA tenderness Cervical Spine: Negative for cervical spine tenderness Extremity normal to inspection General Extremety ED: Negative for edema, pulses abnormal or tenderness General Extremity: Negative for edema or pulses abnormal Neuro oriented x3 and CN's II-XII intact bilaterally Sensorium / Orientation: awake, alert, oriented to person, oriented to place and oriented to time; Negative for confused, lethargic or stuporous Motor Exam: strength 5/5 throughout Psych Negative for mental status grossly normal Appearance: Negative for unkempt Attitude: No agitated Mood & Affect: Negative for depressed, anxious or tearful Skin no rashes or lesions noted and no wounds General Skin Exam: Negative for jaundice or pallor Rashes: No rashes noted Trauma: Negative for abrasion or laceration MDM MDM MDM Narrative Medical decision making narrative: 63-year-old with chest pain is reproducible may be musculoskeletal. Obviously rule out cardiac disease. Clinically I do not think this is dissection and she has no risk factors or prior history of DVT or PE. She undergo cardiac work-up. She does awaiting for pain currently. Initial EKG is unremarkable. Repeat exam patient is doing well at 5:25 PM. Again has reproducible chest wall pain. Work-up is negative. She is comfortable being discharged to home. I do not think she needs any additional imaging or labs. Treated with Motrin and Tylenol for pain. Ice to her chest wall follow-up with not improving. Return if worse. History & Record Review Discussion w/independent historian: Patient Additional record(s) reviewed:: Prior inpatient record, Prior outpatient record and Prior ED visit Lab Data Attestation: I reviewed the patient's lab results. Lab results narrative: CBC shows a normal white count of 6 H&H of 13 and 39. Platelets 288. D-dimer is normal at 0.39 Chemistries show anion gap of 4. Normal BUN and creatinine of 13 and 0.9. Glucose 107. Troponin of 5 and lipase of 26. Labs are all unremarkable as are the chest x-ray and EKG. Labs: Laboratory Results - last 24 hr 06/07/23 16:25 WBC 6.6 RBC 4.18 L Hgb 13.0 Hct 39.0 MCV 93.3 MCH 31.1 MCHC 33.3 RDW Std Deviation 41.7 RDW Coeff of Andry 12.2 Plt Count 288 MPV 9.3 Immature Gran % (Auto) 0.200 Neut % (Auto) 46.7 L Lymph % (Auto) 42.3 H [place] % (Auto) 8.0 Eos % (Auto) 2.0 Baso % (Auto) 0.8 Absolute Neuts (auto) 3.1 Absolute Lymphs (auto) 2.81 Nucleated RBC % 0 Differential Comment SCANNED D-Dimer Quant (PE/DVT) 0.39 Sodium 138 Potassium 4.6 Chloride 104 Carbon Dioxide 30.0 Anion Gap 4 L BUN 13 Creatinine 0.92 Estim Creat Clear Calc 46.62 Est GFR (MDRD) Af Amer 79 Est GFR (MDRD) Non-Af 65 BUN/Creatinine Ratio 14.2 Glucose 107 H Calcium 9.7 Troponin I High Sens 5 Lipase 26 Radiography Chest X-Ray - ED: 1 View, Read by ED Physician, Read by Radiologist, Normal, Heart, Lungs, Mediastinum, Bony Structures, No Acute Disease and Chronic Changes Diagnostic Testing: Clinical Impression(s) from Imaging Studies Chest X-Ray 06/07/23 16:35 IMPRESSION: No radiographic evidence of acute cardiopulmonary disease. Electronically Signed: Vimal Mckinney MD at 17:04 EDT Reading Location ID and State: [facility] / [place] , Service support , Chest x-ray, portable, single view interpreted by myself and the radiologist shows no acute abnormality. Normal cardiac silhouette. Normal mediastinum. Normal aortic knob. Lungs are unremarkable. Chronic changes. Rhythm Strip Rhythm Strip: Sinus Rhythm Rate: 90 Ectopy: None EKG Initial EKG: Attestation: I personally reviewed and interpreted this EKG as follows: Interpretation: Sinus Rhythm and No Acute Injury Pattern Comments: Normal sinus rhythm rate of 90 no acute signs of CO or ischemia. Discharge Plan Triage Chief Complaint: Chest Pain ED Provider: Dmitriy Moreno Dx/Rx/DC Orders Clinical Impression: Acute chest wall pain, Chest pain Instructions: ED Chest Wall Strain Prescriptions: No Action cyclobenzaprine 10 mg tablet 10 mg PO BID buprenorphine [Butrans] 1 EACH patch weekly 1 patch TP FR Patient Comments: apply 1 (ONE) patch every week, APPLIES ON THURSDAY pravastatin 40 MG tablet 40 mg PO QHS buspirone 15 MG tablet 15 mg PO BID gabapentin 100 MG capsule 100 mg PO BID donepezil 5 mg tablet 10 mg PO DAILY Patient Comments: TAKE 1 TABLET BY MOUTH EVERY DAY AT BEDTIME losartan 50 mg Tablet 50 mg PO BID Primary Care Provider: Rey Palmer Chi Referrals: Rey Palmer Chi, MD [Primary Care Provider] - 1 Week if not improving Activity Restrictions/Additional Instructions: Motrin, Advil or ibuprofen for pain and inflammation. Tylenol for pain. Ice to your chest wall because it seems to be chest wall pain. Follow-up with your doctor if not improving or return if feeling a lot worse. All your labs, EKG and chest x-ray today were normal. Disposition Disposition: Home, Self Care
[2023-06-07] MEDS: Aspirin 81 MG TAB.CHEW 324 MG PO (16:22)
--- NOTE | 2023-06-07 16:35 | RAD_ITS ---
EXAM: XR CHEST, 1 VIEW CLINICAL INDICATION: chest pain TECHNIQUE: Frontal view of the chest. COMPARISON: 07.16.21 FINDINGS: LUNGS AND PLEURAL SPACES: Unremarkable. No consolidation or edema. No pneumothorax. No effusion. HEART: Unremarkable. Cardiac silhouette not enlarged. MEDIASTINUM: Central airways and mediastinal contour are unremarkable. BONES/JOINTS: Unremarkable. SOFT TISSUES: Unremarkable. RAD/Chest 1 View (Portable) IMPRESSION: No radiographic evidence of acute cardiopulmonary disease. Electronically Signed: Vimla Mckinney MD at 17:04 EDT ,
[2023-06-07 16:37] LABS: Absolute Lymphocyte Count 2.81 X10^3/uL (0.83-4.51); Absolute Neutrophil Count 3.1 X10^3/uL (2.0-7.7); Basophil# 0.05 X10^3/uL; Basophil% 0.8 % (0-1); Eosinophil# 0.13 X10^3/uL; Lymphocyte # 2.81 X10^3/ul (0.83-4.51); Lymphocyte % 42.3 % (19-41); Mean Corp Hgb Conc 33.3 g/dL (32-36); Mean Corpuscular Hgb 31.1 pg (27.0-32.0); Mean Corpuscular Volume 93.3 fL (81-99); Mean Platelet Vol. 9.3 fl (6.2-12.0); Monocyte# 0.53 X10^3/uL; NRBC Flagged by Analyzer 0 % (0-5); Neutrophil # 3.11 X10^3/uL (2.7-7.7); Neutrophil % 46.7 % (47-70); POSITIVE MORPHOLOGY YES; Platelet Count 288 K/mm3 (150-450); RBC Distribution Width CV 12.2 % (11.6-14.6); RBC Distribution Width SD 41.7 fl (35.1-43.9); Red Blood Count 4.18 M/mm3 (4.2-5.4); White Blood Count 6.6 K/mm3 (4.4-11.0)
[2023-06-07 16:45] LABS: Differential Indicated SCAN CRITERIA MET
[2023-06-07 17:00] LABS: D-Dimer Quantitative (DVT/PE) 0.39 FEU/ug/m (0.27-0.49)
[2023-06-07 17:15] LABS: Anion Gap 4 (5-15); BUN 13 mg/dL (7-18); BUN/Creat Ratio 14.2 RATIO (10-20); Calcium,Total 9.7 mg/dL (8.5-10.1); Chloride 104 mmol/L (98-107); Creatinine, Serum 0.92 mg/dL (0.55-1.02); EST Glomerular Filtration Rate 65 mL/min (>60); Est Glom Filt Rate - Afr Amer 79 mL/min (>60); Estimated Creatinine Clearance 46.62 ml/min; Glucose 107 mg/dL (74-106); Lipase 26 U/L (13-75); Potassium 4.6 mmol/L (3.5-5.1); Sodium Level 138 mmol/L (136-145); Troponin-I HS (w/2H Reflex) 5 pg/mL (3.0-54.0)
[2023-06-07 17:16] LABS: Differential Comment SCANNED
[2023-06-07 17:54] VITALS: BP 134/78; PULSE 68; RESP 16; O2SAT 98
[2023-06-07 18:32] LABS: Reflex Troponin-HS? (from REC) Y
== END 2023-06-07 17:55 | disposition home or self-care (01) ==
PROVIDERS: Emergency Provider Emergency Medicine; PCP Family Medicine Geriatric Medicine; Visit Provider Emergency Medicine
DX: R07.89 Other chest pain (principal); R07.2 Precordial pain; I10 Essential (primary) hypertension; E78.00 Pure hypercholesterolemia, unspecified; M54.50 Low back pain, unspecified; G89.29 Other chronic pain; K21.00 Gastro-esophageal reflux disease with esophagitis, without bleeding; Z79.899 Other long term (current) drug therapy
CPT/HCPCS: 71045; 80048; 83690; 84484; 85025; 85379; 93005; 99285; A4216

== ENCOUNTER 2023-06-09 06:52 | Day surgery (SDC) | payer MEDICAID, SELFPAY ==
[2023-06-09] VITALS (7 sets, daily range): BP systolic 89–139; BP diastolic 46–72; PULSE 65–73; RESP 16; TEMP 36.4–36.6; O2SAT 93–97; BMI 27.8
--- NOTE | 2023-06-09 | GASB_PTH ---
PATIENT: PREETI HERNÁNDEZ LOC: EN U#:[id number] AGE/SX: 63/F ROOM: RE06/09/[address]: Dr. Grzegorz Cummings MD : 1960 BED: DIS: 06/09/2023 SPEC #: [id number] RECD: 06/09/23 12:26 STATUS: WILDER HOSEA #: [id number] NELLIE: 06/09/23 00:[address]: Grzegorz Cummings DEPT: SURGICAL PATHOLOGY RECD BY: Alberto Wong ENTERED: 06/09/23 12:27 SP TYPE: Gastric Bx OTHR DR: Dr. Rey Palmer MD Tissues: A - Duodenum, NOS B - Gastric mucous membrane C - Esophageal mucous membrane D - Esophageal mucous membrane Procedures: Surgery Specimen Level IV HEADER OPERATION: EGD with biopsies PRE-OP DIAGNOSIS: GERD TISSUE SUBMITTED: A - Duodenum biopsy, B - Antrum biopsy for H. pylori and path, C - Distal esophagus biopsy, D - Mid esophagus biopsy MICROSCOPIC DIAGNOSIS A. Duodenum, biopsy: No pathologic change. B. Gastric antrum, biopsy: Chronic gastritis. See comment. C. Distal esophagus, biopsy: Fragments of benign gastric mucosa. No evidence of inflammation. D. Mid esophagus, biopsy: Fragments of benign squamous mucosa. No evidence of inflammation. AM:samuel 06/10/2023 COMMENT B. The results of immunohistochemistry for Helicobacter pylori will be reported separately ([id number]). MICROSCOPIC DESCRIPTION Slides are reviewed. GROSS DESCRIPTION A - Received in fixative is one container labeled with the patient's name and designated duodenum biopsy. The specimen consists of one irregular fragment of light christine soft tissue that measures 0.4 x 0.4 x 0.1 cm. The specimen is totally submitted in one cassette. B - Received in fixative is one container labeled with the patient's name and designated antrum biopsy. The specimen consists of two irregular fragments of light christine soft tissue that in aggregate measure 0.6 x 0.3 x 0.1 cm. The specimen is totally submitted in one cassette. C - Received in fixative is one container labeled with the patient's name and designated distal esophagus biopsy. The specimen consists of one irregular fragment of light christine soft tissue that measures 0.4 x 0.3 x 0.1 cm. The specimen is totally submitted in one cassette. D - Received in fixative is one container labeled with the patient's name and designated mid esophagus biopsy. The specimen consists of two irregular fragments of light christine soft tissue that in aggregate measure 0.5 x 0.3 x 0.1 cm. The specimen is totally submitted in one cassette. / SJ:rg 06/09/2023 TC:3 CPT: 70313 x4
--- NOTE | 2023-06-09 06:55 | HP.PCM_ITS ---
History and Physical Date of Admission: 06/09/23 Visit Reasons: GERD S/P FUNDOPLICATION 2018 Chief Complaint: change in bowel habits, abd pain Allergies silicone Allergy (Verified 04/30/23 13:41) Rashcodeine Adverse Reaction (Verified 04/30/23 13:41) Itchingdoxycycline Adverse Reaction (Verified 04/30/23 13:41) Itchingoxycodone Adverse Reaction (Verified 04/30/23 13:41) Itching Medications buprenorphine 5 mcg/hour weekly transdermal patch (Butrans) 1 patch TP FR pain 02/08/18 [History Confirmed 04/30/23] buspirone 15 mg tablet 15 mg PO BID MOOD 11/22/19 [History Confirmed 04/30/23] pravastatin 40 mg tablet 40 mg PO QHS CHOLESTEROL 11/22/19 [History Confirmed 04/30/23] gabapentin 100 mg capsule 100 mg PO BID 09/11/20 [History Confirmed 04/30/23] nabumetone 500 mg tablet (Relafen) 750 mg PO BID 09/11/20 [History Confirmed 04/30/23] losartan 50 mg tablet 50 mg PO BID 07/01/22 [History Confirmed 04/30/23] cyclobenzaprine 10 mg tablet 10 mg PO BID 09/10/22 [History Confirmed 04/30/23] donepezil 5 mg tablet 10 mg PO DAILY 03/09/23 [History Confirmed 04/30/23] PFSH Medical History Abnormal mammogram of right breast Acute urticaria MAIN (acute kidney injury) Amplified musculoskeletal pain, localized Anxiety Arthritis Back pain Bilateral buttock pain BPPV (benign paroxysmal positional vertigo) Cervical disc disorder at C5-C6 level with radiculopathy Cervical disc disorder with radiculopathy of mid-cervical region Cervical radiculopathy due to degenerative joint disease of spine Cervical spondylosis Change in bowel habit Chronic lower back pain CPAP (continuous positive airway pressure) dependence DDD (degenerative disc disease), lumbar Dehydration Depression Disorder of intervertebral disc at C5-C6 level with radiculopathy Dysphagia Exertional dyspnea Fatty liver Foreign body GERD with esophagitis Hematuria Hiatal hernia High cholesterol History of IBS History of pain when walking History of stress test HLD (hyperlipidemia) Hx of echocardiogram Hypertension Intervertebral disc disorder with radiculopathy of lumbar region Intractable low back pain Lumbar disc lesion Migraine Migraine headache Muscle spasm Myalgia Neck pain Non-smoker Obesity ARIELA (obstructive sleep apnea) Other intervertebral disc degeneration, lumbar region Post-menopausal Restless legs Right flank pain Sacroiliitis, not elsewhere classified Scoliosis Shortness of breath on exertion Spondylosis without myelopathy or radiculopathy, lumbar region Spondylosis without myelopathy or radiculopathy, lumbar region Streptococcus agalactiae infection Syncope Thoracic back pain Warts Wears glasses Surgical History History of colectomy History of colonoscopy (~2016) History of Angel fundoplication History of tubal ligation S/P cholecystectomy S/P lumpectomy of breast [place] teeth extracted Family History Mother Arthritis Hypercholesterolemia Hypertension Cancer LungFather Cancer Lung Cirrhosis Emphysema lung Social History household members: spouse Smoking Status: Never smoker alcohol intake: never substance use type: does not use caffeine: No HPI HPI HPI: 63-year-old female returns to discuss GERD symptoms. I have previously assisted her with her breast lumpectomy for benign disease. Also March 04, 2019 performed a upper endoscopy showing reflux esophagitis and chronic gastritis. February 2019 she had esophageal manometry demonstrating normal motility. June 13, 2019 because of intractable reflux I did a laparoscopic Angel fundoplication. That procedure technically appeared to go well. Because of concerns about esophageal dysphagia and trouble having swallowing on June 28, 2019 I did a postoperative esophagogastroduodenoscopy. The Angel wrap appeared to be intact. I did do a gentle dilatation to 20 mm. All findings otherwise visually appeared to be normal. She was seen back in the office by Janelle Denton PA-C on July 11 and was doing well. The patient presents today. She is complaining that she had constipation and wanted to be referred to see Dr. Brown Friend but Dr. Brown Friend is not taking new patients so that frustrated her. Later in the conversation however she said that she has been having some diarrhea. She states that just a month ago she has had recurrence of reflux type symptoms heartburn. She has been taking [id number] Tums. My previous notes from April 02, 2021 document the following with the patient presenting complaining of change in bowel habits and abdominal pain. Subsequently on April 02, 2021 I pursued a colonoscopy. That demonstrated hemorrhoids diverticulosis of the sigmoid and descending colon unsatisfactory bowel prep very severe sigmoid diverticulosis. Subsequently July 04, 2022 we repeated a colonoscopy. Hemorrhoids and diverticulosis identified but exam was otherwise normal.. Random biopsy was simply showed melanosis coli. HPI: PREETI HERNÁNDEZ, is a 61 F who presents to the office today for surgical consultation regarding abdominal cramping. The patient is referred by Dr. Palmer and a written copy of my surgical consult and recommendations will return to him. I have previously assisted this patient on March 13, 2019 with a laparoscopic Angel fundoplication. This was performed because of intractable gastroesophageal reflux disease. She had a moderately large hiatal hernia. She also had some findings at the time suggesting some bile reflux and mild duodenitis. Her esophageal manometry study of March 10, 2019 was normal. In the postoperative period on June 28, 2019 because of esophageal dysphagia I did do a postoperative EGD and dilated her Angel wrap to 20 mm. Also previously October 16, 2016 because of abnormal imaging data wire localized lumpectomy upper outer quadrant right breast with final pathology showing focal minimal fibrocystic change with adenosis and intraductal hyperplasia without atypia but there was extensive dense fibrosis. There were focal changes consistent with t he previous needle core biopsy site and focal microcalcifications but no evidence of malignancy. The patient has had a previous liver ultrasound September 19, 2020 demonstrating evidence of a previous cholecystectomy and fatty infiltration of the liver. On November 22, 2019 because of abdominal pain she had a CT scan of the abdomen and pelvis with contrast. A liver hemangioma in segment 5 was unchanged. Evidence of the Angel fundoplication noted. It was felt to be a normal examination. The patient's current concern is that she is having severe cramping of her abdomen. Claims that this has been going on for several months. She will then alternate with having diarrhea and then severe constipation. She states that she takes 2 stool softeners daily. She also takes MiraLAX as needed. She is seen by local pain specially and has a fentanyl pain patch in place because of degenerative changes of her back. She states that has been ongoing for several years and she is not sure that that correlates with her current problem. She also complains that sometimes when she has her severe cramping that she can break out in a diffuse sweat and become lightheaded. As of February 28, 2021 her white blood cell count was 6.4 with a hemoglobin 13.5 hematocrit 41.5 platelet count 327,000 and a normal shift. BUN was 8 and creatinine 0.83. Liver function tests were normal. She does note that she has had a history of a fatty liver. She states that she has been told that it has a rating of 3-4. I mention her CT scan of approximately year ago through the emergency room. She states that that was for right-sided pain. She states that her current problem seems to be different. She used to weigh 203 pounds. She currently weighs approximately 135 pounds. She states some of that weight loss occurred in her postoperative period from her laparoscopic Angel but that she had a progressive loss she states dating back to a previous laparoscopic cholecystectomy. The only other abdominal surgery she had was a tubal ligation ROS General General: Yes fatigue; No weight change, appetite, colon cancer, breast cancer or weakness HEENT HEENT: No difficulty swallowing, eye injury, eye surgery, swollen glands or hoarseness Endo Endocrine: No thyroid disease, diabetes mellitus, thyroid cancer, Hair loss, heat intolerance or cold intolerance Musc Musculoskeletal: Yes back problems and arthritis; No rheumatoid arthritis, gout or joint pain Cardio Cardiovascular: No murmur, pacemaker, heart disease, atrial fibrillation, high blood pressure, heart attack, heart stent, palpitations, shortness of breat with exertion or chest pain Psych Psychiatric: Yes anxiety; No depression or hearing voices Resp Respiratory: No shortness of breath, Yes sleep apnea, No cough, No COPD, No asthma, No emphysema and No wheezing Gastro Gastrointestinal: Yes abdominal pain, Yes nausea or vomiting, Yes diarrhea, Yes constipation, No blood in stool, Yes acid reflux, Yes hemorrhoids, No ulcers, No gallbladder problem and No black,tarry stools Horacio Hematologic: No blood thinners, No blood disorders, No bleeding, No anemia and No blood clots Neuro Neurologic: No weakness Exam Const General: cooperative, comfortable and no acute distress Nutritional Appearance: average body habitus [facility] Head: normal to inspection Eyes General: appearance normal, both eyes and all related structures Neck Neck: normal visual inspection Resp Effort & Inspection: normal respiratory effort Cardio Rate: regular rate Rhythm: regular rhythm GI Palpation: soft and no hepatosplenomegaly Auscultation: normal bowel sounds Skin General: no rashes or lesions noted Neuro General: patient alert, patient awake and patient oriented x3 Psych Appearance: grossly normal Assessment and Plan Assessment and Plan (1) Anxiety: Status: Chronic Comment: IN THE PAST, ON MED (2) GERD (gastroesophageal reflux disease): Status: Acute Qualifiers: Esophagitis presence: esophagitis presence not specified Qualified Code(s): K21.9 - Gastro-esophageal reflux disease without esophagitis Plan: As the patient has had previous reflux surgery I think it is reasonable to offer her a evaluate of esophagogastroduodenoscopy. Looking through her previous past medical history list it is very extensive. It is not completely clear to me that we will find an actionable disease. I will plan on taking biopsies if appropriate. My initial suspicion is that this will simply require reassurance and/or medical treatment. I am hoping that we will not find a surgically treatable problem. Copy: Dr. Rey Cummings M.D., F.A.C.S. I have examined the patient and the H&P has been reviewed. There are no clinical changes since date of exam. Grzegorz Cummings M.D., F.A.C.S.
[2023-06-09] MEDS: Lactated Ringers 1,000 ML 15 ML IV (07:15)
--- NOTE | 2023-06-09 08:00 | IMM_PTH ---
PATIENT: PREETI HERNÁNDEZ LOC: EN U#:[id number] AGE/SX: 63/F ROOM: RE06/09/[address]: Dr. Grzegorz Cummings MD : 1960 BED: DIS: 06/09/2023 SPEC #: [id number] RECD: 06/09/23 13:30 STATUS: WILDER REDewey #: [id number] NELLIE: 06/09/23 08:[address]: Grzegorz Cummings DEPT: IMMUNOHISTOCHEMISTRY RECD BY: Lashonda Larose ENTERED: 06/09/23 13:31 SP TYPE: IMMUNO OTHR DR: Dr. Rey Palmer MD Tissues: B - Stomach, NOS Procedures: H Pylori (initial) PHYSICIAN & INSTITUTION [place] [id number] SPECIMEN INFORMATION: Tissue Source: B - Antrum Clinical Info: Anxiety, GERD Specimen Number: [id number] CPT code: 13203 METHODOLOGY: Deparaffinized sections of prefer/formalin-fixed tissue or PAP/DQ stained slides are incubated with monoclonal/polyclonal antibodies/oligonucleotide probes. Localization is made via biotin free immunoperoxidase method. Appropriate controls are performed and reacted as expected. Results on target cell population are indicated in the following table: RESULTS: ANTIBODY / CLONE RESULT Block B H Pylori (polyclonal) negative These tests were developed and their performance characteristics determined by [facility]. They may not have been cleared or approved by the U.S. Food and Drug Administration. The FDA has determined that such clearance or approval is not necessary. The above immunohistochemical/dualISH markers are ordered and reviewed by the Pathologist. INTERPRETATION: B. Antrum, biopsy: Negative for Helicobacter pylori organisms. AM:samuel 06/10/2023
--- NOTE | 2023-06-09 08:23 | OP.EGD_ITS ---
Patient Name: Melissa Valenzuela Procedure Date: 06/09/2023 7:59 AM Date of : 1960 Age: 63 Procedure: Upper GI endoscopy Indications: Odynophagia Providers: Grzegorz Cummings MD Referring MD: Rey Palmer MD Medicines: See the Anesthesia note for documentation of the administered medications Complications: No immediate complications. Procedure: Pre-Anesthesia Assessment: - Prior to the procedure, a History and Physical was performed, and patient medications and allergies were reviewed. The patient's tolerance of previous anesthesia was also reviewed. The risks and benefits of the procedure and the sedation options and risks were discussed with the patient. All questions were answered, and informed consent was obtained. Prior Anticoagulants: The patient has taken no anticoagulant or antiplatelet agents. ASA Grade Assessment: II - A patient with mild systemic disease. After reviewing the risks and benefits, the patient was deemed in satisfactory condition to undergo the procedure. After obtaining informed consent, the endoscope was passed under direct vision. Throughout the procedure, the patient's blood pressure, pulse, and oxygen saturations were monitored continuously. The gastroscope was introduced through the mouth, and advanced to the second part of duodenum. The upper GI endoscopy was accomplished without difficulty. The patient tolerated the procedure well. Scope In: 8:08:54 AM Scope Out: 8:14:40 AM Total Procedure Duration Time 0 hours 5 minutes 46 seconds Findings: Diffuse mild mucosal changes characterized by scalloping were found in the middle third of the esophagus. Biopsies were taken with a cold forceps for histology. Evidence of a Angel fundoplication was found in the lower third of the esophagus. The wrap appeared intact. Biopsies were taken with a cold forceps for histology. The Z-line was regular and was found 38 cm from the incisors. Diffuse moderate inflammation characterized by erosions was found in the gastric antrum. Biopsies were taken with a cold forceps for histology. The examined duodenum was normal. Biopsies were taken with a cold forceps for histology. Impression: - Scalloped mucosa in the esophagus. Biopsied. - A Angel fundoplication was found. The wrap appears intact, slightly loose. Biopsied. - Z-line regular, 38 cm from the incisors. - Chronic bile gastritis. Biopsied. - Normal examined duodenum. Biopsied. Bile reflux within the stomach dramatically noted. This may be causative to the patient's symptoms. Although the Angel fundoplication is slightly loose did not see any inflammation at the EG junction. Likely will not require treatment Scalloping of the mid esophagus suggestive of possible eosinophilic esophagitis. Will await biopsies Recommendation: - Discharge patient to home. - Resume previous diet. - Continue present medications. - Use sucralfate tablets 1 gram PO BID. - Telephone my office for pathology results in 1 week. Procedure Code(s): --- Professional --- 16393, Esophagogastroduodenoscopy, flexible, transoral; with biopsy, single or multiple Diagnosis Code(s): --- Professional --- K22.89, Other specified disease of esophagus Z98.890, Other specified postprocedural states K29.50, Unspecified chronic gastritis without bleeding K29.60, Other gastritis without bleeding R13.10, Dysphagia, unspecified CPT copyright 2021 [employer]. All rights reserved. The codes documented in this report are preliminary and upon director of product management review may be revised to meet current compliance requirements. Grzegorz Cummings MD 06/09/2023 8:23:11 AM This report has been signed electronically. Number of Addenda: 0 Note Initiated On: 06/09/2023 7:59 AM
--- NOTE | 2023-06-09 08:24 | OP.CCLET_ITS ---
06/09/2023 Rey Palmer MD [address] [place] [address] Re : Upper GI endoscopy procedure for Melissa Valenzuela Dear Dr. Palmer This procedure was performed on Friday, June 09, 2023. My impressions and recommendations are as follows: Impressions : - Scalloped mucosa in the esophagus. Biopsied. - A Angel fundoplication was found. The wrap appears intact, slightly loose. Biopsied. - Z-line regular, 38 cm from the incisors. - Chronic bile gastritis. Biopsied. - Normal examined duodenum. Biopsied. Bile reflux within the stomach dramatically noted. This may be causative to the patient's symptoms. Although the Angel fundoplication is slightly loose did not see any inflammation at the EG junction. Likely will not require treatment Scalloping of the mid esophagus suggestive of possible eosinophilic esophagitis. Will await biopsies Recommendations : - Discharge patient to home. - Resume previous diet. - Continue present medications. - Use sucralfate tablets 1 gram PO BID. - Telephone my office for pathology results in 1 week. My findings are described in the full procedure note, which is enclosed. If I can be of further assistance, please feel free to contact me at Doctor phone number(s): Work: . Sincerely, Grzegorz Cummings MD 06/09/2023 8:23:11 AM This report has been signed electronically.
== END 2023-06-09 09:03 | disposition home or self-care (01) ==
LOC: EN 06:52 → AC 06:53
PROVIDERS: PCP Family Medicine Geriatric Medicine; Referring Provider Family Medicine Geriatric Medicine; Visit Provider Surgery
PROC: 0DJ08ZZ Inspection of Upper Intestinal Tract, Via Natural or Artificial Opening Endoscopic (ICD-10-PCS; CPT 43235; principal; 2023-06-09 07:55)
DX: K29.50 Unspecified chronic gastritis without bleeding (principal); K21.9 Gastro-esophageal reflux disease without esophagitis; F41.9 Anxiety disorder, unspecified; Z79.899 Other long term (current) drug therapy; Z87.19 Personal history of other diseases of the digestive system; Z90.89 Acquired absence of other organs; K22.89 Other specified disease of esophagus; Z98.890 Other specified postprocedural states; E78.00 Pure hypercholesterolemia, unspecified; I10 Essential (primary) hypertension
CPT/HCPCS: 43239; 88305; 88342; J7120; J2405

== ENCOUNTER → 2023-09-09 | Outpatient (CLI) | payer MEDICAID, SELFPAY ==
[2023-09-09 14:07] LABS: Absolute Lymphocyte Count 1.96 X10^3/uL (0.83-4.51); Basophil# 0.03 X10^3/uL; Basophil% 0.3 % (0-1); Eosinophil# 0.15 X10^3/uL; Eosinophils% 1.7 % (0-5); Hematocrit 39.7 % (37-47); Lymphocyte # 1.96 X10^3/ul (0.83-4.51); Lymphocyte % 22.5 % (19-41); Mean Corp Hgb Conc 32.7 g/dL (32-36); Mean Corpuscular Hgb 30.7 pg (27.0-32.0); Mean Corpuscular Volume 93.9 fL (81-99); Monocyte% 6.9 % (0-10); NRBC Flagged by Analyzer 0 % (0-5); Neutrophil # 5.96 X10^3/uL (2.7-7.7); Neutrophil % 68.4 % (47-70); POSITIVE COUNT YES; RBC Distribution Width CV 12.8 % (11.6-14.6); RBC Distribution Width SD 43.8 fl (35.1-43.9); Red Blood Count 4.23 M/mm3 (4.2-5.4); White Blood Count 8.7 K/mm3 (4.4-11.0)
[2023-09-09 14:32] LABS: Differential Indicated SCAN CRITERIA MET
[2023-09-09 14:33] LABS: Differential Comment SCANNED
[2023-09-09 14:34] LABS: Platelet Estimate ADEQUATE (ADEQ)
[2023-09-09 14:37] LABS: AST(SGOT) 33 U/L (15-37); Alanine Aminotransfer ALT/SGPT 62 U/L (13-56); Albumin, Serum 3.6 g/dL (3.2-5.0); Alkaline Phosphatase 101 U/L (45-117); Anion Gap 6 (5-15); BUN 15 mg/dL (7-18); BUN/Creat Ratio 16.8 RATIO (10-20); Calcium,Total 9.1 mg/dL (8.5-10.1); Chloride 109 mmol/L (98-107); Cholesterol 153 mg/dL (200); Creatinine, Serum 0.89 mg/dL (0.55-1.02); EST Glomerular Filtration Rate 67 mL/min (>60); Est Glom Filt Rate - Afr Amer 82 mL/min (>60); Globulin 3.6 g/dL (2.2-4.2); Glucose 102 mg/dL (74-106); High Density Lipoprotein 59 mg/dL; Potassium 3.6 mmol/L (3.5-5.1); Protein, Total 7.2 g/dL (6.4-8.2); Sodium Level 143 mmol/L (136-145); Thyroid Stim Hormone (TSH) 0.97 uIU/mL (0.358-3.74); Triglycerides 128 mg/dL; Very Low Density Lipoprotein 26 mg/dL (5-40)
== END | disposition home or self-care (01) ==
LOC: POLAB3 13:01
PROVIDERS: PCP Family Medicine Geriatric Medicine; Visit Provider Family Medicine Geriatric Medicine
DX: I10 Essential (primary) hypertension (principal)
CPT/HCPCS: 36415; 80053; 80061; 84443; 85025

== ENCOUNTER → 2023-09-14 | Outpatient (CLI) | payer MEDICAID, SELFPAY ==
--- NOTE | 2023-09-14 15:00 | MRI_ITS ---
EXAM: MR CERVICAL SPINE WITHOUT INTRAVENOUS CONTRAST CLINICAL INDICATION: RADICULOPATHY TECHNIQUE: Multiplanar and multisequence MR images of the cervical spine without intravenous contrast were performed. COMPARISON: MRI cervical spine, 06/03/2017 and cervical spine radiographs, 08/05/2021. FINDINGS: VERTEBRAE: Modic type I and Modic type II endplate signal changes throughout the cervical spine. Straightening of the expected cervical lordosis. No discrete evidence of an acute fracture or traumatic subluxation. Aside from degenerative changes, normal craniocervical junction and cervicothoracic junction. SPINAL CORD: No distinct spinal cord signal abnormality. Multilevel mass effect upon the spinal cord as detailed below. SOFT TISSUES: No significant abnormality. No prevertebral soft tissue swelling. LYMPH NODES: No significant abnormality. There is no cervical adenopathy. DISCS/SPINAL CANAL/NEURAL FORAMINA: C2-C3: Mild bilateral facet arthrosis. No disc herniation, spinal canal stenosis, or neural foraminal narrowing. C3-C4: Disc height loss and disc desiccation. Central disc herniation and bilateral facet and uncovertebral joint arthrosis. Mild to moderate spinal canal stenosis and mild bilateral neural foraminal narrowing. Abutment of the ventral spinal cord. C4-C5: Disc height loss and disc desiccation. Central disc herniation effacing the ventral CSF space and contacts the ventral spinal cord. Facet and uncovertebral joint arthrosis. Moderate left and mild right neural foraminal narrowing. Overall, moderate spinal canal stenosis. C5-C6: Left central to foraminal disc herniation superimposed upon a disc bulge and moderate to severe facet and uncovertebral joint arthrosis. Moderate to severe bilateral neural foraminal narrowing and moderate spinal canal stenosis with abutment of the ventral spinal cord. Suspect bilateral C6 nerve root impingement. C6-C7: Disc bulge and moderate bilateral facet and uncovertebral joint arthrosis. Moderate to severe left and moderate right neural foraminal narrowing. Mild spinal canal stenosis. C7-T1: No significant abnormality. No disc herniation, spinal canal stenosis, or neural foraminal narrowing. MRI/Spine Cervical (Routine) IMPRESSION: Degenerative changes progressed since prior MRI. Multilevel spinal canal and neural foraminal stenosis. Suspect bilateral C6 nerve root impingement. Correlate clinically. Electronically Signed: Jayant De La Rosa at 22:09 EST ,
== END | disposition home or self-care (01) ==
LOC: MRI 14:58
PROVIDERS: PCP Family Medicine Geriatric Medicine; Referring Provider Anesthesiology Pain Medicine; Visit Provider Anesthesiology Pain Medicine
DX: M54.12 Radiculopathy, cervical region (principal)
CPT/HCPCS: 72141

== ENCOUNTER → 2023-09-30 | Outpatient (CLI) | payer MEDICAID, SELFPAY ==
--- NOTE | 2023-09-30 15:07 | RAD_ITS ---
INDICATION: KNEE PAIN EXAMINATION/TECHNIQUE: X-RAY - LEFT XR Knee 3 Views COMPARISON: FINDINGS: SOFT TISSUES: No soft tissue swelling or gas. No radiopaque foreign body. BONES/JOINTS: No acute fracture or subluxation.. Normal alignment. Preservation of the joint space.. No sclerotic or destructive changes observed. RAD/Knee 3 Views IMPRESSION: No acute bony injury. Electronically Signed: Iker Miller DO at 19:37 EST ,
--- OUTSIDE RECORDS SUMMARY | 2023-09-30 15:38 | XMS RPT_ITS | CCD ---
Author Name Unknown Address [address] [place] [address] Organization [facility] Results Test Name Value Interpretation Reference Range Facil ity Summary Purpose Family History No Family History Records Found Advance Directives No Advanced Directives Records Found Additional Source Comments INFORMATION SOURCE (unrecogn ized section and content) FOR RECORDS PERTAINING TO PATIENTS WHO ARE OR HAVE BEEN ENROLLED IN A CHEMICAL DEPENDENCY/SUBSTANCEABUSE PROGRAM, SOME INFORMATION MAY BE OMITTED. This clinical summary was aggregated from multiple sources. Caution should be exercised in using it in the provision of clinical care. This summary normalizes information from multiple sources, and as a consequence, information in this document may materially change the coding, format and clinical context of patient data. In addition, data may be omitted in some cases. CLINICAL DECISIONS SHOULD BE BASED ON THE PRIMARY CLINICAL RECORDS. [employer] provides no warranty or guarantee of the accuracy or completeness of information in this document.
== END | disposition home or self-care (01) ==
LOC: RAD 15:02
PROVIDERS: PCP Family Medicine Geriatric Medicine; Referring Provider Family Medicine Geriatric Medicine; Visit Provider Family Medicine Geriatric Medicine
DX: M25.562 Pain in left knee (principal)
CPT/HCPCS: 73562

== ENCOUNTER → 2023-11-09 | Outpatient (CLI) | payer MEDICAID, SELFPAY ==
--- NOTE | 2023-11-09 10:07 | BI_ITS ---
MAMMOGRAPHY - BILATERAL SCREENING REASON FOR EXAM: Female, 63 years old. Routine annual screening examination. PERTINENT HISTORY: Non-contributory. History of prior right excisional breast biopsy. TECHNIQUE: Digital bilateral breast jacqui (3D mammographic acquisition) in the CC and MLO projections. 2-D mediolateral oblique (MLO) and craniocaudad (CC) views of both breasts were obtained. CAD: Full Field Digital Mammography with Computer Added Detection was performed. COMPARISON: Comparison is made with prior study dated November 06, 2022 and September 08, 2020. FINDINGS: Breast Composition: The breasts are heterogeneously dense, which may obscure small masses. There are no dominant masses or suspicious calcifications. Stable focal area of architectural distortion is seen in the upper lateral portion of her breast in keeping with history of prior excisional breast biopsy. A tissue clip marker is seen at that site as well. Stable benign-appearing appearing bilateral axillary lymph nodes. No other significant abnormalities are identified. There has been no significant change since the prior study. BI/SCRN MAMM (CAD)W/JACQUI BILAT IMPRESSION: Stable bilateral screening mammogram. Yearly follow-up mammogram recommended. (A) ASSESSMENT CATEGORY: BIRADS Category 2: Benign. A letter regarding these results will be sent to the patient by the facility within 30 days. Approximately 10% of breast cancers are not detected by mammography. A normal mammogram should not delay biopsy of a clinically suspicious abnormality. [id number] Electronically Signed: Terrence Chun MD at 11:00 EST ,
--- OUTSIDE RECORDS SUMMARY | 2023-11-09 10:25 | XMS RPT_ITS | CCD ---
Author Name Unknown Address [address] [place] [address] Organization [facility] Results Test Name Value Interpretation [...] BE BASED ON THE PRIMARY CLINICAL RECORDS. [employer] provides no warranty or guarantee of the accuracy or completeness of information in this document.
== END | disposition home or self-care (01) ==
LOC: OPBI 10:05
PROVIDERS: PCP Family Medicine Geriatric Medicine; Referring Provider Family Medicine Geriatric Medicine; Visit Provider Family Medicine Geriatric Medicine
DX: Z12.31 Encounter for screening mammogram for malignant neoplasm of breast (principal)
CPT/HCPCS: 77063; 77067

== ENCOUNTER 2023-11-11 14:09 | Observation (INO) | payer MEDICAID, SELFPAY ==
[2023-11-03 11:59] LABS: Magnesium 2.4 mg/dL (1.6-2.6)
[2023-11-03 12:46] LABS: HIV - WCH Non-Reactive (Nonreactive); Hepatitis B Surface Antibody Reactive; Hepatitis C Antibody Non-Reactive (Nonreactive)
[2023-11-05 04:08] LABS: Hepatitis A AB, Total Negative (Negative)
--- NOTE | 2023-11-06 11:33 | HP.PCM_ITS ---
History and Physical MR#: [id number] Acct: [id number] Name: MELISSA VALENZUELA Rep #: [id number] : 1960 Provider: Dr. Parrish Horn DO Age/Sex: 63/F Location[facility] Status: Signed with Addenda ADDENDUM by Dr. Parrish Horn DO on 11/03/23 at 1310 Assessment and Plan Assessment and Plan (1) Cervical spondylosis with radiculopathy: Status: Acute Plan: This is addendum to patient Meilssa Valenzuela. Melissa is scheduled for an anterior cervical fusion. The surgery was discussed at length with the patient. I even showed her the implants on the model and I went over her MRI with her. We also spoke of risks and complications associated with the surgery. These would include , coma, paralysis, blood clot in the legs, blood clot in the lungs, myocardial infarction, infection, permanent nerve damage, failure of fusion, failure of fixation, stroke, failure to improve the symptoms, permanent hoarseness, permanent loss of voice volume, permanent Marcelo's syndrome and the triad was described to the patient, among others. The benefits are obvious the idea of the surgery of course is to remove her neck pain her headaches and her arm pain. I answered all of her questions. Orders: Orders Cerv Spine 2 or 3 Views 10/22/23 M54.2 - Cervicalgia 11/03/23 1310 <Electronically signed by Parrish Horn DO> Date Parrish Horn DO cc: Dr. Michael Acosta MD; Dr. Rey Palmer MD ~* Signed Intake Vital Signs 09/08/2311:01 10/22/2411:56 Height 5 ft 5 ft Weight: 157 lb 8 oz BMI 30.7 Intake Visit Reasons: CERVICAL SPINE Accompanied by: Self Allergies silicone Allergy (Verified 10/22/23 12:59) Rashcodeine Adverse Reaction (Verified 10/22/23 12:59) Itchingdoxycycline Adverse Reaction (Verified 10/22/23 12:59) Itchingoxycodone Adverse Reaction (Verified 10/22/23 12:59) Itching Medications buprenorphine 5 mcg/hour weekly transdermal patch (Butrans) 1 patch TP FR pain 02/08/18 [History Confirmed 10/22/23] buspirone 15 mg tablet 15 mg PO BID MOOD 11/22/19 [History Confirmed 10/22/23] pravastatin 40 mg tablet 40 mg PO QHS CHOLESTEROL 11/22/19 [History Confirmed 10/22/23] gabapentin 100 mg capsule 100 mg PO BID 09/11/20 [History Confirmed 10/22/23] losartan 50 mg tablet 50 mg PO BID 07/01/22 [History Confirmed 10/22/23] cyclobenzaprine 10 mg tablet 10 mg PO BID 09/10/22 [History Confirmed 10/22/23] donepezil 5 mg tablet 10 mg PO DAILY 03/09/23 [History Confirmed 10/22/23] PFSH Medical History Abnormal mammogram of right breast Acute urticaria MAIN (acute kidney injury) Alcohol use Amplified musculoskeletal pain, localized Anxiety Arthritis Back pain Bilateral buttock pain BPPV (benign paroxysmal positional vertigo) Cervical disc disorder at C5-C6 level with radiculopathy Cervical disc disorder with radiculopathy of mid-cervical region Cervical radiculopathy due to degenerative joint disease of spine Cervical spondylosis Change in bowel habit Chronic lower back pain CPAP (continuous positive airway pressure) dependence DDD (degenerative disc disease), lumbar Dehydration Depression Disorder of intervertebral disc at C5-C6 level with radiculopathy Dysphagia Exertional dyspnea Fatty liver Foreign body GERD with esophagitis Heartburn Hematuria Hiatal hernia High cholesterol History of IBS History of pain when walking History of stress test HLD (hyperlipidemia) Hx of echocardiogram Hypertension Injury of head and neck Intervertebral disc disorder with radiculopathy of lumbar region Intractable low back pain Lumbar disc lesion Marijuana use Migraine Migraine headache Muscle spasm Myalgia Neck pain Non-smoker Obesity ARIELA (obstructive sleep apnea) Other intervertebral disc degeneration, lumbar region Post-menopausal Redness of skin Restless legs Right flank pain Sacroiliitis, not elsewhere classified Scoliosis Shortness of breath on exertion Spondylosis without myelopathy or radiculopathy, lumbar region Spondylosis without myelopathy or radiculopathy, lumbar region Streptococcus agalactiae infection Syncope Thoracic back pain Warts Wears glasses Surgical History History of colectomy History of colonoscopy (~2016) History of Angel fundoplication History of tubal ligation S/P cholecystectomy S/P lumpectomy of breast Linwood teeth extracted Family History Mother Arthritis Hypercholesterolemia Hypertension Cancer LungFather Cancer Lung Cirrhosis Emphysema lung Social History household members: spouse Smoking Status: Never smoker alcohol intake: never substance use type: does not use caffeine: No HPI CERVICAL SPINE Details: This documentation accurately reflects the service provided and the decisions made by me, Dr. Parrish Horn, DO 10/22/23 1256. Part of today?s visit was documented by Khadra FELIX, acting as scribe. MELISSA VALENZUELA is a 63 year old F here today for neck pain. Pt had an injection with Dr. Acosta on 10/15/23 and states that it only gave her 3-4 days of relief. She states that she has had the neck pain for a few years. She states that she gets pain down the arms. She states sometimes she will get a pain in her neck that makes her arms drop to her side to where it feels like she has weights on her arms. She does get numbness and tingling in both arms. She did have a recent MRI on 09/14/23. Denies anything specific that makes her pain worse. She states that using a heating pad gives her relief. She denies taking anything for the pain but notes she has a pain patch that she uses for her low back but it doesn't help with the pain in her neck. Denies previous neck surgery. Denies PT/HEP. We will get updated x-rays of her neck today. Melissa returns with a new problem. I last saw her for her low back in April of last year. The new problem that I am seeing her for is her cervical spine. She has had neck pain for many years but lately has been getting worse. Every few weeks she gets pain that goes down both arms and her arms feel heavy but it does not last. But the neck pain continues. She does not get headaches. On examination she has positive Spurling's to the right side. But only for localized pain. She has pain with extension of her cervical spine. She has hardly any with flexion. She has reasonable motor strength of all the major muscle groups of both upper extremities. She has 1+ triceps biceps and brachioradialis reflexes bilaterally. She has no muscle atrophy. She has no long tract signs. Clonus is absent and Babinski's were downgoing. I went over her plain x-rays of her cervical spine. She has hard disc disease mainly at C5-6 and see for 5 and a little bit at see 3 4 and less so it see 6 7. The MRI scan demonstrates that she has bilateral foraminal stenosis of significance at C5-6 and mostly left sided foraminal stenosis at C4-5. She wants something done as she is miserable on daily basis. I asked her if 6 months postop if she would be happy if she got at least 50% relief of all of her neck pain she says she would be. We will schedule her for anterior cervical fusion at C5-6 and at C4-5. I will see her again at preop. I told her no more steroids for now. Coding Level of Care Code Off vis,est,level 3 Diagnoses Cervical spondylosis with radiculopathy M47.22
[2023-11-11] VITALS (16 sets, daily range): BP systolic 128–184; BP diastolic 69–112; PULSE 88–116; RESP 12–20; TEMP 36.1–36.9; O2SAT 95–100; BMI 29.1; BMI 31.6
--- OUTSIDE RECORDS SUMMARY | 2023-11-11 05:31 | XMS RPT_ITS | CCD ---
Author Name Unknown Address [address] [place] [address] Organization [facility] Results Test Name Value Interpretation [...] BE BASED ON THE PRIMARY CLINICAL RECORDS. [employer] provides no warranty or guarantee of the accuracy or completeness of information in this document.
[2023-11-11] MEDS: Lactated Ringers 1,000 ML 15 ML IV (05:57)
[2023-11-11] MEDS: dexAMETHasone 10 MG/ML Vial 8 MG IV (05:58)
[2023-11-11] MEDS: Magnesium 1 GM over 15 mins IV (05:59)
[2023-11-11] MEDS: Acetaminophen 500 MG Tablet 1000 MG PO ×2 (06:00→20:57)
[2023-11-11 06:39] LABS: Bedside Glucose 122 mg/dL (74-106)
--- NOTE | 2023-11-11 07:30 | DISC_PTH ---
PATHOLOGY RESULTS PATIENT: PREETI HERNÁNDEZ LOC: MS3 U#:[id number] AGE/SX: 63/F ROOM: [facility] RE11/11/[address]: Dr. Parrish Horn DO : 1960 BED: 1 DIS: 11/14/2023 SPEC #: [id number] RECD: 11/11/23 18:34 STATUS: WILDER REDewey #: [id number] NELLIE: 11/11/23 07:[address]: Parrish Horn DEPT: SURGICAL PATHOLOGY RECD BY: Estela Kimball ENTERED: 11/12/23 08:53 SP TYPE: DISC OTHR DR: DO Dr. Rey Vela Chi, MD Tissues: Intervertebral disc, NOS Intervertebral disc, NOS Procedures: Surgery Specimen Level III HEADER OPERATION: ERAS, anterior cervical fusion C4-C5 and C5-C6 PRE-OP DIAGNOSIS: Cervical spondylosis with radiculopathy TISSUE SUBMITTED: A - Cervical disc C4-C5, B - Cervical disc C5-C6 MICROSCOPIC DIAGNOSIS A. Cervical disc, C4-C5, discectomy: Fragments of intervertebral disc with degenerative change. B. Cervical disc, C5-C6, discectomy: Fragments of intervertebral disc with degenerative change. AM:samuel 11/16/2023 MICROSCOPIC DESCRIPTION Slides are reviewed. GROSS DESCRIPTION A - Received in fixative is one container labeled with the patient's name and designated cervical disc C4C5. The specimen consists of multiple irregular fragments of christine indurated tissue that in aggregate measure 3.0 x 2.5 x 0.3 cm. The largest piece is bisected. The specimen is totally submitted in one cassette. B - Received in fixative is one container labeled with the patient's name and designated cervical disc C5C6. The specimen consists of multiple irregular fragments of christine indurated tissue that in aggregate measure 2.5 x 2.5 x 0.4 cm. The specimen is totally submitted in one cassette. / CELESTE/ mounika 11/12/23 TC:5 CPT: 29382 x2
--- NOTE | 2023-11-11 09:33 | NURSING ---
0800- sean rn gave update to family about surgery delay. questions answered
[2023-11-11] MEDS: Cefazolin 2 GM in 0.9% Normal Saline (100mL Bag) 100 ML IV (09:58)
--- NOTE | 2023-11-11 10:00 | RAD_ITS ---
STUDY: X-RAY - CERVICAL SPINE REASON FOR EXAM: Female, 63 years old. ANTERIOR FUSION C4-5, C5-6 TECHNIQUE: Single lateral view of the cervical spine was obtained. COMPARISON: None FINDINGS: The localization measurement is seen anterior to the lower aspect of the C4 body. RAD/Cerv Spine 2 or 3 Views IMPRESSION: The localization instrument is seen anterior to the lower aspect of the C4 vertebral body Electronically Signed: Terrence Chun MD at 14:46 EST ,
[2023-11-11] MEDS: THROMBIN (RECOMBINANT) 20,000 UNIT VIAL 20000 UNIT TOPICAL (11:00)
[2023-11-11] MEDS: Heparin 10,000 UNITS/10 ML Vial 10000 UNITS (11:00)
--- NOTE | 2023-11-11 11:30 | RAD_ITS ---
STUDY: X-RAY - CERVICAL SPINE REASON FOR EXAM: Female, 63 years old. ANTERIOR FUSION C4-5, C5-6 TECHNIQUE: One lateral view view(s) of the cervical spine were obtained. COMPARISON: None FINDINGS: The localization instrument is seen anterior to the C6-C7 level. RAD/Spine 1 View Any Level IMPRESSION: The localization instrument is seen anterior to the C6-C7 level. Electronically Signed: Terrence Chun MD at 12:11 EST ,
--- NOTE | 2023-11-11 11:37 | RAD_ITS ---
STUDY: X-RAY - CERVICAL SPINE REASON FOR EXAM: Female, 63 years old. Anterior cervical fusion C4-5, C5-6 TECHNIQUE: 1 view(s) of the cervical spine were obtained. COMPARISON: None FINDINGS: The localization instrument is seen along the anterior aspect of the C5-C6 level RAD/Spine 1 View Any Level IMPRESSION: Localization instrument is anterior to the C5-C6 level. Electronically Signed: Terrence Chun MD at 12:09 EST ,
--- NOTE | 2023-11-11 13:30 | RAD_ITS ---
STUDY: X-RAY - CERVICAL SPINE REASON FOR EXAM: Female, 63 years old. ANTERIOR CERVICAL FUSION C4-5 AND C5-6 TECHNIQUE: 1 view(s) of the cervical spine were obtained. COMPARISON: Comparison is made with prior study done earlier today. FINDINGS: The patient is status post anterior fusion at the C4-C5 and C5-C6 levels with prosthetic disc placement. RAD/Spine 1 View Any Level IMPRESSION: Status post anterior fusion with disc prosthesis at the C4-C5 and C5-C6 levels. Electronically Signed: Terrence Chun MD at 15:29 EST ,
--- NOTE | 2023-11-11 14:20 | OP.PCM_ITS ---
Report of Operation Description of Surgical Findings:: Preoperative diagnosis: Cervical spondylosis C5-6 and C4-5 Postoperative diagnosis: Same Procedures: #1 anterior cervical fusion C5-6 CPT code 11111 #2 spine plate C4-C6 CPT code 54399/59 #3 anterior cervical fusion C4-5 CPT code 64516/51 #4 insertion of cage C5-6 CPT code 70983 #5 insertion of cage C4-5 CPT code 88975/51 #6 bone marrow aspirate left iliac crest CPT code 69549 #7 bone allograft CPT c ode Procedure: Patient was taken to the OR where she was placed in the supine position on the operating table. She was then placed under general endotracheal anesthesia. A Lester catheter was inserted. Neuromonitoring placed her leads on the patient. After appropriate positioning a preoperative x-ray was taken with a marker in place. This way I was able to brayden the skin with a small laceration using the end of a needle. This would be my starting point for the incision. The neck and the left iliac crest were prepped and draped in the standard fashion. First we obtained a 40 cc of bone marrow aspirate from the left crest via a Jamshidi needle. This was handed off to the poured concrete wall technician who would separate the stem cells concentrated them 10 times and given back to us. The stem cells were to be used with the allograft to promote a fusion. I then made my incision starting in the predetermined point curved to the edge of the right sternocleidomastoid muscle. Subcutaneous tissues were incised length of skin incision. I then undermined the subcutaneous tissues off of the platysma both cephalad and caudad direction. Self-retaining retractors were then put in place I then split the platysma longitudinally in line with its fibers and developed the planes in between there was another fatty layer layer that I had to go through I then was able to identify the strap muscles then went anterior to the sternocleidomastoid and developed that plane and move the strap muscles along with the trachea and esophagus to the left and the carotid to the right. This gave me good access to the anterior space. We then marked the C5-6 level with a needle which was later confirmed by radiology. The x-ray was taken intraoperatively. I then cauterized the coli muscles on either side and the self-retaining shadow retractors were then put in place. This gave good access to the C5-6 space using a 15 blade I cut the anterior annulus and removed it and removed more nucleus from within the disc space with pituitary rongeurs. An intervertebral body distractor was put on 1 side first on the on the right distracting the left side. I removed some the cartilage off both endplates with curettes I then used a jennifer bur to bur the uncinate process at its base. This technique was used with a round jennifer bur it was burred followed by the instillation of cold saline to prevent any thermal damage to the nerve. This was done repeatedly until it was a very thin shell using curettes I removed the thin shell off of the nerve. This completely opened the nerve on the left side I then put the distractor on the opposite side and again used a jennifer bur to bur the uncinate process down till it was a thin shell it was then removed thus opening the right foramen likewise. Used a jennifer bur to bur the uncinate processes on either side to make room for a larger cage. Once the cartilage was removed off both endplates I took measurements for a cage we decided to use the large 7 mm high 7 degree cage. The cage was then filled with allograft and it was then soaked in the patient's own concentrated stem cells. This was then tamped into place and countersunk a couple of millimeters. We then moved up to the C4-5 space. Again the coli muscles were cauterized and elevated on each side and the retractors were then put in place. Again I cut the anterior annulus with a 15 blade removed it and removed more nucleus from the disc base all the way back to the back of the vertebra. Again the distractor was used at this time on the right side as the left only had to be decompressed. The jennifer bur technique was again used along with a cool saline repeatedly and I was then open able to open the foramen with curettes and tested with a nerve hook was found to be open now. I removed all the cartilage off both endplates and again used the jennifer bur to bur the sides to make room for the cage. Once this was done the measures were taken and another 7 mm cage was decided upon. I then broach the space as I did the first 1 repeatedly until it was nice bleeding endplate bone. The cage was filled with allograft and again it was soaked the patient's own stem cells this was then tamped into place and countersunk a couple of millimeters. We then used a 42 mm spine plate this was the Spyder plate from X spine. A holding pin was tamped into place and the awl was used first into C5 followed by the insertion of the self-tapping 14 mm screw. The pin was then removed the awl again was used and a second screw was put into C5. We then put 2 into C6 and 2 and to see 4. This was done using the same technique. These particular plates have self locking mechanisms once the screw goes through them they are locked in place. We took an intraoperative x-ray demonstrated excellent position of the plate and the cages. Amniotic membrane was placed over the plate to prevent its adhesions to the trachea or the esophagus. 1/4 inch Kaitlynn drain was then inserted I closed the platysma in running fashion with 5-0 Vicryl followed by closure of the subcutaneous tissues and skin together with 5-0 Vicryl this approximated the skin and there was no need for outside stitches. Sterile dressings were then applied a safety pin was placed through the drain to prevent suction into the wound. She was then recovered in the OR she was moved to her hospital bed and taken recovery in satisfactory condition. This is the end of operative summary on Melissa Valenzuela. This is Dr. Horn dictating.
[2023-11-11] MEDS: Lactated Ringers 1,000 ML 100 ML IV (14:34)
[2023-11-11] MEDS: dexAMETHasone 4 MG/ML Vial IV ×2 (15:03→20:54)
[2023-11-11] MEDS: LORazepam 2 MG/ML Syringe 0.5 MG IV (15:12)
--- NOTE | 2023-11-11 15:58 | PCM.PN.HOSP ---
Reason for Visit Reason for Visit: Cervical radiculopathy Subjective Subjective Patient is a 63-year-old female who was admitted electively to [facility] on 11/11/2023 for cervical fusion at C4-C5 and C5-C6. Patient has had ongoing neck pain and been treated conservatively. She was complaining of getting numbness and tingling in both her arms. Her neck pain had been ongoing for a few years and she has slowly developed intermittent radiculopathy bilaterally. She had an MRI done on 09/14/2023 that demonstrated disc disease with bilateral foraminal stenosis at C5-C6 and left-sided foraminal stenosis at C4-C5. She underwent neck injection on 10/15/2023 and gave her 3 to 4 days of relief but was not persistent. Given the fact she has had ongoing pain and has been miserable with regards to her neck pain and arm radiculopathy on a daily basis she elected for surgical intervention. ACDF was performed today and we have been consulted postoperatively for medical management of her chronic medical issues and any arising issues. She has a past medical history of hyperlipidemia, GERD, hypertension, memory loss, and mood disorder NOS. Patient was seen on the medical floor postoperatively. Pt c/o significant pain and receiving morphine currently. BP is elevated and I gave an order for hydralazine. Patient is not interested in talking much right now. is at the bedside. No other current complaints other than pain. Objective Data Objective Data Vital Signs: Vital Signs Temp Pulse Resp BP Pulse Ox O2 Del Method O2 Flow Rate 97.0 F L 100 12 166/100 H 98 Nasal Cannula 4 11/11/23 15:37 11/11/23 15:37 11/11/23 15:37 11/11/23 15:37 11/11/23 15:37 11/11/23 15:37 11/11/23 15:37 Oxygen Flow Rate (L/min) 4 Oxygen Delivery Method Nasal Cannula Weight: 70 kg Body Mass Index (BMI) 29.1 Intake & Output: Intake and Output for Last 24 Hours 11/09/23 11/10/23 11/11/23 23:59 23:59 23:59 Intake Total 212 / 212 Output Total 1075 / 1075 Balance -863 / -863 Lab / Micro Data Labs: Laboratory Results - last 24 hr 11/11/23 06:02: POC Glucose 122 H Micro: Microbiology 11/03/23 10:48 Swab (Method) Nasal Screen MRSA/MSSA - Final Radiography Diagnostic Testing: Radiology Impression Cervical Spine X-Ray 11/11/23 10:00 IMPRESSION: The localization instrument is seen anterior to the lower aspect of the C4 vertebral body Electronically Signed: Terrence Chun MD at 14:46 EST , Spine X-Ray 11/11/23 11:30 IMPRESSION: The localization instrument is seen anterior to the C6-C7 level. Electronically Signed: Terrence Chun MD at 12:11 EST , Spine X-Ray 11/11/23 11:37 IMPRESSION: Localization instrument is anterior to the C5-C6 level. Electronically Signed: Terrence Chun MD at 12:09 EST , Spine X-Ray 11/11/23 13:30 IMPRESSION: Status post anterior fusion with disc prosthesis at the C4-C5 and C5-C6 levels. Electronically Signed: Terrence Chun MD at 15:29 EST , Physical Exam Const alert, oriented x3, no apparent distress, healthy appearing and well nourished; Negative for average body habitus Constitutional Narrative: Sleepy but oriented, obese, white female, lying in bed, at bedside, nursing at bedside, quiet but answers questions appropriately HEENT head/scalp atraumatic and moist oral mucous membranes Head and Scalp: normocephalic Neck Neck Narrative: Soft cervical collar in place Resp normal respiratory effort, no retractions, no use of accessory muscles and clear to auscultation bilaterally Auscultation: Negative for rales, rhonchi or wheezes Cardio regular rhythm, S1 normal heart sound, S2 normal heart sound, no murmurs, no rub, no gallops and no clicks Cardio Narrative: Mild tachycardia GI normal to inspection, nondistended, normoactive bowel sounds, soft to palpation and non-tender Extremity no clubbing, cyanosis or edema Extremity Narrative: Pedal pulses are 2+ Neuro oriented x3 and moves all extremities Neuro Narrative: Patient able to move all 6 extremities symmetrically Psych Psych Narrative: Affect is flat and patient interacts minimally at this time Assessment & Plan Assessment/Plan (1) Cervical spondylosis with radiculopathy: PLAN: Plan Cervical spondylosis with radiculopathy -Postop day 0 ACDF C4-C5 and C5-C6 -Pain management per primary service -Would recommend scheduled bowel regimen when patient is utilizing narcotics and having decreased mobility -Therapy services per primary service Hyperlipidemia -Continue pravastatin GERD -Continue home PPI Hypertension -Continue home losartan 50 mg p.o. twice daily Memory loss -Continue home Aricept History of migraine headache -No chronic medications for this Chronic pain -Patient is on multiple medications as an outpatient via pain management -Continue these at the discretion of primary service DVT prophylaxis -Per primary service Charges/Coding Visit Charges Inpatient E&M: 30207 Subs Hosp L2
[2023-11-11] MEDS: Morphine 2 MG/ML Syringe IV (16:55)
[2023-11-11] MEDS: 0.9% Saline Lock 10 ML Syringe IV (17:51)
[2023-11-11] MEDS: hydrALAZINE 20 MG/ML Vial 10 MG IV (17:51)
[2023-11-11] MEDS: Cefazolin 1 GM/50 ML BAG IV (18:27)
[2023-11-11] MEDS: traMADol 50 MG Tablet PO (18:28)
[2023-11-11] MEDS: Pantoprazole Sodium 40 MG Tablet PO (20:56)
[2023-11-11] MEDS: Donepezil HCl 10 MG Tablet PO (20:56)
[2023-11-11] MEDS: Senna/Docusate Sodium 1 Tablet 2 TABLET PO (20:56)
[2023-11-11] MEDS: Losartan Potassium 50 MG Tablet PO (20:56)
[2023-11-11] MEDS: Gabapentin 100 MG Capsule PO (20:57)
[2023-11-11] MEDS: Pravastatin 40 MG Tablet PO (20:57)
[2023-11-11] MEDS: busPIRone 15 MG TABLET PO (20:57)
[2023-11-11] MEDS: Morphine 4 MG/ML Syringe IV (21:09)
[2023-11-11] MEDS: BUPRENORPHINE 7.5 MCG/HR TD (22:43)
[2023-11-12 00:15] VITALS: BP 150/85; PULSE 112; RESP 18; TEMP 36.7; O2SAT 96
[2023-11-12] MEDS: Lactated Ringers 1,000 ML 15 ML IV (03:06)
[2023-11-12] MEDS: traMADol 50 MG Tablet PO ×2 (03:08→14:23)
[2023-11-12 03:14] VITALS: BP 163/98; PULSE 103
[2023-11-12] MEDS: hydrALAZINE 20 MG/ML Vial 10 MG IV (03:14)
[2023-11-12] MEDS: Cefazolin 1 GM/50 ML BAG IV (03:18)
[2023-11-12] MEDS: dexAMETHasone 4 MG/ML Vial 2 MG IV ×2 (03:19→08:48)
[2023-11-12] MEDS: Morphine 2 MG/ML Syringe IV ×3 (05:04→20:36)
[2023-11-12 05:09] VITALS: BP 133/74; PULSE 101; RESP 18; TEMP 36.8; O2SAT 95
[2023-11-12] MEDS: Acetaminophen 500 MG Tablet 1000 MG PO ×3 (05:56→21:48)
[2023-11-12] MEDS: busPIRone 15 MG TABLET PO ×2 (08:48→21:48)
[2023-11-12] MEDS: Senna/Docusate Sodium 1 Tablet 2 TABLET PO ×2 (08:49→21:48)
[2023-11-12] MEDS: Losartan Potassium 50 MG Tablet PO ×2 (08:49→21:48)
[2023-11-12] MEDS: Gabapentin 100 MG Capsule PO ×2 (08:51→21:48)
[2023-11-12 09:00] VITALS: BP 132/74; PULSE 101; RESP 18; TEMP 36.9; O2SAT 95
--- NOTE | 2023-11-12 10:01 | CASEMGMT ---
BATSHEVA GREGORIO Assessment Face to Face with patient for initial transition planning/care coordination assessment. BATSHEVA GREGORIO introduced self and role at [facility], pt voices understanding. Pt is A&Ox4 and is resting comfortably in bed and is calm. Pt at bedside. Care providers, pharmacy, and demographics verified. Admitting dx: Anterior Cervical Fusion C4-5 LACE Strata: 1 PCP: Spencer Specialists: Dave Preferred Pharmacy: [facility] [place] Insurance: [facility] Prescription Benefit: Yes LNOK: Theron Valenzuela (H) Living Arrangements: Pt lives with her , Son (40 y/o), and GS (23) ADLs/IADLs: Ind with ADLs. helps with IADLs Transportation: Pt and pt drive DME: Pt states that she does not have any DME in the home and states that she wants a walker and an extended tub bench. A verbal local list of in-network DME companies provided to the pt at this time and pt choose [employer] for DME needs. Will consult Dr Horn for prescriptions. HHC/SNF: Denies history or needs Pt?s goal:Home with DME Plan: Pt still needs evaluated by therapy at this time, Pt states that she wants to DC home with her family with the above noted DME. Pt denies other needs at this time. CM to follow. Mark Gutierrez RN, CM
[2023-11-12] MEDS: 0.9% Saline Lock 10 ML Syringe IV ×2 (10:45→20:35)
[2023-11-12 14:32] VITALS: BP 138/74; PULSE 98; RESP 16; TEMP 37.3; O2SAT 94
--- NOTE | 2023-11-12 16:23 | CASEMGMT ---
BATSHEVA GREGORIO NOTE: PT eval note reviewed. Pt only ambulated 3 ft today w/use of WW and CGA of 2, but she was very painful at that time. WW, BSC, and shower chair or extended tub bench recommended. BATSHEVA GREGORIO to room. Introduced self and role. Pt resting in bed. Pt states her pain has improved some. Discussed discharge plan. Pt anticipating discharging home tomorrow. Discussed DME recommended by therapy. Pt states she prefers a shower chair w/back rest (instead of extended tub bench) and would like a BSC and WW. Made aware [facility] does not carry shower chairs. She states she does not have a preference of where the DME comes from. CM to work on getting DME for pt tomorrow prior to discharge and to follow how well pt does w/therapy. Jabier LENZ RN, CM
[2023-11-12 20:26] VITALS: BP 140/80; PULSE 98; RESP 18; TEMP 36.8; O2SAT 95
[2023-11-12] MEDS: Donepezil HCl 10 MG Tablet PO (21:47)
[2023-11-12] MEDS: Pantoprazole Sodium 40 MG Tablet PO (21:48)
[2023-11-12] MEDS: Pravastatin 40 MG Tablet PO (21:48)
[2023-11-13] VITALS (9 sets, daily range): BP systolic 147–153; BP diastolic 90–97; PULSE 88–100; RESP 14–18; TEMP 36.6–36.8; O2SAT 86–99
[2023-11-13] MEDS: traMADol 50 MG Tablet PO ×3 (00:25→12:37)
[2023-11-13] MEDS: Acetaminophen 500 MG Tablet 1000 MG PO ×3 (06:26→22:20)
[2023-11-13] MEDS: Senna/Docusate Sodium 1 Tablet 2 TABLET PO ×2 (08:54→22:20)
[2023-11-13] MEDS: Losartan Potassium 50 MG Tablet PO ×2 (08:54→22:20)
[2023-11-13] MEDS: busPIRone 15 MG TABLET PO ×2 (08:54→22:21)
[2023-11-13] MEDS: Gabapentin 100 MG Capsule PO ×2 (08:59→22:19)
[2023-11-13] MEDS: Morphine 2 MG/ML Syringe IV (08:59)
[2023-11-13] MEDS: Ondansetron 4 MG/2 ML Vial IV ×2 (08:59→12:54)
--- NOTE | 2023-11-13 11:09 | CASEMGMT ---
Addendum entered by Yu Gutierrez 11/13/23 11:48: Pt walker has been delivered by [employer] Original Note: Rx (signed by Dr. Horn) given to the pt for an Extended tub bench. Referral sent to [facility] via [facility] at this time for a FWW.
--- NOTE | 2023-11-13 13:17 | PCM.PN.ORT ---
Subjective Subjective Melissa is seen on rounds. She is complaining of a headache posteriorly above her neck. With it comes nausea and she is currently nauseated. I asked her nurse to give her some more Zofran. Apparently she is not ready to go home just yet her dressing is dry. She has been up today and she walked down the [place] and back. Because of the headache and the discomfort we will keep her 1 more day. I will let her go home tomorrow. Objective Data Objective Data Vital Signs: Vital Signs Temp Pulse Resp BP Pulse Ox O2 Del Method O2 Flow Rate 98.3 F 90 16 147/92 H 96 Room Air 2 11/13/23 08:52 11/13/23 08:52 11/13/23 08:52 11/13/23 08:52 11/13/23 08:52 11/13/23 08:52 11/13/23 01:30 Oxygen Flow Rate (L/min) 2 Oxygen Delivery Method Room Air Weight: 167 lb 7 oz Body Mass Index (BMI) 31.6 Intake & Output: Intake and Output for Last 24 Hours 11/11/23 11/12/23 11/13/23 23:59 23:59 23:59 Intake Total 430.25 / 430.25 2242.5 / 2242.5 1000 / 1000 Output Total 1475 / 1475 3350 / 3350 1500 / 1500 Balance -1044.75 / -1044.75 -1107.5 / -1107.5 -500 / -500 Lab / Micro Data Micro: Microbiology 11/03/23 10:48 Swab (Method) Nasal Screen MRSA/MSSA - Final
--- NOTE | 2023-11-13 13:41 | PCM.PN.HOSP ---
Reason for Visit Reason for Visit: Diagnoses Other spondylosis with radiculopathy, cervical region (11/11/23) Encounter for other preprocedural examination (11/11/23) Subjective Subjective Complaining of headache. Headache is posterior. Objective Data Objective Data Vital Signs: Vital Signs Temp Pulse Resp BP Pulse Ox O2 Del Method O2 Flow Rate 36.8 C 90 16 147/92 H 96 Room Air 2 11/13/23 08:52 11/13/23 08:52 11/13/23 08:52 11/13/23 08:52 11/13/23 08:52 11/13/23 08:52 11/13/23 01:30 Oxygen Flow Rate (L/min) 2 Oxygen Delivery Method Room Air Weight: 75.948 kg Body Mass Index (BMI) 31.6 Intake & Output: Intake and Output for Last 24 Hours 11/11/23 11/12/23 11/13/23 23:59 23:59 23:59 Intake Total 430.25 / 430.25 2242.5 / 2242.5 1000 / 1000 Output Total 1475 / 1475 3350 / 3350 1500 / 1500 Balance -1044.75 / -1044.75 -1107.5 / -1107.5 -500 / -500 Lab / Micro Data Micro: Microbiology 11/03/23 10:48 Swab (Method) Nasal Screen MRSA/MSSA - Final Physical Exam Const alert and no apparent distress Neck Neck Narrative: Posterior cervical tenderness. Assessment & Plan Assessment/Plan (1) Migraine: PLAN: Acute. Patient has had other episodes where she goes emergency room to get a shot in her butt. Will avoid steroids given recent surgery. Patient denies a history of CAD or stroke. Will give her dose of sumatriptan and observe.
[2023-11-13] MEDS: SUMAtriptan 6 MG/0.5 ML Vial SC ×2 (14:16→22:19)
[2023-11-13] MEDS: Pantoprazole Sodium 40 MG Tablet PO (22:21)
[2023-11-13] MEDS: Donepezil HCl 10 MG Tablet PO (22:21)
[2023-11-13] MEDS: Pravastatin 40 MG Tablet PO (22:21)
[2023-11-14] MEDS: 0.9% Saline Lock 10 ML Syringe IV ×2 (00:20→08:17)
[2023-11-14] MEDS: Ondansetron 4 MG/2 ML Vial IV ×2 (00:20→08:38)
[2023-11-14 02:15] VITALS: BP 147/106; PULSE 89; RESP 16; TEMP 36.9; O2SAT 98
[2023-11-14] MEDS: Acetaminophen 500 MG Tablet 1000 MG PO (04:53)
[2023-11-14 08:09] VITALS: BP 140/92; PULSE 105; RESP 16; TEMP 36.8; O2SAT 95
[2023-11-14] MEDS: Morphine 2 MG/ML Syringe IV (08:17)
[2023-11-14] MEDS: busPIRone 15 MG TABLET PO (10:42)
[2023-11-14] MEDS: Losartan Potassium 50 MG Tablet PO (10:42)
[2023-11-14] MEDS: Gabapentin 100 MG Capsule PO (10:42)
[2023-11-14] MEDS: Senna/Docusate Sodium 1 Tablet 2 TABLET PO (10:42)
--- NOTE | 2023-11-14 12:50 | DS.PCM_ITS ---
Providers Date of Admission: 11/11/23 Primary Care Physician: Dr. Rey Palmer MD Attending Physician: This is a discharge summary on Melissa Valenzuela. This patient was admitted on the and underwent two-level cervical fusion on that day. Postoperatively she complained of pain more than most people do. She has been on buprenorphine for a long time and she has a patch currently. This perhaps is 1 reason that she has not done that well postoperatively regarding pain. Neurologically she is intact. Today I did not actually make rounds on her as I did yesterday and the day before that. I talked to her nurse today. She relates to him that she is ready to go home. She feels significantly better than she did yesterday. Even yesterday her swallowing was good and her voice was clear. I changed her dressing the day before that. She already has an appointment for follow-up in the office. This is the end of discharge summary on Melissa Valenzuela. This is Dr. Horn dictating. Consultations 11/11/23 14:25 Consult: Hospitalist Routine Consulting Provider: Keke Acevedo Reason for Consult: med management EMERGENT Consult: No MD Notified: Yes Date Notified: 11/11/23 Time Notified: 15:54 Method of Notification: Text Reason For Visit: Anterior Cervical Fusion C4-5 and C Diagnosis Discharge Diagnosis (1) Migraine: Status: Acute Code(s): G43.909 - Migraine, unspecified, not intractable, without status migrainosus Medications at Discharge Home Medications buprenorphine 5 mcg/hour weekly transdermal patch (Butrans) 1 patch TP WE pain 02/08/18 buspirone 15 mg tablet 15 mg PO BID MOOD 11/22/19 pravastatin 40 mg tablet 40 mg PO QHS CHOLESTEROL 11/22/19 gabapentin 100 mg capsule 100 mg PO BID 09/11/20 losartan 50 mg tablet 50 mg PO BID 07/01/22 cyclobenzaprine 10 mg tablet 10 mg PO BID 09/10/22 donepezil 5 mg tablet 10 mg PO QHS 03/09/23 nabumetone 750 mg tablet 750 mg PO BID 11/02/23 olopatadine 0.1 % eye drops 1 drp ophthalmic (eye) PRN EYE 11/02/23 pantoprazole 40 mg tablet,delayed release 40 mg PO QHS 11/02/23 phentermine 37.5 mg tablet 37.5 mg PO DAILY 11/02/23 sennosides 8.6 mg-docusate sodium 50 mg tablet (Stool Softener-Laxative) 2 tab- cap PO BID 11/02/23 buprenorphine 7.5 mcg/hour weekly transdermal patch 1 patch transdermal WE PAIN 11/11/23 hydrocodone-acetaminophen 5-325mg 5mg-325mg 1 tab PO Q6H PRN pain 10 days #40 tabs 11/14/23 Weight / BMI Weight Weight: 167 lb 7 oz Body Mass Index (BMI) 31.6 ABG / Lab / Microbiology Data Microbiology: Microbiology 11/03/23 10:48 Swab (Method) Nasal Screen MRSA/MSSA - Final D/C Instructions May shower in (days): 2 May resume sexual activity in: 4-6 weeks Meaningful Use Info Meaningful Use Diagnoses (Choose all that apply): None applicable Discharge Plan Admission Admit Date/Time: 11/11/23 14:09 Primary Reason for Your Visit: cervical fusion Attending Provider: Parrish Horn Primary Care Provider: Rey Palmer Chi Consulting Providers: Ted Beavers Discharge Orders/Prescriptions Prescriptions: No Action cyclobenzaprine 10 mg tablet 10 mg PO BID buprenorphine [Butrans] 1 EACH patch weekly 1 patch TP WE Patient Comments: apply 1 (ONE) patch every week, APPLIES ON THURSDAY pravastatin 40 MG tablet 40 mg PO QHS buspirone 15 MG tablet 15 mg PO BID gabapentin 100 MG capsule 100 mg PO BID donepezil 5 mg tablet 10 mg PO QHS Patient Comments: TAKE 1 TABLET BY MOUTH EVERY DAY AT BEDTIME losartan 50 mg Tablet 50 mg PO BID pantoprazole 40 mg tablet,delayed release (DR/EC) 40 mg PO QHS Patient Comments: Take one tablet by mouth daily. phentermine 37.5 mg tablet 37.5 mg PO DAILY Patient Comments: TAKE 1 TABLET BY MOUTH ONCE DAILY olopatadine 0.1 % drops 1 drp ophthalmic (eye) PRN Patient Comments: instill 1 (ONE) drop into both eyes TWICE DAILY nabumetone 750 mg tablet 750 mg PO BID Patient Comments: TAKE 1 TABLET BY MOUTH TWICE DAILY FOR 28 DAYS sennosides-docusate sodium [Stool Softener-Laxative] 8.6-50 mg tablet 2 tab-cap PO BID Patient Comments: TAKE 2 TABLETS BY MOUTH TWICE DAILY buprenorphine 7.5 mcg/hour patch weekly 1 patch transdermal WE Patient Comments: Apply one patch every seven days for 28 days hydrocodone-acetaminophen 5-325 mg tablet 1 tab PO Q6H PRN (Reason: pain) 10 Days Qty: 40 0RF Referrals / Follow Up: Rey Palmer Chi, MD [Primary Care Provider] - Disposition Disposition (needs filled in before D/C Order can be placed): Home, Self Care
[2023-11-14 13:37] VITALS: BP 140/89; PULSE 97; RESP 16; TEMP 36.6; O2SAT 97
== END 2023-11-14 15:08 | disposition home or self-care (01) ==
LOC: SDC 14:28 → MS3 14:28
PROVIDERS: Anesthesiology; Admitting Provider Orthopaedic Surgery; PCP Family Medicine Geriatric Medicine; Referring Provider Orthopaedic Surgery; Visit Provider Orthopaedic Surgery
PROC: (CPT 22551; principal; 2023-11-11 07:00)
DX: M47.22 Other spondylosis with radiculopathy, cervical region (principal); F39 Unspecified mood [affective] disorder; E78.00 Pure hypercholesterolemia, unspecified; I10 Essential (primary) hypertension; Z79.899 Other long term (current) drug therapy; K76.0 Fatty (change of) liver, not elsewhere classified; K21.9 Gastro-esophageal reflux disease without esophagitis; G47.33 Obstructive sleep apnea (adult) (pediatric); R41.3 Other amnesia; G89.29 Other chronic pain; G43.909 Migraine, unspecified, not intractable, without status migrainosus; F41.9 Anxiety disorder, unspecified
CPT/HCPCS: 22551; 22552; 22845; 20930; 20939; 22853 ×2; 36415; 72020; 72040; 82962; 83735; 86703; 86706; 86708; 86803; 87077; 87081; 88304; 93005; 94668; 96361; 96365; 96366; 96372; 96375; 96376; 97116; 97162; 97530; 99221; 99252; C1713; J7120; A4216; G0378; G0463; J2405; J3030; J3475

== ENCOUNTER → 2024-01-04 | Outpatient (CLI) | payer MEDICAID, SELFPAY ==
--- NOTE | 2024-01-04 12:00 | MRI_ITS ---
STUDY: MRI LEFT HIP REASON FOR EXAM: Female, 63 years old. Hip pain. Evaluate for osteonecrosis. TECHNIQUE: Standardized fat and water weighted pulse sequences were obtained in all 3 orthogonal planes. COMPARISON: Pelvis and hip x-rays dated 12/10/2023 showing extensive lumbosacral spondylosis with levoscoliosis. FINDINGS: Mild loss of articular cartilage of both hips with hip effusions, right slightly greater than left (coronal series 4 images 7-15). No evidence of avascular necrosis. Normal gluteus minimus, medius and iliopsoas tendons and distal insertions. Mild bilateral greater trochanteric bursitis (coronal series 4 images 8-14). Normal superior and inferior pubic rami. Normal pubic symphysis. Normal ischial tuberosity. Normal origin of the hamstring tendons. Normal visualized iliac wing, sacroiliac joint, and sacral ala. Normal visualized soft tissue structures of the pelvis. MRI/Lower Ext Joint Only (Routine) IMPRESSION: Mild bilateral greater trochanteric bursitis. Mild arthrosis of both hips with small hip effusions, right slightly greater than left. No evidence of osteonecrosis. Electronically Signed: Osmel Godwin MD at 9:39 EDT ,
== END | disposition home or self-care (01) ==
LOC: MRI 11:58
PROVIDERS: PCP Family Medicine Geriatric Medicine; Referring Provider Orthopaedic Surgery; Visit Provider Orthopaedic Surgery
DX: M25.552 Pain in left hip (principal)
CPT/HCPCS: 73721

== ENCOUNTER → 2024-03-02 | Outpatient (CLI) | payer MEDICARE, SELFPAY ==
[2024-03-02 16:24] LABS: Absolute Lymphocyte Count 2.41 X10^3/uL (0.83-4.51); Absolute Neutrophil Count 5.5 X10^3/uL (2.0-7.7); Basophil# 0.03 X10^3/uL; Basophil% 0.4 % (0-1); Eosinophil# 0.02 X10^3/uL; Eosinophils% 0.2 % (0-5); Hematocrit 39.9 % (37-47); Hemoglobin 12.8 g/dL (12.0-15.0); Lymphocyte # 2.41 X10^3/ul (0.83-4.51); Lymphocyte % 28.3 % (19-41); Mean Corp Hgb Conc 32.1 g/dL (32-36); Mean Corpuscular Hgb 30.4 pg (27.0-32.0); Mean Corpuscular Volume 94.8 fL (81-99); Mean Platelet Vol. 9.7 fl (6.2-12.0); Monocyte# 0.54 X10^3/uL; Monocyte% 6.3 % (0-10); NRBC Flagged by Analyzer 0 % (0-5); Neutrophil # 5.47 X10^3/uL (2.7-7.7); Neutrophil % 64.3 % (47-70); Platelet Count 301 K/mm3 (150-450); RBC Distribution Width CV 13.2 % (11.6-14.6); RBC Distribution Width SD 45.4 fl (35.1-43.9); Red Blood Count 4.21 M/mm3 (4.2-5.4); White Blood Count 8.5 K/mm3 (4.4-11.0)
[2024-03-02 16:49] LABS: Vitamin D,25 Hydroxy 23.5 ng/mL
[2024-03-02 17:01] LABS: AST(SGOT) 31 U/L (15-37); Alanine Aminotransfer ALT/SGPT 37 U/L (13-56); Albumin, Serum 3.6 g/dL (3.2-5.0); Alkaline Phosphatase 110 U/L (45-117); Anion Gap 6 (5-15); BUN 14 mg/dL (7-18); BUN/Creat Ratio 18.3 RATIO (10-20); Calcium,Total 9.7 mg/dL (8.5-10.1); Chloride 109 mmol/L (98-107); Cholesterol 234 mg/dL (200); Creatinine, Serum 0.76 mg/dL (0.55-1.02); EST Glomerular Filtration Rate 81 mL/min (>60); Est Glom Filt Rate - Afr Amer 98 mL/min (>60); Globulin 3.7 g/dL (2.2-4.2); Glucose 94 mg/dL (74-106); High Density Lipoprotein 74 mg/dL; Potassium 4.1 mmol/L (3.5-5.1); Protein, Total 7.3 g/dL (6.4-8.2); Sodium Level 139 mmol/L (136-145); Thyroid Stim Hormone (TSH) 0.75 uIU/mL (0.358-3.74); Triglycerides 261 mg/dL; Very Low Density Lipoprotein 52 mg/dL (5-40)
== END | disposition home or self-care (01) ==
LOC: LAB 15:23
PROVIDERS: PCP Family Medicine Geriatric Medicine; Visit Provider Family Medicine Geriatric Medicine
DX: I10 Essential (primary) hypertension (principal); E55.9 Vitamin D deficiency, unspecified; E78.5 Hyperlipidemia, unspecified
CPT/HCPCS: 36415; 80053; 80061; 82306; 84443; 85025

== ENCOUNTER 2024-03-18 20:58 | Emergency (ER) | payer MEDICARE, SELFPAY ==
[2024-03-18 20:59] VITALS: BP 129/70; PULSE 128; RESP 20; TEMP 36; O2SAT 99; BMI 29.5
--- NOTE | 2024-03-18 21:25 | CT_ITS ---
EXAM: CT Abdomen And Pelvis W/ Contrast Injection HISTORY: abdominal pain TECHNIQUE: Routine protocol CT abdomen pelvis. IV Contrast: IV 100mL [id number]-370 . Oral Contrast: without. Sagittal and coronal images were reconstructed. RADIATION DOSAGE (If Supplied By Facility): CTDIvol = ( 17.95 ) mGy, DLP = ( 974.16 ) mGycm Individualized dose optimization techniques were used for this CT. COMPARISON: CT abdomen and pelvis 02/21/2023. LIMITATIONS: None. FINDINGS: LOWER CHEST: Lung bases are clear. LIVER: Fatty infiltration. Subtle hypoattenuating lesion in the right lobe posteriorly is not as well-visualized as on the prior, probable hemangioma. GALLBLADDER/BILE DUCTS: Surgically absent. Common bile duct is dilated, 13 mm, not significantly changed compared to prior. PANCREAS: Pancreatic duct is dilated, appears slightly increased compared to prior. No adjacent stranding or collection. SPLEEN: Unremarkable. ADRENAL GLANDS: Unremarkable. KIDNEYS / URETERS: Unremarkable. BOWEL / MESENTERY: Unremarkable. No bowel obstruction. APPENDIX: Identified and normal. No evidence of acute appendicitis. PERITONEUM: No free air. No free fluid. VESSELS: Abdominal aorta is normal caliber. RETROPERITONEUM: Unremarkable. REPRODUCTIVE ORGANS: Unremarkable. BLADDER: Unremarkable. ABDOMINAL WALL: Unremarkable. BONES: No acute abnormality. Degenerative changes lumbar spine and scoliosis. OTHER: None. CT/Abdomen/Pelvis W IV Cont ONLY IMPRESSION: Dilated common bile duct likely postsurgical and stable compared to prior. Cholecystectomy. Dilated pancreatic duct is slightly increased. Lab correlation, ultrasound and/or MRI/MRCP may be helpful as clinically indicated. Electronically Signed: Felicia Mishra MD at 23:17 EDT ,
--- NOTE | 2024-03-18 21:28 | EX.ED.DYSGE1 ---
HPI <NEIL Cox - Last Filed: 03/18/24 21:54> History of Present Illness Chief Complaint: Abd Pain Narrative Narrative: 64-year-old female with past medical history of GERD, hernia repair, cholecystectomy, and chronic pain presents with abdominal pain. She ate chili for lunch around noon. She ate part of a store-bought cookie cake around 7 PM and then went swimming started to feel nauseous and have epigastric pain and vomiting. She states she is chronically constipated from her buprenorphine patch and gives herself a water enema daily to have a bowel movement. She last did this yesterday. She has no urinary symptoms. No history of bowel obstruction. She denies smoking or alcohol use. PFS <NEIL Cox - Last Filed: 03/18/24 21:54> [facility] Medical History Abnormal mammogram of right breast Acute urticaria MAIN (acute kidney injury) Alcohol use Amplified musculoskeletal pain, localized Anxiety Arthritis Back pain Bilateral buttock pain BPPV (benign paroxysmal positional vertigo) Cardiology follow-up encounter Cervical disc disorder at C5-C6 level with radiculopathy Cervical disc disorder with radiculopathy of mid-cervical region Cervical radiculopathy due to degenerative joint disease of spine Cervical spondylosis Change in bowel habit Chronic lower back pain CPAP (continuous positive airway pressure) dependence DDD (degenerative disc disease), lumbar Dehydration Depression Disorder of intervertebral disc at C5-C6 level with radiculopathy Dysphagia Exertional dyspnea Fatty liver Foreign body GERD with esophagitis Heartburn Hematuria Hiatal hernia High cholesterol History of IBS History of steroid therapy History of stress test HLD (hyperlipidemia) Hx of echocardiogram Hypertension Injury of head and neck Intervertebral disc disorder with radiculopathy of lumbar region Intractable low back pain Leg cramps Lumbar disc lesion Marijuana use Migraine Migraine headache Muscle spasm Myalgia Neck pain Non-smoker Obesity ARIELA (obstructive sleep apnea) Other intervertebral disc degeneration, lumbar region Post-menopausal Restless legs Right flank pain Sacroiliitis, not elsewhere classified Scoliosis Spondylosis without myelopathy or radiculopathy, lumbar region Spondylosis without myelopathy or radiculopathy, lumbar region Streptococcus agalactiae infection Syncope Thoracic back pain Warts Wears glasses Home Medications ?Medication ?Instructions ?Recorded ?Last Taken ?Type buprenorphine 5 mcg/hour weekly 1 patch TP WE pain 02/08/18 06/08/23 History transdermal patch (Butrans) buspirone 15 mg tablet 15 mg PO BID MOOD 11/22/19 11/21/19 History pravastatin 40 mg tablet 40 mg PO QHS CHOLESTEROL 11/22/19 06/08/23 History gabapentin 100 mg capsule 100 mg PO BID 09/11/20 06/08/23 History losartan 50 mg tablet 50 mg PO BID 07/01/22 11/11/23 History cyclobenzaprine 10 mg tablet 10 mg PO BID 09/10/22 06/08/23 History donepezil 5 mg tablet 10 mg PO QHS 03/09/23 06/08/23 History nabumetone 750 mg tablet 750 mg PO BID 11/02/23 Unknown History olopatadine 0.1 % eye drops 1 drp ophthalmic (eye) PRN EYE 11/02/23 Unknown History pantoprazole 40 mg tablet,delayed 40 mg PO QHS 11/02/23 Unknown History release phentermine 37.5 mg tablet 37.5 mg PO DAILY 11/02/23 Unknown History sennosides 8.6 mg-docusate sodium 2 tab-cap PO BID 11/02/23 Unknown History 50 mg tablet (Stool Softener-Laxative) buprenorphine 7.5 mcg/hour weekly 1 patch transdermal WE PAIN 11/11/23 Unknown History transdermal patch ondansetron 4 mg disintegrating 4 mg PO Q8H PRN PRN Nausea #10 tabs 03/19/24 Unknown Rx tablet pantoprazole 40 mg tablet,delayed 40 mg PO DAILY #30 tabs 03/19/24 Unknown Rx release sucralfate 1 gram tablet (Carafate) 1 g PO Q6H #60 tabs 03/19/24 Unknown Rx Allergy/AdvReac Type Severity Reaction Status Date / Time silicone Allergy Rash Verified 03/18/24 20:58 codeine AdvReac Itching Verified 03/18/24 20:58 doxycycline AdvReac Itching Verified 03/18/24 20:58 oxycodone AdvReac Itching Verified 03/18/24 20:58 Family History Mother Arthritis Hypercholesterolemia Hypertension Cancer Lung Father Cancer Lung Cirrhosis Emphysema lung Surgical History History of colectomy History of colonoscopy (~2016) History of Angel fundoplication History of tubal ligation Hx of esophagogastroduodenoscopy S/P cholecystectomy S/P lumpectomy of breast [place] teeth extracted Social History household members: spouse Smoking Status: Never smoker alcohol intake: never substance use type: does not use caffeine: No ROS <NEIL Cox - Last Filed: 03/18/24 21:54> ROS ED ROS Narrative Constitutional: Negative for fever, chills, malaise. CVS: Negative for chest pain. Respiratory: Negative for shortness of breath. GI: Positive for abdominal pain, nausea, vomiting, constipation. : Negative for dysuria, hematuria or frequency. EXAM <NEIL Cox - Last Filed: 03/18/24 21:54> Physical Exam Narrative Exam Narrative: CONST: Patient sitting in no acute distress. EYES: Normal inspection. NECK: Normal inspection. RESP: No respiratory distress, CTAB. CVS: Regular rate and rhythm, no murmur, no gallop. ABD: Soft with midline epigastric pain, no guarding or rebound, nondistended, no hepatosplenomegaly. SKIN: Color normal, no rash, warm, dry, intact. EXTREMITIES: Normal appearance, no pedal edema. NEURO: Alert and answering questions appropriately. PSYCH: Normal affect. Const Vital Signs: 03/18/24 20:59 03/18/24 22:58 03/19/24 00:00 Temperature 96.8 F L Temperature Source Temporal Pulse Rate 128 H 106 H 81 Respiratory Rate 20 H 16 16 Blood Pressure 129/70 H 117/71 118/76 Blood Pressure Mean 89 86 90 Pulse Ox 99 98 98 Oxygen Delivery Method Room Air Room Air Room Air <Dr. Bharat Fernández DO - Last Filed: 03/19/24 00:18> Physical Exam Const Vital Signs: 03/18/24 20:59 03/18/24 22:58 03/19/24 00:00 Temperature 96.8 F L Temperature Source Temporal Pulse Rate 128 H 106 H 81 Respiratory Rate 20 H 16 16 Blood Pressure 129/70 H 117/71 118/76 Blood Pressure Mean 89 86 90 Pulse Ox 99 98 98 Oxygen Delivery Method Room Air Room Air Room Air [facility] <NELI Cox - Last Filed: 03/18/24 21:54> [facility] Narrative Medical decision making narrative: Differential includes: GERD, pancreatitis, bowel obstruction Patient has acute onset vomiting and epigastric pain. She appears uncomfortable but nontoxic. She is tachycardic in the 120s with otherwise normal vital signs. She has midline epigastric tenderness no peritoneal signs. Labs show WBC 13.6, normal electrolytes and renal function, and unremarkable LFTs and lipase. She was treated with IV fluids, Pepcid, and Zofran while CT scan is pending. Lab Data Attestation: I reviewed the patient's lab results. Labs: Laboratory Results - last 24 hr 03/18/24 21:26 WBC 13.6 H RBC 4.33 Hgb 13.7 Hct 41.2 MCV 95.2 MCH 31.6 MCHC 33.3 RDW Std Deviation 46.2 H RDW Coeff of Andry 13.2 Plt Count 333 MPV 9.9 Immature Gran % (Auto) 0.300 Neut % (Auto) 76.8 H Lymph % (Auto) 16.4 L Parmer % (Auto) 5.1 Eos % (Auto) 1.1 Baso % (Auto) 0.3 Absolute Neuts (auto) 10.4 H Absolute Lymphs (auto) 2.22 Nucleated RBC % 0 Sodium 139 Potassium 3.8 Chloride 108 H Carbon Dioxide 26.0 Anion Gap 5 BUN 21 H Creatinine 0.94 Estim Creat Clear Calc 55.90 Est GFR (MDRD) Af Amer 77 Est GFR (MDRD) Non-Af 64 BUN/Creatinine Ratio 22.4 H Glucose 108 H Calcium 9.1 Total Bilirubin 0.60 AST 43 H ALT 33 Alkaline Phosphatase 119 H Total Protein 7.2 Albumin 3.5 Globulin 3.7 Albumin/Globulin Ratio 0.9 Lipase 39 Radiography Diagnostic Testing: Clinical Impression(s) from Imaging Studies Abdomen/Pelvis CT 03/18/24 21:25 IMPRESSION: Dilated common bile duct likely postsurgical and stable compared to prior. Cholecystectomy. Dilated pancreatic duct is slightly increased. Lab correlation, ultrasound and/or MRI/MRCP may be helpful as clinically indicated. Electronically Signed: Felicia Mishra MD at 23:17 EDT , <Dr. Bharat Fernández, DO - Last Filed: 03/19/24 00:18> [facility] Narrative Medical decision making narrative: Differential includes: GERD, pancreatitis, bowel obstruction, choledocholithiasis Patient has acute onset vomiting and epigastric pain. She appears uncomfortable but nontoxic. She is tachycardic in the 120s with otherwise normal vital signs. She has midline epigastric tenderness no peritoneal signs. Labs show WBC 13.6, normal electrolytes and renal function, and unremarkable LFTs and lipase. She was treated with IV fluids, Pepcid, and Zofran while CT scan is pending. 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 I perform my own [id number] evaluation. I agree with the plan of work-up. Epigastric pain vomiting 12 hours prior to arrival. No diarrhea. Last bowel movement yesterday she is on buprenorphine patches and does enemas daily. Did not do them today. She is passing gas. Cholecystectomy in the past. Hiatal hernia repair in the past. Unclear if she is on a PPI. Does not follow GI. Exam mild epigastric tenderness negative Birch's or McBurney's tenderness. Abdominal labs were ordered white count 13.6. Lipase normal AST at 43 slightly elevated ALP 119 however total bili 0.6. CT scan results stable common bile duct at 13 mm from previous. Reported mild dilated pancreatic duct dilatation. This was new. She was treated with Pepcid Zofran with improving symptoms p.o. fluids which she tolerated well. Heart rate is tachycardic initially improved. She is sinus rhythm. She is tolerating oral fluids, discussed with her strict return precautions. She is given follow-up with GI further workup as an outpatient. Consider admission, however clinically feeling better tolerating p.o. intake she would like outpatient follow-up. All questions were answered. Lab Data Labs: Laboratory Results - last 24 hr 03/18/24 21:26 WBC 13.6 H RBC 4.33 Hgb 13.7 Hct 41.2 MCV 95.2 MCH 31.6 MCHC 33.3 RDW Std Deviation 46.2 H RDW Coeff of Andry 13.2 Plt Count 333 MPV 9.9 Immature Gran % (Auto) 0.300 Neut % (Auto) 76.8 H Lymph % (Auto) 16.4 L Parmer % (Auto) 5.1 Eos % (Auto) 1.1 Baso % (Auto) 0.3 Absolute Neuts (auto) 10.4 H Absolute Lymphs (auto) 2.22 Nucleated RBC % 0 Sodium 139 Potassium 3.8 Chloride 108 H Carbon Dioxide 26.0 Anion Gap 5 BUN 21 H Creatinine 0.94 Estim Creat Clear Calc 55.90 Est GFR (MDRD) Af Amer 77 Est GFR (MDRD) Non-Af 64 BUN/Creatinine Ratio 22.4 H Glucose 108 H Calcium 9.1 Total Bilirubin 0.60 AST 43 H ALT 33 Alkaline Phosphatase 119 H Total Protein 7.2 Albumin 3.5 Globulin 3.7 Albumin/Globulin Ratio 0.9 Lipase 39 Radiography Diagnostic Testing: Clinical Impression(s) from Imaging Studies Abdomen/Pelvis CT 03/18/24 21:25 IMPRESSION: Dilated common bile duct likely postsurgical and stable compared to prior. Cholecystectomy. Dilated pancreatic duct is slightly increased. Lab correlation, ultrasound and/or MRI/MRCP may be helpful as clinically indicated. Electronically Signed: Felicia Mishra MD at 23:17 EDT , Discharge Plan Triage Chief Complaint: Abd Pain Other Complaint: Nausea/Vomiting ED Midlevel Provider: Maggie Yeh ED Provider: Bharat Fernández Dx/Rx/DC Orders Clinical Impression: Abdominal pain, Vomiting Instructions: Abdominal Pain, ED Gastritis (Adult), ED Vomiting (Adult) Prescriptions: New sucralfate [Carafate] 1 gram tablet 1 g PO Q6H Qty: 60 0RF pantoprazole 40 mg tablet,delayed release (DR/EC) 40 mg PO DAILY Qty: 30 0RF ondansetron 4 mg tablet,disintegrating 4 mg PO Q8H PRN PRN (Reason: Nausea) Qty: 10 0RF No Action cyclobenzaprine 10 mg tablet 10 mg PO BID buprenorphine [Butrans] 1 EACH patch weekly 1 patch TP WE Patient Comments: apply 1 (ONE) patch every week, APPLIES ON THURSDAY pravastatin 40 MG tablet 40 mg PO QHS buspirone 15 MG tablet 15 mg PO BID gabapentin 100 MG capsule 100 mg PO BID donepezil 5 mg tablet 10 mg PO QHS Patient Comments: TAKE 1 TABLET BY MOUTH EVERY DAY AT BEDTIME losartan 50 mg Tablet 50 mg PO BID pantoprazole 40 mg tablet,delayed release (DR/EC) 40 mg PO QHS Patient Comments: Take one tablet by mouth daily. phentermine 37.5 mg tablet 37.5 mg PO DAILY Patient Comments: TAKE 1 TABLET BY MOUTH ONCE DAILY olopatadine 0.1 % drops 1 drp ophthalmic (eye) PRN Patient Comments: instill 1 (ONE) drop into both eyes TWICE DAILY nabumetone 750 mg tablet 750 mg PO BID Patient Comments: TAKE 1 TABLET BY MOUTH TWICE DAILY FOR 28 DAYS sennosides-docusate sodium [Stool Softener-Laxative] 8.6-50 mg tablet 2 tab-cap PO BID Patient Comments: TAKE 2 TABLETS BY MOUTH TWICE DAILY buprenorphine 7.5 mcg/hour patch weekly 1 patch transdermal WE Patient Comments: Apply one patch every seven days for 28 days Primary Care Provider: Rey Palmer Chi Referrals: Kevin Desir DO [Med Staff - Active Staff] - 1-2 Weeks Rey Palmer Chi, MD [Primary Care Provider] - Activity Restrictions/Additional Instructions: Your CT scan stable dilated common bile duct at 13 mm. Mild dilated pancreatic duct. There is no stones. Normal lipase. Liver enzymes with AST 43, ALT 33, alk phos 119, total bili 0.6. Take medication as prescribed follow-up with Dr. Desir. If symptoms recurs or worsens, return to the ED for reevaluation. Print Language: Kuwaiti Disposition Disposition: Home, Self Care
[2024-03-18] MEDS: Famotidine 200 MG/20 ML MDV 20 MG in 0.9% Normal Saline (Pres. free 8 ML 300 MG IV (21:33)
[2024-03-18] MEDS: 0.9% Normal Saline (1000mL) 1,000 ML 999 ML IV (21:33)
[2024-03-18] MEDS: Ondansetron 4 MG/2 ML Vial IV (21:33)
[2024-03-18 21:47] LABS: Absolute Lymphocyte Count 2.22 X10^3/uL (0.83-4.51); Absolute Neutrophil Count 10.4 X10^3/uL (2.0-7.7); Basophil# 0.04 X10^3/uL; Basophil% 0.3 % (0-1); Eosinophil# 0.15 X10^3/uL; Eosinophils% 1.1 % (0-5); Hematocrit 41.2 % (37-47); Hemoglobin 13.7 g/dL (12.0-15.0); Lymphocyte # 2.22 X10^3/ul (0.83-4.51); Lymphocyte % 16.4 % (19-41); Mean Corp Hgb Conc 33.3 g/dL (32-36); Mean Corpuscular Hgb 31.6 pg (27.0-32.0); Mean Corpuscular Volume 95.2 fL (81-99); Mean Platelet Vol. 9.9 fl (6.2-12.0); Monocyte# 0.69 X10^3/uL; Monocyte% 5.1 % (0-10); NRBC Flagged by Analyzer 0 % (0-5); Neutrophil # 10.41 X10^3/uL (2.7-7.7); Neutrophil % 76.8 % (47-70); Platelet Count 333 K/mm3 (150-450); RBC Distribution Width CV 13.2 % (11.6-14.6); RBC Distribution Width SD 46.2 fl (35.1-43.9); Red Blood Count 4.33 M/mm3 (4.2-5.4); White Blood Count 13.6 K/mm3 (4.4-11.0)
[2024-03-18 21:52] LABS: ALB/GLOB Ratio 0.9 RATIO (0.9-2.4); AST(SGOT) 43 U/L (15-37); Alanine Aminotransfer ALT/SGPT 33 U/L (13-56); Albumin, Serum 3.5 g/dL (3.2-5.0); Alkaline Phosphatase 119 U/L (45-117); Anion Gap 5 (5-15); BUN 21 mg/dL (7-18); BUN/Creat Ratio 22.4 RATIO (10-20); Calcium,Total 9.1 mg/dL (8.5-10.1); Chloride 108 mmol/L (98-107); Creatinine, Serum 0.94 mg/dL (0.55-1.02); EST Glomerular Filtration Rate 64 mL/min (>60); Est Glom Filt Rate - Afr Amer 77 mL/min (>60); Globulin 3.7 g/dL (2.2-4.2); Glucose 108 mg/dL (74-106); Lipase 39 U/L (13-75); Potassium 3.8 mmol/L (3.5-5.1); Protein, Total 7.2 g/dL (6.4-8.2); Sodium Level 139 mmol/L (136-145)
[2024-03-18 22:58] VITALS: BP 117/71; PULSE 106; RESP 16; O2SAT 98
[2024-03-19] VITALS: BP 118/76; PULSE 81; RESP 16; O2SAT 98
[2024-03-19 00:24] VITALS: BP 145/62; PULSE 81; RESP 16; TEMP 36.3; O2SAT 98
== END 2024-03-19 00:25 | disposition home or self-care (01) ==
PROVIDERS: Physician Assistant; Emergency Provider Emergency Medicine; PCP Family Medicine Geriatric Medicine; Visit Provider Emergency Medicine
DX: R10.13 Epigastric pain (principal); R11.2 Nausea with vomiting, unspecified; K59.09 Other constipation; I10 Essential (primary) hypertension; E78.00 Pure hypercholesterolemia, unspecified; R00.0 Tachycardia, unspecified; K21.9 Gastro-esophageal reflux disease without esophagitis; G89.29 Other chronic pain; G47.33 Obstructive sleep apnea (adult) (pediatric); Z79.899 Other long term (current) drug therapy; Z90.49 Acquired absence of other specified parts of digestive tract
CPT/HCPCS: 74177; 80053; 83690; 85025; 96361; 96374; 96375; 99283; J7030; Q9967; A4216; J2405; J3490

== ENCOUNTER → 2024-06-15 | Outpatient (CLI) | payer MEDICARE, SELFPAY ==
--- NOTE | 2024-06-15 16:51 | RAD_ITS ---
INDICATION: PAIN EXAMINATION/TECHNIQUE: X-RAY - LEFT XR Knee 1 or 2 Views 2 VIEWS COMPARISON: Prior study dated: 09/30/2023 FINDINGS: SOFT TISSUES: No soft tissue swelling or gas. No radiopaque foreign body. BONES/JOINTS: No acute fracture or subluxation.. Normal alignment. Mild medial compartment joint space narrowing. Tiny marginal osteophytes at all 3 compartments. No sclerotic or destructive changes observed. RAD/Knee 1 or 2 Views IMPRESSION: No fracture or malalignment. Mild degenerative change. Electronically Signed: Liam Ansari MD at 23:27 EDT ,
== END | disposition home or self-care (01) ==
LOC: RAD 16:50
PROVIDERS: PCP Family Medicine Geriatric Medicine; Referring Provider Anesthesiology Pain Medicine; Visit Provider Anesthesiology Pain Medicine
DX: M25.562 Pain in left knee (principal)
CPT/HCPCS: 73560

== ENCOUNTER → 2024-08-29 | Outpatient (CLI) | payer MEDICARE, SELFPAY | END | disposition home or self-care (01) | LOC: RAD 14:01 | PROVIDERS: PCP Family Medicine Geriatric Medicine; Referring Provider Anesthesiology Pain Medicine; Visit Provider Anesthesiology Pain Medicine | DX: M51.34 Other intervertebral disc degeneration, thoracic region (principal) | CPT/HCPCS: 72070 ==

== ENCOUNTER → 2024-09-12 | Outpatient (CLI) | payer MEDICARE, SELFPAY ==
[2024-09-12 12:14] LABS: Absolute Lymphocyte Count 3.06 X10^3/uL (0.83-4.51); Absolute Neutrophil Count 3.1 X10^3/uL (2.0-7.7); Basophil# 0.05 X10^3/uL; Basophil% 0.7 % (0-1); Eosinophil# 0.17 X10^3/uL; Eosinophils% 2.5 % (0-5); Hematocrit 42.4 % (37-47); Hemoglobin 14.1 g/dL (12.0-15.0); Lymphocyte # 3.06 X10^3/ul (0.83-4.51); Lymphocyte % 44.9 % (19-41); Mean Corp Hgb Conc 33.3 g/dL (32-36); Mean Corpuscular Hgb 31.6 pg (27.0-32.0); Mean Corpuscular Volume 95.1 fL (81-99); Mean Platelet Vol. 9.5 fl (6.2-12.0); Monocyte# 0.39 X10^3/uL; Monocyte% 5.7 % (0-10); NRBC Flagged by Analyzer 0 % (0-5); Neutrophil # 3.13 X10^3/uL (2.7-7.7); Neutrophil % 45.9 % (47-70); Platelet Count 316 K/mm3 (150-450); RBC Distribution Width CV 12.6 % (11.6-14.6); RBC Distribution Width SD 43.5 fl (35.1-43.9); Red Blood Count 4.46 M/mm3 (4.2-5.4); White Blood Count 6.8 K/mm3 (4.4-11.0)
[2024-09-12 14:03] LABS: ALB/GLOB Ratio 0.8 RATIO (0.9-2.4); AST(SGOT) 68 U/L (15-37); Alanine Aminotransfer ALT/SGPT 49 U/L (13-56); Albumin, Serum 3.5 g/dL (3.2-5.0); Alkaline Phosphatase 105 U/L (45-117); Anion Gap 7 (5-15); BUN 10 mg/dL (7-18); BUN/Creat Ratio 9.9 RATIO (10-20); Calcium,Total 9.7 mg/dL (8.5-10.1); Chloride 106 mmol/L (98-107); Cholesterol 232 mg/dL (200); Creatinine, Serum 1.01 mg/dL (0.55-1.02); EST Glomerular Filtration Rate 58 mL/min (>60); Est Glom Filt Rate - Afr Amer 71 mL/min (>60); Globulin 4.3 g/dL (2.2-4.2); Glucose 130 mg/dL (74-106); High Density Lipoprotein 64 mg/dL; Potassium 4.3 mmol/L (3.5-5.1); Protein, Total 7.8 g/dL (6.4-8.2); Sodium Level 138 mmol/L (136-145); Triglycerides 407 mg/dL
[2024-09-12 15:54] LABS: Vitamin D,25 Hydroxy 18.9 ng/mL
[2024-09-13 09:29] LABS: Hemoglobin A1c 5.5 % (3.8-5.6)
== END | disposition home or self-care (01) ==
PROVIDERS: PCP Family Medicine Geriatric Medicine; Visit Provider Family Medicine Geriatric Medicine
DX: I10 Essential (primary) hypertension (principal); E55.9 Vitamin D deficiency, unspecified; E78.5 Hyperlipidemia, unspecified; R73.09 Other abnormal glucose
CPT/HCPCS: 36415; 80053; 80061; 82306; 83036; 84443; 85025

== ENCOUNTER → 2024-10-20 | Outpatient (CLI) | payer MEDICARE, SELFPAY ==
--- NOTE | 2024-10-20 15:24 | BD_ITS ---
STUDY: DUAL ENERGY X-RAY ABSORPTIOMETRY / DXA REASON FOR EXAM: Female, 64 years old. 627.8Menopausal postmenopausal BONE DENSITY REASON FOR EXAM TECHNIQUE: Bone Mineral Density (BMD) measurements of lumbar spine and bilateral hips were obtained. COMPARISON: None. FINDINGS: Lumbar Spine (L1-L4): g/cm2 (1.114) / T-score (0.9) / Z-score (2.6) Findings are suggestive of normal bone density with a low fracture risk. Left Femur Total: g/cm2 (0.910) / T-score (-0.3) / Z-score (1.0) Left Femoral Neck: g/cm2 (0.667) / T-score (-1.6) / Z-score (-0.1) Right Femur Total: g/cm2 (0.948) / T-score (0.0) / Z-score (1.3) Right Femoral Neck: g/cm2 (0.781) / T-score (-0.6) / Z-score (0.9) BD/Dexa Bone Density Study IMPRESSION: The patient is considered osteopenic as outlined below according to World Emile Organization (WHO) criteria with a low fracture risk. Reference Information: The T-score is the number of standard deviations above or below the standard which is normal for young adults at their peak bone mineral density. The World Health Organization (WHO) interprets the T-scores as follows: Above -1 Normal bone density Between -1 and -2.5 Osteopenia Equal to / or below -2.5 Osteoporosis As a practical clinical guideline, osteopenia may be graded as follows: Mild -1 through -1.5 Moderate -1.6 through -2.0 Severe -2.1 through -2.4 The Z-score is the number of standard deviations above or below age-matched controls. A Z-score of less than -1.5 would be considered abnormal. References: 1. NIH Osteoporosis and Related Bone Diseases www osteo.org 2. International Society for Clinical Densitometry www iscd.org 3. National Osteoporosis Foundation www nof.org Electronically Signed: Terrence Chun MD at 14:16 EST ,
== END | disposition home or self-care (01) ==
LOC: OPBD 15:20
PROVIDERS: PCP Family Medicine Geriatric Medicine; Referring Provider Family Medicine Geriatric Medicine; Visit Provider Family Medicine Geriatric Medicine
DX: Z78.0 Asymptomatic menopausal state (principal)
CPT/HCPCS: 77080

== ENCOUNTER → 2024-12-05 | Outpatient (CLI) | payer MEDICARE, SELFPAY ==
--- NOTE | 2024-12-05 12:30 | MRI_ITS ---
PROCEDURE: SPINE CERVICAL (ROUTINE) REASON FOR EXAM: RADICULOPATHY TECHNIQUE: Cervical spine MRI without intravenous gadolinium-based contrast. CONTRAST: None COMPARISON: Radiographs 05/05/2024. no previous CT or MRI. FINDINGS: C4-C6 ACDF with associated artifact limiting evaluation at those levels. Cervical vertebral body heights are preserved. No suspicious marrow signal abnormality. Straightening and mild reversal of the normal cervical lordosis may be positional, degenerative, or related to pain/muscular spasm. This is similar to slightly increased from prior. Unremarkable cord signal and morphology. C2-3: Mild uncovertebral arthropathy. No significant spinal canal or foraminal stenosis. C3-4: Disc height loss with diffuse disc bulging and right paracentral predominant disc/osteophyte complex. Uncovertebral arthropathy. Minimal facet arthropathy. Mild focal spinal canal stenosis with contact of the disc/osteophyte complex and the ventral cord, with incomplete effacement of CSF. Mild foraminal stenoses. C4-5: Operative level with associated artifact. Uncovertebral arthropathy. Suspect mild focal spinal canal stenosis. No significant foraminal stenosis evident allowing for limitations. C5-6: Operative level with associated artifact. Uncovertebral arthropathy. Suspect mild/moderate focal spinal canal stenosis and at least mild/moderate right and mild left foraminal stenoses, difficult to evaluate due to artifact. C6-7: Diffuse disc bulging. Uncovertebral greater than facet arthropathy. Moderate right and mild/moderate left foraminal stenoses. No significant spinal canal stenosis. C7-T1: No significant spinal canal or foraminal stenosis. Other: Lumbar spondylosis and scoliosis on the inventory clerk, not well evaluated. Diverticulosis. Partially empty sella, can be a normal variant or may be seen in the setting of idiopathic intracranial hypertension amongst other etiologies. MRI/Spine Cervical (Routine) IMPRESSION: 1. Note artifact related to C4-C6 ACDF, limiting evaluation at those levels. 2. Multilevel spondylosis as above. No high-grade spinal canal stenosis identi fied allowing for limitations. Variable foraminal stenoses, up to moderate on the right at C6-C7. 3. Additional description as above. Reading Location: [id number]
== END | disposition home or self-care (01) ==
LOC: MRI 11:58
PROVIDERS: PCP Family Medicine Geriatric Medicine; Referring Provider Anesthesiology Pain Medicine; Visit Provider Anesthesiology Pain Medicine
DX: M54.12 Radiculopathy, cervical region (principal)
CPT/HCPCS: 72141

== ENCOUNTER → 2025-03-14 | Outpatient (CLI) | payer MEDICARE, SELFPAY ==
[2025-03-14 12:52] LABS: Absolute Lymphocyte Count 3.28 X10^3/uL (0.83-4.51); Absolute Neutrophil Count 5.3 X10^3/uL (2.0-7.7); Basophil# 0.05 X10^3/uL; Basophil% 0.5 % (0-1); Eosinophil# 0.06 X10^3/uL; Eosinophils% 0.6 % (0-5); Hematocrit 44.4 % (37-47); Hemoglobin 14.8 g/dL (12.0-15.0); Lymphocyte # 3.28 X10^3/ul (0.83-4.51); Mean Corp Hgb Conc 33.3 g/dL (32-36); Mean Corpuscular Hgb 31.7 pg (27.0-32.0); Mean Corpuscular Volume 95.1 fL (81-99); Mean Platelet Vol. 9.6 fl (6.2-12.0); Monocyte# 0.63 X10^3/uL; Monocyte% 6.7 % (0-10); NRBC Flagged by Analyzer 0 % (0-5); Neutrophil # 5.33 X10^3/uL (2.7-7.7); Platelet Count 327 K/mm3 (150-450); RBC Distribution Width CV 13.3 % (11.6-14.6); RBC Distribution Width SD 46.5 fl (35.1-43.9); Red Blood Count 4.67 M/mm3 (4.2-5.4); White Blood Count 9.4 K/mm3 (4.4-11.0)
[2025-03-14 14:45] LABS: ALB/GLOB Ratio 1.3 RATIO (0.9-2.4); AST(SGOT) 235 U/L (<=31); Alanine Aminotransfer ALT/SGPT 114 U/L (<=34); Albumin, Serum 4.6 g/dL (3.4-4.8); Alkaline Phosphatase 136 U/L (35-104); Anion Gap 13 (5-15); BUN 15 mg/dL (4-19); BUN/Creat Ratio 17.6 RATIO (10-20); Calcium,Total 10.8 mg/dL (7.6-11.0); Carbon Dioxide 25.5 mmol/L (21.0-32.0); Chloride 101 mmol/L (98-108); Cholesterol 194 mg/dL (<=200); Creatinine, Serum 0.87 mg/dL (0.70-1.20); EST Glomerular Filtration Rate 73 (>60); Globulin 3.4 g/dL (2.2-4.2); Glucose 91 mg/dL (70-99); High Density Lipoprotein 73 mg/dL; Low Density Lipoprotein Calc. 87 mg/dL; Potassium 5.1 mmol/L (3.3-5.1); Protein, Total 8.1 g/dL (5.9-8.4); Sodium Level 139 mmol/L (133-145); Total Bilirubin 0.68 mg/dL (0.00-1.30); Triglycerides 170 mg/dL; Very Low Density Lipoprotein 34 mg/dL (5-40); Vitamin D,25 Hydroxy 45.1 ng/mL (30-100); cholesterol:hdl ratio screen 2.66
== END | disposition home or self-care (01) ==
LOC: LAB 12:22
PROVIDERS: PCP Family Medicine Geriatric Medicine; Referring Provider Family Medicine Geriatric Medicine; Visit Provider Family Medicine Geriatric Medicine
DX: I10 Essential (primary) hypertension (principal); E78.5 Hyperlipidemia, unspecified; E55.9 Vitamin D deficiency, unspecified
CPT/HCPCS: 36415; 80053; 80061; 82306; 84443; 85025

== ENCOUNTER → 2025-03-21 | Outpatient (CLI) | payer MEDICARE, SELFPAY ==
--- NOTE | 2025-03-21 14:30 | CT_ITS ---
PROCEDURE: ABDOMEN/PELVIS WITH CONTRAST 03/21/2025 REASON FOR EXAM: RUQ Chronic intermittent pain. TECHNIQUE: ABDOMEN/PELVIS WITH CONTRAST Coronal and Sagittal reconstruction series were provided. CONTRAST: Isovue-300 VOLUME: 100 mL One or more dose reduction techniques were used (e.g., Automated exposure control, adjustment of the mA and/or kV according to patient size, use of iterative reconstruction technique. RADIATION DOSE SUMMARY: CTDlvol: 14.2 mGy DLP: 956.52 mGycm COMPARISON: Prior study dated March 18, 2024. FINDINGS: Lung bases: Lung bases are clear. Liver: Diffuse fatty infiltration. Gallbladder: Surgically absent. Minimally dilated common bile duct most likely secondary to the cholecystectomy state. Spleen: Normal size. Pancreas: Stable mildly dilated pancreatic duct. Adrenals: Unremarkable Kidneys: Normal renal sizes. No hydronephrosis. Bladder: Unremarkable Reproductive Organs: Normal uterine size and contour. Ovaries are unremarkable. Bowel: No bowel obstruction. Appendix: Unremarkable Lymph nodes: Unremarkable. Vasculature: Mild diffuse atherosclerotic calcifications are noted. Peritoneum / Retroperitoneum: Unremarkable Bones: Degenerative changes of the spine. CT/Abdomen/Pelvis WITH Contrast IMPRESSION: Fatty infiltration of the liver. Status post cholecystectomy. Stable minimal dilatation of the common bile duct most likely secondary to the post cholecystectomy state. Reading Location: [id number]
[2025-03-21 16:08] LABS: Absolute Lymphocyte Count 3.26 X10^3/uL (0.83-4.51); Absolute Neutrophil Count 3.6 X10^3/uL (2.0-7.7); Basophil# 0.04 X10^3/uL; Basophil% 0.5 % (0-1); Eosinophil# 0.11 X10^3/uL; Eosinophils% 1.5 % (0-5); Hemoglobin 13.8 g/dL (12.0-15.0); Lymphocyte # 3.26 X10^3/ul (0.83-4.51); Lymphocyte % 43.9 % (19-41); Mean Corp Hgb Conc 32.9 g/dL (32-36); Mean Corpuscular Hgb 31.7 pg (27.0-32.0); Mean Corpuscular Volume 96.6 fL (81-99); Mean Platelet Vol. 10.3 fl (6.2-12.0); Monocyte# 0.43 X10^3/uL; Monocyte% 5.8 % (0-10); NRBC Flagged by Analyzer 0 % (0-5); Neutrophil # 3.56 X10^3/uL (2.7-7.7); Neutrophil % 47.9 % (47-70); Platelet Count 294 K/mm3 (150-450); RBC Distribution Width CV 13.2 % (11.6-14.6); RBC Distribution Width SD 47.7 fl (35.1-43.9); Red Blood Count 4.35 M/mm3 (4.2-5.4); White Blood Count 7.4 K/mm3 (4.4-11.0)
[2025-03-21 16:44] LABS: ALB/GLOB Ratio 1.3 RATIO (0.9-2.4); AST(SGOT) 168 U/L (<=31); Alanine Aminotransfer ALT/SGPT 120 U/L (<=34); Albumin, Serum 4.4 g/dL (3.4-4.8); Alkaline Phosphatase 125 U/L (35-104); Anion Gap 11 (5-15); BUN 9 mg/dL (4-19); BUN/Creat Ratio 11.1 RATIO (10-20); Calcium,Total 10.3 mg/dL (7.6-11.0); Carbon Dioxide 26.1 mmol/L (21.0-32.0); Chloride 100 mmol/L (98-108); Creatinine, Serum 0.83 mg/dL (0.70-1.20); EST Glomerular Filtration Rate 77 (>60); Globulin 3.4 g/dL (2.2-4.2); Glucose 84 mg/dL (70-99); Protein, Total 7.8 g/dL (5.9-8.4); Sodium Level 137 mmol/L (133-145); Total Bilirubin 0.47 mg/dL (0.00-1.30)
[2025-03-21 17:53] LABS: Amylase 50 U/L (28-100); Lipase 27 U/L (13-75)
[2025-03-23 05:07] LABS: HEPATITIS B SURFACE AG Negative (Negative); Hep C Antibodies Non Reactive (Non Reactive); Hepatitis A IgM Antibody Negative (Negative); Hepatitis B Core AB IgM Negative (Negative)
== END | disposition home or self-care (01) ==
LOC: CT 12:19 → LAB 14:49
PROVIDERS: PCP Family Medicine Geriatric Medicine; Referring Provider Family Medicine Geriatric Medicine; Visit Provider Family Medicine Geriatric Medicine
DX: R10.11 Right upper quadrant pain (principal); K74.00 Hepatic fibrosis, unspecified; Z90.49 Acquired absence of other specified parts of digestive tract
CPT/HCPCS: 36415; 74177; 80053; 80074; 82150; 83690; 85025; Q9967

== ENCOUNTER → 2025-03-23 | Outpatient (CLI) | payer MEDICARE, SELFPAY ==
--- NOTE | 2025-03-23 08:41 | US_ITS ---
PROCEDURE: ABDOMEN LIMITED 03/23/2025 REASON FOR EXAM: ACQUIRED ABSENCE OF OTHER SPECIFIED PARTS OF DIGESTIVE TRACT COMPARISON: Prior CT scan dated March 21, 2025. FINDINGS: Liver: Diffusely echogenic suggesting fatty infiltration. Liver measures 15 cm. Gallbladder: Surgically absent. Common bile duct: The common bile duct is slightly dilated measuring 50 mm. . Pancreas: The pancreatic duct is mildly dilated measuring 4 mm. Other: Visualized portions of the right kidney are unremarkable. No right upper quadrant ascites. US/Abdomen Limited IMPRESSION: Fatty infiltration of the liver. Dilated common bile duct as well as the pancreatic duct. Reading Location: [id number]
== END | disposition home or self-care (01) ==
PROVIDERS: PCP Family Medicine Geriatric Medicine; Referring Provider Family Medicine Geriatric Medicine; Visit Provider Family Medicine Geriatric Medicine
DX: R10.11 Right upper quadrant pain (principal); Z90.49 Acquired absence of other specified parts of digestive tract
CPT/HCPCS: 76705

== ENCOUNTER → 2025-03-28 | Outpatient (CLI) | payer MEDICARE, MEDICAID, SELFPAY ==
[2025-03-28 14:23] LABS: Barbiturate Urine NEGATIVE (< 200 ng/mL); Benzodiazepine Urine NEGATIVE (< 200 ng/mL); PCP Urine NEGATIVE (< 25 ng/mL); THC Urine NEGATIVE (< 50 ng/mL)
[2025-03-28 17:46] LABS: AST(SGOT) 102 U/L (<=31); Alanine Aminotransfer ALT/SGPT 62 U/L (<=34); Albumin, Serum 4.1 g/dL (3.4-4.8); Alkaline Phosphatase 108 U/L (35-104); Anion Gap 10 (5-15); BUN 9 mg/dL (4-19); BUN/Creat Ratio 11.6 RATIO (10-20); Calcium,Total 9.9 mg/dL (7.6-11.0); Carbon Dioxide 25.7 mmol/L (21.0-32.0); Chloride 106 mmol/L (98-108); Globulin 2.7 g/dL (2.2-4.2); Glucose 97 mg/dL (70-99); Potassium 4.3 mmol/L (3.3-5.1)
== END | disposition home or self-care (01) ==
PROVIDERS: PCP Family Medicine Geriatric Medicine; Referring Provider Anesthesiology Pain Medicine; Visit Provider Anesthesiology Pain Medicine
DX: I10 Essential (primary) hypertension (principal); F11.20 Opioid dependence, uncomplicated
CPT/HCPCS: 36415; 80053; 80307

== ENCOUNTER → 2025-04-13 | Outpatient (CLI) | payer MEDICARE, MEDICAID, SELFPAY ==
[2025-04-13 15:24] LABS: Prothrombin Time (Protime)PT. 13.8 SECONDS (11.7-14.9)
[2025-04-13 15:38] LABS: Anion Gap 11 (5-15); BUN 8 mg/dL (4-19); BUN/Creat Ratio 10.2 RATIO (10-20); Calcium,Total 10.5 mg/dL (7.6-11.0); Carbon Dioxide 26.5 mmol/L (21.0-32.0); Chloride 104 mmol/L (98-108); Glucose 77 mg/dL (70-99); Potassium 3.8 mmol/L (3.3-5.1)
[2025-04-13 15:50] LABS: AST(SGOT) 182 U/L (<=31); Alanine Aminotransfer ALT/SGPT 93 U/L (<=34); Albumin, Serum 4.6 g/dL (3.4-4.8); Alkaline Phosphatase 117 U/L (35-104); Bilirubin, Direct 0.22 mg/dL (0.00-0.30); Ferritin 397 ng/mL (22-378); Globulin 3.3 g/dL (2.2-4.2); Iron 138 ug/dL (50-170); Iron Binding Capacity,Total 320 ug/dL (250-450); Iron Binding Capacity,Unsat 182 ug/dL (228-428)
[2025-04-17 15:08] LABS: ANTINUCLEAR ANTIBODIES DIRECT Negative (Negative)
[2025-04-18 08:09] LABS: Anti-Smooth Muscle ABS 2 Units (0-19); Cytoplasmic Ab (C-ANCA) <1:20 titer (Neg:<1:20); GGTP 98 IU/L (0-60); Perinuclear Ab (P-ANCA) <1:20 titer (Neg:<1:20)
[2025-04-19 07:57] LABS: Anti-dsDNA Ab T
== END | disposition home or self-care (01) ==
LOC: LAB 14:26
PROVIDERS: PCP Family Medicine Geriatric Medicine; Referring Provider Nurse Practitioner Acute Care; Visit Provider Nurse Practitioner Acute Care
DX: I10 Essential (primary) hypertension (principal); R74.01 Elevation of levels of liver transaminase levels; R74.8 Abnormal levels of other serum enzymes; K83.8 Other specified diseases of biliary tract; R10.9 Unspecified abdominal pain
CPT/HCPCS: 36415; 80048; 80076; 82728; 82977; 83516; 83540; 83550; 85610; 86037; 86038; 86225; 86235; 86704; 86706; 86708

== ENCOUNTER → 2025-04-26 | Outpatient (CLI) | payer MEDICARE, MEDICAID, SELFPAY ==
--- NOTE | 2025-04-26 08:39 | US_ITS ---
PROCEDURE: ELASTOGRAPHY PARENCHYMA/ORGAN 04/26/2025 REASON FOR EXAM: FATTY LIVER TECHNIQUE: ELASTOGRAPHY PARENCHYMA/ORGAN COMPARISON: Comparison is made with prior study dated September 16, 2022. FINDINGS: Elastography was performed. kPA : 9.4 Velocity: 1.75 m/sec. US/Elastography Parenchyma/Organ IMPRESSION: Metavir score: F2/F3 Reading Location: [id number]
--- NOTE | 2025-04-26 08:39 | US_ITS ---
PROCEDURE: ELASTOGRAPHY PARENCHYMA/ORGAN 04/26/2025 REASON FOR EXAM: FATTY LIVER TECHNIQUE: ELASTOGRAPHY PARENCHYMA/ORGAN COMPARISON: Comparison is made with prior study dated September 16, 2022. FINDINGS: Elastography was performed. kPA : 9.4 Velocity: 1.75 m/sec. US/Elastography Parenchyma/Organ IMPRESSION: Metavir score: F2/F3 Reading Location: [id number]
== END | disposition home or self-care (01) ==
LOC: OPUS 08:37
PROVIDERS: PCP Family Medicine Geriatric Medicine; Referring Provider Family Medicine Geriatric Medicine; Visit Provider Family Medicine Geriatric Medicine
DX: K76.0 Fatty (change of) liver, not elsewhere classified (principal)
CPT/HCPCS: 76981

== ENCOUNTER → 2025-05-15 | Outpatient (CLI) | payer MEDICARE, SELFPAY ==
--- NOTE | 2025-05-15 10:35 | MRI_ITS ---
PROCEDURE: MRI ABD WITH AND W/O CONTRAST 05/15/2025 REASON FOR EXAM: DILATED PANCREATIC DUCT TECHNIQUE: MRI ABD WITH AND W/O CONTRAST Multiplanar and multisequence images were obtained. CONTRAST: Clariscan VOLUME: 15 mL COMPARISON: March 21, 2025 FINDINGS: Liver: Liver is non cirrhotic. However, it is severely, diffusely fatty infiltrated. No fracture. Irregular focus of increased T2 signal at the border of anterior and posterior segments. Very subtle diffusion. Peripheral nodular enhancement is seen suggestive of a hemangioma measuring 3.0 x 1.0 x 1.3 cm. Biliary: Cholecystectomy. Common bile duct is 12 mm. No choledocholithiasis. No mass of the ampulla. Pancreas: No glandular atrophy. Main duct is 2.5 mm. No mass seen. No pancreas divisum seen. Spleen: Low signal cleft is seen at the superior aspect of the spleen that may be the sequelae of an old injury. No acute abnormality. Adrenals: Normal. Kidneys: Normal Peritoneum / Retroperitoneum: No free fluid or mass. Lymph Nodes: No lymphadenopathy Major Vessels: Normal caliber Bones: Rotatory curvature lumbar spine to the left. MRI/MRI Abd WITH and W/O Contrast IMPRESSION: 1. Benign hemangioma right lobe liver. No follow-up required. 2. Diffuse fatty infiltration of the liver. 3. Cholecystectomy. Common bile duct is 12 mm. No choledocholithiasis. No m ass seen. Correlate with obstructive laboratory indices. 4. Pancreas appears normal. 5. Curvature lumbar spine to the left. Reading Location: [id number]
== END | disposition home or self-care (01) ==
LOC: OPMRI 10:15
PROVIDERS: PCP Family Medicine Geriatric Medicine; Referring Provider Family Medicine Geriatric Medicine; Visit Provider Family Medicine Geriatric Medicine
DX: K86.89 Other specified diseases of pancreas (principal); K83.8 Other specified diseases of biliary tract
CPT/HCPCS: 74183; A9575; A4216

== ENCOUNTER → 2025-05-23 | Outpatient (CLI) | payer MEDICARE, SELFPAY ==
[2025-05-23 13:20] LABS: AST(SGOT) 147 U/L (<=31); Alanine Aminotransfer ALT/SGPT 91 U/L (<=34); Albumin, Serum 4.2 g/dL (3.4-4.8); Alkaline Phosphatase 115 U/L (35-104); Anion Gap 12 (5-15); BUN 11 mg/dL (4-19); BUN/Creat Ratio 14.0 RATIO (10-20); Calcium,Total 10.5 mg/dL (7.6-11.0); Carbon Dioxide 25.1 mmol/L (21.0-32.0); Chloride 104 mmol/L (98-108); Globulin 3.3 g/dL (2.2-4.2); Glucose 93 mg/dL (70-99); Potassium 4.6 mmol/L (3.3-5.1)
== END | disposition home or self-care (01) ==
PROVIDERS: PCP Family Medicine Geriatric Medicine; Visit Provider Family Medicine Geriatric Medicine
DX: I10 Essential (primary) hypertension (principal)
CPT/HCPCS: 36415; 80053

== ENCOUNTER → 2025-06-05 | Outpatient (CLI) | payer MEDICARE, SELFPAY ==
--- NOTE | 2025-06-05 12:14 | RAD_ITS ---
PROCEDURE: ABDOMEN SINGLE VIEW 06/05/2025 REASON FOR EXAM: DAY 3 SITZ MARKER TECHNIQUE: Procedure Code: RADABD Modality: DX Procedure: ABDOMEN SINGLE VIEW COMPARISON: None FINDINGS: The majority of the Sitz markers are in the left hemicolon. Bones: There are degenerative changes of the spine. Levoconvex scoliosis. Other: RAD/Abdomen Single View IMPRESSION: The majority of the Sitz markers are in the left hemicolon. A few are seen in the ascending colon and proximal transverse colon. Reading Location: [id number]
== END | disposition home or self-care (01) ==
LOC: RAD 12:14
PROVIDERS: PCP Family Medicine Geriatric Medicine; Referring Provider Nurse Practitioner Acute Care; Visit Provider Nurse Practitioner Acute Care
DX: K59.00 Constipation, unspecified (principal)
CPT/HCPCS: 74018

== ENCOUNTER → 2025-06-07 | Outpatient (CLI) | payer MEDICARE, SELFPAY ==
--- NOTE | 2025-06-07 11:30 | RAD_ITS ---
PROCEDURE: ABDOMEN SINGLE VIEW 06/07/2025 REASON FOR EXAM: DAY 5 SITZ MARKER TECHNIQUE: Procedure Code: RADABD Modality: DX Procedure: Two-view supine abdomen COMPARISON: Day 3 Sitz marker study 06/05/2025 RAD/Abdomen Single View IMPRESSION: A total of 29 Sitz markers remain within the abdomen, predominantly in the righ t and sigmoid colon and rectum. A moderate stool burden is again present. The degenerative change and scoliosis in the bowel-gas pattern are unchanged. Reading Location: [place] [id number]
== END | disposition home or self-care (01) ==
LOC: RAD 11:03
PROVIDERS: PCP Family Medicine Geriatric Medicine; Referring Provider Nurse Practitioner Acute Care; Visit Provider Nurse Practitioner Acute Care
DX: K59.00 Constipation, unspecified (principal)
CPT/HCPCS: 74018

== ENCOUNTER → 2025-06-15 | Outpatient (CLI) | payer MEDICARE, SELFPAY | END | disposition home or self-care (01) | LOC: POLAB3 10:57 | PROVIDERS: PCP Family Medicine Geriatric Medicine; Visit Provider Family Medicine Geriatric Medicine | DX: N39.0 Urinary tract infection, site not specified (principal) | CPT/HCPCS: 87077; 87086; 87088; 87186 ==

== ENCOUNTER 2025-06-29 06:54 | Day surgery (SDC) | payer MEDICARE, MEDICAID, SELFPAY ==
--- NOTE | 2025-06-26 10:02 | PAT.ANESEVAL ---
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 When Was Last Pacemaker Check QUESTION #4 FULL TEXT: You/Your Family Experience fever (hyperthermia) with Anesthesia Last Oral Intake Last Oral intake: Last Oral Intake NPO since Meds taken in AM with sips of water? Meds patient instructed to take am of surgery PONV PONV - concrete tester: PONV - concrete tester Female Yes 06/26/25 08:37 HX of Motion Sickness No 06/26/25 08:37 HX of N/V After Surgery No 06/26/25 08:37 Non-Smoker Yes 06/26/25 08:37 Duration of Surgery greater No 06/26/25 08:37 than 60 minutes Number of Risk Factors 2 06/26/25 08:37 PONV Score Moderate Risk 06/26/25 08:37 Height & Weight Height & Weight: Anesthesia: Height & Weight Height 5 ft 2 in 05/25/25 13:30 Respiratory Assessment Respiratory Assessment - concrete tester: Respiratory Tract Infection Hx - concrete tester Hx Respiratory Tract Infection No 06/26/25 08:37 STOP Sleep Apnea STOP Sleep Apnea - concrete tester: STOP Sleep Apnea - concrete tester Hx Hypertension Yes 06/26/25 08:37 Hx Sleep Apnea Yes 06/26/25 08:37 CPAP No 06/26/25 08:37 BIPAP No 06/26/25 08:37 Do you snore loudly (louder than talking or can be heard Do you often feel tired/ fatigued/ sleepy during daytime? Has anyone observed you stop breathing during sleep? STOP Results Positive 06/26/25 08:37 QUESTION #5 FULL TEXT : Do you snore loudly (louder than talking or can be heard through closed doors)? 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 Specify any problems Hx of Preganancy in last 3 No 06/26/25 08:37 Months Nurse Filling Out Transfusion JZOLLINGE 06/26/25 08:37 & Questions: Date: 06/26/25 06/26/25 08:37 Time: 08:38 06/26/25 08:37 Patient unable to answer at this time (ie. confused, unrespo /Reproduction History /Reproductive History - concrete tester: /Reproductive Hx- concrete tester Hx Now No 06/26/25 08:37 Gestational Age (in weeks): EDC: Hx Hx Para Hx Section SAB No 06/26/25 08:37 PFSH Medical History Constipation History of steroid therapy Leg cramps Cardiology follow-up encounter Alcohol use Marijuana use Injury of head and neck Heartburn Post-menopausal Arthritis History of IBS DDD (degenerative disc disease), lumbar Cervical spondylosis Cervical radiculopathy due to degenerative joint disease of spine Spondylosis without myelopathy or radiculopathy, lumbar region Migraine Wears glasses Fatty liver High cholesterol Restless legs Back pain Migraine headache Syncope Non-smoker CPAP (continuous positive airway pressure) dependence Hypertension Hx of echocardiogram History of stress test Change in bowel habit Spondylosis without myelopathy or radiculopathy, lumbar region MAIN (acute kidney injury) Exertional dyspnea Intractable low back pain Foreign body Dysphagia GERD with esophagitis Hiatal hernia Cervical disc disorder at C5-C6 level with radiculopathy Disorder of intervertebral disc at C5-C6 level with radiculopathy Cervical disc disorder with radiculopathy of mid-cervical region Other intervertebral disc degeneration, lumbar region Intervertebral disc disorder with radiculopathy of lumbar region Bilateral buttock pain Amplified musculoskeletal pain, localized Myalgia Sacroiliitis, not elsewhere classified ARIELA (obstructive sleep apnea) Depression Anxiety Acute urticaria Scoliosis Neck pain Thoracic back pain Chronic lower back pain BPPV (benign paroxysmal positional vertigo) Warts Muscle spasm Lumbar disc lesion Dehydration Hematuria Right flank pain Streptococcus agalactiae infection Abnormal mammogram of right breast Obesity HLD (hyperlipidemia) Home Medications ?Medication ?Instructions ?Recorded ?Last Taken ?Type pravastatin 40 mg tablet 40 mg PO QHS CHOLESTEROL 11/22/19 06/08/23 History losartan 50 mg tablet 50 mg PO BID 07/01/22 11/11/23 History pantoprazole 40 mg tablet,delayed 40 mg PO DAILY #30 tabs 03/19/24 Unknown Rx release gabapentin 100 mg capsule 100 mg PO TID 09/08/24 Unknown History peg 3350-electrolytes 236 240 ml PO Q10M #4,000 mL 06/23/25 Unknown Rx gram-22.74 gram-6.74 gram-5.86 gram solution (Golytely) Allergy/AdvReac Type Severity Reaction Status Date / Time silicone Allergy Rash Verified 06/26/25 08:33 codeine AdvReac Itching Verified 06/26/25 08:33 doxycycline AdvReac Itching Verified 06/26/25 08:33 oxycodone AdvReac Itching Verified 06/26/25 08:33 Family History Mother Arthritis Hypercholesterolemia Hypertension Cancer Lung Father Cancer Lung Cirrhosis Emphysema lung Surgical History Fusion of spine of cervical region Hx of esophagogastroduodenoscopy History of colonoscopy (~2015) History of Angel fundoplication History of tubal ligation S/P cholecystectomy History of colectomy S/P lumpectomy of breast [place] teeth extracted Social History household members: spouse Smoking Status: Never smoker alcohol intake: never substance use type: does not use caffeine: No Addt'l Information Additional Findings: >4 mets Recommendation Anesthesia Recommendation Anesthesia recommendation: OPTIMIZED for anesthesia
[2025-06-29] VITALS (8 sets, daily range): BP systolic 110–140; BP diastolic 77–93; PULSE 77–104; RESP 16–18; TEMP 36.1–36.4; O2SAT 97–99; BMI 32.1
--- NOTE | 2025-06-29 07:10 | PCM.HP.STD ---
HPI - General General Date of Admission: 06/29/25 Date of Service: 06/29/25 Chief Complaint: change in bowel habits HPI Narrative lui VICTOR patient is a 65-year-old female with a history of elevated liver enzymes presenting with a dilated common bile duct. The common bile duct dilation has increased from 11 mm to 15 mm over time, suggesting a progressive condition that requires further investigation. The elevated liver enzymes, particularly AST and ALT, suggest liver dysfunction, possibly due to nonalcoholic fatty liver disease, given the patient's history and lack of alcohol consumption. Further blood tests are necessary to confirm this diagnosis. The patient has a history of scoliosis and degenerative disc disease, contributing to her chronic pain and necessitating the use of a pain patch. She has undergone spinal surgery, which occasionally causes swallowing difficulties. We have discussed chronic use of narcotics contributing to dilated CBD. We have discussed possibility of Nabumetone contributing to transaminitis. The patient also presents with chronic constipation, likely exacerbated by the use of a buprenorphine patch for pain management. Despite using enemas and stool softeners, she continues to experience significant bowel movement difficulties. The patient also reports sleep apnea but is unable to use a CPAP machine due to an allergy to silicone. Patient Instructions: - Proceed with MRCP as scheduled on 05/15/2025 - Complete labs today - [facility] 290mcg samples provided MRCP 05/15/2025 Benign hemangioma right lobe liver. Diffuse fatty infiltration of the liver. Cholecystectomy. Common bile duct is 12 mm. No choledocholithiasis. No mass seen. Correlate with obstructive laboratory indices. Pancreas appears normal. Curvature lumbar spine to the left. CBC: CMP: 05/23/2025 AST 147, ALT 91, ALP 115 GGT: 04/13/2025 98 INR: 04/13/2025 1.0 PEth: 04/13/2025 negative MIKE: 04/13/2025 negative pANCA: 04/13/2025 negative AMA: 04/13/2025 negative ASMA: 04/13/2025 negative patient liver enzymes are increasing. With AST 2x that of ALT. Ferritin is elevated with a normal iron, indicating this is likely a an acute phase reactant. INR is normal. Hepatitis B Ab is non-reactive and I recommend vaccination. - sharp epigastric stabbing pain, started yesterday - tap water enema every night for a long time - she was on stool softeners for years, 2 BID - Linzess worked the first day she took it and then nothing - Movantik worked 1 day and then nothing - Lactulose just caused bloating - did not do Sitz Marker as recommended - Magnesium Citrate quit working BACK PAIN MGMT buprenorphine 7.6mg x4 years for pain in lower back gabapentin 100mg TID cyclobenzaprine 10mg BID EGD 06/09/2023 - Scalloped mucosa in the esophagus. Biopsied. - A Angel fundoplication was found. The wrap appears intact, slightly loose. Biopsied. - Z-line regular, 38 cm from the incisors. - Chronic bile gastritis. Biopsied. - Normal examined duodenum. Biopsied. Bile reflux within the stomach dramatically noted. This may be causative to the patient's symptoms. Although the Angel fundoplication is slightly loose did not see any inflammation at the EG junction. Likely will not require treatment Scalloping of the mid esophagus suggestive of possible eosinophilic esophagitis. Will await biopsies COLON 07/04/2022 - full 2 day bowel prep Discharge patient to home. - Resume previous diet. - Continue present medications. - Repeat colonoscopy in 10 years for screening purposes. [facility] Medical History Constipation History of steroid therapy Leg cramps Cardiology follow-up encounter Alcohol use Marijuana use Injury of head and neck Heartburn Post-menopausal Arthritis History of IBS DDD (degenerative disc disease), lumbar Cervical spondylosis Cervical radiculopathy due to degenerative joint disease of spine Spondylosis without myelopathy or radiculopathy, lumbar region Migraine Wears glasses Fatty liver High cholesterol Restless legs Back pain Migraine headache Syncope Non-smoker CPAP (continuous positive airway pressure) dependence Hypertension Hx of echocardiogram History of stress test Change in bowel habit Spondylosis without myelopathy or radiculopathy, lumbar region MAIN (acute kidney injury) Exertional dyspnea Intractable low back pain Foreign body Dysphagia GERD with esophagitis Hiatal hernia Cervical disc disorder at C5-C6 level with radiculopathy Disorder of intervertebral disc at C5-C6 level with radiculopathy Cervical disc disorder with radiculopathy of mid-cervical region Other intervertebral disc degeneration, lumbar region Intervertebral disc disorder with radiculopathy of lumbar region Bilateral buttock pain Amplified musculoskeletal pain, localized Myalgia Sacroiliitis, not elsewhere classified ARIELA (obstructive sleep apnea) Depression Anxiety Acute urticaria Scoliosis Neck pain Thoracic back pain Chronic lower back pain BPPV (benign paroxysmal positional vertigo) Warts Muscle spasm Lumbar disc lesion Dehydration Hematuria Right flank pain Streptococcus agalactiae infection Abnormal mammogram of right breast Obesity HLD (hyperlipidemia) Home Medications ?Medication ?Instructions ?Recorded ?Last Taken ?Type pravastatin 40 mg tablet 40 mg PO QHS CHOLESTEROL 11/22/19 06/08/23 History losartan 50 mg tablet 50 mg PO BID 07/01/22 11/11/23 History pantoprazole 40 mg tablet,delayed 40 mg PO DAILY #30 tabs 03/19/24 Unknown Rx release gabapentin 100 mg capsule 100 mg PO TID 09/08/24 Unknown History peg 3350-electrolytes 236 240 ml PO Q10M #4,000 mL 06/23/25 Unknown Rx gram-22.74 gram-6.74 gram-5.86 gram solution (Golytely) Allergy/AdvReac Type Severity Reaction Status Date / Time silicone Allergy Rash Verified 06/29/25 07:11 codeine AdvReac Itching Verified 06/29/25 07:11 doxycycline AdvReac Itching Verified 06/29/25 07:11 oxycodone AdvReac Itching Verified 06/29/25 07:11 Family History Mother Arthritis Hypercholesterolemia Hypertension Cancer Lung Father Cancer Lung Cirrhosis Emphysema lung Surgical History Fusion of spine of cervical region Hx of esophagogastroduodenoscopy History of colonoscopy (~2016) History of Angel fundoplication History of tubal ligation S/P cholecystectomy History of colectomy S/P lumpectomy of breast [place] teeth extracted Social History household members: spouse Smoking Status: Never smoker alcohol intake: never substance use type: does not use caffeine: No ROS Constitutional Constitutional: Denies fatigue, fever(s), poor appetite, weight gain or weight loss Gastrointestinal Gastrointestinal: Denies belching, bloating, change in bowel habits, change in stool character, chewing difficulty, coffee ground emesis, constipation, cramping, diarrhea, dyspepsia, dysphagia, early satiety, excessive flatus, fecal incontinence, heartburn, hematemesis, hematochezia, hemorrhoids, loose stools, melena, nausea, odynophagia, rectal bleeding, tenesmus, vomiting or weight changes Physical Exam Const alert, oriented x3, no apparent distress and healthy appearing General Appearance: cooperative GI normal to inspection, nondistended, normoactive bowel sounds, soft to palpation, non-tender and non-distended Percussion: normal to percussion Rectal Exam: deferred Assessment & Plan Assessment/Plan (1) Constipation: (2) Right sided abdominal pain: (3) Elevated liver enzymes: PLAN: Assessment and Plan Assessment and Plan (1) Constipation: Status: Acute (2) Elevated liver enzymes: Status: Acute Medications: Discontinued linaclotide take once daily 30 minutes before breakfast Discontinued Reason: Pt no longer taking 290 mcg PO QAM 90 caps 1RF naloxegol must be taken on empty stomach; no food 1 hr after or 2-3 hrs before dose Discontinued Reason: Pt no longer taking 25 mg PO QAM 14 tabs 0RF lactulose Discontinued Reason: Pt no longer taking 20 grams (30 mL) PO BID 30 days 1,800 mL 1RF constipation Plan 65-year-old female with a history of gastrointestinal issues presenting with chronic constipation and abdominal pain. Her history is significant for several prior trials of constipation treatments without sustained relief, and increasing abdominal discomfort. She shows chronicity in constipation possibly linked to dysfunction in bowel motility or anatomical obstruction issues. She has elevated liver enzymes and bile duct dilation that may relate to medications or underlying liver concerns. She reports prior surgery for gastroesophageal reflux and currently has persistent back pain related to an earlier work incident. Patient Instructions: OV with Dr. Kenji Echavarria 2 day GoLyte prep SuFlave sample provided to take now Continue daily PPI Trulance samples, take once daily Sitz Marker - not till next week ]
[2025-06-29] MEDS: Lactated Ringers 1,000 ML 15 ML IV (07:24)
--- NOTE | 2025-06-29 07:26 | PRE.ANES_ITS ---
ASA Classification* ASA Classification ASA Classification: 2 Assessment & Plan Anesthesia* Anesthesia Assessment Anesthesia Assessment: Discussed sedation and/or anesthesia options, risks, benefits, and alternatives with patient/parents/legal guardian/POA. Questions invited. The patient/parents/legal guardian/POA seems to understand and agrees to proceed with anesthesia plan. Reviewed the physical assessment, medical history, allergy history and patient home medications list prior to surgery/procedure/anesthetic and documented any changes. Performed airway and anesthesia risk assessments. Anesthesia Type Anesthesia Type: MAC History Source History Obtained from:: Patient and Chart Anesthesia Focused Assessment* Temperature: 97.0 F Pulse Rate: 104 Blood Pressure: 140/93 Respiratory Rate: 18 Pulse Ox: 98 Airway Assessment Mouth opens: >3 cm Mallampati Score: II Labs Anesthesia Preop lab: CBC WBC, (4.4-11.0) 7.4 K/mm3 03/21/25, 14:54 RBC, (4.2-5.4) 4.35 M/mm3 03/21/25, 14:54 Hgb, (12.0-15.0) 13.8 g/dL 03/21/25, 14:54 Hct, (37-47) 42.0 % 03/21/25, 14:54 Plt Count, (150-450) 294 K/mm3 03/21/25, 14:54 CHEMISTRY Potassium, (3.3-5.1) 4.6 mmol/L 05/23/25, 12:05 Sodium, (133-145) 141 mmol/L 05/23/25, 12:05 Magnesium, (1.6-2.6) 2.4 mg/dL 11/03/23, 10:48 BUN, (4-19) 11 mg/dL 05/23/25, 12:05 Creatinine, (0.70-1.20) 0.76 mg/dL 05/23/25, 12:05 Glucose, (70-99) 93 mg/dL 05/23/25, 12:05 POC Glucose, (74-106) 122 mg/dL H 11/11/23, 06:02 TSH, (0.300-4.200) 1.320 uIU/mL 03/14/25, 12:28 COAG PT, (11.7-14.9) 13.8 SECONDS 04/13/25, 14:28 Pre-Assessment Diagnosis/Proposed Procedure Planned Operative Procedure(s): Colonoscopy Anesthesia History Anesthesia History - utilization management rn: Anesthesia History - utilization management rn Hx Hospitalization No 06/26/25 08:37 Any Problems With Anesthesia No 06/26/25 08:37 Cholinesterase deficiency No 06/26/25 08:37 You/Your Family Experience No 06/26/25 08:37 fever (hyperthermia) with Relationship Recent Exposure to Contagious No 06/29/25 07:13 Disease Does patient have nerve No 06/26/25 08:37 stimulator Patient instructed to have device shut off --Does patient have Pacemaker No 06/29/25 07:13 or ICD? When Was Last Pacemaker Check QUESTION #4 FULL TEXT: You/Your Family Experience fever (hyperthermia) with Anesthesia Last Oral Intake Last Oral intake: Last Oral Intake NPO since 02:00 06/29/25 07:13 Meds taken in AM with sips of No 06/29/25 07:13 water? Meds patient instructed to take am of surgery PONV PONV - utilization management rn: PONV - utilization management rn Female Yes 06/26/25 08:37 HX of Motion Sickness No 06/26/25 08:37 HX of N/V After Surgery No 06/26/25 08:37 Non-Smoker Yes 06/26/25 08:37 Duration of Surgery greater No 06/26/25 08:37 than 60 minutes Number of Risk Factors 2 06/26/25 08:37 PONV Score Moderate Risk 06/26/25 08:37 Height & Weight Height & Weight: Anesthesia: Height & Weight Height 5 ft 1 in 06/29/25 07:13 Weight: 77 kg 06/29/25 07:13 Body Mass Index (BMI) 32.1 06/29/25 07:13 Respiratory Assessment Respiratory Assessment - utilization management rn: Respiratory Tract Infection Hx - utilization management rn Hx Respiratory Tract Infection No 06/26/25 08:37 STOP Sleep Apnea STOP Sleep Apnea - utilization management rn: STOP Sleep Apnea - utilization management rn Hx Hypertension Yes 06/26/25 08:37 Hx Sleep Apnea Yes 06/26/25 08:37 CPAP No 06/26/25 08:37 BIPAP No 06/26/25 08:37 Do you snore loudly (louder than talking or can be heard Do you often feel tired/ fatigued/ sleepy during daytime? Has anyone observed you stop breathing during sleep? STOP Results Positive 06/26/25 08:37 QUESTION #5 FULL TEXT : Do you snore loudly (louder than talking or can be heard through closed doors)? 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 Specify any problems Hx of Preganancy in last 3 No 06/26/25 08:37 Months Nurse Filling Out Transfusion JZOLLINGE 06/26/25 08:37 & Questions: Date: 06/26/25 06/26/25 08:37 Time: 08:38 06/26/25 08:37 Patient unable to answer at this time (ie. confused, unrespo /Reproduction History /Reproductive History - utilization management rn: /Reproductive Hx- utilization management rn Hx Now No 06/26/25 08:37 Gestational Age (in weeks): EDC: Hx Hx Para Hx Section SAB No 06/26/25 08:37 Active Medications Active Medications: Current Medications Generic Name Dose Route Start Last Admin Trade Name Freq PRN Reason Stop Dose Admin Lactated Ringer's 1,000 mls @ 15 mls/hr 06/29/25 07:15 06/29/25 07:24 IV 15 mls/hr .Q48H MORRO Administration PFSH Medical History Constipation History of steroid therapy Leg cramps Cardiology follow-up encounter Alcohol use Marijuana use Injury of head and neck Heartburn Post-menopausal Arthritis History of IBS DDD (degenerative disc disease), lumbar Cervical spondylosis Cervical radiculopathy due to degenerative joint disease of spine Spondylosis without myelopathy or radiculopathy, lumbar region Migraine Wears glasses Fatty liver High cholesterol Restless legs Back pain Migraine headache Syncope Non-smoker CPAP (continuous positive airway pressure) dependence Hypertension Hx of echocardiogram History of stress test Change in bowel habit Spondylosis without myelopathy or radiculopathy, lumbar region MAIN (acute kidney injury) Exertional dyspnea Intractable low back pain Foreign body Dysphagia GERD with esophagitis Hiatal hernia Cervical disc disorder at C5-C6 level with radiculopathy Disorder of intervertebral disc at C5-C6 level with radiculopathy Cervical disc disorder with radiculopathy of mid-cervical region Other intervertebral disc degeneration, lumbar region Intervertebral disc disorder with radiculopathy of lumbar region Bilateral buttock pain Amplified musculoskeletal pain, localized Myalgia Sacroiliitis, not elsewhere classified ARIELA (obstructive sleep apnea) Depression Anxiety Acute urticaria Scoliosis Neck pain Thoracic back pain Chronic lower back pain BPPV (benign paroxysmal positional vertigo) Warts Muscle spasm Lumbar disc lesion Dehydration Hematuria Right flank pain Streptococcus agalactiae infection Abnormal mammogram of right breast Obesity HLD (hyperlipidemia) Home Medications ?Medication ?Instructions ?Recorded ?Last Taken ?Type pravastatin 40 mg tablet 40 mg PO QHS CHOLESTEROL 06/08/23 History losartan 50 mg tablet 50 mg PO BID 07/01/22 History pantoprazole 40 mg tablet,delayed 40 mg PO DAILY #30 t abs 03/19/24 Unknown Rx release gabapentin 100 mg capsule 100 mg PO TID 09/08/24 Unkno wn History peg 3350-electrolytes 236 240 ml PO Q10M #4,000 mL Unknown Rx gram-22.74 gram-6.74 gram-5.86 gram solution (Golytely) Allergy/AdvReac Type Severity Reaction Status Date / Time silicone Allergy Rash Verified 06/29/25 07:11 codeine AdvReac Itching Verified 06/29/25 07:11 doxycycline AdvReac Itching Verified 06/29/25 07:11 oxycodone AdvReac Itching Verified 06/29/25 07:11 Family History Mother Arthritis Hypercholesterolemia Hypertension Cancer Lung Father Cancer Lung Cirrhosis Emphysema lung Surgical History Fusion of spine of cervical region Hx of esophagogastroduodenoscopy History of colonoscopy (~2016) History of Angel fundoplication History of tubal ligation S/P cholecystectomy History of colectomy S/P lumpectomy of breast [place] teeth extracted Social History household members: spouse Smoking Status: Never smoker alcohol intake: never substance use type: does not use caffeine: No Review of Systems (Anesthesia) ROS Narrative System reviewed and no additional complaints, except as documented.
--- NOTE | 2025-06-29 08:00 | COLBX_PTH ---
PATIENT: PREETI HERNÁNDEZ LOC: EN U#:[id number] AGE/SX: 65/F ROOM: RE06/29/[address]: Dr. Kevin Desir DO : 1960 BED: DIS: 06/29/2025 SPEC #: [id number] RECD: 06/29/25 09:33 STATUS: WILDER REDewey #: [id number] NELLIE: 06/29/25 08:[address]: Kevin Desir DEPT: SURGICAL PATHOLOGY RECD BY: Tom Oquendo ENTERED: 06/29/25 09:57 SP TYPE: COLON BX SURINDER DR: Dr. Rey Palmer MD Tissues: A - COLON BIOPSY B - SPLENIC FLEXURE C - Sigmoid colon biopsy Procedures: Surgery Specimen Level IV HEADER OPERATION: Colonoscopy, biopsy PRE-OP DIAGNOSIS: Constipation, right sided abdominal pain, elevated liver enzymes TISSUE SUBMITTED: A- Hepatic flexure polyp biopsy, B- Splenic flexure polyp biopsy,C- Sigmoid colon biopsy MICROSCOPIC DIAGNOSIS A. Hepatic flexure, polyp, biopsy: * Tubular adenoma B. Splenic flexure, polyp, biopsy: * Tubular adenoma C. Sigmoid colon, biopsy: * Colonic mucosa with no pathologic change MICROSCOPIC DESCRIPTION Slides are reviewed. GROSS DESCRIPTION A. Received in fixative is one container labeled with the patient's name and designated Hepatic flexure polyp biopsy. The specimen consists of one irregular fragment of christine tissue that measures 0.5 cm. The specimen is totally submitted in one cassette. B. Received in fixative is one container labeled with the patient's name and designated Splenic flexure polyp biopsy. The specimen consists of one irregular fragment of christine tissue that measures 0.4 cm. The specimen is totally submitted in one cassette. C. Received in fixative is one container labeled with the patient's name and designated Sigmoid colon biopsy. The specimen consists of multiple irregular fragments of christine tissue that in aggregate measure 0.9 x 0.7 x 0.2 cm. The specimen is totally submitted in one cassette. AR 06/29/2025 CPT:41512h6
--- NOTE | 2025-06-29 08:19 | PCM.POST.ANE ---
Anesthesia: Postop Eval I Current Vital Signs Temperature: 97 F Pulse Rate: 83 Blood Pressure: 121/77 Respiratory Rate: 16 Pulse Ox: 99 Oxygen Delivery Method: Room Air Assessment Airway patent: Yes Spontaneous unlabored respirations: Yes Mental status: Awake and Calm nausea: No Vomiting: No Anesthesia Complication: No Fluid Hydration Crystalloid volume administer (ml): 500 Total IV fluid infused: 500 Progress Note Anesthesia document: Postop Eval 1 completed: Yes
--- NOTE | 2025-06-29 08:21 | OP.PROVAT_ITS ---
06/29/2025 Rey Palmer MD [address] [place] [address] Re : Colonoscopy procedure for Melissa Valenzuela Dear Dr. Palmer This procedure was performed on June. My impressions and recommendations are as follows: Impressions : - Hemorrhoids found on perianal exam. - Congested mucosa in the recto-sigmoid colon, in the sigmoid colon and in the descending colon. Biopsied. - Diverticulosis in the recto-sigmoid colon and in the sigmoid colon. - Two 6 mm polyps at the splenic flexure and at the hepatic flexure, removed with a jumbo cold forceps. Resected and retrieved. - Four non-bleeding colonic angiodysplastic lesions. Recommendations : - Discharge patient to home. - Resume previous diet. - Continue present medications. - Await pathology results. - Repeat colonoscopy in 5 years for surveillance. My findings are described in the full procedure note, which is enclosed. If I can be of further assistance, please feel free to contact me at . Sincerely, Kevin Desir, 06/29/2025 8:21:16 AM This report has been signed electronically.
--- NOTE | 2025-06-29 08:21 | OP.COLON_ITS ---
Patient Name: Melissa Valenzuela Procedure Date: 06/29/2025 7:29 AM Date of : 1960 Age: 65 Procedure: Colonoscopy Indications: Abdominal pain in the left lower quadrant, Abdominal pain in the left upper quadrant Providers: Kevin Desir DO Referring MD: Rey Palmer MD Medicines: Monitored Anesthesia Care Patient Profile: This is a 65 year old female. Refer to note in patient chart for documentation of history and physical. Last Colonoscopy: several years ago. Complications: No immediate complications. Procedure: Pre-Anesthesia Assessment: - Prior to the procedure, a History and Physical was performed, and patient medications and allergies were reviewed. The patient is competent. The risks and benefits of the procedure and the sedation options and risks were discussed with the patient. All questions were answered and informed consent was obtained. Patient identification and proposed procedure were verified by the physician in the pre-procedure area. Mental Status Examination: alert and oriented. Airway Examination: normal oropharyngeal airway and neck mobility. Respiratory Examination: clear to auscultation. CV Examination: normal. Prophylactic Antibiotics: The patient does not require prophylactic antibiotics. Prior Anticoagulants: The patient has taken no anticoagulant or antiplatelet agents. ASA Grade Assessment: II - A patient with mild systemic disease. After reviewing the risks and benefits, the patient was deemed in satisfactory condition to undergo the procedure. The anesthesia plan was to use monitored anesthesia care (MAC). Immediately prior to administration of medications, the patient was re-assessed for adequacy to receive sedatives. The heart rate, respiratory rate, oxygen saturations, blood pressure, adequacy of pulmonary ventilation, and response to care were monitored throughout the procedure. The physical status of the patient was re-assessed after the procedure. After I obtained informed consent, the scope was passed under direct vision. Throughout the procedure, the patient's blood pressure, pulse, and oxygen saturations were monitored continuously. The Colonoscope was introduced through the anus and advanced to the terminal ileum. The colonoscopy was performed without difficulty. The patient tolerated the procedure well. The quality of the bowel preparation was adequate. The terminal ileum, ileocecal valve, appendiceal orifice, and rectum were photographed. Scope In: 7:48:17 AM Scope Withdrawal Time 0 hours 11 minutes 14 seconds Scope Out: 8:06:23 AM Total Procedure Duration Time 0 hours 18 minutes 6 seconds Findings: Hemorrhoids were found on perianal exam. An area of mildly congested mucosa was found in the recto-sigmoid colon, in the sigmoid colon and in the descending colon. Biopsies were taken with a cold forceps for histology. Verification of patient identification for the specimen was done. Estimated blood loss was minimal. Multiple small-mouthed diverticula were found in the recto-sigmoid colon and sigmoid colon. Two sessile polyps were found in the splenic flexure and hepatic flexure. The polyps were 6 mm in size. These polyps were removed with a jumbo cold forceps. Resection and retrieval were complete. Verification of patient identification for the specimen was done. Estimated blood loss was minimal. Four medium-sized angiodysplastic lesions without bleeding were found in the sigmoid colon, in the descending colon, in the transverse colon and at the hepatic flexure. There was a large lipoma, in the ascending colon. Impression: - Hemorrhoids found on perianal exam. - Congested mucosa in the recto-sigmoid colon, in the sigmoid colon and in the descending colon. Biopsied. - Diverticulosis in the recto-sigmoid colon and in the sigmoid colon. - Two 6 mm polyps at the splenic flexure and at the hepatic flexure, removed with a jumbo cold forceps. Resected and retrieved. - Four non-bleeding colonic angiodysplastic lesions. Recommendation: - Discharge patient to home. - Resume previous diet. - Continue present medications. - Await pathology results. - Repeat colonoscopy in 5 years for surveillance. Procedure Code(s): --- Professional --- 82043, Colonoscopy, flexible; with biopsy, single or multiple CPT copyright 2021 [employer]. All rights reserved. The codes documented in this report are preliminary and upon food or baggage handling rampman review may be revised to meet current compliance requirements. Kevin Desir DO 06/29/2025 8:21:16 AM This report has been signed electronically. Number of Addenda: 0 Note Initiated On: 06/29/2025 7:29 AM
--- NOTE | 2025-06-29 12:05 | PCM.POSTANE2 ---
Anesthesia Postop Eval I Sum Postop Eval Completion status Anesthesia document: Postop Eval 1 completed: Yes Anesthesia Postop Eval I Summary Anesthesia Postop Eval I Summary: Anesthesia Postop Eval I: Assessment Summary Airway patent Yes 06/29/25 08:19 [email or web address] Spontaneous unlabored Yes 06/29/25 08:19 [email or web address] respirations Mental status Awake,Calm 06/29/25 08:19 [email or web address] nausea No 06/29/25 08:19 [email or web address] Vomiting No 06/29/25 08:19 [email or web address] Anesthesia Postop Eval I: Fluid Summary Crystalloid volume administer 500 06/29/25 08:19 [email or web address] (ml) Colloids volume administered ( ml) Blood Product volume administered (ml) Total IV fluid infused 500 06/29/25 08:19 [email or web address] Anesthesia Postop Eval I: Summary Notes Anesthesia Complication No 06/29/25 08:19 [email or web address] Anesthesia Complication Comment: Post-operative progress note Anesthesia: Postop Eval II Evaluation Mental status: Awake and Calm Pain Level: 0 nausea: No Vomiting: No Complications Anesthesia Complication: No
== END 2025-06-29 08:49 | disposition home or self-care (01) ==
LOC: EN 06:55 → AC 06:56
PROVIDERS: PCP Family Medicine Geriatric Medicine; Referring Provider Family Medicine Geriatric Medicine; Visit Provider Internal Medicine Gastroenterology
PROC: 0DJD8ZZ Inspection of Lower Intestinal Tract, Via Natural or Artificial Opening Endoscopic (ICD-10-PCS; CPT 45378; principal; 2025-06-29 07:55)
DX: K59.00 Constipation, unspecified (principal); K63.5 Polyp of colon; K64.9 Unspecified hemorrhoids; E78.00 Pure hypercholesterolemia, unspecified; K57.30 Diverticulosis of large intestine without perforation or abscess without bleeding; R74.8 Abnormal levels of other serum enzymes; I10 Essential (primary) hypertension; Z90.49 Acquired absence of other specified parts of digestive tract; K21.9 Gastro-esophageal reflux disease without esophagitis; G47.33 Obstructive sleep apnea (adult) (pediatric); Z99.89 Dependence on other enabling machines and devices; Z79.899 Other long term (current) drug therapy; Z98.51 Tubal ligation status; R10.32 Left lower quadrant pain; K55.20 Angiodysplasia of colon without hemorrhage
CPT/HCPCS: 45380; 88305; J2405

== ENCOUNTER → 2025-09-18 | Outpatient (CLI) | payer MEDICARE, MEDICAID, SELFPAY ==
--- NOTE | 2025-09-18 17:23 | RAD_ITS ---
PROCEDURE: CHEST PA AND LATERAL 09/18/2025 REASON FOR EXAM: SHORTNESS OF BREATH TECHNIQUE: Procedure Code: RADCXR Modality: DX Procedure: CHEST PA AND LATERAL FINDINGS: No focal consolidation. No pleural effusion or pneumothorax. Cardiac silhouette is within normal limits. No acute fractures. Cervical ACDF RAD/Chest PA and Lateral IMPRESSION: No focal consolidations. Reading Location: [id number]
== END | disposition home or self-care (01) ==
PROVIDERS: PCP Family Medicine Geriatric Medicine; Visit Provider Family Medicine Geriatric Medicine
DX: J32.9 Chronic sinusitis, unspecified (principal); J98.8 Other specified respiratory disorders; R05.9 Cough, unspecified; R06.2 Wheezing; R68.83 Chills (without fever)
CPT/HCPCS: 71046; 87631

== ENCOUNTER → 2025-09-19 | Outpatient (CLI) | payer MEDICARE, MEDICAID, SELFPAY ==
[2025-09-19 14:10] LABS: Hematocrit 41.0 % (37-47); Hemoglobin 13.6 g/dL (12.0-15.0); Immature Granulocytes Count 0.060 X10^3/uL (0.0-0.0); Mean Corp Hgb Conc 33.2 g/dL (32-36); Mean Corpuscular Volume 95.8 fL (81-99); Mean Platelet Vol. 9.7 fl (6.2-12.0); NRBC Flagged by Analyzer 0 % (0-5); Platelet Count 301 K/mm3 (150-450); RBC Distribution Width CV 12.6 % (11.6-14.6); RBC Distribution Width SD 44.5 fl (35.1-43.9); Red Blood Count 4.28 M/mm3 (4.2-5.4); White Blood Count 14.6 K/mm3 (4.4-11.0)
[2025-09-19 15:42] LABS: AST(SGOT) 67 U/L (<=31); Alanine Aminotransfer ALT/SGPT 59 U/L (<=34); Albumin, Serum 4.4 g/dL (3.4-4.8); Alkaline Phosphatase 97 U/L (35-104); Anion Gap 15 (7-18); BUN 13 mg/dL (4-19); BUN/Creat Ratio 14.9 RATIO (10-20); Calcium,Total 11.1 mg/dL (7.6-11.0); Carbon Dioxide 23.5 mmol/L (20.0-29.0); Chloride 102 mmol/L (96-106); Globulin 3.3 g/dL (2.2-4.2); Glucose 202 mg/dL (70-99); Potassium 3.9 mmol/L (3.5-5.1); Vitamin D,25 Hydroxy 72.3 ng/mL (30-100)
[2025-09-19 22:01] LABS: Xtra Tube Kwok EXTRA TUBE
== END | disposition home or self-care (01) ==
LOC: POLAB3 14:00
PROVIDERS: PCP Family Medicine Geriatric Medicine; Visit Provider Family Medicine Geriatric Medicine
DX: E55.9 Vitamin D deficiency, unspecified (principal); I10 Essential (primary) hypertension
CPT/HCPCS: 36415; 80053; 82306; 84443; 85025